=== PATIENT | female | born 1955 | race Caucasian/White ===

== ENCOUNTER 2019-12-19 14:51 | Outpatient (CLI) | payer BC, SELFPAY ==
--- NOTE | 2019-12-19 14:59 | MM_ITS ---
WS: [id number] BILATERAL DIGITAL SCREENING MAMMOGRAPHY WITH CAD CLINICAL INFORMATION: SCREENING HISTORY: Screening mammogram. No current complaints. COMPARISON: TECHNIQUE: Bilateral CC and MLO views. FINDINGS: Scattered fibroglandular densities bilaterally. Stable 5 mm asymmetric density upper outer right [address]. This is stable since 2014. No suspicious focal mass, asymmetry, calcifications, or architectural distortion. No evidence of malignancy. MM/[place] [id number] IMPRESSION: BI-RADS: 2-Benign FOLLOW UP: 1 Year Follow-up Recommend return to annual screening mammography.
== END 2019-12-19 14:52 | disposition home or self-care (01) ==
LOC: RADSHAW 14:55
PROVIDERS: Family Provider Internal Medicine; PCP Internal Medicine; Visit Provider Internal Medicine
DX: Z12.31 Encounter for screening mammogram for malignant neoplasm of breast (principal)
CPT/HCPCS: 77067

== ENCOUNTER 2019-12-19 15:31 | Outpatient (CLI) | payer BC, SELFPAY ==
--- NOTE | 2019-12-19 15:39 | XR_ITS ---
WS: [id number] DEXA (DUAL ENERGY X-RAY ABSORPTIOMETRY) Bone mineral density was performed using a [employer] machine. HISTORY: ASYMPTOMATIC POSTMENOPAUSAL STATUS COMPARISON: None available. Lumbar spine BMD (L1-L4): 1.120 g/cm2 T score: -0.5 Z score: 1.1 Total hip BMD: Left: 0.823 g/cm2. T score: -1.5 Z score: -0.2 Right: 0.789 g/cm2. T score: -1.7 Z score: -0.5 10 year probability of a major osteoporotic fracture is 20%. XR/XR DEXA axial skeleton* [id number] IMPRESSION: OSTEOPENIA based upon the WHO classification for females.
== END 2019-12-19 15:32 | disposition home or self-care (01) ==
LOC: RADWPI 15:35
PROVIDERS: Family Provider Internal Medicine; PCP Internal Medicine; Visit Provider Internal Medicine
DX: Z78.0 Asymptomatic menopausal state (principal); M85.80 Other specified disorders of bone density and structure, unspecified site
CPT/HCPCS: 77080

== ENCOUNTER → 2020-04-11 12:01 | Outpatient (BNVA) | payer BC, SELFPAY | PROVIDERS: Family Provider Internal Medicine; PCP Internal Medicine; Visit Provider Internal Medicine Rheumatology | DX: L93.0 Discoid lupus erythematosus (principal); L93.2 Other local lupus erythematosus; R76.8 Other specified abnormal immunological findings in serum; Z79.899 Other long term (current) drug therapy; S05.92XD Unspecified injury of left eye and orbit, subsequent encounter; M19.91 Primary osteoarthritis, unspecified site; X58.XXXD Exposure to other specified factors, subsequent encounter | CPT/HCPCS: 99214 ==

== ENCOUNTER → 2020-10-14 11:00 | Outpatient (BNVA) | payer BC, MEDICARE, SELFPAY | PROVIDERS: Family Provider Internal Medicine; PCP Internal Medicine; Visit Provider Internal Medicine Rheumatology | DX: L93.2 Other local lupus erythematosus (principal); R76.8 Other specified abnormal immunological findings in serum; M19.91 Primary osteoarthritis, unspecified site; S05.92XS Unspecified injury of left eye and orbit, sequela; L93.0 Discoid lupus erythematosus | CPT/HCPCS: 99213 ==

== ENCOUNTER 2020-12-25 08:44 | Outpatient (CLI) | payer BC, SELFPAY ==
--- NOTE | 2020-12-25 08:49 | MM_ITS ---
WS: [id number] BILATERAL SCREENING DIGITAL MAMMOGRAM WITH CAD HISTORY: SCREENING COMPARISON: 12/19/2019 and 11/23/2018 Bilateral CC and MLO views submitted. Computer aided detection analyzed. Breast composition: There are scattered areas of fibroglandular density. No suspicious masses, microc alcifications or architectural distortion. No suspicious masses or calcifications. Asymmetry in the R IGHT breast seen on the prior mammogram of 12/19/2019 has nearly completely resolved. MM/[place] [id number] IMPRESSION: BI-RADS: 2-Benign FOLLOW UP: 1 Year Follow-up
== END 2020-12-25 08:45 | disposition home or self-care (01) ==
LOC: RADSHAW 08:46
PROVIDERS: PCP Internal Medicine; Visit Provider Internal Medicine
DX: Z12.31 Encounter for screening mammogram for malignant neoplasm of breast (principal)
CPT/HCPCS: 77067

== ENCOUNTER 2021-01-13 08:30 | Outpatient (CLI) | payer BC, SELFPAY ==
--- NOTE | 2021-01-13 08:33 | US_ITS ---
WS: [id number] ULTRASOUND THYROID TECHNIQUE: Ultrasound of the thyroid. CLINICAL INFORMATION: HYPOTHYROIDISM COMPARISON: None. FINDINGS: Thyroid: Right and left thyroid lobes are normal in size with heterogeneous echotexture Multiple solid right thyroid nodules the largest measuring 9.6 x 9.5 x 7.5 mm is well circumscribed w ith hypoechoic halo. Additional ovoid solid nodule measuring 13 x 5 x 10 mm. Subcentimeter calcified nodule. No dominant left thyroid nodules. Right thyroid lobe: 4.2 cm x 1.5 cm x 1.9 cm Left thyroid lobe: 4.0 cm x 1.3 cm x 1.5 cm. Isthmus: 0.3 mm. Cervical lymphadenopathy: None. US/US thyroid [id number] IMPRESSION: 1. Heterogeneous thyroid echotexture bilaterally. 2. Several right-sided nodules the 2 largest described above. 3. 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 Recommend further evaluation with FNA. 4. No notable left thyroid nodules.
== END 2021-01-13 08:31 | disposition home or self-care (01) ==
LOC: US 08:30
PROVIDERS: PCP Internal Medicine; Visit Provider Internal Medicine
DX: E03.9 Hypothyroidism, unspecified (principal); E04.2 Nontoxic multinodular goiter
CPT/HCPCS: 76536

== ENCOUNTER → 2021-04-29 15:31 | Outpatient (BNVA) | payer MEDICARE, SELFPAY | PROVIDERS: PCP Internal Medicine; Visit Provider Internal Medicine Rheumatology | DX: L93.2 Other local lupus erythematosus (principal); L93.0 Discoid lupus erythematosus; M19.91 Primary osteoarthritis, unspecified site; S05.92XD Unspecified injury of left eye and orbit, subsequent encounter; Y93.9 Activity, unspecified | CPT/HCPCS: 99214 ==

== ENCOUNTER 2021-10-15 11:06 | Emergency (ER) | payer MEDICARE, SELFPAY ==
[2021-10-15 11:18] VITALS: BP 197/95; PULSE 77; RESP 16; TEMP 36.9; O2SAT 98
--- NOTE | 2021-10-15 11:25 | W.ED.GENADLT ---
HPI - General Adult General: Chief complaint: General Medical Stated complaint: HTN: SENT BY DR GARCIA Time Seen by Provider: 10/15/21 11:23 History of Present Illness: HPI narrative: CC: Elevated BP HPI: [66]yo patient w/ x SLE well controlled presenting to the ED with complaints that his BP is not well controlled. Patient had a blood pressure reading of 205/104 and was told to go the ER. However, the patient noticed today BP is uncontrolled. Denies chest pain, SOB, palpitation, N/V/D, pain radiating to the shoulder, headache, vision changes, LOC, or focal neurological deficits. Patient also denies light-headedness, syncope, vertigo abdominal pain, back pain. Tolerating PO meds without issues. Of note patient reported intermittent palpitations over the last 3 weeks. Currently no complaints of palpitations. Onset: 3 day Duration: ongoing Location: home Severity: mild Review of Systems Narrative: Constitutional: No fever, no chills. HEENT: No vision changes CV: No chest pain, +occcasional palpitations last 3 weeks PULM: No cough, no dyspnea. GI: No abdominal pain, no N/V/D. : No dysuria MSKEL: No edema SKIN: No new rashes, no lesions. NEURO: No headache, no focal weakness. 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 Surgical History H/O dilation and curettage H/O eye surgery 1955 H/O lumpectomy benign H/O: hysterectomy Family History Mother Hyperlipidemia Hypertension Sister Breast cancer late 30's Father Lung cancer Denies family history of Colon cancer Ovarian cancer Diabetes CAD (coronary artery disease) Clotting disorder Heart disease Anesthesia complication Bleeding disorder Uterine cancer Thyroid condition Stroke Social History Smoking and tobacco status: never smoked Alcohol intake: never Lives independently: No Marital status: Number of children: 2 Physical Exam Narrative: EXAM NARRATIVE: Head: Atraumatic Eyes: PERRL, conjunctiva without injection, ENT: Dry membrane moist NECK: Supple without lymphadenopathy LUNGS: LCTAB CV: RRR ABDOMEN: Soft, nontender EXTREMITY: Normal ROM, No track craven, moderate tremulous movements in the UE SKIN: No rash or erythema, no visible patches, no noticeable cellulitis NEURO: Mental status? Awake, alert, and oriented to self, year, month, location, and situation.? Following simple axial and appendicular commands.? Has appropriate fund of knowledge, comprehension, and insight.? Able to recall and understands pertinent aspects of medical history and current treatment status.? ? Language? Speech is fluent without word-finding difficulties.? Intact naming, expression, medical records receptionist, and repetition.? ? Cranial nerves? 2,3,4,6: PERRL, EOMI with no nystagmus. 5: Intact sensation to light touch, symmetric? 7: Smile symmetrical, no facial droop.? 8: Hearing grossly intact.? 9,10: Normal palate movement.? 11: Normal strength in trapezius bilaterally 12: Tongue protrudes midline.? ? Motor examination? Normal bulk & tone. Strength as follows (R/L): Delts (5/5), Biceps (5/5), Triceps (5/5), Wrist ext (5/5), hip flexors (5/5), plantarflexors (5/5), dorsiflexors (5/5). ? Sensation? Light Touch: Grossly intact and equal in upper and lower extremities bilaterally? Romberg: Negative.? Distal joint position sense intact ? Coordination? Oymgdp-kt-pgxd-finger movements intact without dysmetria or past-pointing.? Rapid fingertaps: preserved amplitude without decriment.? No tremor, myoclonus or truncal ataxia.? ? Gait/stance? Steady, normal narrow base gait with appropriate arm swing and turning.? Tandem gait without hesitation or loss of balance. PSYCH: Cooperative with exam Course Vital Signs: Vital signs: Vital Signs Temperature 98.5 F 10/15/21 11:18 Pulse Rate 79 10/15/21 14:15 Respiratory Rate 17 10/15/21 14:15 Blood Pressure 156/68 10/15/21 14:15 Pulse Oximetry 99 10/15/21 14:15 MDM - General Adult MDM Narrative: Medical decision making narrative: [66]yo patient w/ hx of SLE presenting to the ED with high BP readings x 1 day without other medical complaints. BP in the ED of 197/105. Rest of exam including full neuro exam intact. Given presentation, history and exam, I do not suspect aortic dissection, hypertensive encephalopathy, intracranial hemorrhage, ACS, TIA/CVA, flash pulmonary edema. Intervention: Amlodipine 5mg [1:15pm] On reassessment, BP improved. Patient continues to be symptom-free at this time. Do not suspect an emergent cause. Discussed with the patient the importance of logging BPs and following up with his PCP for adjustment of BP if BP continues to be persistently high. Given return instructions. Given palpitations, EKG was performed which showed no signs of afib. Rx: Amlodipine 5mg QDaily x 7 days Based on history, exam, vital signs, and work up (as indicated) I do not suspect an ongoing emergent medical condition, and I believe the patient is safe for discharge and outpatient follow-up. The plan of care was discussed with the patient and all questions were answered. The patient agrees with the plan of care and is discharged in stable condition with verbal and written instructions, and verbalized understanding and ability to comply. I discussed the diagnosis and treatment plan at length with the patient. The patient understands signs and symptoms (including those which are new or worsening) which should prompt return to the ED. The patient is to seek prompt outpatient follow-up as noted verbally and/or in the discharge instructions. At the time of discharge the patient is well-appearing, well-hydrated, non-toxic, and assures appropriate follow-up as an outpatient. Lab Data: Labs: Lab Results 10/15/21 10/15/21 12:03 12:03 WBC 4.5 10^3/uL 10^3/ uL (4.0-10.0) RBC 4.14 10^6/uL 10^6 /uL (4.1-5.3) Hgb 12.7 g/dL g/dL (11.5-15.3) Hct 38.8 % % (37.0-47.0) MCV 93.7 fl fl (81-99) MCH 30.7 pg pg (28.0-34.0) MCHC 32.7 g/dL g/dL (30.0-36.0) RDW 13.6 % % (12.1-15.1) Plt Count 259 10^3/cmm 10^3 /cmm (130-400) MPV 9.0 fL fL (7.4-10.4) Neut % (Auto) 69.3 % % Lymph % (Auto) 17.7 % % [place]ides % (Auto) 10.6 % % Eos % (Auto) 1.8 % % Baso % (Auto) 0.2 % % Neut # (Auto) 3.12 10^3/uL 10^3 /uL (1.8-7.7) Lymph # (Auto) 0.8 10^3/uL 10^3/ uL (0.8-4.8) [place] # (Auto) 0.5 10^3/uL 10^3/ uL (0.2-0.9) Eos # (Auto) 0.1 10^3/uL 10^3/ uL (0.0-0.8) Baso # (Auto) 0.0 10^3/uL 10^3/ uL (0.0-0.1) Nucleated RBC % (a uto) 0 % % Nucleated RBCs # 0.0 /100WBC /100W BC Sodium 139 mmol/L mmol/L (136-145) Potassium 3.8 mmol/L mmol/L (3.5-5.1) Chloride 104 mmol/L mmol/L (98-107) Carbon Dioxide 20 mmol/L L mmol/ L (22-29) Anion Gap 18.8 (5-19) BUN 10 mg/dL mg/dL (8-23) Creatinine 0.7 mg/dL mg/dL (0.5-0.9) GFR Calculation 83.2 mL/min L mL/ min (90-130) Glucose 95 mg/dL mg/dL (65-115) Calculated Osmolal ity 287 mOsm/kg mOsm/ kg (285-295) Calcium 8.7 mg/dL mg/dL (8.5-10.5) Discharge Plan Discharge Patient Disposition: Home Clinical Impression: Hypertension Condition: Stable Prescriptions: New amlodipine 5 mg tablet 5 mg PO DAILY Qty: 10 RF: 0 No Action pantoprazole 40 mg tablet,delayed release (DR/EC) 40 mg PO DAILY RF: 0 timolol maleate 0.25 % drops 1 drop ophthalmic (eye) DAILY RF: 0 cholecalciferol (vitamin D3) 25 mcg (1,000 unit) capsule 25 mcg PO DAILY RF: 0 clobetasol 0.025 % cream 1 applic TOPICAL BID PRN (Reason: joint pain) Qty: 60 RF: 0 prednisone 10 mg tablet See Rx Instructions PO .COMPLEX PRN (Reason: joint pain) Qty: 30 RF: 1 Discharge Orders: Discharge ED (Routine); Ordered 10/15/21 Ordered By: Niurka Acuña Referrals: Ora Garcia MD [Primary Care Provider] - Discharge Diet: Advance as tolerated Discharge Activity: Resume usual activity Patient Instructions: Hypertension (ED) Activity Restrictions/Additional Instructions: You need to follow-up with your primary care provider for further adjustment of your blood pressure. Your blood pressure puts you at risk for developing strokes and heart attack. Therefore it is very important for you to follow-up with this number to see if the numbers improve gradually. Because blood pressure adjustment is a gradual process, it swill change it in 1 visit. Therefore please log your blood pressure and follow-up with your primary care provider in the next 72 hours for further adjustment of your blood pressures. Take your medicine as instructed. Coding Level of Care Code ED Plastic Fabricator for Lisa Peace
[2021-10-15] MEDS: amlodipine 5 mg Tablet PO (12:10)
[2021-10-15 12:11] VITALS: BP 190/90; PULSE 81; RESP 17; O2SAT 94
[2021-10-15 12:23] LABS: Basophils % 0.2 %; Eosinophils # 0.1 10^3/uL (0.0-0.8); Eosinophils % 1.8 %; Hematocrit 38.8 % (37.0-47.0); Hemoglobin 12.7 g/dL (11.5-15.3); Lymphocytes # 0.8 10^3/uL (0.8-4.8); Lymphocytes % 17.7 %; Mean Corpuscular HGB Conc 32.7 g/dL (30.0-36.0); Mean Corpuscular Hemoglobin 30.7 pg (28.0-34.0); Mean Corpuscular Volume 93.7 fl (81-99); Monocytes # 0.5 10^3/uL (0.2-0.9); Monocytes % 10.6 %; Neutrophils # 3.12 10^3/uL (1.8-7.7); Neutrophils % 69.3 %; Nucleated Red Blood Cells % 0 %; Platelet Count 259 10^3/cmm (130-400); Red Blood Count 4.14 10^6/uL (4.1-5.3); Red Cell Distribution Width 13.6 % (12.1-15.1); White Blood Count 4.5 10^3/uL (4.0-10.0)
--- NOTE | 2021-10-15 12:36 | ECG_ITS ---
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
[2021-10-15 12:44] LABS: Anion Gap 18.8 (5-19); Blood Urea Nitrogen 10 mg/dL (8-23); Calcium 8.7 mg/dL (8.5-10.5); Carbon Dioxide 20 mmol/L (22-29); Chloride 104 mmol/L (98-107); Glomerular Filtration Rate 83.2 mL/min (90-130); Glucose 95 mg/dL (65-115); Osmolality Calculated 287 mOsm/kg (285-295); Potassium 3.8 mmol/L (3.5-5.1); Sodium 139 mmol/L (136-145)
[2021-10-15 12:54] VITALS: BP 169/71
[2021-10-15 14:15] VITALS: BP 156/68; PULSE 79; RESP 17; O2SAT 99
== END 2021-10-15 14:17 | disposition home or self-care (01) ==
PROVIDERS: Emergency Provider Emergency Medicine; PCP Internal Medicine
DX: I10 Essential (primary) hypertension (principal); M32.9 Systemic lupus erythematosus, unspecified
CPT/HCPCS: 80048; 85025; 93005; 99283

== ENCOUNTER 2021-10-16 22:04 | Emergency (ER) | payer MEDICARE, SELFPAY ==
[2021-10-16 22:15] VITALS: BP 188/100; PULSE 83; RESP 16; TEMP 36.2; O2SAT 99
--- NOTE | 2021-10-16 22:59 | ECG_ITS ---
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1955 Requested By: Thuan Singh Order Number: [id number] Reading MD: ANASTASIA PALACIOS Measurements Intervals [place] Rate: 114 P: [place]: QRS: 75 QRSD: 88 T: 48 QT: 327 QTc: 452 Interpretive Statements ATRIAL FIBRILLATION WITH RAPID VENTRICULAR RESPONSE NONSPECIFIC ST & T-WAVE ABNORMALITY ABNORMAL RHYTHM ECG Compared to ECG 10/15/2021 13:23:32 T-wave abnormality now present Sinus rhythm no longer present Ventricular premature complex(es) no longer present Electronically Signed On 10-18-2021 19:59:14 SIMULATION DEVELOPER by ANASTASIA PALACIOS [id number]
--- NOTE | 2021-10-16 22:59 | XRR_ITS ---
PROCEDURE INFORMATION: Exam: XR Chest Exam date and time: 10/16/2021 10:59 PM Age: 66 years old Clinical indication: Chest wall pain; Additional info: Cp TECHNIQUE: Imaging protocol: XR of the chest. Views: 1 view. COMPARISON: CR Chest 1 [place] [id number] 07/23/2015 11:05 AM FINDINGS: Lungs: Moderate severity emphysema. No focal airspace consolidation. Mild hyperinflation pattern. Pleural spaces: Unremarkable. No pleural effusion. No pneumothorax. Heart/Mediastinum: Unremarkable. No cardiomegaly. Bones/joints: Unremarkable. XR/XR chest 1V portable [id number] IMPRESSION: No acute chest abnormality identified.
--- NOTE | 2021-10-16 23:09 | ED_ITS ---
Documented by User: APPLE Gonzalez 10/17/21 01:38 HPI - Chest Pain General: Chief Complaint: Chest Pain Stated Complaint: Heart Palpatations\Blood Pressure Time Seen by Provider: 10/16/21 22:57 History of Present Illness: HPI narrative: Patient relates that her blood pressure is doing well throughout the day and then should her heart start racing and she checked her heart be got up to 140 beats a minute she checked it 3-4 ti mes and it was between 120-140. Doing much better now. Blood pressure readings were good. Patient says she is going to a lot of stress and anxiety also in her life right now. Denies any recent health problems. Says she does feel short of breath sometimes was happen once but she denies any chest pain chest heaviness. No history of hypertension prior to last night. Onset (ago): hour(s) Timing of current episode: episodic Prior episodes: No Onset: during rest Associated symptoms: Reports no associated symptoms and palpitations; Deny abdominal pain, dyspnea, fever(s), nausea or vomiting Treatment prior to arrival: none Review of Systems Const: Denies: fever(s), chills or body aches Eyes: Denies: change in vision or blurry vision ENMT: Denies: throat pain or nasal congestion Card: Reports: palpitations; Denies: chest pain or dyspnea on exertion Resp: Denies: dyspnea, productive cough or non-productive cough GI: Denies: abdominal pain, nausea or vomiting Musc: Denies: extremity pain Skin/Breast: Denies: rash Neuro: Denies: headache(s) Psych: Denies: anxiety or depression Loki/Lymph: Denies: easy bruising PFSH ED PFSH: Medical History Cutaneous lupus erythematosus Discoid lupus erythematosus Medication monitoring encounter Osteoarthritis Systemic lupus erythematosus, unspecified 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 Surgical History H/O dilation and curettage H/O eye surgery 1955 H/O lumpectomy benign H/O: hysterectomy Family History Mother Hyperlipidemia Hypertension Sister Breast cancer late 30's Father Lung cancer Denies family history of Colon cancer Ovarian cancer Diabetes CAD (coronary artery disease) Clotting disorder Heart disease Anesthesia complication Bleeding disorder Uterine cancer Thyroid condition Stroke Social History Smoking and tobacco status: never smoked Alcohol intake: never Lives independently: No Marital status: Number of children: 2 Physical Exam Const: COMMON NORMALS: no acute distress, average body habitus and patient oriented x3 HENMT: COMMON NORMALS: normocephalic HEAD & SCALP: normal to inspection and normocephalic FACE & SINUS: normal facial exam Eye: COMMON NORMALS: conjunctivae normal GENERAL EYE: appearance normal, both eyes and all related structures CONJUNCTIVA: Yes conjunctivae normal Neck/C-Spine: COMMON NORMALS: no JVD Chest: COMMONS NORMALS: normal inspection of the chest Resp: COMMON NORMALS: normal respiratory effort and clear to auscultation bilaterally AUSCULTATION: clear to auscultation bilaterally Cardio: COMMON NORMALS: no JVD, regular rate and regular rhythm RATE: regular rate RHYTHM: regular rhythm GI: COMMON NORMALS: Normal to inspection, nondistended, normoactive bowel sounds present Extremity: COMMON NORMALS: normal to inspection and full ROM Neuro: COMMON NORMALS: patient oriented x3 Course Vital Signs: Vital signs: Vital Signs Temperature 97.1 F L 10/16/21 22:15 Pulse Rate 88 10/17/21 00:42 Respiratory Rate 18 10/17/21 00:42 Blood Pressure 133/78 10/17/21 00:42 Pulse Oximetry 98 10/17/21 00:42 MDM - Chest Pain MDM Narrative: Medical decision making narrative: Patient presents tonight with palpitations. Heart rate got up to 140 bpm at home and was in in 120s 130s and 110s at times. Blood pressure been doing good throughout the day. Yellow bit higher tonight patient comes in because of palpations. Patient denies chest pressure heaviness. Patient had 3 EKGs done here 1 did show atrial fib. Patient's heart rate did get up to 112 bpm. Labs done tonight compared with last night's show consistency with troponin not been elevated. Patient was placed on metoprolol 50 mg extended release. Patient was also given lisinopril 10 mg here. Patient's amlodipine was stopped. Patient does have appointment scheduled with her PCP on Tuesday. Patient was also given aspirin total continue daily aspirin take medication as directed . case was discussed with Dr. Archuleta, patient diagnosed with new onset A. fib Lab Data: Labs: Lab Results 10/16/21 10/16/21 10/16/21 23:40 23:40 23:40 WBC 6.6 10^3/uL 10^3/ uL (4.0-10.0) RBC 3.97 10^6/uL L 10 ^6/uL (4.1-5.3) Hgb 12.4 g/dL g/dL (11.5-15.3) Hct 37.0 % % (37.0-47.0) MCV 93.2 fl fl (81-99) MCH 31.2 pg pg (28.0-34.0) MCHC 33.5 g/dL g/dL (30.0-36.0) RDW 13.7 % % (12.1-15.1) Plt Count 253 10^3/cmm 10^3 /cmm (130-400) MPV 9.1 fL fL (7.4-10.4) Neut % (Auto) 66.4 % % Lymph % (Auto) 17.6 % % [place] % (Auto) 13.4 % % Eos % (Auto) 2.1 % % Baso % (Auto) 0.2 % % Neut # (Auto) 4.40 10^3/uL 10^3 /uL (1.8-7.7) Lymph # (Auto) 1.2 10^3/uL 10^3/ uL (0.8-4.8) [place] # (Auto) 0.9 10^3/uL 10^3/ uL (0.2-0.9) Eos # (Auto) 0.1 10^3/uL 10^3/ uL (0.0-0.8) Baso # (Auto) 0.0 10^3/uL 10^3/ uL (0.0-0.1) Nucleated RBC % (a uto) 0 % % Nucleated RBCs # 0.0 /100WBC /100W BC PT INR Sodium 140 mmol/L mmol/L (136-145) Potassium 3.7 mmol/L mmol/L (3.5-5.1) Chloride 106 mmol/L mmol/L (98-107) Carbon Dioxide 18 mmol/L L mmol/ L (22-29) Anion Gap 19.7 H (5-19) BUN 11 mg/dL mg/dL (8-23) Creatinine 0.7 mg/dL mg/dL (0.5-0.9) GFR Calculation 83.2 mL/min L mL/ min (90-130) Glucose 113 mg/dL mg/dL (65-115) Calculated Osmolal ity 290 mOsm/kg mOsm/ kg (285-295) Calcium 8.7 mg/dL mg/dL (8.5-10.5) Total Bilirubin 0.2 mg/dL mg/dL (0.15-1.2) AST 18 U/L U/L (0-32) ALT 9 U/L U/L (0-33) Alkaline Phosphata se 87 IU/L IU/L (35-105) Troponin T Baselin e 9 ng/L ng/L (0-10) Total Protein 7.6 g/dL g/dL (6.6-8.7) Albumin 4.2 g/dL g/dL (3.5-5.2) Globulin 3.4 g/dL g/dL (1.3-4.6) 10/17/21 00:05 WBC RBC Hgb Hct MCV MCH MCHC RDW Plt Count MPV Neut % (Auto) Lymph % (Auto) [place] % (Auto) Eos % (Auto) Baso % (Auto) Neut # (Auto) Lymph # (Auto) [place] # (Auto) Eos # (Auto) Baso # (Auto) Nucleated RBC % (a uto) Nucleated RBCs # PT 12.50 SECONDS SEC ONDS (12.1-14.9) INR 0.91 (0.8-1.2) Sodium Potassium Chloride Carbon Dioxide Anion Gap BUN Creatinine GFR Calculation Glucose Calculated Osmolal ity Calcium Total Bilirubin AST ALT Alkaline Phosphata se Troponin T Baselin e Total Protein Albumin Globulin EKG Data^: EKG 2: EKG interpretation date: 10/16/21 EKG interpretation time: 23:30 Computer generated interpretation: A. fib with rapid ventricular response. Ventricular rate 114 bpm no LA interval obviously QRS duration 88 ms QT is 327 ms Discharge Plan Discharge Patient Disposition: Home Clinical Impression: Atrial fibrillation, new onset, Situational anxiety Condition: Stable Prescriptions: New Toprol XL 50 mg tablet extended release 24 hr 50 mg PO DAILY Qty: 20 RF: 0 Xanax 0.25 mg tablet 0.125 mg PO TID PRN (Reason: anxiety) Qty: 20 RF: 0 Discontinued amlodipine 5 mg tablet 5 mg PO DAILY Qty: 10 RF: 0 No Action pantoprazole 40 mg tablet,delayed release (DR/EC) 40 mg PO DAILY RF: 0 timolol maleate 0.25 % drops 1 drop ophthalmic (eye) DAILY RF: 0 cholecalciferol (vitamin D3) 25 mcg (1,000 unit) capsule 25 mcg PO DAILY RF: 0 clobetasol 0.025 % cream 1 applic TOPICAL BID PRN (Reason: joint pain) Qty: 60 RF: 0 prednisone 10 mg tablet See Rx Instructions PO .COMPLEX PRN (Reason: joint pain) Qty: 30 RF: 1 Discharge Orders: Discharge ED (Routine); Ordered 10/17/21 Ordered By: Thuan Singh Referrals: Ora Ricks MD [Primary Care Provider] - Discharge Diet: Usual diet Discharge Activity: Increase activity as tolerated Patient Instructions: A-fib (Atrial Fibrillation) (ED), Anxiety (ED) Activity Restrictions/Additional Instructions: Follow-up with medical provider as directed. Take medications as prescribed. Return to the ER or your medical provider if condition worsens. Please read and understand discharge instructions. If any questions ask please. Keep medical appointment on Tuesday. Check blood pressure twice daily. Return the ER if symptoms worsen. Make sure you take 1 full dose aspirin daily. 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 Surgical History H/O dilation and curettage H/O eye surgery 1955 H/O lumpectomy benign H/O: hysterectomy Family History Mother Hyperlipidemia Hypertension Sister Breast cancer late 30's Father Lung cancer Denies family history of Colon cancer Ovarian cancer Diabetes CAD (coronary artery disease) Clotting disorder Heart disease Anesthesia complication Bleeding disorder Uterine cancer Thyroid condition Stroke Social History Smoking and tobacco status: never smoked Alcohol intake: never Lives independently: No Marital status: Number of children: 2 Course Vital Signs: Vital signs: Vital Signs Temperature 97.1 F L 10/16/21 22:15 Pulse Rate 88 10/17/21 00:42 Respiratory Rate 18 10/17/21 00:42 Blood Pressure 133/78 10/17/21 00:42 Pulse Oximetry 98 10/17/21 00:42 MDM - Chest Pain MDM Narrative: Medical decision making narrative: This patient was originally seen by APPLE Gonzalez. I agree with his history, evaluation, and treatment. Lab Data: Labs: Lab Results 10/16/21 10/16/21 10/16/21 23:40 23:40 23:40 WBC 6.6 10^3/uL 10^3/ uL (4.0-10.0) RBC 3.97 10^6/uL L 10 ^6/uL (4.1-5.3) Hgb 12.4 g/dL g/dL (11.5-15.3) Hct 37.0 % % (37.0-47.0) MCV 93.2 fl fl (81-99) MCH 31.2 pg pg (28.0-34.0) MCHC 33.5 g/dL g/dL (30.0-36.0) RDW 13.7 % % (12.1-15.1) Plt Count 253 10^3/cmm 10^3 /cmm (130-400) MPV 9.1 fL fL (7.4-10.4) Neut % (Auto) 66.4 % % Lymph % (Auto) 17.6 % % [place] % (Auto) 13.4 % % Eos % (Auto) 2.1 % % Baso % (Auto) 0.2 % % Neut # (Auto) 4.40 10^3/uL 10^3 /uL (1.8-7.7) Lymph # (Auto) 1.2 10^3/uL 10^3/ uL (0.8-4.8) [place] # (Auto) 0.9 10^3/uL 10^3/ uL (0.2-0.9) Eos # (Auto) 0.1 10^3/uL 10^3/ uL (0.0-0.8) Baso # (Auto) 0.0 10^3/uL 10^3/ uL (0.0-0.1) Nucleated RBC % (a uto) 0 % % Nucleated RBCs # 0.0 /100WBC /100W BC PT INR Sodium 140 mmol/L mmol/L (136-145) Potassium 3.7 mmol/L mmol/L (3.5-5.1) Chloride 106 mmol/L mmol/L (98-107) Carbon Dioxide 18 mmol/L L mmol/ L (22-29) Anion Gap 19.7 H (5-19) BUN 11 mg/dL mg/dL (8-23) Creatinine 0.7 mg/dL mg/dL (0.5-0.9) GFR Calculation 83.2 mL/min L mL/ min (90-130) Glucose 113 mg/dL mg/dL (65-115) Calculated Osmolal ity 290 mOsm/kg mOsm/ kg (285-295) Calcium 8.7 mg/dL mg/dL (8.5-10.5) Total Bilirubin 0.2 mg/dL mg/dL (0.15-1.2) AST 18 U/L U/L (0-32) ALT 9 U/L U/L (0-33) Alkaline Phosphata se 87 IU/L IU/L (35-105) Troponin T Baselin e 9 ng/L ng/L (0-10) Total Protein 7.6 g/dL g/dL (6.6-8.7) Albumin 4.2 g/dL g/dL (3.5-5.2) Globulin 3.4 g/dL g/dL (1.3-4.6) 10/17/21 00:05 WBC RBC Hgb Hct MCV MCH MCHC RDW Plt Count MPV Neut % (Auto) Lymph % (Auto) [place] % (Auto) Eos % (Auto) Baso % (Auto) Neut # (Auto) Lymph # (Auto) [place] # (Auto) Eos # (Auto) Baso # (Auto) Nucleated RBC % (a uto) Nucleated RBCs # PT 12.50 SECONDS SEC ONDS (12.1-14.9) INR 0.91 (0.8-1.2) Sodium Potassium Chloride Carbon Dioxide Anion Gap BUN Creatinine GFR Calculation Glucose Calculated Osmolal ity Calcium Total Bilirubin AST ALT Alkaline Phosphata se Troponin T Baselin e Total Protein Albumin Globulin Discharge Plan Discharge Patient Disposition: Home Clinical Impression: Atrial fibrillation, new onset, Situational anxiety Condition: Stable Prescriptions: New Toprol XL 50 mg tablet extended release 24 hr 50 mg PO DAILY Qty: 20 RF: 0 Xanax 0.25 mg tablet 0.125 mg PO TID PRN (Reason: anxiety) Qty: 20 RF: 0 Discontinued amlodipine 5 mg tablet 5 mg PO DAILY Qty: 10 RF: 0 No Action pantoprazole 40 mg tablet,delayed release (DR/EC) 40 mg PO DAILY RF: 0 timolol maleate 0.25 % drops 1 drop ophthalmic (eye) DAILY RF: 0 cholecalciferol (vitamin D3) 25 mcg (1,000 unit) capsule 25 mcg PO DAILY RF: 0 clobetasol 0.025 % cream 1 applic TOPICAL BID PRN (Reason: joint pain) Qty: 60 RF: 0 prednisone 10 mg tablet See Rx Instructions PO .COMPLEX PRN (Reason: joint pain) Qty: 30 RF: 1 Discharge Orders: Discharge ED (Routine); Ordered 10/17/21 Ordered By: Thuan Singh Referrals: Ora Ricks MD [Primary Care Provider] - Discharge Diet: Usual diet Discharge Activity: Increase activity as tolerated Patient Instructions: A-fib (Atrial Fibrillation) (ED), Anxiety (ED) Activity Restrictions/Additional Instructions: Follow-up with medical provider as directed. Take medications as prescribed. Return to the ER or your medical provider if condition worsens. Please read and understand discharge instructions. If any questions ask please. Keep medical appointment on Tuesday. Check blood pressure twice daily. Return the ER if symptoms worsen. Make sure you take 1 full dose aspirin daily. Coding Level of Care Code ED Ostomy Rn for Lisa Peace Exam Comprehensive
[2021-10-16] MEDS: lisinopril 10 mg Tablet PO (23:30)
[2021-10-16] MEDS: ALPRAZolam 0.5 mg Tablet PO (23:30)
[2021-10-16 23:48] LABS: Basophils % 0.2 %; Eosinophils # 0.1 10^3/uL (0.0-0.8); Eosinophils % 2.1 %; Hemoglobin 12.4 g/dL (11.5-15.3); Lymphocytes # 1.2 10^3/uL (0.8-4.8); Lymphocytes % 17.6 %; Mean Corpuscular HGB Conc 33.5 g/dL (30.0-36.0); Mean Corpuscular Hemoglobin 31.2 pg (28.0-34.0); Mean Corpuscular Volume 93.2 fl (81-99); Mean Platelet Volume 9.1 fL (7.4-10.4); Monocytes # 0.9 10^3/uL (0.2-0.9); Monocytes % 13.4 %; Neutrophils % 66.4 %; Nucleated Red Blood Cells % 0 %; Platelet Count 253 10^3/cmm (130-400); Red Blood Count 3.97 10^6/uL (4.1-5.3); Red Cell Distribution Width 13.7 % (12.1-15.1); White Blood Count 6.6 10^3/uL (4.0-10.0)
[2021-10-17 00:06] LABS: Troponin(5th) Baseline 9 ng/L (0-10)
[2021-10-17 00:07] LABS: Alanine Aminotransferase 9 U/L (0-33); Albumin Level 4.2 g/dL (3.5-5.2); Alkaline Phosphatase 87 IU/L (35-105); Aspartate Amino Transferase 18 U/L (0-32); Blood Urea Nitrogen 11 mg/dL (8-23); Calcium 8.7 mg/dL (8.5-10.5); Carbon Dioxide 18 mmol/L (22-29); Chloride 106 mmol/L (98-107); Globulin 3.4 g/dL (1.3-4.6); Glomerular Filtration Rate 83.2 mL/min (90-130); Glucose 113 mg/dL (65-115); Osmolality Calculated 290 mOsm/kg (285-295); Sodium 140 mmol/L (136-145); Total Bilirubin 0.2 mg/dL (0.15-1.2); Total Protein 7.6 g/dL (6.6-8.7)
[2021-10-17 00:08] LABS: Anion Gap 19.7 (5-19)
[2021-10-17 00:09] LABS: Potassium 3.7 mmol/L (3.5-5.1)
[2021-10-17 00:21] LABS: INR 0.91 (0.8-1.2)
[2021-10-17] MEDS: metoprolol succinate ER (24 HR) 50 mg Tablet PO (00:32)
[2021-10-17] MEDS: aspirin 325 mg Tablet PO (00:32)
[2021-10-17 00:42] VITALS: BP 133/78; PULSE 88; RESP 18; O2SAT 98
--- NOTE | 2021-10-17 00:59 | ECG_ITS ---
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
== END 2021-10-17 00:45 | disposition home or self-care (01) ==
PROVIDERS: Emergency Provider Nurse Practitioner Family; PCP Internal Medicine
DX: I48.91 Unspecified atrial fibrillation (principal); F43.22 Adjustment disorder with anxiety
CPT/HCPCS: 71045; 80053; 84484; 85025; 85610; 93005; 99283

== ENCOUNTER → 2021-11-25 11:08 | Outpatient (BNVA) | payer MEDICARE, SELFPAY | PROVIDERS: PCP Internal Medicine; Visit Provider Internal Medicine Rheumatology | DX: L93.0 Discoid lupus erythematosus (principal); L93.2 Other local lupus erythematosus; M15.9 Polyosteoarthritis, unspecified; Z79.899 Other long term (current) drug therapy; F51.04 Psychophysiologic insomnia | CPT/HCPCS: 99214 ==

== ENCOUNTER 2022-01-18 09:51 | Outpatient (CLI) | payer MEDICARE, SELFPAY ==
--- NOTE | 2022-01-18 10:03 | MM_ITS ---
WS: [id number] BILATERAL 3D TOMOSYNTHESIS DIGITAL SCREENING MAMMOGRAPHY WITH CAD CLINICAL INFORMATION: SCREENING HISTORY: Screening mammogram. No current complaints. COMPARISON: December 25, 2020 TECHNIQUE: Bilateral CC and MLO views. FINDINGS: Scattered fibroglandular densities bilaterally. Vascular calcification. 5 mm ovoid nodule upper outer RIGHT breast with a few punctate calcifications is stable compared to 2019 and 2014. LEFT breast is unchanged and unremarkable. A few incidental punctate calcifications LEFT breast. No o ther significant findings. MM/[id number] IMPRESSION: BI-RADS: 2-Benign FOLLOW UP: 1 Year Follow-up Recommend return to annual screening mammography.
== END 2022-01-18 09:52 | disposition home or self-care (01) ==
PROVIDERS: PCP Internal Medicine; Visit Provider Internal Medicine
DX: Z12.31 Encounter for screening mammogram for malignant neoplasm of breast (principal)
CPT/HCPCS: 77063; 77067

== ENCOUNTER 2022-01-20 06:09 | Outpatient (CLI) | payer MEDICARE, SELFPAY ==
--- NOTE | 2022-01-20 | USCV_ITS ---
Milvia Coyne Age: 66 Gender: F : 1955 Exam Date: 01/20/2022 06:40 Ordering Phys: Jaspreet Davis MD Technologist: Exam Location: [facility] [place] Indication: sob BP: 124 / 62 HR: Rhythm: Sinus Technical Quality: Adequate MEASUREMENTS (Male / Female) Normal Values 2D ECHO LV Diastolic Diameter PLAX 4.3 cm 4.2 - 5.9 / 3.9 - 5.3 cm LV Systolic Diameter PLAX 2.6 cm IVS Diastolic Thickness 0.9 cm 0.6 - 1.0 / 0.6 - 0.9 cm IVS Systolic Thickness 1.4 cm LVPW Diastolic Thickness 1.1 cm 0.6 - 1.0 / 0.6 - 0.9 cm LVPW Systolic Thickness 1.6 cm LVOT Diameter 2.1 cm LV Ejection Fraction 2D Teich 71.1 % LV Ejection Fraction MOD 2C 72.4 % LV Ejection Fraction 2C AL 76.0 % LA Diameter 3.6 cm LA Width 4.1 cm LA Height 4.8 cm Aorta at Sinotubular Diameter 2.6 cm M-MODE Aortic Annulus Diameter 2.7 cm LA Ao Ratio MM 1.5 MV E Point Septal Separation 0.7 cm DOPPLER AV Peak Velocity 138.0 cm/s LVOT Peak Velocity 93.0 cm/s AV Area Cont Eq vti 2.3 cm squared AV Area Cont Eq pk 2.3 cm squared MV Area PHT 4.8 cm squared Mitral E to A Ratio 1.5 MV E' Velocity 54.5 cm/s Mitral E to MV E' Ratio 7.7 Mitral E to LV E' Lateral Ratio 7.7 Mitral E to LV E' Septal Ratio 7.8 TR Peak Velocity 263.0 cm/s TR Peak Gradient 27.7 mmHg TV Peak E Velocity 105.0 cm/s Right Atrial Pressure 3.0 mmHg Pulmonary Artery Systolic Pressu 30.7 mmHg PV Peak Velocity 93.0 cm/s FINDINGS Left Ventricle Normal left ventricular size. LV systolic function is normal with EF of 55-60%. No regional wall motion abnormalities. Normal diastolic filling pattern. Right Ventricle The right ventricle is normal in size and function. Right Atrium The right atrium is normal in size. Normal RA pressure Left Atrium The left atrium is normal in size. Mitral Valve Structurally normal mitral valve without significant stenosis or prolapse. There is mild mitral regurgitation. Aortic Valve Structurally normal aortic valve without significant sclerosis or stenosis. There is no aortic regurgitation. Tricuspid Valve Structurally normal tricuspid valve without significant stenosis. Mild tricuspid regurgitation. Pulmonary artery systolic pressure is normal. Pulmonic Valve Structurally normal pulmonic valve without significant stenosis. There is no pulmonic regurgitation. Pericardium Normal pericardium without effusion. Aorta Normal ascending aorta dimension. CONCLUSIONS LV systolic function is normal with EF 55 to 60% Normal diastolic function. Mild mitral regurgitation. Mild tricuspid regurgitation. No comparison studies are noted. Akhil Hurt MD (Electronically Signed) Final Date: 21 January 2022 06:45 S
== END 2022-01-20 06:10 | disposition home or self-care (01) ==
LOC: RAD 06:14
PROVIDERS: PCP Internal Medicine; Visit Provider Internal Medicine Cardiovascular Disease
DX: R06.02 Shortness of breath (principal); I08.1 Rheumatic disorders of both mitral and tricuspid valves
CPT/HCPCS: 93306

== ENCOUNTER → 2022-05-25 10:37 | Outpatient (BNVA) | payer MEDICARE, SELFPAY | PROVIDERS: PCP Internal Medicine; Visit Provider Internal Medicine Rheumatology | DX: L93.0 Discoid lupus erythematosus (principal); M15.9 Polyosteoarthritis, unspecified; Z79.899 Other long term (current) drug therapy; F51.04 Psychophysiologic insomnia; H54.50 Low vision, one eye, unspecified eye; S05.92XS Unspecified injury of left eye and orbit, sequela | CPT/HCPCS: 99214 ==

== ENCOUNTER 2022-08-04 12:59 | Outpatient (CLI) | payer MEDICARE, SELFPAY ==
--- NOTE | 2022-08-04 13:14 | XRR_ITS ---
PROCEDURE INFORMATION: Exam: XR Left Knee Exam date and time: 08/04/2022 1:15 PM Age: 67 years old Clinical indication: Pain and injury or trauma; Blunt trauma; Injury date: Month ago; Injury details: Fall on left knee; Patient HX: Pain lt knee (patella); Additional info: L knee pain TECHNIQUE: Imaging protocol: Radiologic exam of the Left knee. Views: 3 views. COMPARISON: CR XR ankle LT min 3V* [id number] 06/11/2019 3:17 PM FINDINGS: Bones/joints: Probable osteopenia. Minimal tibial spine spurring. No acute fracture or subluxation or joint effusion. Well preserved joint spaces on this nonweightbearing exam. Soft tissues: Normal. Other findings: Three views submitted. Arterial calcifications. XR/XR knee LT 3V* [id number] IMPRESSION: No acute findings.
== END 2022-08-04 13:00 | disposition home or self-care (01) ==
PROVIDERS: PCP Internal Medicine; Visit Provider Nurse Practitioner Family
DX: M25.562 Pain in left knee (principal)
CPT/HCPCS: 73562

== ENCOUNTER 2023-01-25 09:05 | Outpatient (CLI) | payer MEDICARE, SELFPAY ==
--- NOTE | 2023-01-25 09:29 | MM_ITS ---
WS: [id number] VIEWS: MLO and CC views both breasts. 3D digital tomosynthesis is also included in this exam. Comparison made with prior exam of 06/17/2016, 11/21/2017, 11/23/2018, 12/19/2019, 12/25/2020.. Findings: There was no sign of mass, architectural distortion or suspicious calcification in either breast. Sc attered fibroglandular densities throughout both breasts. MM/[place] [id number] Impression: BI-RADS: 2-Benign FOLLOW-UP: 1 Year Follow-up This mammogram was also analyzed by the Computer Aided Detection System R2 Imag e Inside Sales Representative.
== END 2023-01-25 09:06 | disposition home or self-care (01) ==
LOC: RAD 09:13
PROVIDERS: PCP Internal Medicine; Visit Provider Internal Medicine
DX: Z12.31 Encounter for screening mammogram for malignant neoplasm of breast (principal)
CPT/HCPCS: 77063; 77067

== ENCOUNTER 2023-04-18 14:54 | Outpatient (CLI) | payer MEDICARE, SELFPAY ==
--- NOTE | 2023-04-18 15:01 | XR_ITS ---
WS: [id number] SCREENING DEXA SCAN [employer] CLINICAL INFORMATION: OSTEOPOROSIS COMPARISON: December 19, 2019 FINDINGS: The L1-L4 bone mineral density measures 1.296 g/cm2. This corresponds to a T score score of 1.0 and Z score of 2.5. Left femoral neck bone mineral density measures 0.871 g/cm2. This corresponds to a T score of -1.1 an d Z score of 0.2. Right femoral neck bone mineral density measures 0.821 g/cm2. This corresponds to a T score -1.5of an d Z score of -0.2. Mean femoral neck bone mineral density measures 0.846 g/cm2. This corresponds to a T score of -1.3 an d Z score of 0.0. XR/XR DEXA axial skeleton* [id number] IMPRESSION: Normal bone mineralization lumbar spine. Osteopenia femoral necks Patient's FRAX calculated 10 year probability for major osteoporotic fracture i s 20.8 % and osteoporotic hip fracture is 4.6%. Bone mineral density lumbar spine increased 15.7% since 2019 Bone mineral density femoral necks increased 5.0% since 2019
== END 2023-04-18 14:55 | disposition home or self-care (01) ==
PROVIDERS: PCP Internal Medicine; Visit Provider Internal Medicine
DX: Z13.820 Encounter for screening for osteoporosis (principal); M81.0 Age-related osteoporosis without current pathological fracture; M85.852 Other specified disorders of bone density and structure, left thigh; M85.851 Other specified disorders of bone density and structure, right thigh
CPT/HCPCS: 77080

== ENCOUNTER → 2023-05-30 10:42 | Outpatient (BNVA) | payer MEDICARE, SELFPAY | PROVIDERS: PCP Internal Medicine; Visit Provider Internal Medicine Rheumatology | DX: L93.0 Discoid lupus erythematosus (principal); L93.2 Other local lupus erythematosus; M19.91 Primary osteoarthritis, unspecified site | CPT/HCPCS: 99214 ==

== ENCOUNTER 2024-01-05 20:52 | Emergency (ER) | payer MEDICARE, SELFPAY ==
[2024-01-05 20:53] VITALS: BP 183/86; PULSE 68; RESP 14; TEMP 36.6; O2SAT 98
--- NOTE | 2024-01-05 21:32 | XRR_ITS ---
PROCEDURE INFORMATION: Exam: XR Chest Exam date and time: 01/05/2024 9:52 PM Age: 68 years old Clinical indication: Prior surgery; Surgery date: 6+ months; Surgery type: Lumpectomy; Patient HX: C/O palpitations with tachycardia TECHNIQUE: Imaging protocol: Radiologic exam of the chest. Views: 1 view. COMPARISON: CR XR chest 1V portable [id number] 10/16/2021 11:13 PM FINDINGS: Lungs: Unremarkable. No consolidation. Pleural spaces: Unremarkable. No pleural effusion. No pneumothorax. Heart/Mediastinum: Unremarkable. No cardiomegaly. Bones/joints: Mild degenerative changes. No fracture. XR/XR chest 1V portable [id number] IMPRESSION: No acute findings.
--- NOTE | 2024-01-05 21:41 | ED_ITS ---
HPI - Arrhythmia/Palpitations 2 General: Chief Complaint: Arrhythmia/Palpitations Stated Complaint: high bp, heart fluttering Time Seen by Provider: 01/05/24 21:32 History of Present Illness: Patient presents to the ER with complaints of high blood pressure and palpitations. Patient states this been going on for over a week. Patient actually saw her PCP today who told her to keep a blood pressure log and was planning on setting up her heart monitor. When patient got home she noticed her blood pressure was higher and she kept going up so then she decided to come in to be checked out sooner than later. Patient does take metoprolol 50 mg daily her blood pressure. Upon arrival patient's blood pressure was 183/86. 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 Systemic lupus erythematosus, unspecified Medication monitoring encounter Osteoarthritis Cutaneous lupus erythematosus in remission Surgical History H/O: hysterectomy H/O dilation and curettage H/O lumpectomy benign H/O eye surgery 1955 Family History Mother Hyperlipidemia Hypertension Sister Breast cancer late 30's Father Lung cancer Denies family history of Colon cancer Ovarian cancer Diabetes CAD (coronary artery disease) Clotting disorder Heart disease Anesthesia complication Bleeding disorder Uterine cancer Thyroid disease Stroke Social History Smoking and tobacco/nicotine status: never used tobacco/nicotine Alcohol intake: never Substance/Drug Use: never Lives independently: No Marital status: Number of children: 2 Physical Exam 2 Const: COMMON NORMALS: no acute distress, average body habitus, patient oriented x3, no limitations, healthy appearing, alert and well nourished HENMT: COMMON NORMALS: normocephalic, atraumatic, hearing grossly normal bilaterally, external ears normal, Normal external nose present, moist oral mucous membranes and oropharynx normal HEAD & SCALP: normocephalic and atraumatic NOSE: Normal external nose present EXTERNAL EAR: Yes external ears normal Neck/C-Spine: COMMON NORMALS: full ROM, no lymphadenopathy, supple, no meningeal signs, no JVD and Thyroid normal THYROID: Thyroid normal Chest: COMMONS NORMALS: normal inspection of the chest and normal palpation of entire chest wall Resp: COMMON NORMALS: normal respiratory effort, No retractions, No use of accessory muscles and clear to auscultation bilaterally AUSCULTATION: clear to auscultation bilaterally Cardio: COMMON NORMALS: no JVD, regular rate, regular rhythm, S1 normal heart sound present, S2 normal heart sound present, No gallops present (Cardio), No clicks present (Cardio), No murmurs present (Cardio) and No rub (Cardio) R ATE: regular rate RHYTHM: regular rhythm HEART SOUNDS: S1 normal heart sound present and S2 normal heart sound present Neuro: COMMON NORMALS: patient oriented x3 SENSORIUM/ORIENTATION: Yes alert MENINGEAL SIGNS: Yes no meningeal signs Course 2 Vital Signs: Vital signs: Vital Signs Temperature 98 F 01/05/24 20:53 Pulse Rate 78 01/06/24 00:46 Respiratory Rate 14 01/05/24 20:53 Blood Pressure 142/77 01/06/24 00:46 Pulse Oximetry 99 01/06/24 00:46 Oxygen Delivery Me thod Room Air 01/06/24 00:18 MDM - Arrhythmia/Palpitations Medical Decision Making Patient was worked up in normal cardiac fashion with serial EKGs, enzymes and chest x-ray. All of which was essentially benign. EKG did show multiple PVCs. These results was discussed with the patient who says her family practice doctors are already trying to get her Holter monitor and set her up with a claim review medical director. Patient be discharged from the ER. Differential Diagnosis Likely palpitations Medical Records I reviewed the patient's medical records. Lab Data I reviewed the patient's lab results. 01/05/24 21:40 01/05/24 21:40 Radiology Impressions Chest X-Ray 01/05/24 21:32 IMPRESSION: No acute findings. Laboratory Results WBC 4.80 10^3/uL (3.29-11.43) 01/05/24 21:40 RBC 3.94 10^6/uL (3.85-5.65) 01/05/24 21:40 Hgb 12.30 g/dL (11.27-16.99) 01/05/24 21:40 Hct 37.4 % (36-47) 01/05/24 21:40 MCV 94.9 fl (85-98) 01/05/24 21:40 MCH 31.2 pg (27-33) 01/05/24 21:40 MCHC 32.9 g/dL (30-55) 01/05/24 21:40 RDW 14.1 % (12.1-15.1) 01/05/24 21:40 Plt Count 237 10^3/cmm (157-399) 01/05/24 21:40 MPV 8.7 fL (7.4-10.4) 01/05/24 21:40 Neut % (Auto) 53.9 % 01/05/24 21:40 Lymph % (Auto) 30.4 % 01/05/24 21:40 Ida % (Auto) 14.0 % 01/05/24 21:40 Eos % (Auto) 1.3 % 01/05/24 21:40 Baso % (Auto) 0.2 % 01/05/24 21:40 Neut # (Auto) 2.59 10^3/uL (1.8-7.7) 01/05/24 21:40 Lymph # (Auto) 1.5 10^3/uL (0.8-4.8) 01/05/24 21:40 Ida # (Auto) 0.7 10^3/uL (0.2-0.9) 01/05/24 21:40 Eos # (Auto) 0.1 10^3/uL (0.0-0.8) 01/05/24 21:40 Baso # (Auto) 0.0 10^3/uL (0.0-0.1) 01/05/24 21:40 Nucleated RBC % (auto) 0 % 01/05/24 21:40 Nucleated RBCs # 0.0 /100WBC 01/05/24 21:40 Sodium 142 mmol/L (136-145) 01/05/24 21:40 Potassium 3.8 mmol/L (3.5-5.1) 01/05/24 21:40 Chloride 107 mmol/L (98-107) 01/05/24 21:40 Carbon Dioxide 22 mmol/L (22-29) 01/05/24 21:40 Anion Gap 16.8 (5-19) 01/05/24 21:40 BUN 10 mg/dL (8-23) 01/05/24 21:40 Creatinine 0.7 mg/dL (0.5-0.9) 01/05/24 21:40 GFR Calculation 82.7 mL/min (90-130) L 01/05/24 21:40 Glucose 93 mg/dL (65-115) 01/05/24 21:40 Calculated Osmolality 293 mOsm/kg (285-295) 01/05/24 21:40 Calcium 9.2 mg/dL (8.5-10.5) 01/05/24 21:40 Magnesium 2.3 mg/dL (1.7-2.3) 01/05/24 21:40 Total Bilirubin 0.4 mg/dL (0.15-1.2) 01/05/24 21:40 AST 19 U/L (0-32) 01/05/24 21:40 ALT 9 U/L (0-33) 01/05/24 21:40 Alkaline Phosphatase 97 U/L (35-105) 01/05/24 21:40 Troponin T Baseline < 6 ng/L (0-10) 01/05/24 21:40 Troponin T 120 Minute 8.28 ng/L (0-10) 01/05/24 23:43 Delta Troponin T 2.46897 ABS# (0-10) 01/05/24 23:43 Total Protein 8.1 g/dL (6.6-8.7) 01/05/24 21:40 Albumin 4.4 g/dL (3.5-5.2) 01/05/24 21:40 Globulin 3.7 g/dL (1.3-4.6) 01/05/24 21:40 TSH 4.96 uIU/mL (0.27-4.20) H 01/05/24 21:40 All radiology interpretation(s) finalized by discharge EKG Data EKG 2: I personally reviewed and interpreted this EKG as follows: EKG interpretation date: 01/05/24 EKG interpretation time: 23:46 Prior EKG tracings: available for review Interpretation: Ventricular rate 62 beats minute, W[place] interval 161, QRS duration 94, QTc of 433, sinus rhythm occasional PVC Other EKG comments: Chest X-Ray 01/05/24 21:32 IMPRESSION: No acute findings. Discharge Plan Discharge Patient Disposition: Home Clinical Impression: Heart palpitations Hypertension Qualifiers: Hypertension type: unspecified Qualified Code(s): I10 - Essential (primary) hypertension Condition: Stable Prescriptions: No Action pantoprazole 40 mg tablet,delayed release (DR/EC) 40 mg PO DAILY timolol maleate 0.25 % drops 1 drop ophthalmic (eye) DAILY cholecalciferol (vitamin D3) 25 mcg (1,000 unit) capsule 25 mcg PO DAILY alendronate [Fosamax] 70 mg tablet 70 mg PO .Q7days levothyroxine 75 mcg capsule 75 mcg PO DAILY clobetasol 0.05 % cream 1 applic topical DAILY PRN Toprol XL 50 mg tablet extended release 24 hr 50 mg PO DAILY Qty: 20 0RF Discharge Orders: Discharge ED (Routine); Ordered 01/06/24 Ordered By: Maurisio Caballero Referrals: Ora Ricks MD [Primary Care Provider] - Patient Instructions: Hypertension, Heart Palpitations (DC) Activity Restrictions/Additional Instructions: Your workup in ER did show your palpitations as PVCs or preventricular contractions usually these are benign in nature. Please continue to follow-up with your PCP and get a Holter monitor and blood pressure log as previously talked about. They may also want to refer you to a claim review medical director for further evaluation testing. Coding Level of Care Code ED Social Media Strategist for Lisa Peace
[2024-01-05 21:45] LABS: Basophils % 0.2 %; Eosinophils # 0.1 10^3/uL (0.0-0.8); Eosinophils % 1.3 %; Hematocrit 37.4 % (36-47); Lymphocytes # 1.5 10^3/uL (0.8-4.8); Lymphocytes % 30.4 %; Mean Corpuscular HGB Conc 32.9 g/dL (30-55); Mean Corpuscular Hemoglobin 31.2 pg (27-33); Mean Corpuscular Volume 94.9 fl (85-98); Mean Platelet Volume 8.7 fL (7.4-10.4); Monocytes # 0.7 10^3/uL (0.2-0.9); Neutrophils # 2.59 10^3/uL (1.8-7.7); Neutrophils % 53.9 %; Nucleated Red Blood Cells % 0 %; Platelet Count 237 10^3/cmm (157-399); Red Blood Count 3.94 10^6/uL (3.85-5.65); Red Cell Distribution Width 14.1 % (12.1-15.1)
[2024-01-05 22:05] LABS: Troponin(5th) Baseline < 6 ng/L (0-10)
[2024-01-05 22:15] LABS: Alanine Aminotransferase 9 U/L (0-33); Albumin Level 4.4 g/dL (3.5-5.2); Alkaline Phosphatase 97 U/L (35-105); Anion Gap 16.8 (5-19); Aspartate Amino Transferase 19 U/L (0-32); Blood Urea Nitrogen 10 mg/dL (8-23); Calcium 9.2 mg/dL (8.5-10.5); Carbon Dioxide 22 mmol/L (22-29); Chloride 107 mmol/L (98-107); Creatinine Clr Calc Pharmacy 63.6286; Globulin 3.7 g/dL (1.3-4.6); Glomerular Filtration Rate 82.7 mL/min (90-130); Glucose 93 mg/dL (65-115); Magnesium 2.3 mg/dL (1.7-2.3); Osmolality Calculated 293 mOsm/kg (285-295); Potassium 3.8 mmol/L (3.5-5.1); Sodium 142 mmol/L (136-145); Thyroid Stimulating Hormone 4.96 uIU/mL (0.27-4.20); Total Protein 8.1 g/dL (6.6-8.7)
[2024-01-05 22:28] VITALS: BP 166/77; PULSE 67; O2SAT 97
[2024-01-05 23:15] VITALS: BP 151/81; PULSE 63; O2SAT 97
[2024-01-05 23:30] VITALS: BP 170/76; PULSE 69; O2SAT 99
[2024-01-05 23:33] LABS: Total Bilirubin 0.4 mg/dL (0.15-1.2)
--- NOTE | 2024-01-06 | ECG_ITS ---
[facility] Test Date: 2024-01-05 Pat Name: Milvia Coyne Department: Room: Gender: Female Net Programmer Analyst: : 1955 Requested By: Maurisio Caballero Order Number: [id number] Aidan MD: Kasia Monroe M.D. Measurements Intervals Elroy Rate: 62 P: 72 MS: 161 QRS: 61 QRSD: 94 T: 37 QT: 427 QTc: 436 Interpretive Statements SINUS RHYTHM WITH FREQUENT VENTRICULAR PREMATURE COMPLEXES ABNORMAL RHYTHM ECG Compared to ECG 10/16/2021 23:29:45 Ventricular premature complex(es) now present Atrial fibrillation no longer present T-wave abnormality no longer present Electronically Signed On 01-06-2024 18:00:36 [employer]UN[employer] SPOTTER by Kasia Monroe M.D. [id number]
[2024-01-06 00:10] LABS: Troponin 5 2HR 8.28 ng/L (0-10); Troponin 5 2HR Delta 2.28001 ABS# (0-10)
[2024-01-06 00:18] VITALS: BP 167/72; PULSE 69; O2SAT 97
[2024-01-06 00:46] VITALS: BP 142/77; PULSE 78; O2SAT 99
== END 2024-01-06 00:49 | disposition home or self-care (01) ==
PROVIDERS: Emergency Provider Emergency Medicine; PCP Internal Medicine
DX: R00.2 Palpitations (principal); I10 Essential (primary) hypertension; L93.0 Discoid lupus erythematosus
CPT/HCPCS: 71045; 80053; 83735; 84443; 84484; 85025; 93005; 99285

== ENCOUNTER → 2024-01-31 12:43 | Outpatient (BNVA) | payer MEDICARE, SELFPAY | PROVIDERS: PCP Internal Medicine; Referring Provider Nurse Practitioner Family; Visit Provider Internal Medicine | DX: I49.1 Atrial premature depolarization (principal); I49.3 Ventricular premature depolarization | CPT/HCPCS: 93242 ==

== ENCOUNTER 2024-03-15 10:49 | Outpatient (CLI) | payer MEDICARE, SELFPAY ==
--- NOTE | 2024-03-15 11:07 | MM_ITS ---
WS: [id number] BILATERAL SCREENING DIGITAL TOMOSYNTHESIS MAMMOGRAM WITH CAD HISTORY: SCREENING COMPARISON: 01/25/2023, 01/18/2022 and 11/23/2018 Bilateral CC and MLO views with tomosynthesis and synthetic mammography submitted. Computer aided det ection analyzed. Breast composition: There are scattered areas of fibroglandular density. No suspicious masses, microc alcifications or architectural distortion. Linear asymmetry in the superior LEFT breast is stable. Be nign calcifications RIGHT breast. MM/[place] [id number] IMPRESSION: BI-RADS: 2-Benign FOLLOW UP: 1 Year Follow-up
== END 2024-03-15 10:50 | disposition home or self-care (01) ==
LOC: RAD 10:49
PROVIDERS: PCP Internal Medicine; Visit Provider Internal Medicine
DX: Z12.31 Encounter for screening mammogram for malignant neoplasm of breast (principal)
CPT/HCPCS: 77063; 77067

== ENCOUNTER → 2024-05-14 10:40 | Outpatient (BNVA) | payer MEDICARE, SELFPAY | PROVIDERS: PCP Internal Medicine; Visit Provider Internal Medicine Rheumatology | DX: L93.2 Other local lupus erythematosus (principal); L93.0 Discoid lupus erythematosus; M19.91 Primary osteoarthritis, unspecified site; Z79.899 Other long term (current) drug therapy; F51.04 Psychophysiologic insomnia | CPT/HCPCS: 99214 ==

== ENCOUNTER → 2024-09-24 09:45 | Outpatient (BNVA) | payer MEDICARE, SELFPAY | PROVIDERS: PCP Internal Medicine; Visit Provider Internal Medicine Rheumatology | DX: L93.2 Other local lupus erythematosus (principal); Z79.899 Other long term (current) drug therapy; L93.0 Discoid lupus erythematosus; M19.91 Primary osteoarthritis, unspecified site; M19.041 Primary osteoarthritis, right hand; M19.042 Primary osteoarthritis, left hand; M17.0 Bilateral primary osteoarthritis of knee; G47.00 Insomnia, unspecified | CPT/HCPCS: 36415; 80076; 82306; 82565; 85025; 85651; 86140; 99214 ==

== ENCOUNTER 2025-03-29 10:51 | Outpatient (CLI) | payer MEDICARE, SELFPAY ==
--- NOTE | 2025-03-29 10:58 | MM_ITS ---
WS: [id number] BILATERAL 3D TOMOSYNTHESIS DIGITAL SCREENING MAMMOGRAPHY WITH CAD CLINICAL INFORMATION: SCREENING HISTORY: Screening mammogram. No current complaints. COMPARISON: 2023 TECHNIQUE: Bilateral CC and MLO views. FINDINGS: Scattered fibroglandular densities bilaterally. No suspicious focal mass, asymmetry, calcifications, or architectural distortion. No evidence of malignancy. Vascular calcifications. Incidental dystrophic calcifications RIGHT breast MM/MM scr BI tomosynthesis [id number] IMPRESSION: DENSITY: There are scattered areas of fibroglandular density. BI-RADS: 2 - Benign. FOLLOW UP: 1 Year Follow-up Recommend return to annual screening mammography.
== END 2025-03-29 10:52 | disposition home or self-care (01) ==
LOC: RAD 10:54
PROVIDERS: PCP Internal Medicine; Visit Provider Internal Medicine
DX: Z12.31 Encounter for screening mammogram for malignant neoplasm of breast (principal); R92.323 Mammographic fibroglandular density, bilateral breasts; R92.1 Mammographic calcification found on diagnostic imaging of breast
CPT/HCPCS: 77063; 77067

== ENCOUNTER → 2025-04-08 10:36 | Outpatient (BNVA) | payer MEDICARE, OTHER, SELFPAY | PROVIDERS: PCP Internal Medicine; Visit Provider Internal Medicine Rheumatology | DX: L93.2 Other local lupus erythematosus (principal); L93.0 Discoid lupus erythematosus; M19.91 Primary osteoarthritis, unspecified site; Z79.899 Other long term (current) drug therapy; M81.0 Age-related osteoporosis without current pathological fracture | CPT/HCPCS: 36415; 80076; 82306; 82565; 85025; 85651; 86140; 99214 ==

== ENCOUNTER 2025-07-17 22:36 | Inpatient (IN) | payer MEDICARE, OTHER, SELFPAY ==
[2025-07-17 22:37] VITALS: BP 197/102; PULSE 74; RESP 16; TEMP 36.9; O2SAT 97
--- OUTSIDE RECORDS SUMMARY | 2025-07-17 22:44 | XMS_ITS | Encounter Summary ---
Author Organization [facility] Address [address] [place] [address] Care Team Providers Care Net Developer Software Engineer C Name Role Phone Ora Ricks MD Primary Care Provider +1- [phone] Encounter Details Date Type Department Care Team (Late st Contact Info) Description 08/23/2003 Outpatient Historical [facility] Medicine [place] [address] 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
--- OUTSIDE RECORDS SUMMARY | 2025-07-17 22:44 | XMS_ITS | Encounter Summary ---
Author Organization [facility] Address [address] [place] [address] Care Team Providers Care Semiconductor Package Symbol Stamper Name Role Phone Ora Ricks MD Primary Care Provider +1- [phone] Encounter Details Date Type Department Care Team (Latest Contact Info) Description 08/23/2003 Outpatient [facility] Medicine [place] 104 [facility] 60 [place] [address] Elio Salas MD [address] [address] HYPERLIPIDEMIA NEC/NOS (Primary Dx); HYPERTENSION NOS Social History Tobacco Use Types Packs/Day Years Used Date Smoking Tobacco: Never Assessed Comments Unknown Sex and Gender Information Value Date Recorded Sex Assigned at Not on file Legal Sex Female 3:07 AM RECEIVABLES SPECIALIST Gender Identity Not on file Sexual Orientation Not on file documented as of this encounter Plan of Treatment Not on file documented as of this encounter Visit Diagnoses Diagnosis Other and unspecified hyperlipidemia- Primary Unspecified essential hypertension documented in this encounter Care Teams Semiconductor Package Symbol Stamper Relationship Specialty Start Date End Date Ora Ricks MD [address] [place] [id number] PCP - General Internal Medicine 02/25/16 documented as of this encounter
--- OUTSIDE RECORDS SUMMARY | 2025-07-17 22:46 | XMS_ITS | Encounter Summary ---
Author Organization [facility] Address [address] [place] [address] Care Team Providers Care Trading Floor Operator Name Role Phone Ora Ricks MD Primary Care Provider +1- [phone] Encounter Details Date Type Department Care Team (Latest Contact Info) Description 03/04/2003 Outpatient [facility] Medicine [place] 104 [facility] 60 [place] [address] Elio Salas MD [address] [address] Gynecologic examination (Primary Dx); Cervicitis; Local superficial swellng Social History Tobacco Use Types Packs/Day Years Used Date Smoking Tobacco: Never Assessed Comments Unknown Sex and Gender Information Value Date Recorded Sex Assigned at Not on file Legal Sex Female 3:07 AM BATTERY TESTER Gender Identity Not on file Sexual Orientation Not on file documented as of this encounter Plan of Treatment Not on file documented as of this encounter Visit Diagnoses Diagnosis Gynecologic examination- Primary Gynecological examination Cervicitis Cervicitis and endocervicitis Local superficial swellng Localized superficial swelling, mass, or lump documented in this encounter Care Teams Trading Floor Operator Relationship Specialty Start Date End Date Ora Ricks MD [address] [place] [address] PCP - General Internal Medicine 02/25/16 documented as of this encounter
--- OUTSIDE RECORDS SUMMARY | 2025-07-17 22:47 | XMS_ITS | Encounter Summary ---
Author Organization [facility] Address [address] [place] [address] Care Team Providers Care White Washer Name Role Phone Ora Ricks MD Primary Care Provider +1- [phone] Encounter Details Date Type Department Care Team (Latest Contact Info) Description 12/04/2004 Outpatient [facility] Medicine [place] [address] [facility] [address] [place] [address] Elio Salas MD [address] [address] ACUTE URI NOS (Primary Dx) Social History Tobacco Use Types Packs/Day Years Used Date Smoking Tobacco: Never Assessed Comments Unknown Sex and Gender Information Value Date Recorded Sex Assigned at Not on file Legal Sex Female 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
--- OUTSIDE RECORDS SUMMARY | 2025-07-17 22:47 | XMS_ITS | Encounter Summary ---
Author Organization [facility] Address [address] [place] [address] Care Team Providers Care Director Mba Name Role Phone Ora Ricks MD Primary Care Provider +1- [phone] Encounter Details Date Type Department Care Team (Late st Contact Info) Description 03/04/2003 Outpatient Historical [facility] Medicine [address] [address] Rad Carrillo NP NO ADDRESS ON FILE Social History Tobacco Use Types Packs/Day Years Used Date Smoking Tobacco: Never Assessed Comments Unknown Sex and Gender Information Value Date Recorded Sex Assigned at Not on file Legal Sex Female 3:07 AM PUPPET MAKER Gender Identity Not on file Sexual Orientation Not on file documented as of this encounter Plan of Treatment Not on file documented as of this encounter Visit Diagnoses Not on filedocumented in this encounter Care Teams Director Mba Relationship Specialty Start Date End Date Ora Ricks MD [address] [place], [place] [address] PCP - General Internal Medicine 02/25/16 documented as of this encounter
--- NOTE | 2025-07-17 22:50 | ECG_ITS ---
[facility]: 2025-[facility]17 Pat Name: Milvia Coyne Department: Room: Gender: Female Mental Health Program Specialist: : 1955 Requested By: Jose Alejandro Gonzalez Order Number: [id number] Bermudez MD: Akhil Hurt M.D. Measurements Intervals Gable Rate: 65 P: 82 SD: 156 QRS: 82 QRSD: 90 T: 69 QT: 391 QTc: 408 Interpretive Statements SINUS RHYTHM Compared to ECG 01/05/2024 23:46:27 Ventricular premature complex(es) no longer present Electronically Signed On 07-20-2025 13:14:56 CDT by Akhil Hurt M.D. [id number] [id number]
--- OUTSIDE RECORDS SUMMARY | 2025-07-17 22:50 | XMS_ITS | Encounter Summary ---
Author Organization [facility] Address [address] [place] [address] Care Team Providers Care Industrial Health And Safety Professor Name Role Phone Ora Ricks MD Primary Care Provider +1- [phone] Encounter Details Date Type Department Care Team (Latest Contact Info) Description 04/10/2004 Outpatient [facility] Medicine [place] 104 [facility] 60 [place] [address] Elio Salas MD [address] [address] Gynecologic examination (Primary Dx); SCREENING MAL NEOP-BREAST,UNSPEC; LUMB/LUMBOSAC DISC DEGEN Social History Tobacco Use Types Packs/Day Years Used Date Smoking Tobacco: Never Assessed Comments Unknown Sex and Gender Information Value Date Recorded Sex Assigned at Not on file Legal Sex Female 3:07 AM MERCHANT SEAMAN Gender Identity Not on file Sexual Orientation Not on file documented as of this encounter Plan of Treatment Not on file documented as of this encounter Visit Diagnoses Diagnosis Gynecologic examination- Primary Gynecological examination Breast screening, unspecified Degeneration of lumbar or lumbosacral intervertebral disc documented in this encounter Care Teams Industrial Health And Safety Professor Relationship Specialty Start Date End Date Ora Ricks MD [address] [place] [address] PCP - General Internal Medicine 02/25/16 documented as of this encounter
--- OUTSIDE RECORDS SUMMARY | 2025-07-17 22:50 | XMS_ITS | Encounter Summary ---
Author Organization [facility] Address [address] [place] [address] Care Team Providers Care Community Center Worker Name Role Phone Ora Ricks MD Primary Care Provider +1- [phone] Encounter Details Date Type Department Care Team (Late st Contact Info) Description 04/10/2004 Outpatient [facility] Medicine [place] 104 [facility] [address] [place] [address] Elio Salas MD [address] [address] Social History Tobacco Use Types Packs/Day Years Used Date Smoking Tobacco: Never Assessed Comments Unknown Sex and Gender Information Value Date Recorded Sex Assigned at Not on file Legal Sex Female 3:07 AM REPLENISHMENT SPECIALIST Gender Identity Not on file Sexual Orientation Not on file documented as of this encounter Plan of Treatment Not on file documented as of this encounter Visit Diagnoses Not on filedocumented in this encounter Care Teams Community Center Worker Relationship Specialty Start Date End Date Ora Ricks MD [address] [place], [place] [address] PCP - General Internal Medicine 02/25/16 documented as of this encounter
--- OUTSIDE RECORDS SUMMARY | 2025-07-17 22:51 | XMS_ITS | Clinical Summary ---
Author Organization [facility] Address [address] Panchal: [place] [address] Care Team Providers Care Hydraulic Dredge Operator Name Role Phone Ora Ricks MD Primary Care Provider +1- [phone] Allergies No known active allergies Medications levothyroxine 75 mcg tablet Take 75 mcg by mouth daily in the morning. Active alendronate (FOSAMAX) 70 mg tablet Take 70 mg by mouth every 7 days. empty stomach before other meds,with 8oz of water, stay upright 30 min Active traZODone (DESYREL) 50 mg tablet Take 50 mg by mouth 1 time daily as needed for Insomnia. Active pantoprazole (PROTONIX) 40 mg Tablet, Delayed Release (E.C.) Take 40 mg by mouth daily. Active MULTIVITAMIN ORAL Take by mouth. Active CALCIUM-MAGNESI UM-ZINC ORAL Take by mouth. Active cholecalciferol , vitamin D3, (VITAMIN D3 ORAL) Take by mouth. Active [id number] LPV-XCLZ-VIBAOT ORAL Take by mouth. Active timoloL maleate (TIMOPTIC) 0.25% solution INSTILL 1 DROP INTO EACH EYE AT BEDTIME 07/15/2022 Active metoprolol succinate (TOPROL XL) 100 mg Extended Release 24 hour tabletIndicatio ns:Palpitations Take 1 tablet by mouth once daily 90 Tablet 3 03/20/2025 Active folic acid (FOLVITE) 1 mg tablet Take 1 Tablet by mouth daily. 03/31/2025 Active Active Problems No known active problems Encounters Date Type Department Care Team Description 07/02/2025 External Device Data STL ABSTRACTION Provider, Abstract 06/19/2025 External Device Data STL ABSTRACTION Provider, Abstract 06/05/2025 External Device Data STL ABSTRACTION Provider, Abstract 05/21/2025 3:15 PM CDT Office Visit [facility] [address] [place] [phone] Jaspreet Davis MD Palpitations (Primary Dx); PAF (paroxysmal atrial fibrillation) (CMS/HCC); Essential hypertension; Hypothyroidism, unspecified type; Discoid lupus from Last 3 Months Immunizations Immunization Administration Dates Next Due (PFIZER)(12 YR UP) COVID-19 VACCINE - EMERGENCY USE AUTHORIZATION, MRNA, [id number]) 30 MCG/0.3 ML IM SUSP 08/04/2021,12/02/2020,11/11/2020 Hepatitis B Vaccine 01/09/1998,09/09/1997,1996 INFLUENZA VACCINE INACTIVATE D ADJUV, (65 YR UP), 0.5ML (PF), IM 07/25/2024 Family History Medical History Relation Name Comments Heart Disease Neg Hx Social History Tobacco Use Types Packs/Day Years Used Date Smoking Tobacco: Never Smokeless Tobacco: Never Tobacco Cessation:Counseling Given: Not Answered Alcohol Use Standard Drinks/Week Comments No 0 (1 standard drink = 0.6 oz pur e alcohol) Feeling Safe Answer Date Recorded Are you in a relationship wi th someone who hurts you emotionally and/or physically? No 01/16/2024 Comments No Sex and Gender Information Value Date Recorded Sex Assigned at Not on file Legal Sex Female 5:27 AM TOY DESIGNER Gender Identity Not on file Sexual Orientation Not on file Last Filed Vital Signs Vital Sign Reading Time Taken Comments Blood Pressure 126/80 05/21/2025 3:00 PM CDT Pulse 77 05/21/2025 3:00 PM CDT Temperature 36.5 C (97.7 F) 01/16/2024 10:50 AM CDT Respiratory Rate 12 01/16/2024 1:00 PM CDT Oxygen Saturation 96% 05/21/2025 3:00 PM CDT Inhaled Oxygen Concentration - - Weight 70.1 kg (154 lb 9.6 oz) 05/21/2025 3:00 P M CDT Height 165.1 cm (5' 5 ) 05/21/2025 3:00 PM CDT Body Mass Index 25.73 05/21/2025 3:00 PM CDT Plan of Treatment Upcoming Encounters Date Type Department Care Team (Late st Contact Info) Description 11/21/2025 3:00 PM TOY DESIGNER Office Visit [facility] [address] [place] [address] Jaspreet Davis MD [address] [place] [address] Alberta Warren, WHEAT COMBINE DRIVER [address] [place] [phone] Health Maintenance Due Date Last Done Comments DTAP/TDAP/TD VACCINES (1 - Tdap) 1972 COLORECTAL SCREENING 1998 FIT/FOBT Q 1 year 1998 Flex Sig/CT Colonography Q 5 years 1998 PNEUMOCOCCAL VACCINE 50+ YEA RS (1 of 1 - PCV) 2003 ZOSTER VACCINE (1 of 2) 2003 BREAST CANCER SCREENING 03/15/2025 03/15/20, 01/25/2023, 01/25/2023, Additional history exists INFLUENZA VACCINE (#1) 2025 07/25/2024 COVID-19 Vaccine (4 - 2024-2 6 season) 2025 08/04/2021, 12/02/2020, 11/11/2020 Colorectal Cancer Screening 11/23/2026 FIT-DNA Q 3 years 11/23/2026 11/23/2023 OSTEOPOROSIS SCREENING 04/18/2028 04/18/2023 RSV VACCINE (60+ or ) (1 - 1-dose 75+ series) 2028 Procedures Procedure Name Priority Date/Time Associated Diagnosis Comments NC ECG ROUTINE ECG W/LEAST 12 LDS W/I&R Routine 05/21/2025 3:18 PM CDT Palpitations PAF (paroxysmal atrial fibrillation) (CMS/HCC) MAMMO 3D HARJINDER SCREEN BILAT W OR WO CAD Routine 03/15/2024 Screening mammogram for breast cancer COLON CANCER SCREEN, STOOL DNA Routine 11/23/2023 9:45 PM TOY DESIGNER Screening for colon cancer from Last 3 Months or Most Recently Relevant to Health Maintenance Results * NC ECG ROUTINE ECG W/LEAST 12 LDS W/I&R (05/21/2025 3:18 PM CDT) Narrative [facility] - 05/21/2025 3:18 PM CDT Jaspreet Davis MD 05/21/2025 3:35 PM EKG: normal sinus rhythm, frequent PVC's noted. Procedure Note Jaspreet Davis MD - 05/21/2025 3:18 PM CDT EKG: normal sinus rhythm, frequent PVC's noted. us Jaspreet Davis MD ECG ORDERABLES Final Result [facility] [id number] [address] [place] [id number], [place] [phone] * MAMMO 3D HARJINDER SCREEN BILAT W OR WO CAD (03/15/2024) Anatomical Region Laterality Modality Breast Bilateral Mammography us Jacklyn Niño MARINE TOWER OPERATOR MAMMO ORDERABLES Final Resu lt * COLON CANCER SCREEN, STOOL DNA (11/23/2023 9:45 PM TOY DESIGNER) COLOGUARD RESULT Negative Negative [employer] Comment: NEGATIVE TEST RESULT. A negative Cologuard result indicates a low likelihood that a colorectal cancer (CRC) or advanced adenoma (adenomatous polyps with more advanced pre-malignant features) is present. The chance that a person with a negative Cologuard test has a colorectal cancer is less than 1 in 1500 (negative predictive value >99.9%) or has an advanced adenoma is less than 5.3% (negative predictive value 94.7%). These data are based on a prospective cross-sectional study of 10,000 individuals at average risk for colorectal cancer who were screened with both Cologuard and colonoscopy. (Robert Chandra al, N Engl J Med 2014;370(14):7868-6920) The normal value (reference range) for this assay is negative. COLOGUARD RE-SCREENING RECOMMENDATION: Periodic colorectal cancer screening is an important part of preventive healthcare for asymptomatic individuals at average risk for colorectal cancer. Following a negative Cologuard result, the Stateless Cancer Society and U.S. Multi-Society Task Force screening guidelines recommend a Cologuard re-screening interval of 3 years. References: Stateless Cancer Society Guideline for Colorectal Cancer Screening: https://www.cancer.org/cancer/aynuh-ftkbjj-wppgyo/kpwhxvzzt-lpbdowzme-pzuijkj/ac s-rec ommendations.html.; Kamran DK, Kristina CONTRERAS, Rik LawrenceK, Colorectal Cancer Screening: Recommendations for Physicians and Patients from the U.S. Multi-Society Task Force on Colorectal Cancer Screening , Am J Gastroenterology 2017; 112:0364-4296. TEST DESCRIPTION: Composite algorithmic analysis of stool DNA-biomarkers with hemoglobin immunoassay. Quantitative values of individual biomarkers are not reportable and are not associated with individual biomarker result reference ranges. Cologuard is intended for colorectal cancer screening of adults of either sex, 45 years or older, who are at average-risk for colorectal cancer (CRC). Cologuard has been approved for use by the U.S. FDA. The performance of Cologuard was established in a cross sectional study of average-risk adults aged 50-84. Cologuard performance in patients ages 45 to 49 years was estimated by sub-group analysis of near-age groups. Colonoscopies performed for a positive result may find as the most clinically significant lesion: colorectal cancer [4.0%], advanced adenoma (including sessile serrated polyps greater than or equal to 1cm diameter) [20%] or non- advanced adenoma [31%]; or no colorectal neoplasia [45%]. These estimates are derived from a prospective cross-sectional screening study of 10,000 individuals at average risk for colorectal cancer who were screened with both Cologuard and colonoscopy. (Robert Pedraza, N Engl J Med 2014;370(14):4626-1662.) Cologuard may produce a false negative or false positive result (no colorectal cancer or precancerous polyp present at colonoscopy follow up). A negative Cologuard test result does not guarantee the absence of CRC or advanced adenoma (pre-cancer). The current Cologuard screening interval is every 3 years. (Stateless Cancer Society and U.S. Multi-Society Task Force). Cologuard performance data in a 10,000 patient pivotal study using colonoscopy as the reference method can be accessed at the following location: www.[employer]/results. Additional description of the Cologuard test process, warnings and precautions can be found at www.cologuard.com. Stool STOOL SPECIMEN / Unknown 11/23/2023 9:45 PM TOY DESIGNER 11/25/2023 2:40 PM TOY DESIGNER Jacklyn Niño MARINE TOWER OPERATOR BODY FLUIDS AND STOOLS Philly sepulveda Result [employer] CLIA # [id number] [address] [place] [address] from Last 3 Months or Most Recently Relevant to Health Maintenance Insurance MEDICARE PART A AND B [facility] [place] [id number] Care Teams Hydraulic Dredge Operator Relationship Specialty Start Date End Date Ora Ricks MD [address] [place] [address] PCP - General Internal Medicine 02/25/16
--- OUTSIDE RECORDS SUMMARY | 2025-07-17 22:51 | XMS_ITS | Encounter Summary ---
Author Organization [facility] Address [address] [place] [address] Care Team Providers Care Customer Field Representative Name Role Phone Ora Ricks MD Primary Care Provider +1- [phone] Encounter Details Date Type Department Care Team (Latest Contact Info) Description 11/25/2003 Outpatient [facility] Medicine [place] [address] [facility] [address] [place] [address] Elio Salas MD [address] [address] ACUTE BRONCHITIS (Primary Dx) Social History Tobacco Use Types Packs/Day Years Used Date Smoking Tobacco: Never Assessed Comments Unknown Sex and Gender Information Value Date Recorded Sex Assigned at Not on file Legal Sex Female 3:07 AM FUNERAL ARRANGEMENT DIRECTOR Gender Identity Not on file Sexual Orientation Not on file documented as of this encounter Plan of Treatment Not on file documented as of this encounter Visit Diagnoses Diagnosis Acute bronchitis- Primary documented in this encounter Care Teams Customer Field Representative Relationship Specialty Start Date End Date Ora Ricks MD [address] [place] [address] PCP - General Internal Medicine 02/25/16 documented as of this encounter
--- OUTSIDE RECORDS SUMMARY | 2025-07-17 22:52 | XMS_ITS | Encounter Summary ---
Author Organization [facility] Address [address] [place] [address] Care Team Providers Care Yardage Control Operator Forming Name Role Phone Ora Ricks MD Primary Care Provider +1- [phone] Reason for Visit * Reason Onset Date Comments Question 02/15/2024 Encounter Details Date Type Department Care Team (Late st Contact Info) Description 02/15/2024 Telephone [facility] [address] [place] [address] Mickey Burks MD [address] [place] [address] Question Social History Tobacco Use Types Packs/Day Years Used Date Smoking Tobacco: Never Smokeless Tobacco: Never Alcohol Use Standard Drinks/Week Comments No 0 (1 standard drink = 0.6 oz pur e alcohol) Feeling Safe Answer Date Recorded Are you in a relationship wi th someone who hurts you emotionally and/or physically? No 01/16/2024 Comments No Sex and Gender Information Value Date Recorded Sex Assigned at Not on file Legal Sex Female 5:27 AM COLD STRIP ROLLER Gender Identity Not on file Sexual Orientation Not on file documented as of this encounter Miscellaneous Notes * Telephone Encounter - Rosibel Toscano S - 02/15/2024 11:15 AM CDT Sandy (Provider) MESSAGE Pt would like to know if appt on 03/13 can be a phone visit as she is three hours away. Please adv. [facility] Case Assembler: Rosibel Toscano documented in this encounter Plan of Treatment Upcoming Encounters Date Type Department Care Team (Late st Contact Info) Description 11/21/2025 3:00 PM COLD STRIP ROLLER Office Visit [facility] [address] [place] [address] Jaspreet Davis MD [address] [place] [address] Alberta Warren, AUREA [address] [place] [address] documented as of this encounter Visit Diagnoses Not on filedocumented in this encounter Care Teams Yardage Control Operator Forming Relationship Specialty Start Date End Date Ora Ricks MD [address] [place] [address] PCP - General Internal Medicine 02/25/16 documented as of this encounter
--- OUTSIDE RECORDS SUMMARY | 2025-07-17 22:54 | XMS_ITS | Encounter Summary ---
Author Organization [facility] Address [address] [place] [address] Care Team Providers Care Staffing Director Name Role Phone Ora Ricks MD Primary Care Provider +1- [phone] Encounter Details Date Type Department Care Team (Late st Contact Info) Description 03/04/2003 Outpatient Historical [facility] Medicine [address] [phone] Rad Carrillo NP NO ADDRESS ON FILE Social History Tobacco Use Types Packs/Day Years Used Date Smoking Tobacco: Never Assessed Comments Unknown Sex and Gender Information Value Date Recorded Sex Assigned at Not on file Legal Sex Female 3:07 AM GROUP PROGRAM MANAGER Gender Identity Not on file Sexual Orientation Not on file documented as of this encounter Plan of Treatment Not on file documented as of this encounter Visit Diagnoses Not on filedocumented in this encounter Care Teams Staffing Director Relationship Specialty Start Date End Date Ora Ricks MD [address] [place], [place] [address] PCP - General Internal Medicine 02/25/16 documented as of this encounter
[2025-07-17 22:55] VITALS: BP 160/82; PULSE 70; RESP 16; O2SAT 99
--- OUTSIDE RECORDS SUMMARY | 2025-07-17 22:55 | XMS_ITS | Encounter Summary ---
Author Organization [facility] Address [address] [place] [address] Care Team Providers Care Child Welfare Assistant Name Role Phone Ora Ricks MD Primary Care Provider +1- [phone] Encounter Details Date Type Department Care Team (Latest Contact Info) Description 01/21/2003 Outpatient [facility] [address] [place] [phone] Elio Salas MD [address] [address] ACUTE BRONCHITIS (Primary Dx) Social History Tobacco Use Types Packs/Day Years Used Date Smoking Tobacco: Never Assessed Comments Unknown Sex and Gender Information Value Date Recorded Sex Assigned at Not on file Legal Sex Female 3:07 AM CLOTH WASHER OPERATOR Gender Identity Not on file Sexual Orientation Not on file documented as of this encounter Plan of Treatment Not on file documented as of this encounter Visit Diagnoses Diagnosis Acute bronchitis- Primary documented in this encounter Care Teams Child Welfare Assistant Relationship Specialty Start Date End Date Ora Ricks MD [address] [place] [address] PCP - General Internal Medicine 02/25/16 documented as of this encounter
--- OUTSIDE RECORDS SUMMARY | 2025-07-17 22:55 | XMS_ITS | Encounter Summary ---
Author Organization [facility] Address [address] [place] [address] Care Team Providers Care Daytime Caregiver Name Role Phone Ora Ricks MD Primary Care Provider +1- [phone] Encounter Details Date Type Department Care Team (Latest Contact Info) Description 08/27/2002 Outpatient [facility] Medicine [place] [address] [facility] [address] [place] [address] Elio Salas MD [address] [address] Sprain lumbar region (Primary Dx) Social History Tobacco Use Types Packs/Day Years Used Date Smoking Tobacco: Never Assessed Comments Unknown Sex and Gender Information Value Date Recorded Sex Assigned at Not on file Legal Sex Female 3:07 AM CYBER DEFENSE ANALYST Gender Identity Not on file Sexual Orientation Not on file documented as of this encounter Plan of Treatment Not on file documented as of this encounter Visit Diagnoses Diagnosis Sprain lumbar region- Primary Sprain of lumbar region documented in this encounter Care Teams Daytime Caregiver Relationship Specialty Start Date End Date Ora Ricks MD [address] [place] [address] PCP - General Internal Medicine 02/25/16 documented as of this encounter
--- OUTSIDE RECORDS SUMMARY | 2025-07-17 22:56 | XMS_ITS | Encounter Summary ---
Author Organization [facility] Address [address] [place] [address] Care Team Providers Care Digital Advisor Name Role Phone Ora Ricks MD Primary Care Provider +1- [phone] Encounter Details Date Type Department Care Team (Latest Contact Info) Description 03/06/2001 Outpatient [facility] Medicine [place] [address] [facility] [address] [place] [address] Elio Salas MD [address] [address] Gynecologic examination (Primary Dx) Social History Tobacco Use Types Packs/Day Years Used Date Smoking Tobacco: Never Assessed Comments Unknown Sex and Gender Information Value Date Recorded Sex Assigned at Not on file Legal Sex Female 3:07 AM INSIDE SALES LEAD Gender Identity Not on file Sexual Orientation Not on file documented as of this encounter Plan of Treatment Not on file documented as of this encounter Visit Diagnoses Diagnosis Gynecologic examination- Primary Gynecological examination documented in this encounter Care Teams Digital Advisor Relationship Specialty Start Date End Date Ora Ricks MD [address] [place] [address] PCP - General Internal Medicine 02/25/16 documented as of this encounter
--- OUTSIDE RECORDS SUMMARY | 2025-07-17 22:56 | XMS_ITS | Encounter Summary ---
Author Organization [facility] Address [address] [place] [address] Care Team Providers Care Mill Operator Head Name Role Phone Ora Ricks MD Primary Care Provider +1- [phone] Encounter Details Date Type Department Care Team (Latest Contact Info) Description 08/09/2000 [facility] [address] [address] Tacos Sanchez DO NO ADDRESS ON FILE Vaginitis and vulvovaginitis, unspecified (Primary Dx) Social History Tobacco Use Types Packs/Day Years Used Date Smoking Tobacco: Never Assessed Comments Unknown Sex and Gender Information Value Date Recorded Sex Assigned at Not on file Legal Sex Female 3:07 AM TELERADIOLOGIST Gender Identity Not on file Sexual Orientation Not on file documented as of this encounter Plan of Treatment Not on file documented as of this encounter Visit Diagnoses Diagnosis Vaginitis and vulvovaginitis, unspecified- Primary documented in this encounter Care Teams Mill Operator Head Relationship Specialty Start Date End Date Ora Ricks MD [address] [place] [address] PCP - General Internal Medicine 02/25/16 documented as of this encounter
--- OUTSIDE RECORDS SUMMARY | 2025-07-17 22:56 | XMS_ITS | Encounter Summary ---
Author Organization [facility] Address [address] [place] [address] Care Team Providers Care Process Stripper Name Role Phone Ora Ricks MD Primary Care Provider +1- [phone] Encounter Details Date Type Department Care Team (Latest Contact Info) Description 04/22/2000 Outpatient Historical [facility] Medicine [address] [address] Farida Mccurdy NO ADDRESS ON FILE Gynecologic examination (Primary Dx); Vaginitis and vulvovaginitis, unspecified Social History Tobacco Use Types Packs/Day Years Used Date Smoking Tobacco: Never Assessed Comments Unknown Sex and Gender Information Value Date Recorded Sex Assigned at Not on file Legal Sex Female 3:07 AM STEAMER TENDER Gender Identity Not on file Sexual Orientation Not on file documented as of this encounter Plan of Treatment Not on file documented as of this encounter Visit Diagnoses Diagnosis Gynecologic examination- Primary Gynecological examination Vaginitis and vulvovaginitis, unspecified documented in this encounter Care Teams Process Stripper Relationship Specialty Start Date End Date Ora Ricks MD [address] [place] [address] PCP - General Internal Medicine 02/25/16 documented as of this encounter
--- OUTSIDE RECORDS SUMMARY | 2025-07-17 22:57 | XMS_ITS | Encounter Summary ---
Author Organization [facility] Address [address] [place] [address] Care Team Providers Care Shank Skinner Name Role Phone Ora Ricks MD Primary Care Provider +1- [phone] Encounter Details Date Type Department Care Team (Latest Contact Info) Description 03/17/1999 Outpatient Historical [facility] Medicine [address] [address] Tacos Sanchez DO NO ADDRESS ON FILE Allergic rhinitis, cause unspecified (Primary Dx); Conjunctivitis unspecified Social History Tobacco Use Types Packs/Day Years Used Date Smoking Tobacco: Never Assessed Comments Unknown Sex and Gender Information Value Date Recorded Sex Assigned at Not on file Legal Sex Female 3:07 AM GREASE MAKER HEAD Gender Identity Not on file Sexual Orientation Not on file documented as of this encounter Plan of Treatment Not on file documented as of this encounter Visit Diagnoses Diagnosis Allergic rhinitis, cause unspecified- Primary Conjunctivitis unspecified Conjunctivitis, unspecified documented in this encounter Care Teams Shank Skinner Relationship Specialty Start Date End Date Ora Ricks MD [address] [place] [address] PCP - General Internal Medicine 02/25/16 documented as of this encounter
--- OUTSIDE RECORDS SUMMARY | 2025-07-17 22:57 | XMS_ITS | Encounter Summary ---
Author Organization [facility] Address [address] [place] [address] Care Team Providers Care Boat Repairer Name Role Phone Ora Ricks MD Primary Care Provider +1- [phone] Encounter Details Date Type Department Care Team (Latest Contact Info) Description 04/02/2002 Outpatient [facility] Medicine [place] [address] [facility] [address] [place] [address] Elio Salas MD [address] [address] URTICARIA NOS (Primary Dx) Social History Tobacco Use Types Packs/Day Years Used Date Smoking Tobacco: Never Assessed Comments Unknown Sex and Gender Information Value Date Recorded Sex Assigned at Not on file Legal Sex Female 3:07 AM SENIOR EXECUTIVE ASSISTANT Gender Identity Not on file Sexual Orientation Not on file documented as of this encounter Plan of Treatment Not on file documented as of this encounter Visit Diagnoses Diagnosis Urticaria, unspecified- Primary documented in this encounter Care Teams Boat Repairer Relationship Specialty Start Date End Date Ora Ricks MD [address] [place] [address] PCP - General Internal Medicine 02/25/16 documented as of this encounter
--- OUTSIDE RECORDS SUMMARY | 2025-07-17 22:58 | XMS_ITS | Encounter Summary ---
Author Organization [facility] Address [address] [place] [address] Care Team Providers Care Pulp Mill Team Leader Name Role Phone Ora Ricks MD Primary Care Provider +1- [phone] Encounter Details Date Type Department Care Team (Latest Contact Info) Description 03/06/[address] [phone] Elio Salas MD [address] [phone] DERMATITIS NOS (Primary Dx) Social History Tobacco Use Types Packs/Day Years Used Date Smoking Tobacco: Never Assessed Comments Unknown Sex and Gender Information Value Date Recorded Sex Assigned at Not on file Legal Sex Female 3:07 AM OCCUPATIONAL THERAPIST Gender Identity Not on file Sexual Orientation Not on file documented as of this encounter Plan of Treatment Not on file documented as of this encounter Visit Diagnoses Diagnosis Contact dermatitis and other eczema, due to unspecified cause- Primary documented in this encounter Care Teams Pulp Mill Team Leader Relationship Specialty Start Date End Date Ora Ricks MD [address] [place], [place] [address] PCP - General Internal Medicine 02/25/16 documented as of this encounter
--- OUTSIDE RECORDS SUMMARY | 2025-07-17 22:58 | XMS_ITS | Encounter Summary ---
Author Organization [facility] Address [address] [place] [address] Care Team Providers Care System Technologist Name Role Phone Ora Ricks MD Primary Care Provider +1- [phone] Encounter Details Date Type Department Care Team (Latest Contact Info) Description 03/01/2002 Outpatient [facility] Medicine [address] [phone] Emy Colindres MD NO ADDRESS ON FILE Cervicitis (Primary Dx); Gynecologic examination Social History Tobacco Use Types Packs/Day Years Used Date Smoking Tobacco: Never Assessed Comments Unknown Sex and Gender Information Value Date Recorded Sex Assigned at Not on file 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
--- OUTSIDE RECORDS SUMMARY | 2025-07-17 22:58 | XMS_ITS | Encounter Summary ---
Author Organization [facility] Address [address] [place] [address] Care Team Providers Care Child'S Nurse Name Role Phone Ora Ricks MD Primary Care Provider +1- [phone] Encounter Details Date Type Department Care Team (Latest Contact Info) Description 02/13/2002 Outpatient [facility] Medicine [address] [address] Tacos Sanchez DO NO ADDRESS ON FILE Gynecologic examination (Primary Dx); VAGINITIS NOS; Cervicitis Social History Tobacco Use Types Packs/Day Years Used Date Smoking Tobacco: Never Assessed Comments Unknown Sex and Gender Information Value Date Recorded Sex Assigned at Not on file 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
[2025-07-17 22:59] LABS: Hematocrit 34.8 % (36-47); Hemoglobin 11.50 g/dL (11.27-16.99); Mean Corpuscular HGB Conc 33.0 g/dL (30-55); Mean Corpuscular Hemoglobin 31.1 pg (27-33); Mean Corpuscular Volume 94.1 fl (85-98); Nucleated Red Blood Cells % 0 %; Platelet Count 203 10^3/cmm (157-399); Red Blood Count 3.70 10^6/uL (3.85-5.65); White Blood Count 7.12 10^3/uL (3.29-11.43)
--- OUTSIDE RECORDS SUMMARY | 2025-07-17 22:59 | XMS_ITS | Encounter Summary ---
Author Organization [facility] Address [address] [place] [address] Care Team Providers Care Family Consultant Name Role Phone Ora Ricks MD Primary Care Provider +1- [phone] Encounter Details Date Type Department Care Team (Latest Contact Info) Description 09/10/2005 Outpatient Historical [employer] [address] [place] [address] [place] [phone] Alexis Crawford MD NO ADDRESS ON FILE LUPUS ERYTHEMATOSUS (Primary Dx) Social History Tobacco Use Types Packs/Day Years Used Date Smoking Tobacco: Never Assessed Comments Unknown Sex and Gender Information Value Date Recorded Sex Assigned at Not on file 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
--- OUTSIDE RECORDS SUMMARY | 2025-07-17 22:59 | XMS_ITS | Encounter Summary ---
Author Organization [facility] Address [address] [place] [address] Care Team Providers Care International Relations Professor Name Role Phone Ora Ricks MD Primary Care Provider +1- [phone] Encounter Details Date Type Department Care Team (Latest Contact Info) Description 03/30/2005 Outpatient [facility]- [address] [phone] Elio Salas MD [address] [phone] ROUTINE DIRECTOR BIOMEDICAL ENGINEERING EXAMINATION (Primary Dx); SCREENING MAL NEOP-BREAST,UNSPEC; SYMPTOMATIC FEMALE CLIMACTERIC STATE; SCREENING MAL NEOP-RECTUM Social History Tobacco Use Types Packs/Day Years Used Date Smoking Tobacco: Never Assessed Comments Unknown Sex and Gender Information Value Date Recorded Sex Assigned at Not on file 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 Gender Identity Not on file Sexual Orientation Not on file documented as of this encounter Plan of Treatment Not on file documented as of this encounter Visit Diagnoses Diagnosis Routine gynecological examination- Primary Breast screening, unspecified Symptomatic menopausal or female climacteric states Screening for malignant neoplasm of the rectum documented in this encounter Care Teams International Relations Professor Relationship Specialty Start Date End Date Ora Ricks MD [address] [place] [address] PCP - General Internal Medicine 02/25/16 documented as of this encounter
--- OUTSIDE RECORDS SUMMARY | 2025-07-17 22:59 | XMS_ITS | Encounter Summary ---
Author Organization [facility] Address [address] [place] [address] Care Team Providers Care Boat Captain Name Role Phone Ora Ricks MD Primary Care Provider +1- [phone] Reason for Visit * Reason Onset Date Comments Needs Appointment 01/16/2024 Encounter Details Date Type Department Care Team (Late st Contact Info) Description 01/16/2024 Telephone [facility] [address] [place] [phone] Alberta Warren, LOG DECK TENDER [address] [place] [phone] Needs Appointment Social History Tobacco Use Types Packs/Day Years [...] on file Legal Sex Female 5:27 AM LENS MOUNTER Gender Identity Not on file Sexual Orientation Not on file documented as of this encounter Miscellaneous Notes * Telephone Encounter - Geovanny Almaguer - 01/16/2024 2:19 PM CDT [facility] Call Center [employer] Alberta Warren (Provider) MESSAGE Needing to schedule appointment [facility] Line Driver: TRINH Brady documented in this encounter Plan of Treatment Upcoming Encounters Date Type Department Care Team (Late st Contact Info) Description 11/21/2025 3:00 PM LENS MOUNTER Office Visit [facility] [address] [place] [phone] Jaspreet Davis MD [address] [place] [phone] Alberta Warren, AUREA [address] [place] [phone] documented as of this encounter Visit Diagnoses Not on filedocumented in this encounter Care Teams Boat Captain Relationship Specialty Start Date End Date Ora Ricks MD [address] [place] [address] PCP - General Internal Medicine 02/25/16 documented as of this encounter
--- OUTSIDE RECORDS SUMMARY | 2025-07-17 22:59 | XMS_ITS | Encounter Summary ---
Author Organization [facility] Address 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 [facility] Administrator: Bettie Rebolledo documented in this encounter Plan of Treatment Upcoming Encounters Date Type Department Care Team (Late st Contact Info) Description 11/21/2025 3:00 PM SENIOR PRODUCT ANALYST Office Visit [facility] [address] [place] [phone] Jaspreet Davis MD [address] [place] [phone] Alberta Warren, AUREA [address] [place] [address] documented as of this encounter Visit Diagnoses Not on filedocumented in this encounter Care Teams Soil Science Technical Officer Relationship Specialty Start Date End Date Ora Ricks MD [address] [place] [address] PCP - General Internal Medicine 02/25/16 documented as of this encounter
--- OUTSIDE RECORDS SUMMARY | 2025-07-17 22:59 | XMS_ITS | Encounter Summary ---
Author Organization [facility] Address [address] [place] [address] Care Team Providers Care Sustainable Design Coordinator Name Role Phone Ora Ricks MD Primary Care Provider +1- [phone] Encounter Details Date Type Department Care Team (Latest Contact Info) Description 07/22/1998 Outpatient [facility] [place] [address] [facility] [address] [place] [address] Elio Salas MD [address] [phone] Gynecologic examination (Primary Dx) Social History Tobacco Use Types Packs/Day Years Used Date Smoking Tobacco: Never Assessed Comments Unknown Sex and Gender Information Value Date Recorded Sex Assigned at Not on file 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
--- OUTSIDE RECORDS SUMMARY | 2025-07-17 22:59 | XMS_ITS | Clinical Summary ---
Author Organization [facility] Address [address] [facility] [address] [place] [address] Phone Care Team Providers Care Reporter Anchor Name Role Phone Ora Ricks MD Primary Care Provider +1- [phone] Allergies No known active allergies Medications No known medications Immunizations Immunization Administration Dates Next Due (PFIZER)(12 YR UP) COVID-19 VACCINE - EMERGENCY USE AUTHORIZATION, MRNA, [id number](PF) 30 MCG/0.3 ML IM SUSP 12/02/2020,11/11/2020 Hepatitis B Vaccine 01/09/1998,09/09/1997,1996 Social History Tobacco Use Types Packs/Day Years Used Date Smoking Tobacco: Never Alcohol Use Standard Drinks/Week Comments No 0 (1 standard drink = 0.6 oz pur e alcohol) Comments No Sex and Gender Information Value Date Recorded Sex Assigned at Not on file 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 Gender Identity Not on file Sexual Orientation Not on file Last Filed Vital Signs Vital Sign Reading Time Taken Comments Blood Pressure 152/78 02/25/2016 8:00 AM CDT Pulse - - Temperature 36.5 C (97.7 F) 02/25/2016 7:50 AM CDT Respiratory Rate 16 02/25/2016 7:50 AM CDT Oxygen Saturation 98% 02/25/2016 8:00 AM CDT Inhaled Oxygen Concentration - - Weight 69.4 kg (153 lb) 02/25/2016 7:50 AM CDT Height 165.1 cm (5' 5 ) 02/25/2016 7:50 AM CDT Body Mass Index 25.46 02/25/2016 7:50 AM CDT Plan of Treatment Health Maintenance Due Date Last Done Comments DTAP/TDAP/TD VACCINES (1 - Tdap) 1972 BREAST CANCER SCREENING 1993 COLORECTAL SCREENING 1998 FIT-DNA Q 3 years 1998 Flex Sig/CT Colonography Q 5 years 1998 Colorectal Cancer Screening 04/22/2001 FIT/FOBT Q 1 year 04/22/2001 04/22/2000 PNEUMOCOCCAL VACCINE 50+ YEA RS (1 of 1 - PCV) 2003 ZOSTER VACCINE (1 of 2) 2003 OSTEOPOROSIS SCREENING 2018 INFLUENZA VACCINE (#1) 2025 COVID-19 Vaccine (3 - 2024- season) 07/01/202512/2020, 11/11/2020 RSV VACCINE (60+ or ) (1 - 1-dose 75+ series) 2028 Insurance MEDICARE PART A HOSPITAL ONLY [employer] [facility] Care Teams Reporter Anchor Relationship Specialty Start Date End Date Ora Ricks MD [address] [place] [address] PCP - General Internal Medicine 02/25/16
--- OUTSIDE RECORDS SUMMARY | 2025-07-17 22:59 | XMS_ITS | Encounter Summary ---
Author Organization 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
--- OUTSIDE RECORDS SUMMARY | 2025-07-17 22:59 | XMS_ITS | Encounter Summary ---
Author Organization [facility] Address [address] [place] [address] Care Team Providers Care Resident Care Supervisor Name Role Phone Ora Ricks MD Primary Care Provider +1- [phone] Encounter Details Date Type Department Care Team (Late st Contact Info) Description 03/31/2005 Outpatient [facility]- [address] [phone] Elio Salas MD [address] [phone] Social History Tobacco Use Types Packs/Day Years Used Date Smoking Tobacco: Never Assessed Comments Unknown Sex and Gender Information Value Date Recorded Sex Assigned at Not on file Legal Sex Female 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 TIN ROLLER [employer] Gender Identity Not on file Sexual Orientation Not on file documented as of this encounter Plan of Treatment Not on file documented as of this encounter Procedures Procedure Name Priority Date/Time Associated Diagnosis Comments FSH Routine 03/31/2005 7:24 PM CDT documented in this encounter Results * FSH (03/31/2005 7:24 PM CDT) FSH 1.9 mlU/ML INTERFACE SYSTEM Comment: FSH Expected Ranges: Normally Menstruating Females Follicular Phase 4-13 mIU/ml Mid-Cycle 5-22 mIU/ml Luteal Phase 2-13 mIU/ml Postmenopausal females 20-138 mIU/ml Males 1-8 mIU/ml 03/31/2005 7:24 PM CDT us Elio Salas MD CHEMISTRY ORDERABLES Final Result INTERFACE SYSTEM Refer to clinic/hospital department documented in this encounter Visit Diagnoses Not on filedocumented in this encounter Care Teams Resident Care Supervisor Relationship Specialty Start Date End Date Ora Ricks MD [address] [place] [address] PCP - General Internal Medicine 02/25/16 documented as of this encounter
[2025-07-17 23:00] VITALS: BP 169/98; PULSE 65; RESP 16; O2SAT 100
[2025-07-17 23:06] LABS: INR 0.88 (0.8-1.2); Prothrombin Time 12.60 SECONDS (12.1-14.9)
[2025-07-17 23:07] LABS: Partial Thromboplastin Time 22.7 SECONDS (23.9-36.7)
[2025-07-17 23:14] LABS: Troponin(5th) Baseline 475 ng/L (0-10)
[2025-07-17 23:15] LABS: Alanine Aminotransferase 12 U/L (0-33); Albumin Level 4.2 g/dL (3.5-5.2); Alkaline Phosphatase 105 U/L (35-105); Anion Gap 18.4 (5-19); Aspartate Amino Transferase 26 U/L (0-32); Blood Urea Nitrogen 20 mg/dL (8-23); Calcium 9.4 mg/dL (8.5-10.5); Carbon Dioxide 21 mmol/L (22-29); Chloride 106 mmol/L (98-107); Creatinine Clr Calc Pharmacy 51.9496; Globulin 3.5 g/dL (1.3-4.6); Glucose 138 mg/dL (65-115); Osmolality Calculated 297 mOsm/kg (285-295); Potassium 4.4 mmol/L (3.5-5.1); Sodium 141 mmol/L (136-145); Total Protein 7.7 g/dL (6.6-8.7)
[2025-07-17] MEDS: ondansetron 2 mg/ML SDV 2 mL 4 MG IVP (23:33)
[2025-07-17] MEDS: nitroglycerin 1 gm/inch oint Pkt 1 INCH TOPICAL (23:34)
[2025-07-17] MEDS: morphine 4 mg/mL SDV 1 mL IVP (23:34)
[2025-07-17] MEDS: heparin 5,000 unit/mL INJ 1 mL 4000 UNIT IVP (23:42)
[2025-07-17] MEDS: heparin drip 25,000 UNIT/500 ML PREMIX 21 UNIT IV (23:48)
--- NOTE | 2025-07-17 23:50 | ED_ITS ---
HPI - Chest Pain 2 General: Chief Complaint: Chest Pain Stated Complaint: cp Time Seen by Provider: 07/17/25 22:46 History of Present Illness: 69-year-old female with history of lupus and unclear hypertension/tachycardia episodes presents via EMS for acute chest pressure. Patient reports sudden onset while reaching for a blanket, occurring several hours prior to arrival ( around five to nine ). Describes ongoing chest pressure and difficulty getting a deep breath; not worse with deep inspiration. Associated diaphoresis and brief diarrhea. Denies prior myocardial infarction and denies atrial fibrillation. . EMS reports pain improved prior to arrival, but pt is differentiating pain from pressure and states she still has pressure which has been unrelenting and currently rates it at 8/10. Initial ED EKG reportedly unchanged from prior and without obvious acute myocardial infarction. Provider notes current troponin 475 (prior troponins <6). Related Data Home Medications ?Medication ?Instructions ?Recorded ?Confirmed cholecalciferol (vitamin D3) 25 25 mcg PO DAILY 04/08/25 mcg (1,000 unit) capsule pantoprazole 40 mg tablet,delayed 40 mg PO DAILY 04/1104/08/25 release timolol maleate 0.25 % eye drops 1 drop ophthalmic (ey e) DAILY 04/11/20 04/08/25 alendronate 70 mg tablet (Fosamax) 70 mg PO .Q7days 04/08/25 levothyroxine 75 mcg capsule 75 mcg PO DAILY 11/25/21 04/08/25 metoprolol succinate 50 mg 100 mg PO DAILY 05/14/24 tablet,extended release 24 hr (Toprol XL) Previous Rx's ?Medication ?Instructions ?Recorded clobetasol 0.05 % topical cream 1 applic topical BID a pply to rash 05/25/24 BID for two weeks then prn #60 grams folic acid 1 mg tablet 1 mg PO DAILY #90 tabs 04/08 Allergies Allergy/AdvReac Type Severity Reaction Status Date / Time No Known Allergies Allergy Verified 04/08/25 11:06 [facility] ED 2 PFSH: Medical History 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 Systemic lupus erythematosus, unspecified Medication monitoring encounter Osteoarthritis Cutaneous lupus erythematosus in remission Surgical History H/O: hysterectomy H/O dilation and curettage H/O lumpectomy benign H/O eye surgery 1955 Family History Mother Hyperlipidemia Hypertension Sister Breast cancer late 30's Father Lung cancer Denies family history of Colon cancer Ovarian cancer Diabetes CAD (coronary artery disease) Clotting disorder Heart disease Anesthesia complication Bleeding disorder Uterine cancer Thyroid disease Stroke Social History Smoking and tobacco/nicotine status: never used tobacco/nicotine Alcohol intake: never Substance/Drug Use: never Lives independently: No Marital status: Number of children: 2 Physical Exam 2 Narrative: EXAM NARRATIVE: Mild distress Const: COMMON NORMALS: patient oriented x3 and alert HENMT: COMMON NORMALS: normocephalic and atraumatic HEAD & SCALP: n ormocephalic and atraumatic Eye: COMMON NORMALS: Equal, round and reactive pupils present, EOMs intact bilaterally and no scleral icterus PUPIL: Yes Equal, round and reactive pupils present Chest: OTHER: Chest pain not reproducible with palpation or deep inspiration Resp: COMMON NORMALS: normal respiratory effort and No retractions Cardio: COMMON NORMALS: regular rate, regular rhythm and No murmurs present (Cardio) RATE: regular rate RHYTHM: regular rhythm GI: COMMON NORMALS: Normal to inspection, nondistended, normoactive bowel sounds present, Soft to palpation and non-tender PALPATION: Yes Soft to palpation Neuro: COMMON NORMALS: patient oriented x3 SENSORIUM/ORIENTATION: Yes alert Skin: COMMON NORMALS: no rashes or lesions noted GENERAL SKIN EXAM: no rashes or lesions noted Course 2 Vital Signs: Vital signs: Vital Signs Temperature 98.5 F 07/17/25 22:37 Pulse Rate 68 07/18/25 00:02 Respiratory Rate 16 07/18/25 00:02 Blood Pressure 149/96 07/18/25 00:02 Pulse Oximetry 95 07/18/25 00:02 Oxygen Delivery Me thod Room Air 07/18/25 00:02 MDM - Chest Pain Medical Decision Making 69-year-old female with lupus and unclear hypertension presents with acute chest pressure, diaphoresis, and transient diarrhea. Pain initially improved prehospital but persistent pressure in ED. Denies prior myocardial infarction/atrial fibrillation. Took baby aspirin at home. Vital signs reportedly stable with blood pressure and heart rate okay. Pertinent physical examination findings not available. Labs: troponin 475 today; prior troponins <6. EKG in ED shows subtle ST segment changes in inferior leads but not in obvious ST segment elevation. Acute coronary syndrome, likely non?ST-elevation myocardial infarction (NSTEMI), is favored given ongoing chest pressure and markedly elevated troponin with non- diagnostic EKG. EKG not showing STEMI does not exclude myocardial infarction. No alternative diagnosis discussed. Planned: start heparin, nitroglycerin paste, morphine, and antiemetic; cardiology consult called with possible catheterization depending on recommendations. Continued monitoring. Spoke with on-call lead generation specialist who recommends taking her to Line Maintenance Supervisor immediately. Patient is agreeable to plan. Vital signs remained stable throughout ED course and she will be taken to the catheterization lab in guarded but stable condition Lab Data 07/17/25 22:51 07/17/25 22:51 Laboratory Results WBC 7.12 10^3/uL (3.29-11.43) 07/17/25 22:51 RBC 3.70 10^6/uL (3.85-5.65) L 07/17/25 22:51 Hgb 11.50 g/dL (11.27-16.99) 07/17/25 22:51 Hct 34.8 % (36-47) L 07/17/25 22:51 MCV 94.1 fl (85-98) 07/17/25 22:51 MCH 31.1 pg (27-33) 07/17/25 22:51 MCHC 33.0 g/dL (30-55) 07/17/25 22:51 RDW 14.5 % (12.1-15.1) 07/17/25 22:51 Plt Count 203 10^3/cmm (157-399) 07/17/25 22:51 MPV 8.8 fL (7.4-10.4) 07/17/25 22:51 Neut % (Auto) 73.9 % 07/17/25 22:51 Lymph % (Auto) 13.8 % 07/17/25 22:51 [place] % (Auto) 10.7 % 07/17/25 22:51 Eos % (Auto) 1.1 % 07/17/25 22:51 Baso % (Auto) 0.1 % 07/17/25 22:51 Neut # (Auto) 5.26 10^3/uL (1.8-7.7) 07/17/25 22:51 Lymph # (Auto) 1.0 10^3/uL (0.8-4.8) 07/17/25 22:51 [place] # (Auto) 0.8 10^3/uL (0.2-0.9) 07/17/25 22:51 Eos # (Auto) 0.1 10^3/uL (0.0-0.8) 07/17/25 22:51 Baso # (Auto) 0.0 10^3/uL (0.0-0.1) 07/17/25 22:51 Nucleated RBC % (auto) 0 % 07/17/25 22: Nucleated RBCs # 0.0 /100WBC 07/17/25 22:51 PT 12.60 SECONDS (12.1-14.9) 07/17/25 22:51 INR 0.88 (0.8-1.2) 07/17/25 22:51 APTT 22.7 SECONDS (23.9-36.7) L 07/17/25 22:51 Sodium 141 mmol/L (136-145) 07/17/25 22:51 Potassium 4.4 mmol/L (3.5-5.1) 07/17/25 22:51 Chloride 106 mmol/L (98-107) 07/17/25 22:51 Carbon Dioxide 21 mmol/L (22-29) L 07/17/25 22:51 Anion Gap 18.4 (5-19) 07/17/25 22:51 BUN 20 mg/dL (8-23) 07/17/25 22:51 Creatinine 1.0 mg/dL (0.5-0.9) H 07/17/25 22:51 GFR Calculation Not Reportable 07/17/25 22:51 Glucose 138 mg/dL (65-115) H 07/17/25 22:51 Calculated Osmolality 297 mOsm/kg (285-295) H 07/17/25 22:51 Calcium 9.4 mg/dL (8.5-10.5) 09/17/25 22:51 Total Bilirubin 0.2 mg/dL (0.15-1.2) 07/17/25 22:51 AST 26 U/L (0-32) 07/17/25 22:51 ALT 12 U/L (0-33) 07/17/25 22:51 Alkaline Phosphatase 105 U/L (35-105) 07/17/25 22:51 Troponin T Baseline 475 ng/L (0-10) H* 07/17/25 22:51 Total Protein 7.7 g/dL (6.6-8.7) 07/17/25 22:51 Albumin 4.2 g/dL (3.5-5.2) 07/17/25 22:51 Globulin 3.5 g/dL (1.3-4.6) 07/17/25 22:51 All radiology interpretation(s) finalized by discharge EKG Data EKG 1: Interpretation: Time?2240?sinus rhythm, rate of 65, no obvious ST segment elevation or depression however ST segments do appear pronounced in leads II, 3, aVF concerning for evolving inferior changes. QTc = 403. Discharge Plan Discharge Patient Disposition: Admitted As Inpatient Clinical Impression: Acute non-ST elevation myocardial infarction (NSTEMI) Condition: Fair Coding Level of Care Code ED [facility] [employer] for Lisa Peace
--- NOTE | 2025-07-17 23:51 | PC.NURSE ---
pmo consultant verbalized to stop heparin drip. this was done as reflected in MAR.
[2025-07-17 23:52] VITALS: BP 181/106; PULSE 71; RESP 16; O2SAT 97
--- NOTE | 2025-07-17 23:57 | PM.HP ---
Providers/Chief Complaint Admitting Physician: Akhil Hurt MD / Interventional cardiology Primary Care Provider: Ora Ricks MD Chief Complaint: cp History of Present Illness Milvia Coyne is a 69 year old female with past medical history of hypertension, hypothyroidism, cutaneous lupus who started noticing chest pain at 9 PM about 2 to 3 hours ago. Severe substernal. Blood pressure is elevated. Pain did not subside with Nitropaste and morphine. EKG is showing dynamic changes with borderline ST elevations in inferior leads with reciprocal changes in lateral leads. Although does not meet STEMI criteria at this time however given ongoing chest pain, veterinary laboratory diagnostician activated. Initial troponin is 475. Review of Systems Card: Reports: chest pain Medications/Allergies Home Medications ?Medication ?Instructions ?Recorded ?Confirmed ?Last Taken ?Type cholecalciferol (vitamin D3) 25 25 mcg PO DAILY 04/11/20 04/08/25 Unknown History mcg (1,000 unit) capsule pantoprazole 40 mg tablet,delayed 40 mg PO DAILY 04/11/20 04/08/25 Unknown History release timolol maleate 0.25 % eye drops 1 drop ophthalmic (eye) DAILY 04/11/20 04/08/25 Unknown History alendronate 70 mg tablet (Fosamax) 70 mg PO .Q7days 11/25/21 04/08/25 Unknown History levothyroxine 75 mcg capsule 75 mcg PO DAILY 11/25/21 04/08/25 Unknown History metoprolol succinate 50 mg 100 mg PO DAILY 05/14/24 04/08/25 Unknown History tablet,extended release 24 hr (Toprol XL) clobetasol 0.05 % topical cream 1 applic topical BID apply to rash 05/25/24 04/08/25 Unknown Rx BID for two weeks then prn #60 grams folic acid 1 mg tablet 1 mg PO DAILY #90 tabs 04/08/25 04/08/25 Unknown Rx Allergies Allergy/AdvReac Type Severity Reaction Status Date / Time No Known Allergies Allergy Verified 04/08/25 11:06 PFSH Acute PFSH: Medical History 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 Systemic lupus erythematosus, unspecified Medication monitoring encounter Osteoarthritis Cutaneous lupus erythematosus in remission Surgical History H/O: hysterectomy H/O dilation and curettage H/O lumpectomy benign H/O eye surgery 1955 Family History Mother Hyperlipidemia Hypertension Sister Breast cancer late 30's Father Lung cancer Denies family history of Colon cancer Ovarian cancer Diabetes CAD (coronary artery disease) Clotting disorder Heart disease Anesthesia complication Bleeding disorder Uterine cancer Thyroid disease Stroke Social History Smoking and tobacco/nicotine status: never used tobacco/nicotine Alcohol intake: never Substance/Drug Use: never Lives independently: No Marital status: Number of children: 2 Vitals/I&O/Wt Last Vital Signs Temp 98.5 F 07/17/25 22:37 Pulse 71 07/17/25 23:52 Resp 16 07/17/25 23:52 BP 181/106 07/17/25 23:52 Pulse Ox 97 07/17/25 23:52 O2 Del Method Room Air 07/17/25 23:52 07/17/25 07/17/25 07/18/25 14:59 22:59 06:59 Intake Total 1.05 / 1.05 Balance 1.05 / 1.05 Weight last 48 hrs Weight 166 lb 4.8 oz Weight 163 lb Physical Exam Narrative: GENERAL: Patient is alert, awake and oriented x3. [] NECK: No jugular vein distension. [] HEENT: No cyanosis. No icterus. No pallor. [] HEART: Regular S1 and S2. No murmur, rub or gallop. [] LUNGS: Clear to auscultate bilaterally. [] CENTRAL NERVOUS SYSTEM: Grossly nonfocal. [] EXTREMITIES: Lower extremities with no edema bilaterally. Data 07/17/25 22:51 07/17/25 22:51 A&P Assessment and plan 1. Acute non-ST elevation myocardial infarction (NSTEMI): 2. Hypertension: Plan: Patient has presented with acute non-ST elevation TN. Ongoing significant chest pain. Initial troponin is 475. Secondary to refractory chest pain and EKG changes that are concerning for borderline ST elevation in inferior leads (not meeting STEMI criteria currently) with reciprocal changes, veterinary laboratory diagnostician activated for emergent cardiac catheterization Patient loaded with aspirin and plavix. Heparin bolus given We will order echocardiogram post procedure We will consult medicine team for management of medical issues PDMP PDMP Reviewed: Not Reviewed Attestations Medical Necessity Statement*: Care expected to cross 2 midnights. Patient has presented with high risk NSTEMI and going for emergent cardiac catheterization with possible PCI Coding Level of Care Code [facility] Diagnoses Acute non-ST elevation myocardial infarction (NSTEMI) I21.4 Hypertension I10
[2025-07-18] VITALS (7 sets, daily range): BP systolic 111–149; BP diastolic 60–96; PULSE 65–83; RESP 12–19; TEMP 36.6–36.8; O2SAT 95–97
--- NOTE | 2025-07-18 00:13 | PC.NURSE ---
pt departed ed to CCL at 0013.
[2025-07-18 00:46] LABS: Troponin 5 2HR 1118 ng/L (0-10); Troponin 5 2HR Delta 643 ABS# (0-10)
--- NOTE | 2025-07-18 00:59 | PM.PROC ---
Procedure Note: Date of procedure: 07/18/25 Pre-procedure diagnosis: NSTEMI Post-procedure diagnosis: other (Critical mid LAD stenosis status post PCI with 1 stent. Severe OM 2 stenosis status post PCI with 1 stent) Procedure: Left dominant system. Left main artery Short. LAD has critical 95 to 99% stenosis in the mid segment. Status post PCI with 1 stent. OM 2 has severe 80 to 90% stenosis status post PCI with 1 stent. RCA is a nondominant vessel Dual antiplatelet therapy with aspirin and Plavix. High intensity statin therapy. Will obtain echocardiogram. Will consult medicine team for management of medical issues Coding Level of Care Code Acute Code for [facility]
--- NOTE | 2025-07-18 02:58 | PC.RESP ---
0050 ekg not performed, patient in CCL
--- NOTE | 2025-07-18 04:50 | ECG_ITS ---
[facility] 2025[facility]18 Pat Name: Milvia Coyne Department: Room: 112 Gender: Female Manager Express: : 1955 Requested By: Jose Alejandro Gonzalez Order Number: [id number] Aidan MD: Kasia Monroe M.D. Measurements Intervals [place] Rate: 64 P: 78 MD: 161 QRS: 69 QRSD: 94 T: 58 QT: 423 QTc: 437 Interpretive Statements SINUS RHYTHM WITH OCCASIONAL VENTRICULAR PREMATURE COMPLEXES LOW QRS VOLTAGE IN PRECORDIAL LEADS [QRS DEFLECTION < 1.0 mV IN CHEST LEADS] NONSPECIFIC ST & T-WAVE ABNORMALITY Compared to ECG 07/17/2025 22:40:11 Ventricular premature complex(es) now present Low QRS voltage now present T-wave abnormality now present Electronically Signed On 07-21-2025 17:52:34 CDT by Kasia Monroe M.D. [email or web address]
--- NOTE | 2025-07-18 05:18 | PC.NURSE ---
TR band removed at 0430, no sign of hematoma, swelling, or pain, and no oozing at site noted, 14mls of air removed. 2x2 gauze and tegaderm applied
--- NOTE | 2025-07-18 08:47 | USCV_ITS ---
Milvia Coyne Age: 69 Gender: F : 1955 Exam Date: 07/18/2025 10:01 Ordering Phys: Karen Harding Technologist: Exam Location: [facility] [place] Indication: cp sob BP: 121 / 66 HR: 65 Rhythm: Sinus Technical Quality: Adequate MEASUREMENTS (Male / Female) Normal Values 2D ECHO LV Diastolic Diameter PLAX 5.2 cm 4.2 - 5.9 / 3.9 - 5.3 cm IVS Diastolic Thickness 0.9 cm 0.6 - 1.0 / 0.6 - 0.9 cm IVS Systolic Thickness 1.0 cm LVPW Diastolic Thickness 1.1 cm 0.6 - 1.0 / 0.6 - 0.9 cm LVPW Systolic Thickness 1.1 cm LV Ejection Fraction 2D Teich 39.4 % LV Ejection Fraction MOD 4C 49.8 % LV Ejection Fraction MOD 2C 38.9 % LV Ejection Fraction 2C AL 40.8 % RA Systolic Volume 4C AL 63.2 ml RA Systolic Volume 4C MOD 63.6 ml IVC Diameter 1.9 cm M-MODE LA Ao Ratio MM 1.0 AV Cusp Separation MM 1.9 cm DOPPLER AV Peak Velocity 119.0 cm/s LVOT Peak Velocity 81.0 cm/s MV Peak Velocity 125.0 cm/s MV Area PHT 4.3 cm squared Mitral E to A Ratio 1.9 TV Peak Velocity 325.0 cm/s TR Peak Velocity 340.0 cm/s TR Peak Gradient 46.2 mmHg TV Peak E Velocity 99.0 cm/s PV Peak Velocity 70.0 cm/s FINDINGS Left Ventricle Moderately increased left ventricular cavity size. Severely decreased left ventricular systolic function. Left ventricular ejection fraction is estimated at 35 %. There appeared to be mid to distal anterior and septal wall akinesis suggestive of ishemic heart disease.Grade III/IV diastolic dysfunction (restrictive filling pattern), severely elevated filling pressures. Right Ventricle The right ventricle is normal in size and function. Right Atrium The right atrium is normal in size. Left Atrium Moderately increased left atrial size. Mitral Valve Mildly thickened mitral valve. No mitral valve stenosis. Moderate mitral valve regurgitation. Aortic Valve Moderate aortic valve calcification. No aortic valve stenosis. Trace aortic valve regurgitation. Tricuspid Valve Trace tricuspid valve regurgitation. Pulmonic Valve Structurally normal pulmonic valve without significant stenosis. There is no pulmonic regurgitation. Pericardium Normal pericardium without effusion. Aorta Normal ascending aorta dimension. IVC The inferior vena cava appears normal. CONCLUSIONS Moderately increased left ventricular cavity size. Severely decreased left ventricular systolic function. Left ventricular ejection fraction is estimated at 35 %. There appeared to be mid to distal anterior and septal wall akinesis suggestive of ishemic heart disease.Grade III/IV diastolic dysfunction (restrictive filling pattern), severely elevated filling pressures. Mildly thickened mitral valve. No mitral valve stenosis. Moderate mitral valve regurgitation. There is no pericardial effusion. Right atrial pressure is around 5 mm of mercury. Franco Zaidi MD (Electronically Signed) Final Date: 18 July 2025 15:59 S
--- NOTE | 2025-07-18 08:48 | P.PN_ITS ---
<Statement entered by Akhil Hurt M.D - 07/20/25 10:44> Patient was cared for in conjunction with an advanced practice practitioner.? I reviewed the chart and all pertinent data including imaging, telemetry, and laboratory results.? I discussed the patient in detail with the advanced practice practitioner.? Please see?their note for progress note, testing results and agreed upon plan of care for the patient. S/p PCI of LAD and OM last night. Echocardiogram pending. She is chest pain free and doing well. Subjective 2 Subjective: S/P DESX1 to LAD, OM2. She has an ache in the chest, substernal that feels like something stuck in her esophagus. No heaviness or tightness. No shortness of breath. Blood pressure controlled. No complications with right radial cath site. Vitals/I&O/Wt Last Vital Signs Temp 98.2 F 07/18/25 07:49 Pulse 68 07/18/25 07:49 Resp 19 H 07/18/25 07:49 BP 121/66 07/18/25 07:49 Pulse Ox 97 07/18/25 07:49 O2 Del Method Room Air 07/18/25 04:00 07/17/25 07/18/25 07/18/25 22:59 06:59 14:59 Intake Total 481.05 / 481.05 Balance 481.05 / 481.05 Weight last 48 hrs Weight 163 lb 6.4 oz Weight 163 lb 3.2 oz Weight 166 lb 4.8 oz Weight 163 lb Physical Exam 2 Const: COMMON NORMALS: no acute distress and patient oriented x3 GENERAL APPEARANCE: cooperative ORIENTATION/CONSCIOUSNESS: Yes awake, Yes oriented to person, Yes oriented to place and Yes oriented to time Chest: COMMONS NORMALS: normal inspection of the chest and normal palpation of entire chest wall CHEST: Yes Symmetrical chest wall rise Resp: COMMON NORMALS: normal respiratory effort, No retractions, No use of accessory muscles and clear to auscultation bilaterally AUSCULTATION: clear to auscultation bilaterally Cardio: COMMON NORMALS: regular rate, regular rhythm, S1 normal heart sound present, S2 normal heart sound present, No gallops present (Cardio), No clicks present (Cardio), No murmurs present (Cardio) and No rub (Cardio) RATE: r egular rate RHYTHM: regular rhythm HEART SOUNDS: S1 normal heart sound present and S2 normal heart sound present PERIPHERAL PULSES: radial pulses present positive right 2+ and femoral pulses present positive right 2+ Neuro: COMMON NORMALS: patient oriented x3 and moves all extremities S ENSORIUM/ORIENTATION: Yes oriented to person, Yes oriented to place and Yes oriented to time Skin: WOUNDS: Yes surgical site (no hematoma palpable) Details: no odor Data 07/17/25 22:51 07/17/25 22:51 A&P Assessment and plan 1. Acute non-ST elevation myocardial infarction (NSTEMI): Will keep her in the hospital today to monitor symptoms, will obtain echocardiogram. Per Dr Hurt,will also consult hospitalist for management of noncardiac issues. Continue aspirin, Plavix, metoprolol, statin. PDMP PDMP Reviewed: Not Reviewed Attestations 2 Medical Necessity Statement*: possible dc tomorrow Coding Level of Care Code Acute Code for [facility] Diagnoses Acute non-ST elevation myocardial infarction (NSTEMI) I21.4
[2025-07-18] MEDS: metoprolol succinate ER (24 HR) 25 mg Tablet 50 MG PO (09:05)
--- NOTE | 2025-07-18 14:32 | PM.CONSULT ---
Providers/Reason For Consult Consulting Physician/Specialty*: Charisse Russo MD/ Hospitalist Reason for Consult*: medical comorbidity management Attending Physician: Akhil Hurt M.D Primary Care Provider: Ora Ricks MD History of Present Illness History of Present Illness Milvia Coyne is a 69 year old female who was admitted to the hospital on July 17, 2025. She has a past medical history of hypertension hypothyroidism, discoid lupus not on any biologicals or specific treatment for the same who presented to the hospital with chest pain and was found to have an NSTEMI. LAD has critical 95 to 99% stenosis in the mid segment. Status post PCI with 1 stent. OM 2 has severe 80 to 90% stenosis status post PCI with 1 stent. She reports that chest pain is much improved post procedure. She is currently on dual antiplatelet therapy with aspirin and Plavix and high intensity statin. Medicine service consulted for management of medical comorbidities. She has not recently been on any steroids. Denies any cough dyspnea chest pain or palpitations at this present time. Echocardiogram is currently pending at the time of this assessment. Review of Systems General: Reports: 10 or more systems reviewed and unremarkable except in HPI and below Const: Denies: fever(s), chills or body aches Eyes: Denies: change in vision, blurry vision or photophobia ENMT: Reports: hoarseness; Denies: throat pain, enlarged tonsils, odynophagia or nasal congestion Card: Denies: chest pain, palpitations, irregular heart rhythm, edema, swelling of feet/ankles, lightheadedness, pre-syncope, dyspnea on exertion or orthopnea Resp: Denies: dyspnea, productive cough, non-productive cough, wheezing, stridor, pain on inspiration, change in phlegm color, hemoptysis or chest congestion GI: Denies: abdominal pain, nausea, vomiting, hematemesis, coffee ground emesis, dysphagia, heartburn, diarrhea, constipation, GI cramping, change in stool character, hematochezia or melena : Denies: flank pain, difficulty voiding, dysuria, urinary frequency, urinary urgency, urinary hesitancy or hematuria Musc: Denies: neck pain, back pain, extremity pain, joint swelling, joint warmth or deformity Neuro: Denies: headache(s), numbness in extremities, weakness in extremities, sensory changes, difficulty walking, frequent falls, dizziness, vertigo, behavioral changes, Slurred speech present or seizure-like activity Psych: Denies: anxiety, depression, suicidal ideation or homicidal ideation Endo: Denies: polyuria, polydipsia, tired all the time, cold intolerance or hot flashes Loki/Lymph: Denies: easy bruising or easy bleeding Medications/Allergies Home Medications ?Medication ?Instructions ?Recorded ?Confirmed ?Last Taken ?Type cholecalciferol (vitamin D3) 25 25 mcg PO DAILY 04/11/20 07/20/25 07/20/25 History mcg (1,000 unit) capsule pantoprazole 40 mg tablet,delayed 40 mg PO DAILY 04/11/20 07/20/25 07/20/25 History release timolol maleate 0.25 % eye drops 1 drop ophthalmic (eye) DAILY 04/11/20 07/20/25 07/20/25 History alendronate 70 mg tablet (Fosamax) 70 mg PO .Q7days 11/25/21 07/20/25 07/13/25 History levothyroxine 75 mcg capsule 75 mcg PO DAILY 11/25/21 07/20/25 07/20/25 History apixaban 5 mg tablet (Eliquis) 5 mg PO BID #180 tabs 07/19/25 07/20/25 07/20/25 Rx atorvastatin 40 mg tablet 80 mg (2 x 40 mg) PO BEDTIME #180 07/19/25 07/20/25 Unknown Rx tabs clopidogrel 75 mg tablet 75 mg PO DAILY #90 tabs 07/19/25 07/20/25 07/20/25 Rx metoprolol tartrate 50 mg tablet 50 mg PO BID@0900,2100 #180 tabs 07/19/25 07/20/25 07/20/25 Rx sacubitril 24 mg-valsartan 26 mg 1 tab PO BID #60 tabs 07/19/25 07/20/25 07/20/25 Rx tablet (Entresto) diltiazem HCl 120 mg 120 mg PO DAILY 07/20/25 07/20/25 07/20/25 History tablet,extended release 24 hr folic acid 1 mg tablet 1 mg PO DAILY 07/20/25 07/20/25 07/20/25 History Allergies Allergy/AdvReac Type Severity Reaction Status Date / Time No Known Allergies Allergy Verified 04/08/25 11:06 Current Medications Generic Name Dose Route Start Last Admin Trade Name Rockq PRN Reason Stop Dose Admin Acetaminophen 650 mg 07/18/25 01:03 07/18/25 09:04 Acetaminophen 325 Mg Tablet PO 650 mg Q6H PRN Administration MILD PAIN Aspirin 81 mg 07/18/25 09:00 07/18/25 09:05 Aspirin 81 Mg Ec Tablet PO 81 mg DAILY LUIS Administration Clopidogrel Bisulfate 75 mg 07/18/25 09:00 07/18/25 09:05 Clopidogrel 75 Mg Tablet PO 75 mg DAILY LUIS Administration Metoprolol Succinate 50 mg 07/18/25 09:00 07/18/25 09:05 Metoprolol Succinate Er (24 Hr) 25 Mg Tablet PO 50 mg DAILY LUIS Administration PFSH Acute PFSH: Medical History (Updated 07/20/25 @ 17:57 by Charisse Russo MD) 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 Systemic lupus erythematosus, unspecified Medication monitoring encounter Osteoarthritis Cutaneous lupus erythematosus in remission Surgical History H/O: hysterectomy H/O dilation and curettage H/O lumpectomy benign H/O eye surgery 1955 Family History Mother Hyperlipidemia Hypertension Sister Breast cancer late 30's Father Lung cancer Denies family history of Colon cancer Ovarian cancer Diabetes CAD (coronary artery disease) Clotting disorder Heart disease Anesthesia complication Bleeding disorder Uterine cancer Thyroid disease Stroke Social History Smoking and tobacco/nicotine status: never used tobacco/nicotine Alcohol intake: never Substance/Drug Use: never Lives independently: No Marital status: Number of children: 2 Vitals/I&O/Wt Last Vital Signs Temp 98.2 F 07/18/25 07:49 Pulse 68 07/18/25 07:49 Resp 19 H 07/18/25 07:49 BP 121/66 07/18/25 07:49 Pulse Ox 97 07/18/25 07:49 O2 Del Method Room Air 07/18/25 04:00 07/17/25 07/18/25 07/18/25 22:59 06:59 14:59 Intake Total 481.05 / 481.05 1695 / 1695 Balance 481.05 / 481.05 1695 / 1695 Weight last 48 hrs Weight 74.117 kg Weight 74.026 kg Weight 75.432 kg Weight 73.936 kg Physical Exam Narrative: General: No acute distress, AO x3 HEENT: PERRLA, pupils bilaterally equal and reactive, pallors not present Chest: Normal vesicular breath sounds, no added sounds, equal good air entry bilaterally CVS: S1-S2 regular, no murmurs, no tachycardia, no gallops, no rubs Abdomen: Soft, nontender, no organomegaly, bowel sounds present Neuro: No focal deficits, no facial deformity, AO x3, power 5/5 in all limbs Extremities:no edema clubbing or cyanosis Data 07/19/25 03:48 07/19/25 03:48 A&P Assessment and plan 1. Acute non-ST elevation myocardial infarction (NSTEMI): Patient admitted to the hospital with NSTEMI. Managed by cardiology as above. Chest pain is currently improving. 2. Coronary artery disease: Currently on dual antiplatelet therapy with aspirin Plavix and high intensity statin which we will continue. 3. Discoid lupus erythematosus: She is not currently on any biological steroids or other immunomodulating agents. Uses as needed topical steroids. Currently no exacerbation. 4. Hypothyroid: Hypothyroidism. TSH last checked as reflected in our computer on January 05, 2024 at 4.96. Recheck TSH and if abnormal reflex to T3-T4. Continue levothyroxine at home dosing of 75 mcg p.o. daily. PDMP PDMP Reviewed: Not Reviewed Consult Attestations Medical Necessity Statement: Per admitting Coding Level of Care Code Acute Code for [facility] Fwd Diagnoses Acute non-ST elevation myocardial infarction (NSTEMI) I21.4 Coronary artery disease I25.10 Discoid lupus erythematosus L93.0 Hypothyroid E03.9
[2025-07-19] VITALS: BP 114/70; PULSE 94; RESP 14; O2SAT 97
--- NOTE | 2025-07-19 02:33 | ECG_ITS ---
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 Measurements Intervals [place] Rate: 138 P: 0 ID: 0 QRS: 58 QRSD: 90 T: 217 QT: 333 QTc: 505 Interpretive Statements ATRIAL FIBRILLATION WITH RAPID VENTRICULAR RESPONSE ANTERIOR MYOCARDIAL INFARCTION , PROBABLY RECENT [40+ ms Q WAVE AND/OR ST/T ABNORMALITY IN V3/V4] Compared to ECG 07/18/2025 05:40:44 Myocardial infarct finding now present Sinus rhythm no longer present Ventricular premature complex(es) no longer present T-wave abnormality no longer present Electronically Signed On 07-20-2025 13:08:46 CDT by Akhil Hurt M.D. [email or web address]
--- NOTE | 2025-07-19 02:44 | PC.NURSE ---
contacted MD about HR increasing to 140s, an EKG taken, confirms afib, MD order to start Cardizem gtt at 10mg an hour and give a metoprolol IVP of 5mg, and to add mag level to AM labs orders entered
[2025-07-19] MEDS: metoprolol tartrate 1 mg/1 mL SDV 5 mL 5 MG IVP (02:55)
[2025-07-19] MEDS: dilTIAZem 100 MG in sodium chloride 0.9% (add-van) 100 ML 10 MG IV (03:02)
[2025-07-19 04:04] LABS: Hematocrit 37.3 % (36-47); Hemoglobin 12.10 g/dL (11.27-16.99); Mean Corpuscular HGB Conc 32.4 g/dL (30-55); Mean Corpuscular Hemoglobin 30.9 pg (27-33); Mean Corpuscular Volume 95.4 fl (85-98); Nucleated Red Blood Cells % 0 %; Platelet Count 183 10^3/cmm (157-399); Red Blood Count 3.91 10^6/uL (3.85-5.65); White Blood Count 6.09 10^3/uL (3.29-11.43)
[2025-07-19 04:16] VITALS: BP 121/67; PULSE 75; RESP 18; TEMP 36.7; O2SAT 94
[2025-07-19 04:30] LABS: Anion Gap 14.8 (5-19); Blood Urea Nitrogen 10 mg/dL (8-23); Calcium 8.8 mg/dL (8.5-10.5); Carbon Dioxide 23 mmol/L (22-29); Chloride 107 mmol/L (98-107); Creatinine Clr Calc Pharmacy 57.7873; Glucose 124 mg/dL (65-115); Osmolality Calculated 292 mOsm/kg (285-295); Potassium 3.8 mmol/L (3.5-5.1); Sodium 141 mmol/L (136-145)
[2025-07-19 04:32] LABS: Magnesium 2.0 mg/dL (1.7-2.3)
[2025-07-19 04:40] LABS: Thyroid Stimulating Hormone 5.99 uIU/mL (0.27-4.20)
[2025-07-19 07:59] VITALS: BP 101/81; PULSE 74; RESP 20; TEMP 36.7
--- NOTE | 2025-07-19 08:30 | PC.NURSE ---
Karen Harding NP on the floor. Discussed patient going into afib overnight and placed on cardizem gtt. Received orders to stop metoprolol succinate and start metoprolol tartrate 50mg PO BID.
[2025-07-19] MEDS: alum-mag-hydroxide-sime 30 mL UDC PO (08:59)
--- NOTE | 2025-07-19 10:41 | P.PN_ITS ---
Subjective 2 Subjective: She had an episode of atrial fibrillation with RVR overnight, required diltiazem infusion, which converted rhythm back to sinus. She is feeling well this morning. No chest pain or pressure. Vitals/I&O/Wt Last Vital Signs Temp 98.0 F 07/19/25 07:59 Pulse 74 07/19/25 07:59 Resp 20 H 07/19/25 07:59 BP 101/81 07/19/25 07:59 Pulse Ox 94 07/19/25 04:16 O2 Del Method Room Air 07/19/25 04:16 07/18/25 07/19/25 07/19/25 22:59 06:59 14:59 Intake Total 840 / 2563.667 28.667 / 2563.667 6.75 / 6.75 Balance 840 / 2563.667 28.667 / 2563.667 6.75 / 6.75 Weight last 48 hrs Weight 163 lb 9.6 oz Weight 163 lb 6.4 oz Weight 163 lb 3.2 oz Weight 166 lb 4.8 oz Weight 163 lb Physical Exam 2 Const: COMMON NORMALS: no acute distress and patient oriented x3 GENERAL APPEARANCE: cooperative ORIENTATION/CONSCIOUSNESS: Yes awake, Yes oriented to person, Yes oriented to place and Yes oriented to time Chest: COMMONS NORMALS: normal inspection of the chest and normal palpation of entire chest wall CHEST: Yes Symmetrical chest wall rise Resp: COMMON NORMALS: normal respiratory effort, No retractions, No use of accessory muscles and clear to auscultation bilaterally AUSCULTATION: clear to auscultation bilaterally Cardio: COMMON NORMALS: regular rate, regular rhythm, S1 normal heart sound present, S2 normal heart sound present, No gallops present (Cardio), No clicks present (Cardio), No murmurs present (Cardio) and No rub (Cardio) RATE: r egular rate RHYTHM: regular rhythm HEART SOUNDS: S1 normal heart sound present and S2 normal heart sound present PERIPHERAL PULSES: radial pulses present positive right 2+ and femoral pulses present positive right 2+ Neuro: COMMON NORMALS: patient oriented x3 and moves all extremities S ENSORIUM/ORIENTATION: Yes oriented to person, Yes oriented to place and Yes oriented to time Skin: WOUNDS: Yes surgical site (no hematoma palpable) Details: no odor Data 07/19/25 03:48 07/19/25 03:48 A&P Assessment and plan 1. Atrial fibrillation, new onset: 2. Acute non-ST elevation myocardial infarction (NSTEMI): 3. Coronary artery disease: 4. Systolic CHF, acute: Plan: She is s/p DANIELLA to LAD and OM2. No recurrence of chest pain. She had an episode of atrial fibrillation in 2020, has been in sinus rhythm since then. Noted TSH 5.99, also echocardiogram with LVEF 35% and moderate mitral regurgitation. Started on Entresto last night, tolerating well so far. She can discharge home today with event monitor, start Eliquis 5mg BID tomorrow morning, with Plavix. Stopping aspirin after today. Continue metoprolol tartrate 50mg BID for rate control. She appears euvolemic, not requiring Lasix at this time. If she begins to retain fluid as an outpatient can order PRN Lasix. Follow up in cardiology clinic in 2 weeks. PDMP PDMP Reviewed: Not Reviewed Attestations 2 Medical Necessity Statement*: dc home Coding Level of Care Code Acute Code for [facility] Diagnoses Atrial fibrillation, new onset I48.91 Acute non-ST elevation myocardial infarction (NSTEMI) I21.4 Coronary artery disease I25.10 Systolic CHF, acute I50.21
[2025-07-19 11:31] VITALS: BP 113/63; PULSE 71; RESP 21; TEMP 36.5; O2SAT 97
--- NOTE | 2025-07-19 12:09 | PC.SOCIAL ---
IMM Updated Updated pt on IMM. No questions voiced. Provided pt a copy. Initialed, dated, & timed a copy & placed in chart.
--- NOTE | 2025-07-19 14:00 | PM.MISC ---
Miscellaneous Note Purpose of Documentation: Patient was found to have A-fib with RVR overnight. Manage per cardiology team. Diltiazem and Eliquis has been added to her home regimen. TSH noted to be at 5.99. Free T3 and T4 are currently pending. Patient can discharge with these pending labs . Mildly elevated TSH may reflect hypothyroidism, unlikely to be the cause of A-fib. We will follow-up on the T3-T4 after discharge and call patient to make any necessary adjustments to levothyroxine.
--- NOTE | 2025-07-19 14:28 | P.DS_ITS ---
<Statement entered by Akhil Hurt M.D - 07/20/25 12:10> Patient was cared for in conjunction with an advanced practice practitioner.? I reviewed the chart and all pertinent data including imaging, telemetry, and laboratory results.? I discussed the patient in detail with the advanced practice practitioner.? Please see?their note for discharge summary, testing results and agreed upon plan of care for the patient. Discharge Providers Date of Admission: 07/18/25 00:14 Date of Discharge: July 19, 2025 Attending Provider at Admission: Akhil Hurt M.D Attending Provider at Discharge: Akhil Hurt M.D Primary Care Provider: Ora Ricks MD Diagnoses at Discharge Discharge Diagnosis 1. Atrial fibrillation, new onset: 2. Acute non-ST elevation myocardial infarction (NSTEMI): 3. Coronary artery disease: 4. Systolic CHF, acute: Reason for Visit Reason for Visit: Chest pain Hospital Course Hospital Course She is s/p DANIELLA to LAD and OM2. No recurrence of chest pain. She went into atrial fibrillation with RVR last night, requiring diltiazem infusion. She converted to sinus rhythm shortly thereafter. She had an episode of atrial fibrillation in 2020, has been in sinus rhythm since then. Noted TSH 5.99, also echocardiogram with LVEF 35% and moderate mitral regurgitation. Started on Entresto last night, tolerating well so far. She can discharge home today with event monitor, start Eliquis 5mg BID tomorrow morning, with Plavix. Stopping aspirin after today. Continue metoprolol tartrate 50mg BID for rate control. She appears euvolemic, not requiring Lasix at this time. If she begins to retain fluid as an outpatient can order PRN Lasix. Follow up in cardiology clinic in 2 weeks. Physical Exam Const: COMMON NORMALS: no acute distress and patient oriented x3 GENERAL APPEARANCE: cooperative ORIENTATION/CONSCIOUSNESS: Yes awake, Yes oriented to person, Yes oriented to place and Yes oriented to time Chest: COMMONS NORMALS: normal inspection of the chest and normal palpation of entire chest wall CHEST: Yes Symmetrical chest wall rise Resp: COMMON NORMALS: normal respiratory effort, No retractions, No use of accessory muscles and clear to auscultation bilaterally AUSCULTATION: clear to auscultation bilaterally Cardio: COMMON NORMALS: regular rate, regular rhythm, S1 normal heart sound present, S2 normal heart sound present, No gallops present (Cardio), No clicks present (Cardio), No murmurs present (Cardio) and No rub (Cardio) RATE: regular rate RHYTHM: regular rhythm HEART SOUNDS: S1 normal heart sound present and S2 normal heart sound present PERIPHERAL PULSES: radial pulses present positive right 2+ and femoral pulses present positive right 2+ Neuro: COMMON NORMALS: patient oriented x3 and moves all extremities SENSORIUM/ORIENTATION: Yes oriented to person, Yes oriented to place and Yes oriented to time Skin: WOUNDS: Yes surgical site (no hematoma palpable) Details: no odor Discharge Data Studies Completed and Pending Completed Studies During Hospitalization Category Date Time Status CV. echo complete* [id number] Routine Ultrasound 07/18/25 08:47 Completed Pending at discharge Category Date Time Status LAP POLISHER request for service Stat Exams 07/18/25 00:02 Taken Basic Metabolic Panel AM LABS Lab 07/20/25 04:00 Ordered Basic Metabolic Panel AM LABS Lab 07/21/25 04:00 Ordered Complete Blood Count w/Auto AM LABS Lab 07/20/25 04:00 Ordered Complete Blood Count w/Auto AM LABS Lab 07/21/25 04:00 Ordered Platelet Count Q2D Lab 07/21/25 04:00 Ordered Laboratory Results WBC 6.09 10^3/uL (3.29-11.43) 07/19/25 03:48 RBC 3.91 10^6/uL (3.85-5.65) 07/19/25 03:48 Hgb 12.10 g/dL (11.27-16.99) 07/19/25 03:48 Hct 37.3 % (36-47) 07/19/25 03:48 MCV 95.4 fl (85-98) 07/19/25 03:48 MCH 30.9 pg (27-33) 07/19/25 03:48 MCHC 32.4 g/dL (30-55) 07/19/25 03:48 RDW 14.8 % (12.1-15.1) 07/19/25 03:48 Plt Count 183 10^3/cmm (157-399) 07/19/25 03:48 MPV 9.0 fL (7.4-10.4) 07/19/25 03:48 Neut % (Auto) 67.6 % 07/19/25 03:48 Lymph % (Auto) 17.2 % 07/19/25 03:48 [place] % (Auto) 13.8 % 07/19/25 03:48 Eos % (Auto) 0.8 % 07/19/25 03:48 Baso % (Auto) 0.3 % 07/19/25 03:48 Neut # (Auto) 4.11 10^3/uL (1.8-7.7) 07/19/25 03:48 Lymph # (Auto) 1.1 10^3/uL (0.8-4.8) 07/19/25 03:48 [place] # (Auto) 0.8 10^3/uL (0.2-0.9) 07/19/25 03:48 Eos # (Auto) 0.1 10^3/uL (0.0-0.8) 07/19/25 03:48 Baso # (Auto) 0.0 10^3/uL (0.0-0.1) 07/19/25 03:48 Nucleated RBC % (auto) 0 % 07/19/25 03:48 Nucleated RBCs # 0.0 /100WBC 07/19/25 03:48 PT 12.60 SECONDS (12.1-14.9) 07/17/25 22:51 INR 0.88 (0.8-1.2) 07/17/25 22:51 APTT 22.7 SECONDS (23.9-36.7) L 07/17/25 22:51 Sodium 141 mmol/L (136-145) 07/19/25 03:48 Potassium 3.8 mmol/L (3.5-5.1) 07/19/25 03:48 Chloride 107 mmol/L (98-107) 07/19/25 03:48 Carbon Dioxide 23 mmol/L (22-29) 07/19/25 03:48 Anion Gap 14.8 (5-19) 07/19/25 03:48 BUN 10 mg/dL (8-23) 07/19/25 03:48 Creatinine 0.9 mg/dL (0.5-0.9) 07/19/25 03:48 GFR Calculation Not Reportable 07/19/25 03:48 Glucose 124 mg/dL (65-115) H 07/19/25 03:48 Calculated Osmolality 292 mOsm/kg (285-295) 07/19/25 03:48 Calcium 8.8 mg/dL (8.5-10.5) 07/19/25 03:48 Magnesium 2.0 mg/dL (1.7-2.3) 07/19/25 03:48 Total Bilirubin 0.2 mg/dL (0.15-1.2) 07/17/25 22:51 AST 26 U/L (0-32) 07/17/25 22:51 ALT 12 U/L (0-33) 07/17/25 22:51 Alkaline Phosphatase 105 U/L (35-105) 07/17/25 22:51 Troponin T Baseline 475 ng/L (0-10) H* 07/17/25 22:51 Troponin T 120 Minute 1118 ng/L (0-10) H 07/18/25 00:13 Delta Troponin T 643 ABS# (0-10) H* 07/18/25 00:13 Total Protein 7.7 g/dL (6.6-8.7) 07/17/25 22:51 Albumin 4.2 g/dL (3.5-5.2) 07/17/25 22:51 Globulin 3.5 g/dL (1.3-4.6) 07/17/25 22:51 TSH 5.99 uIU/mL (0.27-4.20) H 07/19/25 03:48 Vitals Last Vital Signs Temp 97.7 F 07/19/25 11:31 Pulse 71 07/19/25 11:31 Resp 21 H 07/19/25 11:31 BP 113/63 07/19/25 11:31 Pulse Ox 97 07/19/25 11:31 O2 Del Method Room Air 07/19/25 11:31 Discharge Plan Discharge Patient Disposition: Home Condition: Fair Prescriptions: New atorvastatin 40 mg Tablet 80 mg PO BEDTIME Qty: 180 3RF sacubitril-valsartan [Entresto] 24-26 mg Tablet 1 tab PO BID Qty: 60 1RF metoprolol tartrate 50 mg Tablet 50 mg PO BID@0900,2100 Qty: 180 0RF Eliquis 5 mg tablet 5 mg PO BID Qty: 180 3RF clopidogrel 75 mg Tablet 75 mg PO DAILY Qty: 90 3RF Continued pantoprazole 40 mg tablet,delayed release (DR/EC) 40 mg PO DAILY timolol maleate 0.25 % drops 1 drop ophthalmic (eye) DAILY cholecalciferol (vitamin D3) 25 mcg (1,000 unit) capsule 25 mcg PO DAILY alendronate [Fosamax] 70 mg tablet 70 mg PO .Q7days levothyroxine 75 mcg capsule 75 mcg PO DAILY Discontinued Toprol XL 50 mg tablet extended release 24 hr 100 mg PO DAILY Nursing Education Specialist OK for DC: Cardiology Discharge Order = DC NOW: Discharge Order (Routine); Ordered 07/19/25 Ordered By: Karen Harding Referrals: Ora Ricks MD [Primary Care Provider, Internal Medicine] - 07/30/25 11:15 am Karen Harding FNP [Nurse Practitioner, Cardiology] - 07/31/25 2:00 pm Discharge Diet: Cardiac Discharge Activity: Resume usual activity Patient Instructions: Metoprolol (By mouth), Atorvastatin (By mouth), Clopidogrel (By mouth), Apixaban (By mouth), Sacubitril/Valsartan (By mouth), Heart Attack (DC), Coronary Angioplasty (DC), Opioid Safety, Post Angiogram Home Care Instructions, Patient Portal & Anila Instructions Activity Restrictions/Additional Instructions: start Eliquis tomorrow morning. Stop aspirin after today. continue Plavix to keep stent open, it is very important to not miss any doses.? Discharge Attestations Time Spent in Discharge Care*: less than 30 min Quality Metrics Clinical Quality Measures [ No reported AMI, CVA or VTE this stay] Coding Level of Care Code Acute Code for [facility] F[facility] Diagnoses Atrial fibrillation, new onset I48.91 Acute non-ST elevation myocardial infarction (NSTEMI) I21.4 Coronary artery disease I25.10 Systolic CHF, acute I50.21
[2025-07-19 15:29] VITALS: BP 113/63; PULSE 75; RESP 20; O2SAT 97
--- NOTE | 2025-07-19 15:35 | PC.NURSE ---
Patient discharged to home. Instruction provided regarding follow up needs, new medications with changes and site care with instruction. Patient verbalized complete understanding. Right wrist c,d,i without s/s of bleeding or hematoma formation observed. New Rx transmitted to [facility] per patient's request. Patient left ambultory to private vehicle with family at side. No distress observed.
[2025-07-19 15:50] LABS: Free T4 Free Thyroxine 0.93 ng/dL (0.82-1.77)
== END 2025-07-19 15:00 | disposition home or self-care (01) | DRG 321 ==
LOC: ER 23:52 → OPS 07-18 00:10 → CSU 07-18 01:21
PROVIDERS: Internal Medicine; Student in an Organized Health Care Education/Training Program; Admitting Provider Internal Medicine; Emergency Provider Student in an Organized Health Care Education/Training Program; PCP Internal Medicine; Visit Provider Internal Medicine
PROC: 027135Z Dilation of Coronary Artery, Two Arteries with Two Drug-eluting Intraluminal Devices, Percutaneous Approach (ICD-10-PCS; principal; 2025-07-18)
PROC: 027135Z Dilation of Coronary Artery, Two Arteries with Two Drug-eluting Intraluminal Devices, Percutaneous Approach (ICD-10-PCS; 2025-07-18)
DX: I21.4 Non-ST elevation (NSTEMI) myocardial infarction (principal); I50.21 Acute systolic (congestive) heart failure; I48.91 Unspecified atrial fibrillation; I25.10 Atherosclerotic heart disease of native coronary artery without angina pectoris; I11.0 Hypertensive heart disease with heart failure; I34.0 Nonrheumatic mitral (valve) insufficiency; L93.0 Discoid lupus erythematosus; M19.90 Unspecified osteoarthritis, unspecified site; E03.9 Hypothyroidism, unspecified; Z79.01 Long term (current) use of anticoagulants; Z79.02 Long term (current) use of antithrombotics/antiplatelets
CPT/HCPCS: 36415; 80048; 80053; 83735; 84439; 84443; 84481; 84484; 85025; 85347; 85610; 85730; 92978; 93005; 93306; 93454; 96365; 96375; 99152; 99153; 99285; C1725; C1753; C1769; C1874; C1887; C1894; C9606; J1644; J2250; J2270; J2405; J3010; J3490; J7030; J9999; Q9967

== ENCOUNTER 2025-07-20 14:35 | Inpatient (IN) | payer MEDICARE, OTHER, SELFPAY ==
[2025-07-20] VITALS (31 sets, daily range): BP systolic 87–163; BP diastolic 49–100; PULSE 68–137; RESP 11–27; TEMP 36.6–37.7; O2SAT 94–99; BMI 25.0
--- OUTSIDE RECORDS SUMMARY | 2025-07-20 14:44 | XMS_ITS | Encounter Summary ---
Author Organization [facility] Address [address] [place] [address] Care Team Providers Care Engraver Rubber Name Role Phone Ora Ricks MD Primary Care Provider [phone]- [phone] Encounter Details Date Type Department Care Team (Latest Contact Info) Description 03/04/2003 Outpatient [facility] Medicine [place] [address] [facility] [address] [place] [address] Elio Salas MD [address] [address] Gynecologic examination (Primary Dx); Cervicitis; Local superficial swellng Social History Tobacco Use Types Packs/Day Years Used Date Smoking Tobacco: Never Assessed Comments Unknown Sex and Gender Information Value Date Recorded Sex Assigned at Not on file Legal Sex Female 3:07 AM CURAM DEVELOPER Gender Identity Not on file Sexual Orientation Not on file documented as of this encounter Plan of Treatment Not on file documented as of this encounter Visit Diagnoses Diagnosis Gynecologic examination- Primary Gynecological examination Cervicitis Cervicitis and endocervicitis Local superficial swellng Localized superficial swelling, mass, or lump documented in this encounter Care Teams Engraver Rubber Relationship Specialty Start Date End Date Ora iRcks MD [address] [place] [address] PCP - General Internal Medicine 02/25/16 documented as of this encounter
--- OUTSIDE RECORDS SUMMARY | 2025-07-20 14:44 | XMS_ITS | Encounter Summary ---
Author Organization [facility] Address [address] [place] [address] Care Team Providers Care Ornamental Rail Installer Name Role Phone Ora Ricks MD Primary Care Provider [phone]- [phone] Encounter Details Date Type Department Care Team (Late st Contact Info) Description 03/04/2003 Outpatient Historical [facility] Medicine [address] [id number] Rad Carrillo NP NO ADDRESS ON FILE Social History Tobacco Use Types Packs/Day Years Used Date Smoking Tobacco: Never Assessed Comments Unknown Sex and Gender Information Value Date Recorded Sex Assigned at Not on file Legal Sex Female 3:07 AM 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
--- OUTSIDE RECORDS SUMMARY | 2025-07-20 14:44 | XMS_ITS | Encounter Summary ---
Author Organization [facility] Address [address] [place] [address] Care Team Providers Care Golf Ball Cover Treater Name Role Phone Ora Ricks MD Primary Care Provider +1- [phone] Encounter Details Date Type Department Care Team (Latest Contact Info) Description 08/23/2003 Outpatient [facility] Medicine [place] [facility] [place] [address] Elio Salas MD [address] [address] HYPERLIPIDEMIA NEC/NOS (Primary Dx); HYPERTENSION NOS Social History Tobacco Use Types Packs/Day Years Used Date Smoking Tobacco: Never Assessed Comments Unknown Sex and Gender Information Value Date Recorded Sex Assigned at Not on file Legal Sex Female 3:07 AM TRACK SWEEPER Gender Identity Not on file Sexual Orientation Not on file documented as of this encounter Plan of Treatment Not on file documented as of this encounter Visit Diagnoses Diagnosis Other and unspecified hyperlipidemia- Primary Unspecified essential hypertension documented in this encounter Care Teams Golf Ball Cover Treater Relationship Specialty Start Date End Date Ora Ricks MD [address] [place] [address] PCP - General Internal Medicine 02/25/16 documented as of this encounter
--- OUTSIDE RECORDS SUMMARY | 2025-07-20 14:44 | XMS_ITS | Encounter Summary ---
Author Organization [facility] Address [address] [place] [address] Care Team Providers Care Fowl Blood Tester Name Role Phone Ora Ricks MD Primary Care Provider +1- [phone] Encounter Details Date Type Department Care Team (Late st Contact Info) Description 08/23/2003 Outpatient Historical [facility] Medicine [place] 104 [facility] 60 [place] [address] Elio Salas MD [address] [address] Social History Tobacco Use Types Packs/Day Years Used Date Smoking Tobacco: Never Assessed Comments Unknown Sex and Gender Information Value Date Recorded Sex Assigned at Not on file Legal Sex Female 3: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
--- OUTSIDE RECORDS SUMMARY | 2025-07-20 14:45 | XMS_ITS | Encounter Summary ---
Author Organization [facility] Address [address] [place] [address] Care Team Providers Care Vice President Risk Management Name Role Phone Ora Ricks MD Primary Care Provider +1- [phone] Reason for Visit * Reason Onset Date Comments Needs Appointment 01/16/2024 Encounter Details Date Type Department Care Team (Late st Contact Info) Description 01/16/2024 Telephone [facility] [address] [facility] [address] [place] [address] Alberta Warren, EDUCATIONAL GUIDANCE COUNSELOR [address] [facility] [address] [place] [address] Needs Appointment Social History Tobacco Use [...] on file Legal Sex Female 5:27 AM ELECTRIC ORGAN ASSEMBLER Gender Identity Not on file Sexual Orientation Not on file documented as of this encounter Miscellaneous Notes * Telephone Encounter - Geovanny Almaguer - 01/16/2024 2:19 PM CDT [facility] Call Center Communications Alberta Warren (Provider) MESSAGE Needing to schedule appointment [facility] Nursing Support Worker: TRINH Brady documented in this encounter Plan of Treatment Upcoming Encounters Date Type Department Care Team (Late st Contact Info) Description 11/21/2025 3:00 PM ELECTRIC ORGAN ASSEMBLER Office Visit [facility] [address] [place] [address] Jaspreet Davis MD [address] [place] [address] Alberta Warren, AUREA [address] [place] [address] documented as of this encounter Visit Diagnoses Not on filedocumented in this encounter Care Teams Vice President Risk Management Relationship Specialty Start Date End Date Ora Ricks MD [address] [place] [address] PCP - General Internal Medicine 02/25/16 documented as of this encounter
--- OUTSIDE RECORDS SUMMARY | 2025-07-20 14:45 | XMS_ITS | Encounter Summary ---
Author Organization [facility] Address [address] [place] [address] Care Team Providers Care Distribution Sales Manager Name Role Phone Ora Ricks MD Primary Care Provider +1- [phone] Encounter Details Date Type Department Care Team (Latest Contact Info) Description 09/10/2005 Outpatient Historical [facility] [address] [place] [address] [place] [phone] Alexis Crawford MD NO ADDRESS ON FILE LUPUS ERYTHEMATOSUS (Primary Dx) Social History Tobacco Use Types Packs/Day Years Used Date Smoking Tobacco: Never Assessed Comments Unknown Sex and Gender Information Value Date Recorded Sex Assigned at Not on file Legal Sex Female 3:07 AM TECHNICAL DELIVERY MANAGER Gender Identity Not on file Sexual Orientation Not on file documented as of this encounter Plan of Treatment Not on file documented as of this encounter Visit Diagnoses Diagnosis Lupus erythematosus- Primary documented in this encounter Care Teams Distribution Sales Manager Relationship Specialty Start Date End Date Ora Ricks MD [address] [place] [address] PCP - General Internal Medicine 02/25/16 documented as of this encounter
--- OUTSIDE RECORDS SUMMARY | 2025-07-20 14:45 | XMS_ITS | Encounter Summary ---
Author Organization [facility] Address [address] [place] [address] Care Team Providers Care Slip Cover Sewer Name Role Phone Ora Ricks MD Primary Care Provider +1- [phone] Encounter Details Date Type Department Care Team (Latest Contact Info) Description 07/22/1998 Outpatient [facility] Medicine [place] 104 [facility] 60 [place] [address] Elio Salas MD [address] [address] Gynecologic examination (Primary Dx) Social History Tobacco Use Types Packs/Day Years Used Date Smoking Tobacco: Never Assessed Comments Unknown Sex and Gender Information Value Date Recorded Sex Assigned at Not on file Legal Sex Female 3:07 AM PROGRAM SUPPORT CLERK Gender Identity Not on file Sexual Orientation Not on file documented as of this encounter Plan of Treatment Not on file documented as of this encounter Visit Diagnoses Diagnosis Gynecologic examination- Primary Gynecological examination documented in this encounter Care Teams Slip Cover Sewer Relationship Specialty Start Date End Date Ora Ricks MD [address] [place] [address] PCP - General Internal Medicine 02/25/16 documented as of this encounter
--- OUTSIDE RECORDS SUMMARY | 2025-07-20 14:45 | XMS_ITS | Encounter Summary ---
Author Organization [facility] Address [address] [place] [address] Care Team Providers Care Transplant Nurse Name Role Phone Ora Ricks MD Primary Care Provider +1- [phone] Encounter Details Date Type Department Care Team (Late st Contact Info) Description 03/04/2003 Outpatient Historical [facility] Medicine [address] [phone] Rad Carrillo NP NO ADDRESS ON FILE Social History Tobacco Use Types Packs/Day Years Used Date Smoking Tobacco: Never Assessed Comments Unknown Sex and Gender Information Value Date Recorded Sex Assigned at Not on file Legal Sex Female 3:07 AM FAMILY MEDIATOR Gender Identity Not on file Sexual Orientation Not on file documented as of this encounter Plan of Treatment Not on file documented as of this encounter Visit Diagnoses Not on filedocumented in this encounter Care Teams Transplant Nurse Relationship Specialty Start Date End Date Ora Ricks MD [address] [place], [place] [address] PCP - General Internal Medicine 02/25/16 documented as of this encounter
--- OUTSIDE RECORDS SUMMARY | 2025-07-20 14:45 | XMS_ITS | Encounter Summary ---
Author Organization [facility] Address [address] [place] [address] Care Team Providers Care Bite Block Maker Name Role Phone Ora Ricks MD Primary Care Provider +1- [phone] Encounter Details Date Type Department Care Team (Latest Contact Info) Description 03/01/2002 Outpatient [facility] Medicine [address] [address] Emy Colindres MD NO ADDRESS ON FILE Cervicitis (Primary Dx); Gynecologic examination Social History Tobacco Use Types Packs/Day Years Used Date Smoking Tobacco: Never Assessed Comments Unknown Sex and Gender Information Value Date Recorded Sex Assigned at Not on file Legal Sex Female 3:07 AM TRAVEL FREIGHT AND 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
--- OUTSIDE RECORDS SUMMARY | 2025-07-20 14:45 | XMS_ITS | Encounter Summary ---
Author Organization [facility] Address [address] [place] [address] Care Team Providers Care Straight Edger Name Role Phone Ora Ricks MD Primary Care Provider +1- [phone] Encounter Details Date Type Department Care Team (Latest Contact Info) Description 04/10/2004 Outpatient [facility] Medicine [place] 104 [facility] 60 [place] [address] Elio Salas MD [address] [address] Gynecologic examination (Primary Dx); SCREENING MAL NEOP-BREAST,UNSPEC; LUMB/LUMBOSAC DISC DEGEN Social History Tobacco Use Types Packs/Day Years Used Date Smoking Tobacco: Never Assessed Comments Unknown Sex and Gender Information Value Date Recorded Sex Assigned at Not on file Legal Sex Female 3:07 AM TRAVEL JOURNALIST Gender Identity Not on file Sexual Orientation Not on file documented as of this encounter Plan of Treatment Not on file documented as of this encounter Visit Diagnoses Diagnosis Gynecologic examination- Primary Gynecological examination Breast screening, unspecified Degeneration of lumbar or lumbosacral intervertebral disc documented in this encounter Care Teams Straight Edger Relationship Specialty Start Date End Date Ora Ricks MD [address] [place] [address] PCP - General Internal Medicine 02/25/16 documented as of this encounter
--- OUTSIDE RECORDS SUMMARY | 2025-07-20 14:45 | XMS_ITS | Encounter Summary ---
Author Organization [facility] Address [address] [place] [address] Care Team Providers Care Electrical Appliance Servicer Name Role Phone Ora Ricks MD Primary Care Provider +1- [phone] Encounter Details Date Type Department Care Team (Latest Contact Info) Description 04/22/2000 Outpatient Historical [facility] Medicine [address] [address] Farida Mccurdy NO ADDRESS ON FILE Gynecologic examination (Primary Dx); Vaginitis and vulvovaginitis, unspecified Social History Tobacco Use Types Packs/Day Years Used Date Smoking Tobacco: Never Assessed Comments Unknown Sex and Gender Information Value Date Recorded Sex Assigned at Not on file Legal Sex Female 3:07 AM MARITIME ENGINEER Gender Identity Not on file Sexual Orientation Not on file documented as of this encounter Plan of Treatment Not on file documented as of this encounter Visit Diagnoses Diagnosis Gynecologic examination- Primary Gynecological examination Vaginitis and vulvovaginitis, unspecified documented in this encounter Care Teams Electrical Appliance Servicer Relationship Specialty Start Date End Date Ora Ricks MD [address] [place] [address] PCP - General Internal Medicine 02/25/16 documented as of this encounter
--- OUTSIDE RECORDS SUMMARY | 2025-07-20 14:45 | XMS_ITS | Encounter Summary ---
Author Organization [facility] Address [address] [place] [address] Care Team Providers Care Train Announcer Name Role Phone Ora Ricks MD Primary Care Provider +1- [phone] Encounter Details Date Type Department Care Team (Latest Contact Info) Description 03/17/[address] [facility] Medicine [address] [address] Tacos Sanchez DO NO ADDRESS ON FILE Allergic rhinitis, cause unspecified (Primary Dx); Conjunctivitis unspecified Social History Tobacco Use Types Packs/Day Years Used Date Smoking Tobacco: Never Assessed Comments Unknown Sex and Gender Information Value Date Recorded Sex Assigned at Not on file Legal Sex Female 3:07 AM PRINCIPAL TECHNICAL SPECIALIST Gender Identity Not on file Sexual Orientation Not on file documented as of this encounter Plan of Treatment Not on file documented as of this encounter Visit Diagnoses Diagnosis Allergic rhinitis, cause unspecified- Primary Conjunctivitis unspecified Conjunctivitis, unspecified documented in this encounter Care Teams Train Announcer Relationship Specialty Start Date End Date Ora Ricks MD [address] [place] [address] PCP - General Internal Medicine 02/25/16 documented as of this encounter
--- OUTSIDE RECORDS SUMMARY | 2025-07-20 14:45 | XMS_ITS | Encounter Summary ---
Author Organization [facility] Address [address] [place] [address] Care Team Providers Care Utility Manager Name Role Phone Ora Ricks MD Primary Care Provider +1- [phone] Reason for Visit * Reason Onset Date Comments Question 02/15/2024 Encounter Details Date Type Department Care Team (Late st Contact Info) Description 02/15/2024 Telephone [facility] [address] [facility] [address] [place] [address] Mickey Burks MD [address] [facility] [address] [place] [address] Question Social History Tobacco Use Types [...] on file Legal 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 Please adv. [facility] Worker: Rosibel Toscano documented in this encounter Plan of Treatment Upcoming Encounters Date Type Department Care Team (Late st Contact Info) Description 11/21/2025 3:00 PM HIGH SCHOOL HOME ECONOMICS TEACHER Office Visit [facility] [address] [place] [address] Jaspreet Davis MD [address] [place] [address] Alberta Warren, AUREA [address] [facility] [address] [place] [address] documented as of this encounter Visit Diagnoses Not on filedocumented in this encounter Care Teams Utility Manager Relationship Specialty Start Date End Date Ora Ricks MD [address] [place] [address] PCP - General Internal Medicine 02/25/16 documented as of this encounter
--- OUTSIDE RECORDS SUMMARY | 2025-07-20 14:45 | XMS_ITS | Encounter Summary ---
Author Organization [facility] Address [address] [place] [address] Care Team Providers Care Second Cook And Baker Name Role Phone Ora Ricks MD Primary Care Provider +1- [phone] Encounter Details Date Type Department Care Team (Latest Contact Info) Description 04/02/2002 Outpatient [facility] Medicine [place] 104 [facility] 60 [place] [address] Elio Salas MD [address] [address] URTICARIA NOS (Primary Dx) Social History Tobacco Use Types Packs/Day Years Used Date Smoking Tobacco: Never Assessed Comments Unknown Sex and Gender Information Value Date Recorded Sex Assigned at Not on file Legal Sex Female 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
--- OUTSIDE RECORDS SUMMARY | 2025-07-20 14:45 | XMS_ITS ---
Author Organization Unknown Results OrderDate OrderTestName ResultName ResultDate Value Units Range AbnormalFlag ResultStatus ObservationNotes TestCode ResultCode DateRecorded AccessionNumber DiagnosticSectionCode DiagnosticSectionName Sequence Interpretation Cust om 08/09/2024 04:56:00 Lipid Panel w/ Chol/HDL Ratio cholesterol/HDL ratio, serum 5851-21-98Y31:56:00 4.4 ratio 0.0-4.4 F Lipid Panel w/ Chol/HDL Rati o Coding cholesterol/HDL ratio, serum 08/09/2024 04:56:00
--- OUTSIDE RECORDS SUMMARY | 2025-07-20 14:45 | XMS_ITS | Clinical Summary ---
Author Organization [facility] Address [address] [facility] [address] [place] [address] Phone Care Team Providers Care Bit Welder Name Role Phone Ora Ricks MD Primary Care Provider +1- [phone] Allergies No known active allergies Medications No known medications Immunizations Immunization Administration Dates Next Due (PFIZER)(12 YR UP) COVID-19 VACCINE - EMERGENCY USE AUTHORIZATION, MRNA, [id number](PF) 30 MCG/0.3 ML IM SUSP 12/02/2020,11/11/2020 Hepatitis B Vaccine 01/09/1998,09/09/1997,1996 Social History Tobacco Use Types Packs/Day Years Used Date Smoking Tobacco: Never Alcohol Use Standard Drinks/Week Comments No 0 (1 standard drink = 0.6 oz pur e alcohol) Comments No Sex and Gender Information Value Date Recorded Sex Assigned at Not on file Legal Sex Female 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
--- OUTSIDE RECORDS SUMMARY | 2025-07-20 14:45 | XMS_ITS | Encounter Summary ---
Author Organization [facility] Address [address] [place] [address] Care Team Providers Care Clinical Trials Manager Name Role Phone Ora Ricks MD Primary Care Provider +1- [phone] Encounter Details Date Type Department Care Team (Late st Contact Info) Description 04/10/2004 Outpatient [facility] Medicine [place] 104 [facility] 60 [place] [address] Elio Salas MD [address] [address] Social History Tobacco Use Types Packs/Day Years Used Date Smoking Tobacco: Never Assessed Comments Unknown Sex and Gender Information Value Date Recorded Sex Assigned at Not on file Legal 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
--- OUTSIDE RECORDS SUMMARY | 2025-07-20 14:45 | XMS_ITS | Encounter Summary ---
Author Organization [facility] Address [address] [place] [address] Care Team Providers Care Rope Maker Name Role Phone Ora Ricks MD Primary Care Provider +1- [phone] Encounter Details Date Type Department Care Team (Latest Contact Info) Description 03/30/2005 Outpatient [facility]- [address] [phone] Elio Salas MD [address] [phone] ROUTINE HOUSEFELLOW EXAMINATION (Primary Dx); SCREENING MAL NEOP-BREAST,UNSPEC; SYMPTOMATIC FEMALE CLIMACTERIC STATE; SCREENING MAL NEOP-RECTUM Social History Tobacco Use Types Packs/Day Years Used Date Smoking Tobacco: Never Assessed Comments Unknown Sex and Gender Information Value Date Recorded Sex Assigned at Not on file Legal Sex 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
--- OUTSIDE RECORDS SUMMARY | 2025-07-20 14:45 | XMS_ITS | Encounter Summary ---
Author Organization [facility] Address [address] [place] [address] Care Team Providers Care Global Compensation Director Name Role Phone Ora Ricks MD Primary Care Provider +1- [phone] Encounter Details Date Type Department Care Team (Latest Contact Info) Description 02/13/2002 Outpatient [facility] Medicine [address] [address] Tacos Sanchez DO NO ADDRESS ON FILE Gynecologic examination (Primary Dx); VAGINITIS NOS; Cervicitis Social History Tobacco Use Types Packs/Day Years Used Date Smoking Tobacco: Never Assessed Comments Unknown Sex and Gender Information Value Date Recorded Sex Assigned at Not on file Legal Sex Female 3:07 AM OBSTETRICS GYNECOLOGY MD Gender Identity Not on file Sexual Orientation Not on file documented as of this encounter Plan of Treatment Not on file documented as of this encounter Visit Diagnoses Diagnosis Gynecologic examination- Primary Gynecological examination Vaginitis and vulvovaginitis, unspecified Cervicitis Cervicitis and endocervicitis documented in this encounter Care Teams Global Compensation Director Relationship Specialty Start Date End Date Ora Ricks MD [address] [place], [place] [address] PCP - General Internal Medicine 02/25/16 documented as of this encounter
--- OUTSIDE RECORDS SUMMARY | 2025-07-20 14:45 | XMS_ITS | Encounter Summary ---
Author Organization [facility] Address [address] [place] [address] Care Team Providers Care Biochemical Engineer Name Role Phone Ora Ricks MD Primary Care Provider +1- [phone] Encounter Details Date Type Department Care Team (Late st Contact Info) Description 03/31/2005 Outpatient [facility]- [address] [phone] Elio Salas MD [address] [phone] Social History Tobacco Use Types Packs/Day Years Used Date Smoking Tobacco: Never Assessed Comments Unknown Sex and Gender Information Value Date Recorded Sex Assigned at Not on file Legal Sex Female 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
--- OUTSIDE RECORDS SUMMARY | 2025-07-20 14:45 | XMS_ITS | Clinical Summary ---
Author Organization [facility] Address [address] Panchal: [place] [address] Care Team Providers Care Outside Sales Representative Name Role Phone Ora Ricks MD Primary Care Provider +1- [phone] Allergies No known active allergies Medications levothyroxine [...] (VITAMIN D3 ORAL) Take by mouth. Active SCKORPM-DHQV-HN LNP-ANIZ-VZSLOS ORAL Take by mouth. Active timoloL maleate [...] Abstract 05/21/2025 3:15 PM CDT Office Visit [facility] [address] [facility] [place] [phone] Jaspreet Davis MD Palpitations (Primary Dx); PAF (paroxysmal atrial fibrillation) (CMS/HCC); Essential hypertension; Hypothyroidism, unspecified type; Discoid lupus from Last 3 Months Immunizations Immunization Administration Dates Next Due (PFIZER)(12 YR UP) COVID-19 VACCINE - EMERGENCY USE AUTHORIZATION, MRNA, [id number](PF) 30 MCG/0.3 ML IM SUSP 08/04/2021,12/02/2020,11/11/2020 Hepatitis [...] on file Legal Sex Female 5:27 AM GENERAL STUDIES PROGRAM 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..] Procedure Name Priority Date/Time Associated Diagnosis Comments AR ECG ROUTINE ECG W/LEAST 12 LDS W/I&R Routine 05/21/2025 3:18 PM CDT Palpitations PAF (paroxysmal atrial fibrillation) (CMS/HCC) MAMMO 3D HARJINDER SCREEN BILAT W OR WO CAD Routine 03/15/2024 Screening mammogram for breast cancer COLON CANCER SCREEN, STOOL DNA Routine 11/23/2023 9:45 PM GENERAL STUDIES PROGRAM CHAIR Screening for colon cancer from Last 3 Months or Most Recently Relevant to Health Maintenance Results * AR ECG ROUTINE ECG W/LEAST 12 LDS W/I&R (05/21/2025 3:18 PM CDT) Narrative [facility] - 05/21/2025 3:18 PM CDT Jaspreet Davis MD 05/21/2025 3:35 PM EKG: normal sinus rhythm, frequent PVC's noted. Procedure Note Jaspreet Davis MD - 05/21/2025 3:18 PM CDT EKG: normal sinus rhythm, frequent PVC's noted. us Jaspreet Davis MD ECG ORDERABLES Final Result [facility] [id number] [address] [facility] [facility] [address] [place] [address], [place] [phone] * MAMMO 3D HARJINDER SCREEN BILAT W OR WO CAD (03/15/2024) Anatomical Region Laterality Modality Breast Bilateral Mammography us Jacklyn Niño OVEN BAKER MAMMO ORDERABLES Final Resu lt * COLON CANCER SCREEN, STOOL DNA (11/23/2023 9:45 PM GENERAL STUDIES PROGRAM CHAIR) COLOGUARD RESULT Negative Negative [place] Comment: NEGATIVE TEST RESULT. A negative Cologuard [...] (Robert Chandra al, N Engl J Med 2014;370(14):7783-4836) The normal value (reference range) for this assay is negative. COLOGUARD RE-SCREENING RECOMMENDATION: Periodic colorectal cancer screening is an important part of preventive healthcare for asymptomatic individuals at average risk for colorectal cancer. Following a negative Cologuard result, the [place] [employer] and U.S. Multi-Society Task Force screening guidelines recommend a Cologuard re-screening interval of 3 years. References: [place] [employer] Guideline for Colorectal Cancer Screening: https://www.cancer.org/cancer/tokqr-lprrdd-kgkrti/hnngkxezi-ezqeivvkq-ryvdmux/ac s-rec ommendations.html.; Kamran DK, Kristina CONTRERAS, Rik LawrenceK, Colorectal Cancer Screening: Recommendations for Physicians and Patients from the U.S. Multi-Society Task Force on Colorectal Cancer Screening , Am J Gastroenterology 2017; 112:7053-6441. TEST DESCRIPTION: Composite algorithmic analysis of stool [...] colonoscopy. (Robert Pedraza, N Engl J Med 2014;370(14):8747-5485.) Cologuard may produce a false negative or false positive result (no colorectal cancer or precancerous polyp present at colonoscopy follow up). A negative Cologuard test result does not guarantee the absence of CRC or advanced adenoma (pre-cancer). The current Cologuard screening interval is every 3 years. ([place] [employer] and U.S. Multi-Society Task Force). Cologuard performance data in a 10,000 patient pivotal study using colonoscopy as the reference method can be accessed at the following location: www.Conjecta/results. Additional description of the Cologuard test process, warnings and precautions can be found at www.cologuard.com. Stool STOOL SPECIMEN / Unknown 11/23/2023 9:45 PM GENERAL STUDIES PROGRAM CHAIR 11/25/2023 2:40 PM GENERAL STUDIES PROGRAM CHAIR Jacklyn Niño OVEN BAKER BODY FLUIDS AND STOOLS Philly sepulveda Result [employer] CLIA # [id number] [address] [place] [address] from Last 3 Months or Most Recently Relevant to Health Maintenance Insurance MEDICARE PART A AND B [facility] [place] [id number] Care Teams Outside Sales Representative Relationship Specialty Start Date End Date Ora Ricks MD [address] [place] [address] PCP - General Internal Medicine 02/25/16
--- OUTSIDE RECORDS SUMMARY | 2025-07-20 14:45 | XMS_ITS | Encounter Summary ---
Author Organization [facility] Address [address] [place] [address] Care Team Providers Care Pairing Machine Operator Name Role Phone Ora Ricks MD Primary Care Provider +1- [phone] Encounter Details Date Type Department Care Team (Latest Contact Info) Description 01/21/2003 Outpatient [facility] [address] [place] [phone] Elio Salas MD [address] [address] ACUTE BRONCHITIS (Primary Dx) Social History Tobacco Use Types Packs/Day Years Used Date Smoking Tobacco: Never Assessed Comments Unknown Sex and Gender Information Value Date Recorded Sex Assigned at Not on file Legal Sex Female 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
--- OUTSIDE RECORDS SUMMARY | 2025-07-20 14:45 | XMS_ITS | Encounter Summary ---
Author Organization [facility] Address [address] [place] [address] Care Team Providers Care Sales Demonstrator Name Role Phone Ora Ricks MD Primary Care Provider +1- [phone] Encounter Details Date Type Department Care Team (Latest Contact Info) Description 03/06/2001 Outpatient [facility] Medicine [place] [address] [facility] [address] [place] [address] Elio Salas MD [address] [address] Gynecologic examination (Primary Dx) Social History Tobacco Use Types Packs/Day Years Used Date Smoking Tobacco: Never Assessed Comments Unknown Sex and Gender Information Value Date Recorded Sex Assigned at Not on file Legal Sex Female 3: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
--- OUTSIDE RECORDS SUMMARY | 2025-07-20 14:45 | XMS_ITS | Encounter Summary ---
Author Organization 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
--- OUTSIDE RECORDS SUMMARY | 2025-07-20 14:45 | XMS_ITS | Encounter Summary ---
Author Organization [facility] Address [address] [place] [address] Care Team Providers Care Water Pollution Control Technician Name Role Phone Ora Ricks MD Primary Care Provider +1- [phone] Encounter Details Date Type Department Care Team (Latest Contact Info) Description 12/04/2004 Outpatient [facility] Medicine [place] [address] [facility] [address] [place] [address] Elio Salas MD [address] [address] ACUTE URI NOS (Primary Dx) Social History Tobacco Use Types Packs/Day Years Used Date Smoking Tobacco: Never Assessed Comments Unknown Sex and Gender Information Value Date Recorded Sex Assigned at Not on file Legal Sex Female 3:07 AM WATER POLLUTION CONTROL TECHNICIAN Gender Identity Not on file Sexual Orientation Not on file documented as of this encounter Plan of Treatment Not on file documented as of this encounter Visit Diagnoses Diagnosis Acute upper respiratory infections of unspecified site- Primary documented in this encounter Care Teams Water Pollution Control Technician Relationship Specialty Start Date End Date Ora Ricks MD [address] [place] [address] PCP - General Internal Medicine 02/25/16 documented as of this encounter
--- OUTSIDE RECORDS SUMMARY | 2025-07-20 14:45 | XMS_ITS | Encounter Summary ---
Author Organization [facility] Address [address] [place] [address] Care Team Providers Care Airport Operations Specialist Name Role Phone Ora Ricks MD Primary Care Provider +1- [phone] Encounter Details Date Type Department Care Team (Latest Contact Info) Description 08/09/2000 Outpatient [facility] Medicine [address] [address] Tacos Sanchez DO NO ADDRESS ON FILE Vaginitis and vulvovaginitis, unspecified (Primary Dx) Social History Tobacco Use Types Packs/Day Years Used Date Smoking Tobacco: Never Assessed Comments Unknown Sex and Gender Information Value Date Recorded Sex Assigned at Not on file Legal Sex Female 3:07 AM ANIME DESIGNER Gender Identity Not on file Sexual Orientation Not on file documented as of this encounter Plan of Treatment Not on file documented as of this encounter Visit Diagnoses Diagnosis Vaginitis and vulvovaginitis, unspecified- Primary documented in this encounter Care Teams Airport Operations Specialist Relationship Specialty Start Date End Date Ora Ricks MD [address] [place] [address] PCP - General Internal Medicine 02/25/16 documented as of this encounter
--- OUTSIDE RECORDS SUMMARY | 2025-07-20 14:45 | XMS_ITS | Encounter Summary ---
Author Organization [facility] Address [address] [place] [address] Care Team Providers Care Technical Solutions Engineer Name Role Phone Ora Ricks MD Primary Care Provider +1- [phone] Reason for Visit * Reason Onset Date Comments 2 Wk F/U 02/08/2024 Encounter Details Date Type Department Care Team (Late st Contact Info) Description 02/08/2024 Telephone [facility] [address] [place] [address] Vee Sam, APPLE [address] [place] [address] 2 Wk F/U Social History [...] on file Legal Sex Female 5:27 AM HOT SAW HELPER Gender Identity Not on file Sexual Orientation Not on file documented as of this encounter Miscellaneous Notes * Telephone Encounter - Bettie Rebolledo - 02/08/2024 9:03 AM CDT Flaco (Provider) MESSAGE Pt states she was to set up a 2 wk F/U appt following her appt today 02/07 with Flaco. HLV Chip Mixer: Bettie Rebolledo documented in this encounter Plan of Treatment Upcoming Encounters Date Type Department Care Team (Late st Contact Info) Description 11/21/2025 3:00 PM HOT SAW HELPER Office Visit [facility] [address] [place] [address] Jaspreet Davis MD [address] [place] [address] Alberta Warren, AUREA [address] [place] [address] documented as of this encounter Visit Diagnoses Not on filedocumented in this encounter Care Teams Technical Solutions Engineer Relationship Specialty Start Date End Date Ora Ricks MD [address] [place] [address] PCP - General Internal Medicine 02/25/16 documented as of this encounter
--- OUTSIDE RECORDS SUMMARY | 2025-07-20 14:45 | XMS_ITS | Encounter Summary ---
Author Organization [facility] Address [address] [place] [address] Care Team Providers Care General Office Clerk Name Role Phone Ora Ricks MD Primary Care Provider +1- [phone] Encounter Details Date Type Department Care Team (Latest Contact Info) Description 08/27/2002 Outpatient [facility] Medicine [place] [address] [facility] [address] [place] [address] Elio Salas MD [address] [address] Sprain lumbar region (Primary Dx) Social History Tobacco Use Types Packs/Day Years Used Date Smoking Tobacco: Never Assessed Comments Unknown Sex and Gender Information Value Date Recorded Sex Assigned at Not on file Legal Sex Female 3:07 AM TRAINING ASSISTANT Gender Identity Not on file Sexual Orientation Not on file documented as of this encounter Plan of Treatment Not on file documented as of this encounter Visit Diagnoses Diagnosis Sprain lumbar region- Primary Sprain of lumbar region documented in this encounter Care Teams General Office Clerk Relationship Specialty Start Date End Date Ora Ricks MD [address] [place] [address] PCP - General Internal Medicine 02/25/16 documented as of this encounter
--- OUTSIDE RECORDS SUMMARY | 2025-07-20 14:45 | XMS_ITS | Encounter Summary ---
Author Organization [facility] Address [address] [place] [address] Care Team Providers Care Manufacturing Teacher Name Role Phone Ora Ricks MD Primary Care Provider +1- [phone] Encounter Details Date Type Department Care Team (Latest Contact Info) Description 11/25/2003 Outpatient [facility] Medicine [place] [address] [facility] [address] [place] [address] Elio Salas MD [address] [address] ACUTE BRONCHITIS (Primary Dx) Social History Tobacco Use Types Packs/Day Years Used Date Smoking Tobacco: Never Assessed Comments Unknown Sex and Gender Information Value Date Recorded Sex Assigned at Not on file Legal Sex Female 3:07 AM GREASER OPERATOR Gender Identity Not on file Sexual Orientation Not on file documented as of this encounter Plan of Treatment Not on file documented as of this encounter Visit Diagnoses Diagnosis Acute bronchitis- Primary documented in this encounter Care Teams Manufacturing Teacher Relationship Specialty Start Date End Date Ora Ricks MD [address] [facility] [place] [address] PCP - General Internal Medicine 02/25/16 documented as of this encounter
--- OUTSIDE RECORDS SUMMARY | 2025-07-20 14:45 | XMS_ITS | Encounter Summary ---
Author Organization [facility] Address [address] [place] [address] Care Team Providers Care Molder Punch Name Role Phone Ora Ricks MD Primary Care Provider +1- [phone] Encounter Details Date Type Department Care Team (Latest Contact Info) Description 03/06/[address] [phone] Elio Salas MD [address] [address] DERMATITIS NOS (Primary Dx) Social History Tobacco Use Types Packs/Day Years Used Date Smoking Tobacco: Never Assessed Comments Unknown Sex and Gender Information Value Date Recorded Sex Assigned at Not on file 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
--- NOTE | 2025-07-20 15:08 | ECG_ITS ---
[facility] [employer] Test Date: 2025-07-20 Pat Name: Milvia Coyne Department: Room: Gender: Female [employer] Developer: : 1955 Requested By: Lotus Peres Order Number: [id number] Aidan MD: Kasia Monroe M.D. Measurements Intervals Emily Rate: 148 P: 0 VT: 0 QRS: 61 QRSD: 78 T: 225 QT: 312 QTc: 490 Interpretive Statements ATRIAL FIBRILLATION WITH RAPID VENTRICULAR RESPONSE MODERATE T-WAVE ABNORMALITY, CONSIDER ANTEROLATERAL ISCHEMIA [-0.1+ mV T-WAVE IN V3-V6] Compared to ECG 07/19/2025 02:36:49 T-wave abnormality now present Possible ischemia now present Myocardial infarct finding no longer present Electronically Signed On 07-20-2025 20:07:23 CDT by Kasia Monroe M.D. [email or web address]
--- NOTE | 2025-07-20 15:08 | XRR_ITS ---
PROCEDURE INFORMATION: Exam: XR Chest Exam date and time: 07/20/2025 3:12 PM Age: 69 years old Clinical indication: Pain; Chest pressure; Prior surgery; Surgery date: 3-7 days post-operative; Surgery type: Cardiac cath/stent x 2; Additional info: Chest discomfort; Epigastric pressure; Tachycardia; Hypotension; Post cardiac cath/stent(2) x 3 days ago TECHNIQUE: Imaging protocol: Radiologic exam of the chest. Views: 1 view. COMPARISON: CR XR chest 1V portable [id number] 01/05/2024 9:52 PM FINDINGS: Tubes, catheters and devices: Battery pack is present over the midline of the upper thoracic spine. Lungs: Lungs are clear. Pleural spaces: Unremarkable. No pleural effusion. No pneumothorax. Heart/Mediastinum: Heart size is normal. There is atherosclerosis of the aorta. Cardiac stent is present over the left heart border. Bones/joints: Unremarkable. XR/XR chest 1V portable [id number] IMPRESSION: No acute abnormality identified.
--- NOTE | 2025-07-20 15:10 | W.ED.GENADLT ---
Documented by User: ZAIRA Hayden 07/20/25 18:28 HPI - General Adult General: Chief complaint: General Medical Stated complaint: Pulse is high Pressure in upper ABD Time Seen by Provider: 07/20/25 14:53 History of Present Illness: Patient is 69-year-old female with history of CAD, status post DANIELLA to LAD OM 2 3 days ago associated with NSTEMI, new onset atrial fibrillation, on Eliquis, metoprolol succinate, clopidogrel, Entresto, HFrEF 35% with grade 3/4 diastolic dysfunction, presents to the emergency room with synthetic anxiety, palpitations, and hypotension. Patient stated her blood pressure systolic was 90 multiple times. At triage, she is 140s/90s, and on reevaluation 110/82. She did take all of these medications listed above this morning prior to arrival. She then felt the chest pressure and palpitations in her upper chest as well as synthetic anxiety. She called ICU where she was recently discharged yesterday that asked patient to come to the emergency room. Associated symptoms: Reports chest pain, dyspnea and palpitations; Deny headache(s), malaise, nausea, rash or vomiting Related Data Home Medications ?Medication ?Instructions ?Recorded ?Confirmed cholecalciferol (vitamin D3) 25 25 mcg PO DAILY 04/11/20 07/20/25 mcg (1,000 unit) capsule pantoprazole 40 mg tablet,delayed 40 mg PO DAILY 04/11/20 07/20/25 release timolol maleate 0.25 % eye drops 1 drop ophthalmic (eye) DAILY 04/11/20 07/20/25 alendronate 70 mg tablet (Fosamax) 70 mg PO .Q7days 11/25/21 07/20/25 levothyroxine 75 mcg capsule 75 mcg PO DAILY 11/25/21 07/20/25 diltiazem HCl 120 mg 120 mg PO DAILY 07/20/25 07/20/25 tablet,extended release 24 hr folic acid 1 mg tablet 1 mg PO DAILY 07/20/25 07/20/25 Previous Rx's ?Medication ?Instructions ?Recorded apixaban 5 mg tablet (Eliquis) 5 mg PO BID #180 tabs 07/19/25 atorvastatin 40 mg tablet 80 mg (2 x 40 mg) PO BEDTIME #180 07/19/25 tabs clopidogrel 75 mg tablet 75 mg PO DAILY #90 tabs 07/19/25 metoprolol tartrate 50 mg tablet 50 mg PO BID@0900,2100 #180 tabs 07/19/25 sacubitril 24 mg-valsartan 26 mg 1 tab PO BID #60 tabs 07/19/25 tablet (Entresto) Allergies Allergy/AdvReac Type Severity Reaction Status Date / Time No Known Allergies Allergy Verified 04/08/25 11:06 Review of Systems General: Reports: 10 or more systems reviewed and unremarkable except in HPI and below Const: Denies: fever(s), chills, body aches or malaise Eyes: Denies: change in vision or blurry vision Card: Reports: chest pain, palpitations and irregular heart rhythm Resp: Reports: dyspnea GI: Denies: abdominal pain, nausea or vomiting : Denies: flank pain Musc: Denies: neck pain or back pain Skin/Breast: Denies: rash or pruritus Neuro: Denies: headache(s) or numbness in extremities Psych: Denies: anxiety or depression Loki/Lymph: Denies: easy bruising or easy bleeding PFSH ED PFSH: Medical History (Updated 07/20/25 @ 20:00 by Kasia Monroe MD) 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 Systemic lupus erythematosus, unspecified Medication monitoring encounter Osteoarthritis Cutaneous lupus erythematosus in remission Surgical History H/O: hysterectomy H/O dilation and curettage H/O lumpectomy benign H/O eye surgery 1955 Family History Mother Hyperlipidemia Hypertension Sister Breast cancer late 30's Father Lung cancer Denies family history of Colon cancer Ovarian cancer Diabetes CAD (coronary artery disease) Clotting disorder Heart disease Anesthesia complication Bleeding disorder Uterine cancer Thyroid disease Stroke Social History Smoking and tobacco/nicotine status: never used tobacco/nicotine Alcohol intake: never Substance/Drug Use: never Lives independently: No Marital status: Number of children: 2 Physical Exam Const: COMMON NORMALS: no acute distress, average body habitus and patient oriented x3 GENERAL APPEARANCE: cooperative and anxious HENMT: COMMON NORMALS: normocephalic and atraumatic HEAD & SCALP: normocephalic and atraumatic Neck/C-Spine: COMMON NORMALS: full ROM and no lymphadenopathy Lymph: LYMPHATIC: no lymphadenopathy noted Chest: COMMONS NORMALS: normal inspection of the chest Resp: COMMON NORMALS: normal respiratory effort, No retractions and clear to auscultation bilaterally AUSCULTATION: clear to auscultation bilaterally Cardio: RATE: tachycardic RHYTHM: abnormal rhythm regularly irregular GI: COMMON NORMALS: Normal to inspection, nondistended, normoactive bowel sounds present, Soft to palpation, non-tender and No hepatosplenomegaly present PALPATION: Yes Soft to palpation and Yes No hepatosplenomegaly present : COMMON NORMALS: Yes no CVA tenderness BLADDER/KIDNEY EXAM: Yes no CVA tenderness Back/Pelvis: COMMON NORMALS: no CVA tenderness Extremity: COMMON NORMALS: normal to inspection, full ROM and capillary refill normal Neuro: COMMON NORMALS: patient oriented x3 Psych: COMMON NORMALS: mental status grossly normal and Normal thought process present THOUGHT PROCESS: Normal thought process present Course Consultations: Consultation #1: Discussed with Dr. Monroe, excepted consultation, will further discuss with colleague, Dr. Quevedo hand Consultation #2: Discussed with Dr. Russo. She has accepted hospitalist admission Vital Signs: Vital signs: Vital Signs Temperature 98.4 F 07/21/25 04:00 Pulse Rate 62 07/21/25 05:58 Respiratory Rate 19 H 07/21/25 03:45 Blood Pressure 92/35 07/21/25 03:45 Pulse Oximetry 94 07/21/25 03:45 Oxygen Delivery Me thod Room Air 07/20/25 18:00 MDM - General Adult Medical Decision Making Patient is a pleasant 69-year-old female that was just discharged here yesterday after NSTEMI, DANIELLA to LAD OM 2 on Plavix, HFrEF 35% on Entresto, new onset atrial fibrillation on metoprolol, Eliquis, consumed all of her medications this morning, started having a feeling of anxiety, palpitations, and chest pressure in the upper sternal portion. She is in A-fib RVR. Patient be placed on amiodarone load and amiodarone drip. Cardiology and hospital will be consulted after initial workup. Lab Data 07/21/25 03:17 07/21/25 03:17 Radiology Impressions Chest X-Ray 07/20/25 15:08 IMPRESSION: No acute abnormality identified. Laboratory Results WBC 8.53 10^3/uL (3.29-11.43) 07/20/25 15:10 RBC 3.89 10^6/uL (3.85-5.65) 07/20/25 15:10 Hgb 12.10 g/dL (11.27-16.99) 07/20/25 15:10 Hct 37.0 % (36-47) 07/20/25 15:10 MCV 95.1 fl (85-98) 07/20/25 15:10 MCH 31.1 pg (27-33) 07/20/25 15:10 MCHC 32.7 g/dL (30-55) 07/20/25 15:10 RDW 14.8 % (12.1-15.1) 07/20/25 15:10 Plt Count 201 10^3/cmm (157-399) 07/20/25 15:10 MPV 9.3 fL (7.4-10.4) 07/20/25 15:10 Neut % (Auto) 74.7 % 07/20/25 15:10 Lymph % (Auto) 9.5 % 07/20/25 15:10 Harmon % (Auto) 14.8 % 07/20/25 15:10 Eos % (Auto) 0.5 % 07/20/25 15:10 Baso % (Auto) 0.1 % 07/20/25 15:10 Neut # (Auto) 6.38 10^3/uL (1.8-7.7) 07/20/25 15:10 Lymph # (Auto) 0.8 10^3/uL (0.8-4.8) 07/20/25 15:10 Harmon # (Auto) 1.3 10^3/uL (0.2-0.9) H 07/20/25 15:10 Eos # (Auto) 0.0 10^3/uL (0.0-0.8) 07/20/25 15:10 Baso # (Auto) 0.0 10^3/uL (0.0-0.1) 07/20/25 15:10 Nucleated RBC % (auto) 0 % 07/20/25 15:10 Nucleated RBCs # 0.0 /100WBC 07/20/25 15:10 Sodium 139 mmol/L (136-145) 07/20/25 15:10 Potassium 4.6 mmol/L (3.5-5.1) 07/20/25 15:10 Chloride 104 mmol/L (98-107) 07/20/25 15:10 Carbon Dioxide 20 mmol/L (22-29) L 07/20/25 15:10 Anion Gap 19.6 (5-19) H 07/20/25 15:10 BUN 13 mg/dL (8-23) 07/20/25 15:10 Creatinine 1.0 mg/dL (0.5-0.9) H 07/20/25 15:10 GFR Calculation Not Reportable 07/20/25 15:10 Glucose 120 mg/dL (65-115) H 07/20/25 15:10 Calculated Osmolality 289 mOsm/kg (285-295) 07/20/25 15:10 Calcium 8.7 mg/dL (8.5-10.5) 07/20/25 15:10 Total Bilirubin 0.6 mg/dL (0.15-1.2) 07/20/25 15:10 AST 91 U/L (0-32) H 07/20/25 15:10 ALT 21 U/L (0-33) 07/20/25 15:10 Alkaline Phosphatase 96 U/L (35-105) 07/20/25 15:10 Troponin T Baseline 1772 ng/L (0-10) H* 07/20/25 15:10 NT-Pro-B Natriuret Pep 4974 pg/mL (0-125) H 07/20/25 15:10 Total Protein 7.5 g/dL (6.6-8.7) 07/20/25 15:10 Albumin 4.0 g/dL (3.5-5.2) 07/20/25 15:10 Globulin 3.5 g/dL (1.3-4.6) 07/20/25 15:10 Urine Color Yellow (Yellow) 07/20/25 15:41 Urine Appearance Clear (CLEAR) 07/20/25 15:41 Urine pH 6.0 (5-7) 07/20/25 15:41 Ur Specific [place] 1.024 (1.005-1.030) 07/20/25 15:41 Urine Protein 2+ (Negative) A 07/20/25 15:41 Urine Glucose (UA) Negative (Normal) 07/20/25 15:41 Urine Ketones 1+ (Negative) H 07/20/25 15:41 Urine Blood 1+ (Negative) A 07/20/25 15:41 Urine Nitrate Negative (Negative) 07/20/25 15:41 Urine Bilirubin Negative (Negative) 07/20/25 15:41 Urine Urobilinogen 1.0 mg/dL (Negative) 07/20/25 15:41 Ur Leukocyte Esterase 1+ (Negative) A 07/20/25 15:41 Urine RBC 11-20 /hpf (0-2) H 07/20/25 15:41 Urine WBC 11-20 /hpf (0-5) H 07/20/25 15:41 Ur Squamous Epith Cells 0-5 /hpf (0-5) 07/20/25 15:41 Amorphous Sediment Not Reportable 07/20/25 15:41 Urine Bacteria None seen /hpf (NONE) 07/20/25 15:41 Hyaline Casts 2.46 /lpf 07/20/25 15:41 All radiology interpretation(s) finalized by discharge Discharge Plan Discharge Patient Disposition: Admitted As Inpatient Admit Provider: Charisse Russo Clinical Impression: Atrial fibrillation with rapid ventricular response, Elevated troponin Condition: Stable Discharge Diet: Low Salt Discharge Activity: Resume usual activity Coding Level of Care Code ED Brass Sorter for Chg Fwd Documented by User: Rebel Jenkins MD 07/21/25 06:17 HPI - General Adult General: Chief complaint: General Medical Stated complaint: Pulse is high Pressure in upper ABD Time Seen by Provider: 07/20/25 14:53 Related Data Home Medications ?Medication ?Instructions ?Recorded ?Confirmed cholecalciferol (vitamin D3) 25 25 mcg PO DAILY 04/11/20 07/20/25 mcg (1,000 unit) capsule pantoprazole 40 mg tablet,delayed 40 mg PO DAILY 04/11/20 07/20/25 release timolol maleate 0.25 % eye drops 1 drop ophthalmic (eye) DAILY 04/11/20 07/20/25 alendronate 70 mg tablet (Fosamax) 70 mg PO .Q7days 11/25/21 07/20/25 levothyroxine 75 mcg capsule 75 mcg PO DAILY 11/25/21 07/20/25 diltiazem HCl 120 mg 120 mg PO DAILY 07/20/25 07/20/25 tablet,extended release 24 hr folic acid 1 mg tablet 1 mg PO DAILY 07/20/25 07/20/25 Previous Rx's ?Medication ?Instructions ?Recorded apixaban 5 mg tablet (Eliquis) 5 mg PO BID #180 tabs 07/19/25 atorvastatin 40 mg tablet 80 mg (2 x 40 mg) PO BEDTIME #180 07/19/25 tabs clopidogrel 75 mg tablet 75 mg PO DAILY #90 tabs 07/19/25 metoprolol tartrate 50 mg tablet 50 mg PO BID@0900,2100 #180 tabs 07/19/25 sacubitril 24 mg-valsartan 26 mg 1 tab PO BID #60 tabs 07/19/25 tablet (Entresto) Allergies Allergy/AdvReac Type Severity Reaction Status Date / Time No Known Allergies Allergy Verified 04/08/25 11:06 [facility] [place] ED PFS: Medical History (Updated 07/20/25 @ 20:00 by Kasia Monroe MD) 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 Systemic lupus erythematosus, unspecified Medication monitoring encounter Osteoarthritis Cutaneous lupus erythematosus in remission Surgical History H/O: hysterectomy H/O dilation and curettage H/O lumpectomy benign H/O eye surgery 1955 Family History Mother Hyperlipidemia Hypertension Sister Breast cancer late 30's Father Lung cancer Denies family history of Colon cancer Ovarian cancer Diabetes CAD (coronary artery disease) Clotting disorder Heart disease Anesthesia complication Bleeding disorder Uterine cancer Thyroid disease Stroke Social History Smoking and tobacco/nicotine status: never used tobacco/nicotine Alcohol intake: never Substance/Drug Use: never Lives independently: No Marital status: Number of children: 2 Course Vital Signs: Vital signs: Vital Signs Temperature 98.4 F 07/21/25 04:00 Pulse Rate 62 07/21/25 05:58 Respiratory Rate 19 H 07/21/25 03:45 Blood Pressure 92/35 07/21/25 03:45 Pulse Oximetry 94 07/21/25 03:45 Oxygen Delivery Me thod Room Air 07/20/25 18:00 MDM - General Adult Medical Decision Making Patient is a pleasant 69-year-old female that was just discharged here yesterday after NSTEMI, DANIELLA to LAD OM 2 on Plavix, HFrEF 35% on Entresto, new onset atrial fibrillation on metoprolol, Eliquis, consumed all of her medications this morning, started having a feeling of anxiety, palpitations, and chest pressure in the upper sternal portion. She is in A-fib RVR. Patient be placed on amiodarone load and amiodarone drip. Cardiology and hospital will be consulted after initial workup. I saw patient and discussed patient with above midlevel agree with her history and physical. Patient was in A-fib with RVR did review her laboratory and went over with her no pertinent positives patient was started on amiodarone drip heart rate has improved with patient being mated to stepdown to the hospitalist cardiology was consulted as well. Lab Data 07/21/25 03:17 07/21/25 03:17 Radiology Impressions Chest X-Ray 07/20/25 15:08 IMPRESSION: No acute abnormality identified. Laboratory Results WBC 8.53 10^3/uL (3.29-11.43) 07/20/25 15:10 RBC 3.89 10^6/uL (3.85-5.65) 07/20/25 15:10 Hgb 12.10 g/dL (11.27-16.99) 07/20/25 15:10 Hct 37.0 % (36-47) 07/20/25 15:10 MCV 95.1 fl (85-98) 07/20/25 15:10 MCH 31.1 pg (27-33) 07/20/25 15:10 MCHC 32.7 g/dL (30-55) 07/20/25 15:10 RDW 14.8 % (12.1-15.1) 07/20/25 15:10 Plt Count 201 10^3/cmm (157-399) 07/20/25 15:10 MPV 9.3 fL (7.4-10.4) 07/20/25 15:10 Neut % (Auto) 74.7 % 07/20/25 15:10 Lymph % (Auto) 9.5 % 07/20/25 15:10 Harmon % (Auto) 14.8 % 07/20/25 15:10 Eos % (Auto) 0.5 % 07/20/25 15:10 Baso % (Auto) 0.1 % 07/20/25 15:10 Neut # (Auto) 6.38 10^3/uL (1.8-7.7) 07/20/25 15:10 Lymph # (Auto) 0.8 10^3/uL (0.8-4.8) 07/20/25 15:10 Harmon # (Auto) 1.3 10^3/uL (0.2-0.9) H 07/20/25 15:10 Eos # (Auto) 0.0 10^3/uL (0.0-0.8) 07/20/25 15:10 Baso # (Auto) 0.0 10^3/uL (0.0-0.1) 07/20/25 15:10 Nucleated RBC % (auto) 0 % 07/20/25 15:10 Nucleated RBCs # 0.0 /100WBC 07/20/25 15:10 Sodium 139 mmol/L (136-145) 07/20/25 15:10 Potassium 4.6 mmol/L (3.5-5.1) 07/20/25 15:10 Chloride 104 mmol/L (98-107) 07/20/25 15:10 Carbon Dioxide 20 mmol/L (22-29) L 07/20/25 15:10 Anion Gap 19.6 (5-19) H 07/20/25 15:10 BUN 13 mg/dL (8-23) 07/20/25 15:10 Creatinine 1.0 mg/dL (0.5-0.9) H 07/20/25 15:10 GFR Calculation Not Reportable 07/20/25 15:10 Glucose 120 mg/dL (65-115) H 07/20/25 15:10 Calculated Osmolality 289 mOsm/kg (285-295) 07/20/25 15:10 Calcium 8.7 mg/dL (8.5-10.5) 07/20/25 15:10 Total Bilirubin 0.6 mg/dL (0.15-1.2) 07/20/25 15:10 AST 91 U/L (0-32) H 07/20/25 15:10 ALT 21 U/L (0-33) 07/20/25 15:10 Alkaline Phosphatase 96 U/L (35-105) 07/20/25 15:10 Troponin T Baseline 1772 ng/L (0-10) H* 07/20/25 15:10 NT-Pro-B Natriuret Pep 4974 pg/mL (0-125) H 07/20/25 15:10 Total Protein 7.5 g/dL (6.6-8.7) 07/20/25 15:10 Albumin 4.0 g/dL (3.5-5.2) 07/20/25 15:10 Globulin 3.5 g/dL (1.3-4.6) 07/20/25 15:10 Urine Color Yellow (Yellow) 07/20/25 15:41 Urine Appearance Clear (CLEAR) 07/20/25 15:41 Urine pH 6.0 (5-7) 07/20/25 15:41 Ur Specific [place] 1.024 (1.005-1.030) 07/20/25 15:41 Urine Protein 2+ (Negative) A 07/20/25 15:41 Urine Glucose (UA) Negative (Normal) 07/20/25 15:41 Urine Ketones 1+ (Negative) H 07/20/25 15:41 Urine Blood 1+ (Negative) A 07/20/25 15:41 Urine Nitrate Negative (Negative) 07/20/25 15:41 Urine Bilirubin Negative (Negative) 07/20/25 15:41 Urine Urobilinogen 1.0 mg/dL (Negative) 07/20/25 15:41 Ur Leukocyte Esterase 1+ (Negative) A 07/20/25 15:41 Urine RBC 11-20 /hpf (0-2) H 07/20/25 15:41 Urine WBC 11-20 /hpf (0-5) H 07/20/25 15:41 Ur Squamous Epith Cells 0-5 /hpf (0-5) 07/20/25 15:41 Amorphous Sediment Not Reportable 07/20/25 15:41 Urine Bacteria None seen /hpf (NONE) 07/20/25 15:41 Hyaline Casts 2.46 /lpf 07/20/25 15:41 Discharge Plan Discharge Patient Disposition: Admitted As Inpatient Admit Provider: Charisse Russo Clinical Impression: Atrial fibrillation with rapid ventricular response, Elevated troponin Condition: Stable Discharge Diet: Low Salt Discharge Activity: Resume usual activity Coding Level of Care Code ED Brass Sorter for Lisa Peace
[2025-07-20 15:19] LABS: Hematocrit 37.0 % (36-47); Hemoglobin 12.10 g/dL (11.27-16.99); Mean Corpuscular HGB Conc 32.7 g/dL (30-55); Mean Corpuscular Hemoglobin 31.1 pg (27-33); Mean Corpuscular Volume 95.1 fl (85-98); Nucleated Red Blood Cells % 0 %; Platelet Count 201 10^3/cmm (157-399); Red Blood Count 3.89 10^6/uL (3.85-5.65); White Blood Count 8.53 10^3/uL (3.29-11.43)
[2025-07-20] MEDS: amiodarone 150 MG/100 ML PREMIX 400 MG IV (15:24)
[2025-07-20] MEDS: AMIODARONE HCL/D5W 900 MG/500 ML BAG 33.33 MG IV (15:41)
[2025-07-20 15:42] LABS: Troponin(5th) Baseline 1772 ng/L (0-10)
[2025-07-20 15:46] LABS: Alanine Aminotransferase 21 U/L (0-33); Albumin Level 4.0 g/dL (3.5-5.2); Alkaline Phosphatase 96 U/L (35-105); Anion Gap 19.6 (5-19); Aspartate Amino Transferase 91 U/L (0-32); Blood Urea Nitrogen 13 mg/dL (8-23); Calcium 8.7 mg/dL (8.5-10.5); Carbon Dioxide 20 mmol/L (22-29); Chloride 104 mmol/L (98-107); Creatinine Clr Calc Pharmacy 50.0281; Globulin 3.5 g/dL (1.3-4.6); Glucose 120 mg/dL (65-115); NT Pro B Type Natriuretic Pept 4974 pg/mL (0-125); Osmolality Calculated 289 mOsm/kg (285-295); Potassium 4.6 mmol/L (3.5-5.1); Sodium 139 mmol/L (136-145); Total Protein 7.5 g/dL (6.6-8.7)
[2025-07-20 16:01] LABS: Glucose Urine UA Negative (Normal); Nitrate Urine Negative (Negative); Specific Gravity, Urine 1.024 (1.005-1.030)
[2025-07-20 16:03] LABS: Add Urine Microscopic? YES
--- NOTE | 2025-07-20 16:40 | PM.HP ---
Providers/Chief Complaint Admitting Physician: Charisse Russo MD Primary Care Provider: Ora Ricks MD Chief Complaint: Pulse is high Pressure in upper ABD History of Present Illness Milvia Coyne is a 69 year old female who was just discharged from the hospital after management for NSTEMI and new onset A-fib. Patient returned to the hospital today complaining of chest discomfort, palpitations and anxiety. Per ER report her blood pressure was 110/82 mmHg and heart rate was in the 130s. She discharged yesterday with a Holter monitor which shows A-fib with RVR at 130 bpm along with 4 beats of V. tach at 8 AM, 12 beats of V. tach at 7:29 AM, 6 beats of V tach at 7:18Am, and few VPCs priro. Echocardiogram from yesterday showed an ejection fraction of 35% with grade 3 diastolic dysfunction. Her baseline troponin today is noted to be in 1700. To compare in the previous admission last charted troponin is at 1100, uncertain at this time if this is pre or post angiogram. Patient has been started on an amiodarone infusion in the emergency room after receiving a 150 mg bolus over 10 minutes. Plan to continue this infusion at this time. Review of Systems General: Reports: 10 or more systems reviewed and unremarkable except in HPI and below Const: Denies: fever(s), chills or body aches Eyes: Denies: change in vision, blurry vision or photophobia ENMT: Reports: hoarseness; Denies: throat pain, enlarged tonsils, odynophagia or nasal congestion Card: Denies: chest pain, palpitations, irregular heart rhythm, edema, swelling of feet/ankles, lightheadedness, pre-syncope, dyspnea on exertion or orthopnea Resp: Denies: dyspnea, productive cough, non-productive cough, wheezing, stridor, pain on inspiration, change in phlegm color, hemoptysis or chest congestion GI: Denies: abdominal pain, nausea, vomiting, hematemesis, coffee ground emesis, dysphagia, heartburn, diarrhea, constipation, GI cramping, change in stool character, hematochezia or melena : Denies: flank pain, difficulty voiding, dysuria, urinary frequency, urinary urgency, urinary hesitancy or hematuria Musc: Denies: neck pain, back pain, extremity pain, joint swelling, joint warmth or deformity Neuro: Denies: headache(s), numbness in extremities, weakness in extremities, sensory changes, difficulty walking, frequent falls, dizziness, vertigo, behavioral changes, Slurred speech present or seizure-like activity Psych: Denies: anxiety, depression, suicidal ideation or homicidal ideation Endo: Denies: polyuria, polydipsia, tired all the time, cold intolerance or hot flashes Loki/Lymph: Denies: easy bruising or easy bleeding Medications/Allergies Home Medications ?Medication ?Instructions ?Recorded ?Confirmed ?Last Taken ?Type cholecalciferol (vitamin D3) 25 25 mcg PO DAILY 04/11/20 07/20/25 07/20/25 History mcg (1,000 unit) capsule pantoprazole 40 mg tablet,delayed 40 mg PO DAILY 04/11/20 07/20/25 07/20/25 History release timolol maleate 0.25 % eye drops 1 drop ophthalmic (eye) DAILY 04/11/20 07/20/25 07/20/25 History alendronate 70 mg tablet (Fosamax) 70 mg PO .Q7days 11/25/21 07/20/25 07/13/25 History levothyroxine 75 mcg capsule 75 mcg PO DAILY 11/25/21 07/20/25 07/20/25 History apixaban 5 mg tablet (Eliquis) 5 mg PO BID #180 tabs 07/19/25 07/20/25 07/20/25 Rx atorvastatin 40 mg tablet 80 mg (2 x 40 mg) PO BEDTIME #180 07/19/25 07/20/25 Unknown Rx tabs clopidogrel 75 mg tablet 75 mg PO DAILY #90 tabs 07/19/25 07/20/25 07/20/25 Rx metoprolol tartrate 50 mg tablet 50 mg PO BID@0900,2100 #180 tabs 07/19/25 07/20/25 07/20/25 Rx sacubitril 24 mg-valsartan 26 mg 1 tab PO BID #60 tabs 07/19/25 07/20/25 07/20/25 Rx tablet (Entresto) diltiazem HCl 120 mg 120 mg PO DAILY 07/20/25 07/20/25 07/20/25 History tablet,extended release 24 hr folic acid 1 mg tablet 1 mg PO DAILY 07/20/25 07/20/25 07/20/25 History Allergies Allergy/AdvReac Type Severity Reaction Status Date / Time No Known Allergies Allergy Verified 04/08/25 11:06 PFSH Acute PFSH: Medical History 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 Systemic lupus erythematosus, unspecified Medication monitoring encounter Osteoarthritis Cutaneous lupus erythematosus in remission Surgical History H/O: hysterectomy H/O dilation and curettage H/O lumpectomy benign H/O eye surgery 1955 Family History Mother Hyperlipidemia Hypertension Sister Breast cancer late 30's Father Lung cancer Denies family history of Colon cancer Ovarian cancer Diabetes CAD (coronary artery disease) Clotting disorder Heart disease Anesthesia complication Bleeding disorder Uterine cancer Thyroid disease Stroke Social History Smoking and tobacco/nicotine status: never used tobacco/nicotine Alcohol intake: never Substance/Drug Use: never Lives independently: No Marital status: Number of children: 2 Vitals/I&O/Wt Last Vital Signs Temp 97.8 F 07/20/25 15:05 Pulse 137 H 07/20/25 15:05 Resp 22 H 07/20/25 15:05 BP 110/82 07/20/25 15:05 Pulse Ox 97 07/20/25 15:05 07/20/25 07/20/25 07/20/25 06:59 14:59 22:59 Intake Total 100 / 100 Balance 100 / 100 Weight last 48 hrs Weight 68.039 kg Physical Exam Narrative: General: No acute distress, AO x3 HEENT: PERRLA, pupils bilaterally equal and reactive, pallors not present Chest: Normal vesicular breath sounds, no added sounds, equal good air entry bilaterally CVS: S1-S2 regular, no murmurs, no tachycardia, no gallops, no rubs Abdomen: Soft, nontender, no organomegaly, bowel sounds present Neuro: No focal deficits, no facial deformity, AO x3, power 5/5 in all limbs Data 07/20/25 15:10 07/20/25 15:10 A&P Assessment and plan 1. Atrial fibrillation with RVR: 2. Elevated troponin: 3. Cutaneous lupus erythematosus: 4. Hypothyroid: Plan: 69-year-old lady with recent NSTEMI and new onset A-fib, discharged just yesterday after having undergone PCI. Currently on Eliquis Plavix at the time of discharge along with high intensity statin. Presenting to the emergency room today with complaints of palpitations. Currently noted to be in A-fib with RVR with heart rate in the 130s. Review of her event monitor shows that patient has had a couple of episodes of V. tach additionally earlier this morning. Currently started on an amiodarone infusion in the emergency room after receiving a 150 mg bolus. We will continue amiodarone drip at this time at 1 mg/min per protocol. Continue home dose of metoprolol 50 mg p.o. twice daily once blood pressure improves. Hold Cardizem at this time. Continue Plavix and atorvastatin. She has received a dose of aspirin 324 mg in the emergency room. Noted to have an elevated troponin of 1700, 2 compared on the previous admission troponin was 1100. Suspect that elevated troponin today is related to recent angiogram and intervention however will trend 2 and 6-hour trend to assess serial delta. Holding Eliquis for now. Will instead switch to heparin drip while awaiting troponin trend and cardiology assessment. Cardiology consult ordered from the emergency room. Echocardiogram from last admission with an ejection fraction of 35%, grade 3 diastolic dysfunction. Hold Entresto while pending blood pressure trend. Hypothyroidism with noted TSH 5.9 on previous admission, mildly low T3 at 1.4, will likely adjust levothyroxine to 88 mcg at the time of discharge. DVT prophylaxis: Heparin drip to suffice Full code PDMP PDMP Reviewed: Not Reviewed Attestations Medical Necessity Statement*: Greater than 2 midnight stay is anticipated Coding Level of Care Code Acute Code for Chg Fwd High MDM includes number and complexity of problems actively addressed during encounter, amount and/or complexity of data reviewed/ordered and described risk of complication, morbidity or mortality of management as documented Diagnoses Atrial fibrillation with RVR I48.91 Elevated troponin R79.89 Cutaneous lupus erythematosus L93.2 Hypothyroid E03.9
[2025-07-20] MEDS: pantoprazole 40 mg SDV IVP (16:48)
--- NOTE | 2025-07-20 17:08 | ECG_ITS ---
[employer] Test Date: 2025-07-20 Pat Name: Milvia Coyne Department: Room: [facility] Gender: Female Communication Clerk: : 1955 Requested By: Lotus Peres Order Number: [id number] Aidan MD: Kasia Monroe M.D. Measurements Intervals [place] Rate: 88 P: 71 NC: 151 QRS: 63 QRSD: 84 T: 135 QT: 358 QTc: 435 Interpretive Statements SINUS RHYTHM ANTERIOR MYOCARDIAL INFARCTION , PROBABLY RECENT [40+ ms Q WAVE AND/OR ST/T ABNORMALITY IN V3/V4] ACUTE NC Compared to ECG 07/20/2025 15:13:01 Atrial fibrillation no longer present Possible ischemia no longer present Electronically Signed On 07-20-2025 20:10:17 CDT by Kasia Monroe M.D. [email or web address] [id number]
[2025-07-20 17:19] LABS: Troponin 5 2HR 1564 ng/L (0-10); Troponin 5 2HR Delta -208 ABS# (0-10)
[2025-07-20] MEDS: heparin 5,000 unit/mL INJ 1 mL IVP (17:48)
[2025-07-20] MEDS: heparin drip 25,000 UNIT/500 ML PREMIX 19 UNIT IV (17:49)
--- NOTE | 2025-07-20 18:19 | PC.NURSE ---
EKG done, not ST changes to leads v3 and v4. Dr. Russo reviewed EKG and notified Dr. Monroe.
--- NOTE | 2025-07-20 18:23 | PM.CONSULT ---
Providers/Reason For Consult Consulting Physician/Specialty*: KIA Monroe MD/cardiology Reason for Consult*: Patient with recent NC/atrial fibrillation with rapid ventricular rate Requesting Physician: Dr Felicia Russo Attending Physician: Charisse Russo MD Primary Care Provider: Ora Ricks MD History of Present Illness History of Present Illness Milvia Coyne is a 69 year old female, is admitted to the hospital through the emergency room, where she presented with complaints of shortness of breath and palpitations. She was found to be in atrial fibrillation with rapid ventricular rate. She was started on IV amiodarone. She is admitted to hospital for further evaluation and management. This patient was admitted to this hospital on the -2 days ago with features of a non-ST elevation myocardial infarction. She subsequently underwent a cardiac catheterization followed by PCI of the LAD and the obtuse marginal artery. During the hospital admission, she apparently developed atrial fibrillation with a rapid ventricular rate. She converted spontaneously to sinus rhythm. She was started on Eliquis. She was discharged home on Eliquis and Plavix along with the beta-duc. This morning, she was taking a walk and as she got back into the house, started having some shortness of breath and heart fluttering. Her blood pressure was low and the heart rate was in the 140s. Apparently she took all her medications, supposed to be taken this morning. Following this, her blood pressure dropped into the 80s. At that point, she decided to come to the hospital emergency room. She had some feeling of heaviness/tightness in the epigastric region. No nausea. No back pain. According to the patient, she had epigastric pain/discomfort/tightness at the time of her admission 2 days ago. Currently she has no pain Apparently she has not had a bowel movement since last Tuesday. She is able to pass gas. Denies any fever, chills or cough. No history for any aortic aneurysm. The pain is mostly in the left upper quadrant which is radiating to the epigastric area. She has a history of hypertension, hypothyroidism and cutaneous lupus. Denies any smoking abuse, alcohol abuse or any substance abuse. Review of Systems Narrative: CONSTITUTIONAL: No fever or chills. EYES: No blurring of vision or other visual disturbances lately. ENT: No hoarseness of voice, auditory disturbances or sore throat. CARDIOVASCULAR: As mentioned above. RESPIRATORY: No significant cough. GASTROINTESTINAL: As mentioned above GENITOURINARY: No dysuria or hematuria. INTEGUMENTARY: No skin rashes or history of skin cancer. NEURO: No transient ischemic attacks or amaurosis. PSYCHIATRIC: No history of psychosis or major depression. HEMATOLOGIC: No bleeding disorders or significant anemia. ENDOCRINE: No history of polyuria or polydipsia. MUSCULOSKELETAL: No recent joint pain or swelling. ALLERGY/IMMUNOLOGY: As mentioned above. Medications/Allergies Home Medications ?Medication ?Instructions ?Recorded ?Confirmed ?Last Taken ?Type cholecalciferol (vitamin D3) 25 25 mcg PO DAILY 04/11/20 07/20/25 07/20/25 History mcg (1,000 unit) capsule pantoprazole 40 mg tablet,delayed 40 mg PO DAILY 04/11/20 07/20/25 07/20/25 History release timolol maleate 0.25 % eye drops 1 drop ophthalmic (eye) DAILY 04/11/20 07/20/25 07/20/25 History alendronate 70 mg tablet (Fosamax) 70 mg PO .Q7days 11/25/21 07/20/25 07/13/25 History levothyroxine 75 mcg capsule 75 mcg PO DAILY 11/25/21 07/20/25 07/20/25 History apixaban 5 mg tablet (Eliquis) 5 mg PO BID #180 tabs 07/19/25 07/20/25 07/20/25 Rx atorvastatin 40 mg tablet 80 mg (2 x 40 mg) PO BEDTIME #180 07/19/25 07/20/25 Unknown Rx tabs clopidogrel 75 mg tablet 75 mg PO DAILY #90 tabs 07/19/25 07/20/25 07/20/25 Rx metoprolol tartrate 50 mg tablet 50 mg PO BID@0900,2100 #180 tabs 07/19/25 07/20/25 07/20/25 Rx sacubitril 24 mg-valsartan 26 mg 1 tab PO BID #60 tabs 07/19/25 07/20/25 07/20/25 Rx tablet (Entresto) diltiazem HCl 120 mg 120 mg PO DAILY 07/20/25 07/20/25 07/20/25 History tablet,extended release 24 hr folic acid 1 mg tablet 1 mg PO DAILY 0907/20/25 07/20/25 History Allergies Allergy/AdvReac Type Severity Reaction Status Date / Time No Known Allergies Allergy Verified 04/08/25 11:06 Current Medications Generic Name Dose Route Start Last Admin Trade Name [place] PRN Reason Stop Dose Admin AMIODARONE HCL/D5W 900 mg in 500 mls @ 0 mls/hr 07/20/25 15:09 07/20/25 15:41 Amiodarone 900 Mg/500 Ml-D5w IV 1 mg/min .Q0M LUIS 33.33 mls/hr Protocol Administration Per Protocol Heparin Sodium/Sodium Chloride 25,000 unit in 500 mls @ 0 mls/hr 07/20/25 17:03 07/20/25 17:49 Heparin Drip IV 13.96 unit/kg/hr CONT LUIS 19 mls/hr Protocol Administration Per Protocol PFSH Acute PFSH: Medical History 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 Systemic lupus erythematosus, unspecified Medication monitoring encounter Osteoarthritis Cutaneous lupus erythematosus in remission Surgical History H/O: hysterectomy H/O dilation and curettage H/O lumpectomy benign H/O eye surgery 1955 Family History Mother Hyperlipidemia Hypertension Sister Breast cancer late 30's Father Lung cancer Denies family history of Colon cancer Ovarian cancer Diabetes CAD (coronary artery disease) Clotting disorder Heart disease Anesthesia complication Bleeding disorder Uterine cancer Thyroid disease Stroke Social History Smoking and tobacco/nicotine status: never used tobacco/nicotine Alcohol intake: never Substance/Drug Use: never Lives independently: No Marital status: Number of children: 2 Vitals/I&O/Wt Last Vital Signs Temp 97.8 F 07/20/25 15:05 Pulse 89 07/20/25 16:52 Resp 22 H 07/20/25 15:05 BP 131/81 07/20/25 16:52 Pulse Ox 97 07/20/25 15:05 07/20/25 07/20/25 07/20/25 06:59 14:59 22:59 Intake Total 100 / 100 Balance 100 / 100 Weight last 48 hrs Weight 157 lb 10.088 oz Weight 150 lb Physical Exam Narrative: GENERAL: The patient is alert and oriented times three. Not in any acute distress. HEENT: No significant pallor, icterus or lymphadenopathy.Oral cavity: There are no mucous membrane lesions. NECK: Trachea appears to be central. No masses noted. No JVD or thyromegaly appreciated. RESPIRATORY: Chest is symmetrical. No intercostals muscle retraction or any accessory muscle activation. There is no chest wall tenderness. Breath sounds are heard bilaterally. No rales or rhonchi heard. No evidence of any consolidation. BREASTS: Deferred. HEART: The heart sounds are normal. No S3 or S4. No significant murmurs. No pericardial rub ABDOMEN: She has some vague discomfort in the left upper quadrant area. It is reproducible. Bowel sounds are normally heard. : Deferred. RECTAL: Deferred. LYMPHATIC: No lymphadenopathy noted in the neck. EXTREMITIES: No edema or cyanosis. No clubbing. MUSCULOSKELETAL: No acute joint deformities or swelling SKIN: There are no significant rashes or ecchymosis NEUROPSYCHIATRIC: The patient is alert and oriented x3. Appears to be in a good mood. No tremors or rigidity noted. Data 07/20/25 15:10 07/20/25 15:10 Other Labs: Laboratory Last Values WBC 8.53 10^3/uL (3.29-11.43) 07/20/25 15:10 RBC 3.89 10^6/uL (3.85-5.65) 07/20/25 15:10 Hgb 12.10 g/dL (11.27-16.99) 07/20/25 15:10 Hct 37.0 % (36-47) 07/20/25 15:10 MCV 95.1 fl (85-98) 07/20/25 15:10 MCH 31.1 pg (27-33) 07/20/25 15:10 MCHC 32.7 g/dL (30-55) 07/20/25 15:10 RDW 14.8 % (12.1-15.1) 07/20/25 15:10 Plt Count 201 10^3/cmm (157-399) 07/20/25 15:10 MPV 9.3 fL (7.4-10.4) 07/20/25 15:10 Neut % (Auto) 74.7 % 07/20/25 15:10 Lymph % (Auto) 9.5 % 07/20/25 15:10 [place] % (Auto) 14.8 % 07/20/25 15:10 Eos % (Auto) 0.5 % 07/20/25 15:10 Baso % (Auto) 0.1 % 07/20/25 15:10 Neut # (Auto) 6.38 10^3/uL (1.8-7.7) 07/20/25 15:10 Lymph # (Auto) 0.8 10^3/uL (0.8-4.8) 07/20/25 15:10 [place] # (Auto) 1.3 10^3/uL (0.2-0.9) H 07/20/25 15:10 Eos # (Auto) 0.0 10^3/uL (0.0-0.8) 07/20/25 15:10 Baso # (Auto) 0.0 10^3/uL (0.0-0.1) 07/20/25 15:10 Nucleated RBC % (auto) 0 % 07/20/25 15:10 Nucleated RBCs # 0.0 /100WBC 07/20/25 15:10 Sodium 139 mmol/L (136-145) 07/20/25 15:10 Potassium 4.6 mmol/L (3.5-5.1) 07/20/25 15:10 Chloride 104 mmol/L (98-107) 07/20/25 15:10 Carbon Dioxide 20 mmol/L (22-29) L 07/20/25 15:10 Anion Gap 19.6 (5-19) H 07/20/25 15:10 BUN 13 mg/dL (8-23) 07/20/25 15:10 Creatinine 1.0 mg/dL (0.5-0.9) H 07/20/25 15:10 GFR Calculation Not Reportable 07/20/25 15:10 Glucose 120 mg/dL (65-115) H 07/20/25 15:10 Calculated Osmolality 289 mOsm/kg (285-295) 07/20/25 15:10 Calcium 8.7 mg/dL (8.5-10.5) 07/20/25 15:10 Total Bilirubin 0.6 mg/dL (0.15-1.2) 07/20/25 15:10 AST 91 U/L (0-32) H 07/20/25 15:10 ALT 21 U/L (0-33) 07/20/25 15:10 Alkaline Phosphatase 96 U/L (35-105) 07/20/25 15:10 Troponin T Baseline 1772 ng/L (0-10) H* 07/20/25 15:10 Troponin T 120 Minute 1564 ng/L (0-10) H 07/20/25 16:40 Delta Troponin T -208 ABS# (0-10) L 07/20/25 16:40 NT-Pro-B Natriuret Pep 4974 pg/mL (0-125) H 07/20/25 15:10 Total Protein 7.5 g/dL (6.6-8.7) 07/20/25 15:10 Albumin 4.0 g/dL (3.5-5.2) 07/20/25 15:10 Globulin 3.5 g/dL (1.3-4.6) 07/20/25 15:10 Urine Color Yellow (Yellow) 07/20/25 15:41 Urine Appearance Clear (CLEAR) 07/20/25 15:41 Urine pH 6.0 (5-7) 07/20/25 15:41 Ur Specific [place] 1.024 (1.005-1.030) 07/20/25 15:41 Urine Protein 2+ (Negative) A 07/20/25 15:41 Urine Glucose (UA) Negative (Normal) 07/20/25 15:41 Urine Ketones 1+ (Negative) H 07/20/25 15:41 Urine Blood 1+ (Negative) A 07/20/25 15:41 Urine Nitrate Negative (Negative) 07/20/25 15:41 Urine Bilirubin Negative (Negative) 07/20/25 15:41 Urine Urobilinogen 1.0 mg/dL (Negative) 07/20/25 15:41 Ur Leukocyte Esterase 1+ (Negative) A 07/20/25 15:41 Urine RBC 11-20 /hpf (0-2) H 07/20/25 15:41 Urine WBC 11-20 /hpf (0-5) H 07/20/25 15:41 Ur Squamous Epith Cells 0-5 /hpf (0-5) 07/20/25 15:41 Amorphous Sediment Not Reportable 07/20/25 15:41 Urine Bacteria None seen /hpf (NONE) 07/20/25 15:41 Hyaline Casts 2.46 /lpf 07/20/25 15:41 A&P Assessment and plan 1. Atrial fibrillation with rapid ventricular response: Patient was started on IV amiodarone. Currently she is converted to sinus rhythm. The heart rate is in the 80s. EKG showed features of a recent anterolateral wall NC. EKGs are more or less similar to previous EKG from yesterday. She was started on IV heparin. Eliquis is on hold at this point. 2. Elevated troponin: Her troponin T was in the 1100 range on the . Today it was around 1700 at the time of ER visit. Now it is coming down into the 1500. Patient had a PCI on the . Most likely this is from the recent NC 3. Recent non-ST elevation myocardial infarction: The EKG is a history of anterolateral wall NC. Her LV ejection fraction was around 35%. We may do a limited 2D echocardiogram to follow-up on this. 4. Hypothyroidism, unspecified type: May continue on the current medications. 5. Benign hypertension: She had some hypotensive episode with the fibrillation. Currently she is normotensive. 6. Cutaneous lupus erythematosus: Continue on the current measures. 7. Ischemic cardiomyopathy: Hemodynamically she is stable. She has some class II heart failure symptoms I may start the patient on Lasix 20 mg p.o. daily with the spironolactone 25 mg p.o. daily Plan: Limited to the echocardiogram. Closely monitor on telemetry. Laxatives for the constipation Protonix 40 mg p.o. daily for possible GERD Continue on the current measures. Based on the clinical progress, further recommendations will be made Thank you for the opportunity to evaluate this patient and make these recommendations PDMP PDMP Reviewed: Not Reviewed Coding Level of Care Code 80945 Diagnoses Atrial fibrillation with rapid ventricular response I48.91 Elevated troponin R79.89 Recent non-ST elevation myocardial infarction Hypothyroidism, unspecified type E03.9 Hypothyroidism type: unspecified Benign hypertension I10 Cutaneous lupus erythematosus L93.2 Ischemic cardiomyopathy I25.5
[2025-07-20] MEDS: lactulose oral liq 20 gm/30 mL UDC 10 GM PO (18:58)
[2025-07-20] MEDS: lidocaine 2% viscous 15 ML, aluminum-mag hydrox-simethicon 30 ML, sucralfate oral liq 1 GM PO (18:59)
[2025-07-20] MEDS: morphine 4 mg/mL SDV 1 mL 2 MG IVP ×2 (19:55→23:40)
--- NOTE | 2025-07-20 21:08 | ECG_ITS ---
[email or web address] Test Date: 2025-07-20 Pat Name: Milvia Coyne Department: Room: [facility] Gender: Female Ramp Service Man: : 1955 Requested By: Lotus Peres Order Number: [id number] Aidan MD: Kasia Monroe M.D. Measurements Intervals [place] Rate: 82 P: 78 AL: 143 QRS: 72 QRSD: 96 T: 84 QT: 385 QTc: 452 Interpretive Statements SINUS RHYTHM ANTERIOR MYOCARDIAL INFARCTION , PROBABLY RECENT [40+ ms Q WAVE AND/OR ST/T ABNORMALITY IN V3/V4] ACUTE MS Compared to ECG 07/20/2025 17:59:38 No significant changes Electronically Signed On 07-20-2025 20:23:00 CDT by Kasia Monroe M.D. [email or web address] [id number]
[2025-07-20 21:50] LABS: Troponin 5 6HR 1537 ng/L (0-10); Troponin 5 6HR Delta -235 ng/L (0-12)
[2025-07-21] VITALS (34 sets, daily range): BP systolic 86–148; BP diastolic 35–77; PULSE 62–139; RESP 12–25; TEMP 36.7–37.1; O2SAT 93–99
[2025-07-21 00:14] LABS: Partial Thromboplastin Time 215.7 SECONDS (23.9-36.7)
[2025-07-21 04:15] LABS: Alanine Aminotransferase 19 U/L (0-33); Albumin Level 3.4 g/dL (3.5-5.2); Alkaline Phosphatase 86 U/L (35-105); Anion Gap 19.1 (5-19); Aspartate Amino Transferase 69 U/L (0-32); Blood Urea Nitrogen 11 mg/dL (8-23); Calcium 8.1 mg/dL (8.5-10.5); Carbon Dioxide 17 mmol/L (22-29); Chloride 103 mmol/L (98-107); Creatinine Clr Calc Pharmacy 56.8398; Globulin 3.8 g/dL (1.3-4.6); Glucose 144 mg/dL (65-115); Magnesium 2.0 mg/dL (1.7-2.3); Osmolality Calculated 282 mOsm/kg (285-295); Potassium 4.1 mmol/L (3.5-5.1); Sodium 135 mmol/L (136-145); Total Protein 7.2 g/dL (6.6-8.7)
[2025-07-21 04:16] LABS: Hematocrit 32.4 % (36-47); Hemoglobin 10.50 g/dL (11.27-16.99); Mean Corpuscular HGB Conc 32.4 g/dL (30-55); Mean Corpuscular Hemoglobin 30.7 pg (27-33); Mean Corpuscular Volume 94.7 fl (85-98); Nucleated Red Blood Cells % 0 %; Platelet Count 190 10^3/cmm (157-399); Red Blood Count 3.42 10^6/uL (3.85-5.65); White Blood Count 9.93 10^3/uL (3.29-11.43)
[2025-07-21] MEDS: AMIODARONE HCL/D5W 900 MG/500 ML BAG 16.67 MG IV (07:00)
[2025-07-21 07:12] LABS: Partial Thromboplastin Time 48.9 SECONDS (23.9-36.7)
[2025-07-21] MEDS: heparin 5,000 unit/mL INJ 1 mL IVP ×3 (07:28→20:56)
[2025-07-21] MEDS: lactulose oral liq 20 gm/30 mL UDC 10 GM PO ×2 (07:48→13:25)
--- NOTE | 2025-07-21 09:24 | PM.PN ---
Subjective Subjective: The patient is feeling better. She continues to be in the sinus rhythm. She finished the 1 g of IV amiodarone. Her epigastric/left upper quadrant pain is much better. No fever or chills. No cough. Vital signs are stable. Heart rate is in the 70s at this time. Medications: Medication Review Details: Current Medications Acetaminophen (Acetaminophen 325 Mg Tablet) 650 mg PO Q6H PRN PRN Reason: Mild/Mod Pain Or Temp >/= 101 Atorvastatin Calcium (Atorvastatin 40 Mg Tablet) 80 mg PO BEDTIME LUIS Last Admin: 07/20/25 20:27 Dose: 80 mg Clopidogrel Bisulfate (Clopidogrel 75 Mg Tablet) 75 mg PO DAILY LUIS Last Admin: 07/21/25 07:47 Dose: 75 mg Diphenhydramine HCl (Diphenhydramine 50 Mg Capsule) 50 mg PO BEDTIME PRN PRN Reason: INSOMNIA Furosemide (Furosemide 20 Mg Tablet) 20 mg PO DAILY@0800 LUIS Last Admin: 07/21/25 07:47 Dose: 20 mg Heparin Sodium (Porcine) (Heparin 5,000 Unit/Ml Inj 1 Ml) 0 unit IVP PRN PRN; Protocol PRN Reason: Heparin Weight Based Protocol -Subsequent Bolus Last Admin: 07/21/25 07:28 Dose: 1,400 unit AMIODARONE HCL/D5W (Amiodarone 900 Mg/500 Ml-D5w) 900 mg in 500 mls @ 0 mls/hr IV .Q0M LUIS; Protocol Last Admin: 07/21/25 07:00 Dose: 0.5 mg/min, 16.67 mls/hr Heparin Sodium/Sodium Chloride (Heparin Drip) 25,000 unit in 500 mls @ 0 mls/hr IV CONT LUIS; Protocol Last Titration: 07/21/25 07:27 Dose: 8.82 unit/kg/hr, 12 mls/hr Lactulose (Lactulose Oral Liq 20 Gm/30 Ml Udc) 10 gm PO DAILY LUIS Last Admin: 07/21/25 07:48 Dose: 10 gm Metoprolol Tartrate (Metoprolol Tartrate 50 Mg Tablet) 50 mg PO BID@0900,2100 LUIS Last Admin: 07/21/25 07:47 Dose: 50 mg Morphine Sulfate (Morphine 4 Mg/Ml Sdv 1 Ml) 2 mg IVP Q4H PRN PRN Reason: SEVERE PAIN Last Admin: 07/20/25 23:40 Dose: 2 mg Naloxone HCl (Naloxone 0.4 Mg/Ml Sdv) 0.1 mg IVP Q2M PRN PRN Reason: OPIATERV Ondansetron HCl (Ondansetron 2 Mg/Ml Sdv 2 Ml) 4 mg IVP Q8H PRN PRN Reason: vomiting, or N/V if npo Pantoprazole Sodium (Pantoprazole Dr 40 Mg Tablet) 40 mg PO DAILY [facility] Last Admin: 07/21/25 07:47 Dose: 40 mg Spironolactone (Spironolactone 25 Mg Tablet) 25 mg PO DAILY [facility] Last Admin: 07/21/25 07:47 Dose: 25 mg Vitals/I&O/Wt Last Vital Signs Temp 98.1 F 07/21/25 08:00 Pulse 74 07/21/25 08:00 Resp 15 07/21/25 08:00 BP 108/63 07/21/25 08:00 Pulse Ox 98 07/21/25 08:00 O2 Del Method Room Air 07/21/25 08:00 07/20/25 07/21/25 07/21/25 22:59 06:59 14:59 Intake Total 100 / 100 621.917 / 721.917 255.917 / 255.917 Output Total 250 / 250 Balance 100 / 100 621.917 / 721.917 5.917 / 5.917 Weight last 48 hrs Weight 154 lb Weight 157 lb 10.088 oz Weight 150 lb Physical Exam Narrative: GENERAL: The patient is alert and oriented times three. Not in any acute distress. HEENT: No significant pallor, icterus or lymphadenopathy.Oral cavity: There are no mucous membrane lesions. NECK: Trachea appears to be central. No masses noted. No JVD or thyromegaly appreciated. RESPIRATORY: Chest is symmetrical. No intercostals muscle retraction or any accessory muscle activation. There is no chest wall tenderness. Breath sounds are heard bilaterally. No rales or rhonchi heard. No evidence of any consolidation. BREASTS: Deferred. HEART: The heart sounds are normal. No S3 or S4. No significant murmurs. No pericardial rub ABDOMEN: She has some vague discomfort in the left upper quadrant area. It is reproducible. Bowel sounds are normally heard. : Deferred. RECTAL: Deferred. LYMPHATIC: No lymphadenopathy noted in the neck. EXTREMITIES: No edema or cyanosis. No clubbing. MUSCULOSKELETAL: No acute joint deformities or swelling SKIN: There are no significant rashes or ecchymosis NEUROPSYCHIATRIC: The patient is alert and oriented x3. Appears to be in a good mood. No tremors or rigidity noted. Data 07/21/25 03:17 07/21/25 03:17 Other Labs: Laboratory Last Values WBC 9.93 10^3/uL (3.29-11.43) 07/21/25 03:17 RBC 3.42 10^6/uL (3.85-5.65) L 07/21/25 03:17 Hgb 10.50 g/dL (11.27-16.99) L 07/21/25 03:17 Hct 32.4 % (36-47) L 07/21/25 03:17 MCV 94.7 fl (85-98) 07/21/25 03:17 MCH 30.7 pg (27-33) 07/21/25 03:17 MCHC 32.4 g/dL (30-55) 07/21/25 03:17 RDW 14.8 % (12.1-15.1) 07/21/25 03:17 Plt Count 190 10^3/cmm (157-399) 07/21/25 03:17 MPV 10.2 fL (7.4-10.4) 07/21/25 03:17 Neut % (Auto) 73.3 % 07/21/25 03:17 Lymph % (Auto) 10.9 % 07/21/25 03:17 [place] % (Auto) 15.4 % 07/21/25 03:17 Eos % (Auto) 0.0 % 07/21/25 03:17 Baso % (Auto) 0.1 % 07/21/25 03:17 Neut # (Auto) 7.28 10^3/uL (1.8-7.7) 07/21/25 03:17 Lymph # (Auto) 1.1 10^3/uL (0.8-4.8) 07/21/25 03:17 [place] # (Auto) 1.5 10^3/uL (0.2-0.9) H 07/21/25 03:17 Eos # (Auto) 0.0 10^3/uL (0.0-0.8) 07/21/25 03:17 Baso # (Auto) 0.0 10^3/uL (0.0-0.1) 07/21/25 03:17 Nucleated RBC % (auto) 0 % 07/21/25 03:17 Nucleated RBCs # 0.0 /100WBC 07/21/25 03:17 APTT 48.9 SECONDS (23.9-36.7) H D 07/21/25 06:16 Sodium 135 mmol/L (136-145) L 07/21/25 03:17 Potassium 4.1 mmol/L (3.5-5.1) 07/21/25 03:17 Chloride 103 mmol/L (98-107) 07/21/25 03:17 Carbon Dioxide 17 mmol/L (22-29) L 07/21/25 03:17 Anion Gap 19.1 (5-19) H 07/21/25 03:17 BUN 11 mg/dL (8-23) 07/21/25 03:17 Creatinine 0.9 mg/dL (0.5-0.9) 07/21/25 03:17 GFR Calculation Not Reportable 07/21/25 03:17 Glucose 144 mg/dL (65-115) H 07/21/25 03:17 Calculated Osmolality 282 mOsm/kg (285-295) L 07/21/25 03:17 Calcium 8.1 mg/dL (8.5-10.5) L 07/21/25 03:17 Magnesium 2.0 mg/dL (1.7-2.3) 07/21/25 03:17 Total Bilirubin 0.7 mg/dL (0.15-1.2) 07/21/25 03:17 AST 69 U/L (0-32) H 07/21/25 03:17 ALT 19 U/L (0-33) 07/21/25 03:17 Alkaline Phosphatase 86 U/L (35-105) 07/21/25 03:17 Troponin T Baseline 1772 ng/L (0-10) H* 07/20/25 15:10 Troponin T 120 Minute 1564 ng/L (0-10) H 07/20/25 16:40 Delta Troponin T -208 ABS# (0-10) L 07/20/25 16:40 Troponin T Hi Sens 6Hr 1537 ng/L (0-10) H 07/20/25 21:08 Troponin T Hi Sens 6Hr Delta -235 ng/L (0-12) L 07/20/25 21:08 NT-Pro-B Natriuret Pep 4974 pg/mL (0-125) H 07/20/25 15:10 Total Protein 7.2 g/dL (6.6-8.7) 07/21/25 03:17 Albumin 3.4 g/dL (3.5-5.2) L 07/21/25 03:17 Globulin 3.8 g/dL (1.3-4.6) 07/21/25 03:17 Urine Color Yellow (Yellow) 07/20/25 15:41 Urine Appearance Clear (CLEAR) 07/20/25 15:41 Urine pH 6.0 (5-7) 07/20/25 15:41 Ur Specific [place] 1.024 (1.005-1.030) 07/20/25 15:41 Urine Protein 2+ (Negative) A 07/20/25 15:41 Urine Glucose (UA) Negative (Normal) 07/20/25 15:41 Urine Ketones 1+ (Negative) H 07/20/25 15:41 Urine Blood 1+ (Negative) A 07/20/25 15:41 Urine Nitrate Negative (Negative) 07/20/25 15:41 Urine Bilirubin Negative (Negative) 07/20/25 15:41 Urine Urobilinogen 1.0 mg/dL (Negative) 07/20/25 15:41 Ur Leukocyte Esterase 1+ (Negative) A 07/20/25 15:41 Urine RBC 11-20 /hpf (0-2) H 07/20/25 15:41 Urine WBC 11-20 /hpf (0-5) H 07/20/25 15:41 Ur Squamous Epith Cells 0-5 /hpf (0-5) 07/20/25 15:41 Amorphous Sediment Not Reportable 07/20/25 15:41 Urine Bacteria None seen /hpf (NONE) 07/20/25 15:41 Hyaline Casts 2.46 /lpf 07/20/25 15:41 A&P Assessment and plan 1. Atrial fibrillation with rapid ventricular response: The patient may be started on amiodarone 4 mg p.o. twice daily. She is on the heparin for the time being. If she continues to remain in the sinus rhythm, may be switched back to Eliquis by this evening. Her hemoglobin slightly dropped-possibly dilutional. No evidence of any bleeding. 2. Elevated troponin: Her troponin T was in the 1100 range on the . Today it was around 1700 at the time of ER visit. Now it is coming down into the 1500. Patient had a PCI on the . Most likely this is from the recent [place] [facility] repeat EKG this morning. 3. Recent non-ST elevation myocardial infarction: The EKG is a history of anterolateral wall [place]. Her LV ejection fraction was around 35%. We may do a limited 2D echocardiogram to follow-up on this. The repeat echocardiogram revealed ejection fraction of 34%. Essentially unchanged from the previous 2D echo findings. 4. Hypothyroidism, unspecified type: Clinically euthyroid. May continue on the current medications. 5. Benign hypertension: Currently normotensive. May continue on the current medications. 6. Cutaneous lupus erythematosus: Continue on the current measures. 7. Ischemic cardiomyopathy: Hemodynamically she is stable. She has some class II heart failure symptoms I may start the patient on Lasix 20 mg p.o. daily with the spironolactone 25 mg p.o. daily Patient seems to be tolerating medication so far well. Will be continued on the current medications. Plan: Continue the telemetry Continue the p.o. amiodarone as mentioned above. Patient will clinically progress, further management decisions will be made PDMP PDMP Reviewed: Not Reviewed Attestations Medical Necessity Statement*: Patient requires continued hospital stay for close monitoring and further management Coding Level of Care Code 14657 Diagnoses Atrial fibrillation with rapid ventricular response I48.91 Elevated troponin R79.89 Recent non-ST elevation myocardial infarction Hypothyroidism, unspecified type E03.9 Hypothyroidism type: unspecified Benign hypertension I10 Cutaneous lupus erythematosus L93.2 Ischemic cardiomyopathy I25.5
--- NOTE | 2025-07-21 09:25 | ECG_ITS ---
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 Measurements Intervals [place] Rate: 69 P: 74 AL: 155 QRS: 73 QRSD: 98 T: 89 QT: 447 QTc: 480 Interpretive Statements SINUS RHYTHM MODERATE T-WAVE ABNORMALITY, CONSIDER ANTEROLATERAL ISCHEMIA [-0.1+ mV T-WAVE IN V3-V6] ST-T changes in the anterolateral leads suggestive of recent anterolateral wall MA ST changes in the inferior leads, cannot rule out pericarditis Compared to ECG 07/20/2025 20:14:20 T-wave abnormality now present Possible ischemia now present Electronically Signed On 07-21-2025 17:51:10 CDT by Kasia Monroe M.D. [email or web address] [id number]
[2025-07-21] MEDS: nitroglycerin 1 gm/inch oint Pkt 0.5 INCH TOPICAL (11:34)
--- NOTE | 2025-07-21 12:35 | PC.NURSE ---
Blood pressure 78/45, nitro paste removed from left chest wall. Notified Dr. Russo.
--- NOTE | 2025-07-21 12:43 | PM.PN ---
Subjective Subjective: Continues to complain of chest discomfort, states this is worse with laying down, somewhat improved with sitting up. Pain is intermittent, not significantly improved with trial of nitro patch. Medications: Reviewed: Yes Medication Review Details: Current Medications Acetaminophen (Acetaminophen 325 Mg Tablet) 650 mg PO Q6H PRN PRN Reason: Mild/Mod Pain Or Temp >/= 101 Atorvastatin Calcium (Atorvastatin 40 Mg Tablet) 80 mg PO BEDTIME [facility]IS Last Admin: 07/20/25 20:27 Dose: 80 mg Clopidogrel Bisulfate (Clopidogrel 75 Mg Tablet) 75 mg PO DAILY [facility] Last Admin: 07/21/25 07:47 Dose: 75 mg Diphenhydramine HCl (Diphenhydramine 50 Mg Capsule) 50 mg PO BEDTIME PRN PRN Reason: INSOMNIA Furosemide (Furosemide 20 Mg Tablet) 20 mg PO DAILY@0800 [facility] Last Admin: 07/21/25 07:47 Dose: 20 mg Heparin Sodium (Porcine) (Heparin 5,000 Unit/Ml Inj 1 Ml) 0 unit IVP PRN PRN; Protocol PRN Reason: Heparin Weight Based Protocol -Subsequent Bolus Last Admin: 07/21/25 07:28 Dose: 1,400 unit AMIODARONE HCL/D5W (Amiodarone 900 Mg/500 Ml-D5w) 900 mg in 500 mls @ 0 mls/hr IV .Q0M [facility]IS; Protocol Last Admin: 07/21/25 07:00 Dose: 0.5 mg/min, 16.67 mls/hr Heparin Sodium/Sodium Chloride (Heparin Drip) 25,000 unit in 500 mls @ 0 mls/hr IV CONT [facility]; Protocol Last Titration: 07/21/25 07:27 Dose: 8.82 unit/kg/hr, 12 mls/hr Lactulose (Lactulose Oral Liq 20 Gm/30 Ml Udc) 10 gm PO DAILY [facility] Last Admin: 07/21/25 07:48 Dose: 10 gm Metoprolol Tartrate (Metoprolol Tartrate 50 Mg Tablet) 50 mg PO BID@0900,2100 [facility] Last Admin: 07/21/25 07:47 Dose: 50 mg Morphine Sulfate (Morphine 4 Mg/Ml Sdv 1 Ml) 2 mg IVP Q4H PRN PRN Reason: SEVERE PAIN Last Admin: 07/20/25 23:40 Dose: 2 mg Naloxone HCl (Naloxone 0.4 Mg/Ml Sdv) 0.1 mg IVP Q2M PRN PRN Reason: OPIATERV Ondansetron HCl (Ondansetron 2 Mg/Ml Sdv 2 Ml) 4 mg IVP Q8H PRN PRN Reason: vomiting, or N/V if npo Pantoprazole Sodium (Pantoprazole Dr 40 Mg Tablet) 40 mg PO DAILY [facility] Last Admin: 07/21/25 07:47 Dose: 40 mg Spironolactone (Spironolactone 25 Mg Tablet) 25 mg PO DAILY [facility] Last Admin: 07/21/25 07:47 Dose: 25 mg Vitals/I&O/Wt Last Vital Signs Temp 98.4 F 07/21/25 12:00 Pulse 66 07/21/25 12:00 Resp 16 07/21/25 12:00 BP 98/57 07/21/25 12:00 Pulse Ox 98 07/21/25 12:00 O2 Del Method Room Air 07/21/25 12:00 07/20/25 07/21/25 07/21/25 22:59 06:59 14:59 Intake Total 100 / 100 621.917 / 721.917 455.917 / 455.917 Output Total 450 / 450 Balance 100 / 100 621.917 / 721.917 5.917 / 5.917 Weight last 48 hrs Weight 69.853 kg Weight 71.5 kg Weight 68.039 kg Physical Exam Narrative: General: No acute distress, AO x3 HEENT: PERRLA, pupils bilaterally equal and reactive, pallors not present Chest: Normal vesicular breath sounds, no added sounds, equal good air entry bilaterally CVS: S1-S2 regular, no murmurs, no tachycardia, no gallops, no rubs Abdomen: Soft, nontender, no organomegaly, bowel sounds present Neuro: No focal deficits, no facial deformity, AO x3, power 5/5 in all limbs Data 07/21/25 03:17 07/21/25 03:17 Micro: Microbiology 07/20/25 15:41 Urine Culture - Preliminary Urine,Clean Catch A&P Assessment and plan 1. Atrial fibrillation with RVR: 2. Elevated troponin: 3. Cutaneous lupus erythematosus: 4. Hypothyroidism, unspecified type: Plan: 69-year-old lady with recent NSTEMI and new onset A-fib, discharged just yesterday after having undergone PCI. Currently on Eliquis Plavix at the time of discharge along with high intensity statin. Presenting to the emergency room today with complaints of palpitations. Currently noted to be in A-fib with RVR with heart rate in the 130s. Review of her event monitor shows that patient has had a couple of episodes of V. tach additionally earlier this morning. Currently started on an amiodarone infusion in the emergency room after receiving a 150 mg bolus. We will continue amiodarone drip at this time at 1 mg/min per protocol. Continue home dose of metoprolol 50 mg p.o. twice daily once blood pressure improves. Hold Cardizem at this time. Continue Plavix and atorvastatin. She has received a dose of aspirin 324 mg in the emergency room. Noted to have an elevated troponin of 1700, 2 compared on the previous admission troponin was 1100. Suspect that elevated troponin today is related to recent angiogram and intervention however will trend 2 and 6-hour trend to assess serial delta. Holding Eliquis for now. Will instead switch to heparin drip while awaiting troponin trend and cardiology assessment. Cardiology consult ordered from the emergency room. Echocardiogram from last admission with an ejection fraction of 35%, grade 3 diastolic dysfunction. Hold Entresto while pending blood pressure trend. Hypothyroidism with noted TSH 5.9 on previous admission, mildly low T3 at 1.4, will likely adjust levothyroxine to 88 mcg at the time of discharge. DVT prophylaxis: Heparin drip to suffice Full code July 21, 2025 Patient continues to complain of discomfort in the lower middle chest. Nonradiating. States that the pain is worse when she attempts to lay down and gets better with sitting up and bending forward. She feels like she has some nasal congestion today. Tmax noted of 99 Fahrenheit. Will obtain respiratory viral panel. Cause of chest pain is not entirely clear. Trialed nitro patch this morning, however did not have any significant improvement. Placement of the Nitropatch resulted in drop in blood pressure to 78 systolic therefore this was discontinued. She had additionally reported discomfort in the epigastric area. Hemoglobin today is noted to be down to 10.5. She has not had a bowel movement to assess for melena yet. States that she has not had a bowel movement in about a week. Increase lactulose to twice daily today. Will order for occult blood test to ensure there is no GI bleed to correlate with the drop in hemoglobin. Increase Protonix to 40 mg twice daily in the interim. Continue heparin drip for now until occult blood testing is obtained. Obtain gallbladder ultrasound to assess for any cholelithiasis which may be contributing to pain. Alternate possibility is that of pericarditis however echocardiogram today is overall unchanged compared to previous admission. Patient remains in sinus rhythm. Rate controlled. IV amiodarone has been discontinued and transitioned to oral amiodarone at this time. Continue metoprolol 50 mg twice daily. If blood pressure tolerates we will attempt to add back Entresto. PDMP PDMP Reviewed: Not Reviewed Attestations Medical Necessity Statement*: Continue heparin drip. Chest pain evaluation ongoing. Hemoglobin dropped to 10.5 which needs to be correlated with possibility of GI bleed. Coding Level of Care Code Acute Code for Chg Fwd High MDM includes number and complexity of problems actively addressed during encounter, amount and/or complexity of data reviewed/ordered and described risk of complication, morbidity or mortality of management as documented Diagnoses Atrial fibrillation with RVR I48.91 Elevated troponin R79.89 Cutaneous lupus erythematosus L93.2 Hypothyroidism, unspecified type E03.9 Hypothyroidism type: unspecified
--- NOTE | 2025-07-21 13:06 | USR_ITS ---
PROCEDURE INFORMATION: Exam: US Abdomen, Limited; Right Upper Quadrant Exam date and time: 07/21/2025 7:12 PM Age: 69 years old Clinical indication: Screening exam; Other: Assess for cholecytsitis TECHNIQUE: Imaging protocol: Real time ultrasound of the abdomen with image documentation. Limited exam focused on the right upper quadrant. COMPARISON: No relevant prior studies available. FINDINGS: Liver: Liver is enlarged measuring 18.4 cm. In the right hepatic lobe there is a thick walled cystic appearing lesion measuring perhaps 1.8 cm. No internal vascularity is detected but the finding is indeterminate by ultrasound. Gallbladder: Shadowing gallstone in the gallbladder fundus. No gallbladder wall thickening or pericholecystic fluid. Biliary ducts: Common bile duct is normal caliber measuring 4-6 mm. Pancreas: Visualized pancreas is unremarkable. Right kidney: Imaged right kidney 9.3 cm in length with no hydronephrosis. US/US gall bladder [id number] IMPRESSION: 1. Cholelithiasis with no secondary signs of cholecystitis. 2. Indeterminate thick-walled 1.8 cm right hepatic lobe lesion that is indeterminate by ultrasound. This could be better evaluated with nonemergent liver mass protocol MRI.
[2025-07-21 13:31] LABS: Partial Thromboplastin Time 49.5 SECONDS (23.9-36.7)
[2025-07-21 13:33] LABS: Coronavirus 229E,HKU1,NL63,OC4 Not Detected (NOT DETECT); Parainfluenza Virus Type 1 Not Detected (NOT DETECT); Parainfluenza Virus Type 2 Not Detected (NOT DETECT); Parainfluenza Virus Type 3 Not Detected (NOT DETECT); Parainfluenza Virus Type 4 Not Detected (NOT DETECT); SARS-COV-2 Not Detected (NOT DETECT)
--- NOTE | 2025-07-21 20:03 | USCV_ITS ---
Milvia Coyne Age: 69 Gender: F : 1955 Exam Date: 07/21/2025 06:48 Ordering Phys: Kasia Monroe MD ([email or web address]) Technologist: Raza Sanchez [place] [facility] [place]: chf BP: 97 / 50 HR: Rhythm: Sinus Technical Quality: Adequate MEASUREMENTS (Male / Female) Normal Values 2D ECHO LV Diastolic Diameter PLAX 4.8 cm 4.2 - 5.9 / 3.9 - 5.3 cm IVS Diastolic Thickness 0.9 cm 0.6 - 1.0 / 0.6 - 0.9 cm IVS Systolic Thickness 0.9 cm LVPW Diastolic Thickness 1.1 cm 0.6 - 1.0 / 0.6 - 0.9 cm LVPW Systolic Thickness 1.5 cm LVOT Diameter 2.0 cm LV Ejection Fraction 2D Teich 37.8 % LV Ejection Fraction MOD 4C 36.4 % LV Ejection Fraction MOD 2C 33.9 % LV Ejection Fraction 2C AL 34.2 % LA Diameter 3.1 cm RA Systolic Volume 4C AL 63.9 ml RA Systolic Volume 4C MOD 61.5 ml LA Sys Volume AL 83.7 cm cubed LA Sys Volume Index AL 46.4 cm cubed/m squared Aorta at Sinotubular Diameter 1.8 cm IVC Diameter 1.8 cm M-MODE LA Ao Ratio MM 1.6 AV Cusp Separation MM 1.7 cm FINDINGS Left Ventricle Severe diffuse hypokinesia of the septum, anteroseptum and the LV apex. Severe hypokinesis of the mid and apical inferior wall segments. LV ejection fraction of 34% Right Ventricle Possibly normal RV size and ejection fraction Right Atrium Moderately increased right atrial size. Left Atrium Moderately increased left atrial volume 46 ml/m squared. Mitral Valve Thickened mitral valve. Aortic Valve Thickened aortic valve. Tricuspid Valve No gross abnormalities noted Pulmonic Valve Pulmonic valve not well visualized. Pericardium No pericardial effusion. Aorta Normal aortic annulus size. IVC Normal inferior vena cava. CONCLUSIONS Multiple wall motion abnormalities with reduced left ventricular ejection fraction of 34% Moderate biatrial enlargement Minimally thickened aortic and mitral valves There is no pericardial effusion. There are no intracardiac masses. Compared to the previous study from 07/18/2025, there may not be a significant change in the 2D finding Dr Kasia Monroe MD FACC (Electronically Signed) Final Date: 21 July 2025 09:12 S
[2025-07-21 20:21] LABS: Partial Thromboplastin Time 51.9 SECONDS (23.9-36.7)
[2025-07-22] VITALS (21 sets, daily range): BP systolic 101–128; BP diastolic 53–86; PULSE 62–119; RESP 19–33; TEMP 36.5–37.1; O2SAT 78–99
[2025-07-22] MEDS: lactulose oral liq 20 gm/30 mL UDC 10 GM PO (01:58)
[2025-07-22 03:30] LABS: Partial Thromboplastin Time 50.8 SECONDS (23.9-36.7)
[2025-07-22 03:33] LABS: Hematocrit 31.0 % (36-47); Hemoglobin 10.30 g/dL (11.27-16.99); Mean Corpuscular HGB Conc 33.2 g/dL (30-55); Mean Corpuscular Hemoglobin 32.0 pg (27-33); Mean Corpuscular Volume 96.3 fl (85-98); Nucleated Red Blood Cells % 0 %; Platelet Count 168 10^3/cmm (157-399); Red Blood Count 3.22 10^6/uL (3.85-5.65); White Blood Count 9.42 10^3/uL (3.29-11.43)
[2025-07-22] MEDS: heparin 5,000 unit/mL INJ 1 mL IVP (03:44)
[2025-07-22 05:14] LABS: Alanine Aminotransferase 17 U/L (0-33); Albumin Level 3.3 g/dL (3.5-5.2); Alkaline Phosphatase 108 U/L (35-105); Anion Gap 18.1 (5-19); Aspartate Amino Transferase 44 U/L (0-32); Blood Urea Nitrogen 13 mg/dL (8-23); Calcium 8.4 mg/dL (8.5-10.5); Carbon Dioxide 18 mmol/L (22-29); Chloride 104 mmol/L (98-107); Creatinine Clr Calc Pharmacy 63.2740; Globulin 3.8 g/dL (1.3-4.6); Glucose 111 mg/dL (65-115); Magnesium 2.3 mg/dL (1.7-2.3); Osmolality Calculated 283 mOsm/kg (285-295); Potassium 4.1 mmol/L (3.5-5.1); Sodium 136 mmol/L (136-145); Total Protein 7.1 g/dL (6.6-8.7)
[2025-07-22] MEDS: heparin drip 25,000 UNIT/500 ML PREMIX 15 UNIT IV (05:54)
--- NOTE | 2025-07-22 09:04 | P.PN_ITS ---
Subjective 2 Subjective: She is in atrial fibrillation with RVR this morning, running 110-120 bpm. No chest pain, blood pressure is soft. Vitals/I&O/Wt Last Vital Signs Temp 97.7 F 07/22/25 07:06 Pulse 72 07/22/25 07:06 Resp 25 H 07/22/25 07:06 BP 106/67 07/22/25 07:06 Pulse Ox 97 07/22/25 07:06 O2 Del Method Room Air 07/22/25 03:45 07/21/25 07/22/25 07/22/25 22:59 06:59 14:59 Intake Total 572.083 / 1232.617 128.617 / 1232.617 Output Total 125 / 575 Balance 447.083 / 657.617 128.617 / 657.617 Weight last 48 hrs Weight 161 lb 6.4 oz Weight 154 lb Weight 157 lb 10.088 oz Weight 150 lb Physical Exam 2 Const: COMMON NORMALS: no acute distress and patient oriented x3 Chest: COMMONS NORMALS: normal inspection of the chest and normal palpation of entire chest wall CHEST: Yes Symmetrical chest wall rise Resp: COMMON NORMALS: normal respiratory effort, No retractions, No use of accessory muscles and clear to auscultation bilaterally EFFORT & INSPECTION: Yes symmetric chest movement AUSCULTATION: clear to auscultation bilaterally Cardio: COMMON NORMALS: S1 normal heart sound present, S2 normal heart sound present, No gallops present (Cardio), No clicks present (Cardio), No murmurs present (Cardio) and No rub (Cardio) RHYTHM: abnormal rhythm irregularly irregular HEART SOUNDS: S1 normal heart sound present and S2 normal heart sound present PERIPHERAL PULSES: radial pulses present, posterior tibial pulses present and dorsalis pedis present Neuro: COMMON NORMALS: patient oriented x3 and moves all extremities Psych: COMMON NORMALS: mental status grossly normal and cooperative Data 07/22/25 03:00 07/22/25 04:32 Micro: Microbiology 07/20/25 15:41 Urine Culture - Preliminary Urine,Clean Catch A&P Assessment and plan 1. Systolic CHF, acute: 2. Atrial fibrillation with RVR: 3. Elevated troponin: 4. Ischemic cardiomyopathy: 5. Coronary artery disease: 6. Hypothyroidism, unspecified type: Plan: Will start digoxin load, cannot uptitrate metoprolol due to soft blood pressure. Continue amiodarone 400mg BID and metoprolol. Wil[place]stkristian is remaining on hold. If she does not convert to sinus rhythm with that, may cardiovert tomorrow. She will be on aspirin 325 mg 3 times a day for the next 2 weeks for pericarditis, to reduce risk of bleeding when Eliquis is resumed will reduce dose to 2.5 mg twice daily and continue Plavix. For now continue heparin infusion. PDMP PDMP Reviewed: Not Reviewed Attestations 2 Medical Necessity Statement*: Atrial fibrillation with RVR Coding Level of Care Code Acute Code for [facility] Fwd Diagnoses Systolic CHF, acute I50.21 Atrial fibrillation with RVR I48.91 Elevated troponin R79.89 Ischemic cardiomyopathy I25.5 Coronary artery disease I25.10 Hypothyroidism, unspecified type E03.9 Hypothyroidism type: unspecified
[2025-07-22] MEDS: digoxin 250 mcg/ml INJ 2 mL 500 MCG IVP (10:01)
--- NOTE | 2025-07-22 10:28 | PC.SOCIAL ---
IMM Updated Updated pt on IMM. No questions voiced. Provided pt a copy. Initialed, dated, & timed a copy & placed in chart.
[2025-07-22 10:29] LABS: Partial Thromboplastin Time 66.6 SECONDS (23.9-36.7)
[2025-07-22] MEDS: digoxin 250 mcg/ml INJ 2 mL IVP ×2 (15:52→20:37)
[2025-07-22 16:14] LABS: Partial Thromboplastin Time 54.9 SECONDS (23.9-36.7)
--- NOTE | 2025-07-22 16:20 | P.PN_ITS ---
Subjective 2 Subjective: No longer having chest pain. Vitals/I&O/Wt Last Vital Signs Temp 98.0 F 07/22/25 16:00 Pulse 113 H 07/22/25 16:00 Resp 24 H 07/22/25 16:00 BP 128/86 07/22/25 16:00 Pulse Ox 96 07/22/25 16:00 O2 Del Method Room Air 07/22/25 03:45 07/22/25 07/22/25 07/22/25 06:59 14:59 22:59 Intake Total 128.617 / 1232.617 671.5 / 671.5 Balance 128.617 / 657.617 671.5 / 671.5 Weight last 48 hrs Weight 73.21 kg Weight 69.853 kg Weight 71.5 kg Physical Exam 2 Const: COMMON NORMALS: no acute distress, average body habitus and patient oriented x3 HENMT: COMMON NORMALS: normocephalic and atraumatic HEAD & SCALP: n ormocephalic and atraumatic Eye: COMMON NORMALS: Equal, round and reactive pupils present and EOMs intact bilaterally PUPIL: Yes Equal, round and reactive pupils present Neck/C-Spine: COMMON NORMALS: full ROM, no lymphadenopathy and no JVD Lymph: LYMPHATIC: no lymphadenopathy noted and no lymphedema noted Resp: COMMON NORMALS: normal respiratory effort, No retractions and clear to auscultation bilaterally AUSCULTATION: clear to auscultation bilaterally Cardio: COMMON NORMALS: no JVD, regular rate, regular rhythm, S1 normal heart sound present and S2 normal heart sound present RATE: regular rate RHYTHM: regular rhythm HEART SOUNDS: S1 normal heart sound present and S2 normal heart sound present GI: COMMON NORMALS: Normal to inspection, nondistended, normoactive bowel sounds present, Soft to palpation and non-tender PALPATION: Yes Soft to palpation Extremity: COMMON NORMALS: normal to inspection, full ROM, capillary refill normal and no joint enlargement Neuro: COMMON NORMALS: patient oriented x3 Psych: COMMON NORMALS: mental status grossly normal, Normal thought process present, cooperative, normal affect and speech normal SPEECH: Yes normal speech THOUGHT PROCESS: Normal thought process present Data 07/22/25 03:00 07/22/25 04:32 Micro: Microbiology 07/22/25 14:30 Occult Blood (FIT) - Final Stool Routine Collection 07/20/25 15:41 Urine Culture - Final Urine,Clean Catch A&P Assessment and plan 1. Atrial fibrillation with rapid ventricular response: 2. Recent non-ST elevation myocardial infarction: Plan: 69-year-old lady with recent NSTEMI and new onset A-fib, discharged 07/19 after having undergone PCI. Currently on Eliquis Plavix at the time of discharge along with high intensity statin. Presenting to the emergency room today with complaints of palpitations. Recent NSTEMI Palpations - continue Plavix and atorvastatin. - She has received a dose of aspirin 324 mg in the emergency room. - Noted to have an elevated troponin of 1700, 2 compared on the previous admission troponin was 1100. Suspect that elevated troponin today is related to recent angiogram and intervention - Cardiology consult ordered from the emergency room. Currently noted to be in A-fib with RVR - heart rate in the 130s on admisison - has event monitor shows that patient has had a couple of episodes of V. tach - started on an amiodarone infusion, now on oral amio 400 mg BID - Continue home dose of metoprolol 50 mg p.o. twice daily - Cardizem held - Echocardiogram from last admission with an ejection fraction of 35%, grade 3 diastolic dysfunction. - Hold Entresto while pending blood pressure trend. - added digoxin per cardiology - possible cardiversion in AM if still not NSR. - Holding Eliquis for now, on heparin drip Pericarditis - cont. ASA 325 TID for 2 weeks - when eliquis is restarted reduce to 2.5 mg BID and cont. plavix Hypothyroidism with noted TSH 5.9 on previous admission - mildly low T3 at 1.4 - slight increase in TSH can be normal for age - recheck in 4-6 weeks. Constipation - bowel regimen - had BM GERD - Increase Protonix to 40 mg twice daily Cholelithiasis - US shows cholelithiasis without chloecystitis - watchful waiting DVT prophylaxis: Heparin drip Full code Disposition - await NSR, possible cardioversion in AM PDMP PDMP Reviewed: Not Reviewed Attestations 2 Medical Necessity Statement*: inpatient for pericarditis, Afib with RVR Coding Level of Care Code Acute Code for Chg Fwd Diagnoses Atrial fibrillation with rapid ventricular response I48.91 Recent non-ST elevation myocardial infarction
[2025-07-23] VITALS (14 sets, daily range): BP systolic 117–140; BP diastolic 58–86; PULSE 64–72; RESP 16–18; TEMP 36.6–36.7; O2SAT 95–97
[2025-07-23 00:14] LABS: Partial Thromboplastin Time 56.2 SECONDS (23.9-36.7)
[2025-07-23 06:25] LABS: Partial Thromboplastin Time 66.8 SECONDS (23.9-36.7)
--- NOTE | 2025-07-23 09:14 | P.PN_ITS ---
Subjective 2 Subjective: She converted to sinus rhythm at 10PM yesterday. Transitioned to oral digoxin today. No chest pain or shortness of breath. Vitals/I&O/Wt Last Vital Signs Temp 97.9 F 07/23/25 04:00 Pulse 65 07/23/25 04:00 Resp 17 07/23/25 04:00 BP 140/58 07/23/25 04:00 Pulse Ox 95 07/23/25 04:00 O2 Del Method Room Air 07/23/25 04:00 07/22/25 07/23/25 07/23/25 22:59 06:59 14:59 Intake Total 690 / 1609.233 247.733 / 1609.233 Balance 690 / 1609.233 247.733 / 1609.233 Weight last 48 hrs Weight 159 lb 11.2 oz Weight 161 lb 6.4 oz Physical Exam 2 Const: COMMON NORMALS: no acute distress and patient oriented x3 GENERAL APPEARANCE: cooperative and comfortable ORIENTATION/CONSCIOUSNESS: Yes awake, Yes oriented to person, Yes oriented to place and Yes oriented to time Chest: COMMONS NORMALS: normal inspection of the chest and normal palpation of entire chest wall CHEST: Yes Symmetrical chest wall rise Resp: COMMON NORMALS: normal respiratory effort, No retractions, No use of accessory muscles and clear to auscultation bilaterally EFFORT & INSPECTION: Yes symmetric chest movement AUSCULTATION: clear to auscultation bilaterally Cardio: COMMON NORMALS: regular rate, regular rhythm, S1 normal heart sound present, S2 normal heart sound present, No gallops present (Cardio), No clicks present (Cardio), No murmurs present (Cardio) and No rub (Cardio) RATE: r egular rate RHYTHM: regular rhythm HEART SOUNDS: S1 normal heart sound present and S2 normal heart sound present PERIPHERAL PULSES: radial pulses present Extremity: COMMON NORMALS: no pedal edema Neuro: COMMON NORMALS: patient oriented x3 and moves all extremities S ENSORIUM/ORIENTATION: Yes oriented to person, Yes oriented to place and Yes oriented to time Data 07/22/25 03:00 07/22/25 04:32 Micro: Microbiology 07/22/25 14:30 Occult Blood (FIT) - Final Stool Routine Collection 07/20/25 15:41 Urine Culture - Final Urine,Clean Catch A&P Assessment and plan 1. Atrial fibrillation with RVR: 2. Systolic CHF, acute: 3. Coronary artery disease: Plan: She can discharge home today on event monitor, continuing digoxin 125mcg daily, amiodarone 400 mg BID and metoprolol. Follow-up with cardiology clinic in 1 week. Check digoxin level at follow up appointment. PDMP PDMP Reviewed: Not Reviewed Attestations 2 Medical Necessity Statement*: [place] home Coding Level of Care Code Acute Code for [facility] Fw Diagnoses Atrial fibrillation with RVR I48.91 Systolic CHF, acute I50.21 Coronary artery disease I25.10
--- NOTE | 2025-07-23 10:54 | PC.CHAP ---
Pastoral Care Encounter/Spiritual Assessment Type of Contact [] Declined bobbin presser visit [] Patient/Family/Request visit [] Outpatient visit [] Follow-up visit [] Physician referral [] Code/Alert [x] Routine visit [] Staff referral [] Actively dying [] Patient sleeping [] Family support [] [] Out of room [] Palliative care [] [] Receiving care in room [] Pre-surgical visit [] Trauma [] Long length of stay [] ICU visit [] Other: Relational/Emotional Strength [x] Patient feels connected with others/family/visitors/staff [] Distress [] Loneliness/isolation [] Abandonment Spirituality of Patient [x] Person of [place] [] Attends Episcopal of their [place] [x] Believes in Prayer [] Reads Bible or Oriental Orthodox materials [] There are Spiritual issues to be addressed Typing Checker Interventions [x] Prayer [x] Active listening [x] Non-anxious presence [x] Spiritual/emotional support [] Crisis/trauma care [] Spiritual counseling [] Bereavement support [] Provided bereavement packet [] Provided Bible/devotional materials [] Provided toy/stuffed animal, coloring book to patient or family member [] Provided Communion [] Anointing/[place] [] Salvation [x] Completed spiritual assessment [] Other: Impact on Illness or Injury [] Angry [] Fearful [] Anxious [] Often cries [] Exhaustion [] Unable to work [] Unable to attend taoism [] Unable to walk/stand [] Unable to read [] Unable to drive [] Unable to eat/drink [] Unable to sleep [] Unable to be with family [] Patient intubated [] Other: Summary Time spent with patient 5 min
--- NOTE | 2025-07-23 11:15 | P.DS_ITS ---
Discharge Providers Date of Admission: 07/20/25 16:37 Date of Discharge: July 23, 2025 Attending Provider at Admission: Charisse Russo MD Attending Provider at Discharge: Amandeep Jason MD Primary Care Provider: Ora Ricks MD Diagnoses at Discharge Discharge Diagnosis 1. Atrial fibrillation with RVR: 2. Systolic CHF, acute: 3. Coronary artery disease: Reason for Visit Reason for Visit: Pulse is high Pressure in [facility] Hospital Course Hospital Course 69-year-old lady with recent NSTEMI and new onset A-fib, discharged 07/19 after having undergone PCI. Currently on Eliquis Plavix at the time of discharge along with high intensity statin. Presenting to the emergency room today with complaints of palpitations. Recent NSTEMI Palpations - continue Plavix and atorvastatin. - She has received a dose of aspirin 324 mg in the emergency room. - Noted to have an elevated troponin of 1700, 2 compared on the previous admission troponin was 1100. Suspect that elevated troponin today is related to recent angiogram and intervention - Cardiology following A-fib with RVR - heart rate in the 130s on admisison - has event monitor shows that patient has had a couple of episodes of V. tach - started on an amiodarone infusion, now on oral amio 400 mg BID, taper to standard dose after discharge. - Continue home dose of metoprolol 50 mg p.o. twice daily - Cardizem held - Echocardiogram from last admission with an ejection fraction of 35%, grade 3 diastolic dysfunction. - Hold Entresto while pending blood pressure trend. - added digoxin per cardiology, now in NSR - Holding Eliquis for now, on heparin drip - when eliquis is restarted reduce to 2.5 mg BID and cont. plavix - event monitor on D/C Pericarditis - cont. ASA 325 TID for 2 weeks Hypothyroidism with noted TSH 5.9 on previous admission - mildly low T3 at 1.4 - slight increase in TSH can be normal for age - recheck in 4-6 weeks. Constipation - bowel regimen - had BM GERD - Increase Protonix to 40 mg twice daily Cholelithiasis - US shows cholelithiasis without chloecystitis - watchful waiting DVT prophylaxis: Heparin drip Full code Disposition - NSR. Discharge planning for today. Follow up with cardiology in 1 week for ongoing medication optimization. - event monitor on D/C Physical Exam Narrative: Physical Exam Const: no acute distress, average body habi tus and patient or iented x3 HENMT: normocephalic and atraumatic Eye: Equal, round and r eactive pupils pre sent and EOMs inta ct bilaterally Neck/C-Spine: full ROM, no lymph adenopathy and no JVD Lymph: no lymphadenopathy noted and no lymp hedema noted Resp: normal respiratory effort, No retrac tions and clear to auscultation bila terally Cardio: no JVD, regular ra te, regular rhythm , S1 normal heart sound present and S2 normal heart so und present GI: Normal to inspecti on, nondistended, Soft to palpation and non-tender Extremity: normal to inspecti on, full ROM, capi llary refill bisi l and no joint enl argement Neuro: patient oriented x 3 Psych: mental status manish sly normal, Normal thought process p resent, cooperativ e, normal affect a nd speech normal SPEECH: Yes normal speech THOUGHT P ROCESS: Normal tho ught process prese nt Discharge Data Studies Completed and Pending Completed Studies During Hospitalization Category Date Time Status XR chest 1V portable [id number] Stat Exams 07/20/25 15:08 Completed CV. echo limited [id number] Routine Ultrasound 07/21/25 20:03 Completed US gall bladder [id number] Routine Ultrasound 07/21/25 13:06 Completed Pending at discharge Category Date Time Status PTT [Partial Thromboplastin Time] Timed Lab 07/23/25 12:00 Ordered Platelet Count Q2D Lab 07/24/25 04:00 Ordered Radiology Impressions Chest X-Ray 07/20/25 15:08 IMPRESSION: No acute abnormality identified. Gallbladder Ultrasound 07/21/25 13:06 IMPRESSION: 1. Cholelithiasis with no secondary signs of cholecystitis. 2. Indeterminate thick-walled 1.8 cm right hepatic lobe lesion that is indeterminate by ultrasound. This could be better evaluated with nonemergent liver mass protocol MRI. Laboratory Results WBC 9.42 10^3/uL (3.29-11.43) 07/22/25 03:00 RBC 3.22 10^6/uL (3.85-5.65) L 07/22/25 03:00 Hgb 10.30 g/dL (11.27-16.99) L 07/22/25 03:00 Hct 31.0 % (36-47) L 07/22/25 03:00 MCV 96.3 fl (85-98) 07/22/25 03:00 MCH 32.0 pg (27-33) 07/22/25 03:00 MCHC 33.2 g/dL (30-55) 07/22/25 03:00 RDW 14.9 % (12.1-15.1) 07/22/25 03:00 Plt Count 168 10^3/cmm (157-399) 07/22/25 03:00 MPV 11.1 fL (7.4-10.4) H 07/22/25 03:00 Neut % (Auto) 74.8 % 07/22/25 03:00 Lymph % (Auto) 11.5 % 07/22/25 03:00 [place] % (Auto) 13.2 % 07/22/25 03:00 Eos % (Auto) 0.1 % 07/22/25 03:00 Baso % (Auto) 0.0 % 07/22/25 03:00 Neut # (Auto) 7.05 10^3/uL (1.8-7.7) 07/22/25 03:00 Lymph # (Auto) 1.1 10^3/uL (0.8-4.8) 07/22/25 03:00 [place] # (Auto) 1.2 10^3/uL (0.2-0.9) H 07/22/25 03:00 Eos # (Auto) 0.0 10^3/uL (0.0-0.8) 07/22/25 03:00 Baso # (Auto) 0.0 10^3/uL (0.0-0.1) 07/22/25 03:00 Nucleated RBC % (auto) 0 % 07/22/25 03:00 Nucleated RBCs # 0.0 /100WBC 07/22/25 03:00 APTT 66.8 SECONDS (23.9-36.7) H 07/23/25 06:00 Sodium 136 mmol/L (136-145) 07/22/25 04:32 Potassium 4.1 mmol/L (3.5-5.1) 07/22/25 04:32 Chloride 104 mmol/L (98-107) 07/22/25 04:32 Carbon Dioxide 18 mmol/L (22-29) L 07/22/25 04:32 Anion Gap 18.1 (5-19) 07/22/25 04:32 BUN 13 mg/dL (8-23) 07/22/25 04:32 Creatinine 0.8 mg/dL (0.5-0.9) 07/22/25 04:32 GFR Calculation Not Reportable 07/22/25 04:32 Glucose 111 mg/dL (65-115) 07/22/25 04:32 Calculated Osmolality 283 mOsm/kg (285-295) L 07/22/25 04:32 Calcium 8.4 mg/dL (8.5-10.5) L 07/22/25 04:32 Magnesium 2.3 mg/dL (1.7-2.3) 07/22/25 04:32 Total Bilirubin 0.6 mg/dL (0.15-1.2) 07/22/25 04:32 AST 44 U/L (0-32) H 07/22/25 04:32 ALT 17 U/L (0-33) 07/22/25 04:32 Alkaline Phosphatase 108 U/L (35-105) H 07/22/25 04:32 Troponin T Baseline 1772 ng/L (0-10) H* 07/20/25 15:10 Troponin T 120 Minute 1564 ng/L (0-10) H 07/20/25 16:40 Delta Troponin T -208 ABS# (0-10) L 07/20/25 16:40 Troponin T Hi Sens 6Hr 1537 ng/L (0-10) H 07/20/25 21:08 Troponin T Hi Sens 6Hr Delta -235 ng/L (0-12) L 07/20/25 21:08 NT-Pro-B Natriuret Pep 4974 pg/mL (0-125) H 07/20/25 15:10 Total Protein 7.1 g/dL (6.6-8.7) 07/22/25 04:32 Albumin 3.3 g/dL (3.5-5.2) L 07/22/25 04:32 Globulin 3.8 g/dL (1.3-4.6) 07/22/25 04:32 Urine Color Yellow (Yellow) 07/20/25 15:41 Urine Appearance Clear (CLEAR) 07/20/25 15:41 Urine pH 6.0 (5-7) 07/20/25 15:41 Ur Specific [place] 1.024 (1.005-1.030) 07/20/25 15:41 Urine Protein 2+ (Negative) A 07/20/25 15:41 Urine Glucose (UA) Negative (Normal) 07/20/25 15:41 Urine Ketones 1+ (Negative) H 07/20/25 15:41 Urine Blood 1+ (Negative) A 07/20/25 15:41 Urine Nitrate Negative (Negative) 07/20/25 15:41 Urine Bilirubin Negative (Negative) 07/20/25 15:41 Urine Urobilinogen 1.0 mg/dL (Negative) 07/20/25 15:41 Ur Leukocyte Esterase 1+ (Negative) A 07/20/25 15:41 Urine RBC 11-20 /hpf (0-2) H 07/20/25 15:41 Urine WBC 11-20 /hpf (0-5) H 07/20/25 15:41 Ur Squamous Epith Cells 0-5 /hpf (0-5) 07/20/25 15:41 Amorphous Sediment Not Reportable 07/20/25 15:41 Urine Bacteria None seen /hpf (NONE) 07/20/25 15:41 Hyaline Casts 2.46 /lpf 07/20/25 15:41 Adenovirus (PCR) Not detected (NOT DETECT) 07/21/25 11:31 C. pneumoniae DNA (PCR) Not detected (NOT DETECT) 07/21/25 11:31 Coronavirus 229E (PCR) Not detected (NOT DETECT) 07/21/25 11:31 Human Metapneumovir PCR Not detected (NOT DETECT) 07/21/25 11:31 Influenza A (H1) PCR Not detected (NOT DETECT) 07/21/25 11:31 Influ A (H1/09) PCR Not detected (NOT DETECT) 07/21/25 11:31 Influenza A (H3) PCR Not detected (NOT DETECT) 07/21/25 11:31 Influenza Type A (PCR) Not detected (NOT DETECT) 07/21/25 11:31 Influenza Type B (PCR) Not detected (NOT DETECT) 07/21/25 11:31 M. pneumoniae (PCR) Not detected (NOT DETECT) 07/21/25 11:31 Parainfluenza 1 (PCR) Not detected (NOT DETECT) 07/21/25 11:31 Parainfluenza 2 (PCR) Not detected (NOT DETECT) 07/21/25 11:31 Parainfluenza 3 (PCR) Not detected (NOT DETECT) 07/21/25 11:31 Parainfluenza 4 (PCR) Not detected (NOT DETECT) 07/21/25 11:31 RSV Type A (PCR) Not detected (NOT DETECT) 07/21/25 11:31 RSV Type B (PCR) Not detected (NOT DETECT) 07/21/25 11:31 Entero/Rhino (PCR) Not detected (NOT DETECT) 07/21/25 11:31 SARS-CoV-2 (PCR) Not detected (NOT DETECT) 07/21/25 11:31 Vitals Last Vital Signs Temp 97.9 F 07/23/25 04:00 Pulse 72 07/23/25 09:44 Resp 17 07/23/25 04:00 BP 140/58 07/23/25 04:00 Pulse Ox 95 07/23/25 04:00 O2 Del Method Room Air 07/23/25 04:00 Discharge Plan Discharge Patient Disposition: Home Condition: Stable Prescriptions: New amiodarone [Pacerone] 200 mg Tablet 400 mg PO BID Qty: 14 1RF Eliquis 2.5 mg tablet 2.5 mg PO BID Qty: 28 0RF aspirin 325 mg Tablet 325 mg PO Q8H Qty: 42 0RF digoxin 125 mcg (0.125 mg) Tablet 125 mcg PO DAILY Qty: 30 2RF Continued pantoprazole 40 mg tablet,delayed release (DR/EC) 40 mg PO DAILY timolol maleate 0.25 % drops 1 drop ophthalmic (eye) DAILY cholecalciferol (vitamin D3) 25 mcg (1,000 unit) capsule 25 mcg PO DAILY alendronate [Fosamax] 70 mg tablet 70 mg PO .Q7days levothyroxine 75 mcg capsule 75 mcg PO DAILY atorvastatin [Lipitor] 80 mg tablet 80 mg PO DAILY Qty: 90 3RF clopidogrel 75 mg Tablet 75 mg PO DAILY Qty: 90 3RF metoprolol tartrate 50 mg Tablet 50 mg PO BID@0900,2100 Qty: 180 0RF folic acid 1 mg tablet 1 mg PO DAILY diltiazem HCl 120 mg tablet extended release 24 hr 120 mg PO DAILY Held sacubitril-valsartan [Entresto] 24-26 mg Tablet 1 tab PO BID Qty: 60 1RF Hold Instructions: Resume on 07/30/25. Follow up with cardiology for medication rec ommendations. Discontinued Eliquis 5 mg tablet 5 mg PO BID Qty: 180 3RF Discharge Order = DC NOW: Discharge Order (Routine); Ordered 07/23/25 Ordered By: Amandeep Jason Other Ambulatory Orders: Digoxin (Routine) Timeframe: 1 Week Facility: [facility] - Location: Lab - Main Lab Ordered By: Amandeep Jason Referrals: Ora Ricks MD [Primary Care Provider, Internal Medicine] - 07/24/25 12:45 pm Karen Harding FNP [Nurse Practitioner, Cardiology] - 07/31/25 2:00 pm Discharge Diet: Low Salt Discharge Activity: Resume usual activity Patient Instructions: Opioid Safety, Patient Portal & Anila Instructions Discharge Attestations Time Spent in Discharge Care*: greater than 30 min Specific Discharge Activities: educating patient, educating and/or supporting family/caregiver, discussing with pcp/other providers, discussing with trimming caser/social workers/dc planners, documenting/other paperwork and evaluating patient/reviewing data Quality Metrics Clinical Quality Measures [ No reported AMI, CVA or VTE this stay] Coding Level of Care Code Acute Code for Chg Fwd Diagnoses Atrial fibrillation with RVR I48.91 Systolic CHF, acute I50.21 Coronary artery disease I25.10
[2025-07-23 13:20] LABS: Partial Thromboplastin Time 55.9 SECONDS (23.9-36.7)
--- NOTE | 2025-07-23 14:06 | PC.NURSE ---
discharge instructions given and explained.pt verb understanding of instructions.discharged via w/c to exit at this time.sister to drive pt home
== END 2025-07-23 14:07 | disposition home or self-care (01) | DRG 280 ==
LOC: ER 15:11 → ICU 16:43 → CSU 07-22 02:06
PROVIDERS: Internal Medicine; Internal Medicine Cardiovascular Disease; Admitting Provider Student in an Organized Health Care Education/Training Program; Emergency Provider Physician Assistant; PCP Internal Medicine; Visit Provider Internal Medicine
DX: I48.91 Unspecified atrial fibrillation (principal); I50.21 Acute systolic (congestive) heart failure; I21.4 Non-ST elevation (NSTEMI) myocardial infarction; I31.9 Disease of pericardium, unspecified; I11.0 Hypertensive heart disease with heart failure; I25.10 Atherosclerotic heart disease of native coronary artery without angina pectoris; E03.9 Hypothyroidism, unspecified; K59.00 Constipation, unspecified; K21.9 Gastro-esophageal reflux disease without esophagitis; K80.20 Calculus of gallbladder without cholecystitis without obstruction; L93.2 Other local lupus erythematosus; I25.5 Ischemic cardiomyopathy; Z95.5 Presence of coronary angioplasty implant and graft; Z79.02 Long term (current) use of antithrombotics/antiplatelets; Z79.01 Long term (current) use of anticoagulants
CPT/HCPCS: 36415; 71045; 76705; 80053; 81001; 82274; 83735; 83880; 84484; 85025; 85730; 87086; 87486; 87581; 87633; 93005; 93246; 93308; 96365; 96366; 96375; 99285; J0282; J0283; J1160; J1644; J2270; J2470; J9999; Q0163

== ENCOUNTER 2025-07-23 21:51 | Emergency (ER) | payer MEDICARE, OTHER, SELFPAY ==
--- OUTSIDE RECORDS SUMMARY | 2025-07-23 22:00 | XMS_ITS | Encounter Summary ---
Author Organization [facility] Address [address] [place] [address] Care Team Providers Care Towboat Operator Name Role Phone Ora Ricks MD Primary Care Provider +1- [phone] Encounter Details Date Type Department Care Team (Latest Contact Info) Description 09/10/2005 Outpatient Historical [facility] [place] [address] [place] [phone] Alexis Crawford MD NO ADDRESS ON FILE LUPUS ERYTHEMATOSUS (Primary Dx) Social History Tobacco Use Types Packs/Day Years Used Date Smoking Tobacco: Never Assessed Comments Unknown Sex and Gender Information Value Date Recorded Sex Assigned at Not on file 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
--- OUTSIDE RECORDS SUMMARY | 2025-07-23 22:00 | XMS_ITS | Encounter Summary ---
Author Organization 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
--- OUTSIDE RECORDS SUMMARY | 2025-07-23 22:00 | XMS_ITS | Encounter Summary ---
Author Organization [facility] Address [address] [place] [address] Care Team Providers Care Charter Boat Captain Name Role Phone Ora Ricks MD Primary Care Provider +1- [phone] Encounter Details Date Type Department Care Team (Latest Contact Info) Description 11/25/2003 Outpatient [facility] Medicine [place] [address] [facility] [address] [place] [address] Elio Salas MD [address] [address] ACUTE BRONCHITIS (Primary Dx) Social History Tobacco Use Types Packs/Day Years Used Date Smoking Tobacco: Never Assessed Comments Unknown Sex and Gender Information Value Date Recorded Sex Assigned at Not on file 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
--- OUTSIDE RECORDS SUMMARY | 2025-07-23 22:00 | XMS_ITS | Encounter Summary ---
Author Organization [facility] Address [address] [place] [address] Care Team Providers Care Pack Master Name Role Phone Ora Ricks MD Primary Care Provider +1- [phone] Encounter Details Date Type Department Care Team (Latest Contact Info) Description 03/01/2002 Outpatient [facility] Medicine [address] [address] Emy Colindres MD NO ADDRESS ON FILE Cervicitis (Primary Dx); Gynecologic examination Social History Tobacco Use Types Packs/Day Years Used Date Smoking Tobacco: Never Assessed Comments Unknown Sex and Gender Information Value Date Recorded Sex Assigned at Not on file 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
--- OUTSIDE RECORDS SUMMARY | 2025-07-23 22:00 | XMS_ITS | Encounter Summary ---
Author Organization [facility] Address [address] [place] [address] Care Team Providers Care Cuff Setter Name Role Phone Ora Ricks MD Primary Care Provider +1- [phone] Encounter Details Date Type Department Care Team (Latest Contact Info) Description 08/27/2002 Outpatient [facility] Medicine [place] 104 [facility] [address] [place] [address] Elio Salas MD [address] [address] Sprain lumbar region (Primary Dx) Social History Tobacco Use Types Packs/Day Years Used Date Smoking Tobacco: Never Assessed Comments Unknown Sex and Gender Information Value Date Recorded Sex Assigned at Not on file Legal 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
--- OUTSIDE RECORDS SUMMARY | 2025-07-23 22:00 | XMS_ITS | Encounter Summary ---
Author Organization [facility] Address [address] [place] [address] Care Team Providers Care Finance Business Partner Name Role Phone Ora Ricks MD Primary Care Provider +1- [phone] Encounter Details Date Type Department Care Team (Latest Contact Info) Description 07/22/[address] [facility] Medicine [place] 104 [facility] 60 [place] [address] Elio Salas MD [address] [address] Gynecologic examination (Primary Dx) Social History Tobacco Use Types Packs/Day Years Used Date Smoking Tobacco: Never Assessed Comments Unknown Sex and Gender Information Value Date Recorded Sex Assigned at Not on file Legal Sex Female 3:07 AM ENVIRONMENTAL SERVICES DIRECTOR Gender Identity Not on file Sexual Orientation Not on file documented as of this encounter Plan of Treatment Not on file documented as of this encounter Visit Diagnoses Diagnosis Gynecologic examination- Primary Gynecological examination documented in this encounter Care Teams Finance Business Partner Relationship Specialty Start Date End Date Ora Ricks MD [address] [place] [address] PCP - General Internal Medicine 02/25/16 documented as of this encounter
--- OUTSIDE RECORDS SUMMARY | 2025-07-23 22:00 | XMS_ITS | Encounter Summary ---
Author Organization [facility] Address [address] [place] [address] Care Team Providers Care Box Storage Worker Name Role Phone Ora Ricks MD Primary Care Provider +1- [phone] Encounter Details Date Type Department Care Team (Late st Contact Info) Description 03/04/2003 Outpatient Historical [facility] Medicine [address] [phone] Rad Carrillo NP NO ADDRESS ON FILE Social History Tobacco Use Types Packs/Day Years Used Date Smoking Tobacco: Never Assessed Comments Unknown Sex and Gender Information Value Date Recorded Sex Assigned at Not on file Legal Sex Female 3:07 AM SUPERVISOR GROWER Gender Identity Not on file Sexual Orientation Not on file documented as of this encounter Plan of Treatment Not on file documented as of this encounter Visit Diagnoses Not on filedocumented in this encounter Care Teams Box Storage Worker Relationship Specialty Start Date End Date Ora Ricks MD [address] [place], [place] [address] PCP - General Internal Medicine 02/25/16 documented as of this encounter
--- OUTSIDE RECORDS SUMMARY | 2025-07-23 22:00 | XMS_ITS | Encounter Summary ---
Author Organization [facility] Address [address] [place] [address] Care Team Providers Care Income Tax Analyst Name Role Phone Ora Ricks MD Primary Care Provider +1- [phone] Encounter Details Date Type Department Care Team (Latest Contact Info) Description 04/10/2004 Outpatient [facility] Medicine [place] 104 [facility] 60 [place] [address] Elio Salas MD [address] [address] Gynecologic examination (Primary Dx); SCREENING MAL NEOP-BREAST,UNSPEC; LUMB/LUMBOSAC DISC DEGEN Social History Tobacco Use Types Packs/Day Years Used Date Smoking Tobacco: Never Assessed Comments Unknown Sex and Gender Information Value Date Recorded Sex Assigned at Not on file Legal Sex Female 3:07 AM LEI SELLER Gender Identity Not on file Sexual Orientation Not on file documented as of this encounter Plan of Treatment Not on file documented as of this encounter Visit Diagnoses Diagnosis Gynecologic examination- Primary Gynecological examination Breast screening, unspecified Degeneration of lumbar or lumbosacral intervertebral disc documented in this encounter Care Teams Income Tax Analyst Relationship Specialty Start Date End Date Ora Ricks MD [address] [place] [address] PCP - General Internal Medicine 02/25/16 documented as of this encounter
--- OUTSIDE RECORDS SUMMARY | 2025-07-23 22:00 | XMS_ITS | Encounter Summary ---
Author Organization [facility] Address [address] [place] [address] Care Team Providers Care Guardian Ad Litem Name Role Phone Ora Ricks MD Primary Care Provider +1- [phone] Encounter Details Date Type Department Care Team (Late st Contact Info) Description 08/23/2003 Outpatient Historical [facility] Medicine [place] 104 [facility] [address] [place] [address] Elio Salas MD [address] [address] Social History Tobacco Use Types Packs/Day Years Used Date Smoking Tobacco: Never Assessed Comments Unknown Sex and Gender Information Value Date Recorded Sex Assigned at Not on file Legal Sex Female 3:07 AM BEHAVIORAL HEALTH AIDE Gender Identity Not on file Sexual Orientation Not on file documented as of this encounter Plan of Treatment Not on file documented as of this encounter Visit Diagnoses Not on filedocumented in this encounter Care Teams Guardian Ad Litem Relationship Specialty Start Date End Date Ora Ricks MD [address] [place], [place] [address] PCP - General Internal Medicine 02/25/16 documented as of this encounter
--- OUTSIDE RECORDS SUMMARY | 2025-07-23 22:00 | XMS_ITS | Encounter Summary ---
Author Organization [facility] Address [address] [place] [address] Care Team Providers Care Aircraft Manager Name Role Phone Ora Ricks MD Primary Care Provider +1- [phone] Reason for Visit * Reason Onset Date Comments Question 02/15/2024 Encounter Details Date Type Department Care Team (Late st Contact Info) Description 02/15/2024 Telephone [facility] [address] [facility] [address] [place] [phone] Mickey Burks MD [address] [facility] [address] [place] [phone] Question Social History Tobacco Use Types [...] on file Legal Sex Female 5:27 AM FIBER TECHNOLOGIST Gender Identity Not on file Sexual Orientation Not on file documented as of this encounter Miscellaneous Notes * Telephone Encounter - Rosibel Toscano S - 02/15/2024 11:15 AM CDT Sandy (Provider) MESSAGE Pt would like to know if appt on 03/13 can be a phone visit as she is three hours away. Please adv. [facility] Ancillary Services Manager: Rosibel Toscano documented in this encounter Plan of Treatment Upcoming Encounters Date Type Department Care Team (Late st Contact Info) Description 11/21/2025 3:00 PM FIBER TECHNOLOGIST Office Visit [facility] [address] [place] [phone] Jaspreet Davis MD [address] [place] [phone] Alberta Warren, AUREA [address] [facility] [address] [place] [phone] documented as of this encounter Visit Diagnoses Not on filedocumented in this encounter Care Teams Aircraft Manager Relationship Specialty Start Date End Date Ora Ricks MD [address] [place] [address] PCP - General Internal Medicine 02/25/16 documented as of this encounter
--- OUTSIDE RECORDS SUMMARY | 2025-07-23 22:00 | XMS_ITS | Encounter Summary ---
Author Organization [facility] Address [address] [place] [address] Care Team Providers Care Gas Meter Reader Name Role Phone Ora Ricks MD Primary Care Provider +1- [phone] Encounter Details Date Type Department Care Team (Latest Contact Info) Description 08/09/2000 Outpatient Historical [facility] Medicine [address] [address] Tacos Sanchez DO NO ADDRESS ON FILE Vaginitis and vulvovaginitis, unspecified (Primary Dx) Social History Tobacco Use Types Packs/Day Years Used Date Smoking Tobacco: Never Assessed Comments Unknown Sex and Gender Information Value Date Recorded Sex Assigned at Not on file Legal Sex Female 3:07 AM CALL CENTER RN Gender Identity Not on file Sexual Orientation Not on file documented as of this encounter Plan of Treatment Not on file documented as of this encounter Visit Diagnoses Diagnosis Vaginitis and vulvovaginitis, unspecified- Primary documented in this encounter Care Teams Gas Meter Reader Relationship Specialty Start Date End Date Ora Ricks MD [address] [place] [address] PCP - General Internal Medicine 02/25/16 documented as of this encounter
--- OUTSIDE RECORDS SUMMARY | 2025-07-23 22:00 | XMS_ITS | Encounter Summary ---
Author Organization [facility] Address [address] [place] [address] Care Team Providers Care Pl Sql Programmer Name Role Phone Ora Ricks MD Primary Care Provider +1- [phone] Encounter Details Date Type Department Care Team (Latest Contact Info) Description 03/17/1999 Outpatient Historical [facility] Medicine [address] [address] Tacos Sanchez DO NO ADDRESS ON FILE Allergic rhinitis, cause unspecified (Primary Dx); Conjunctivitis unspecified Social History Tobacco Use Types Packs/Day Years Used Date Smoking Tobacco: Never Assessed Comments Unknown Sex and Gender Information Value Date Recorded Sex Assigned at Not on file Legal Sex Female 3:07 AM BAND BOOKER Gender Identity Not on file Sexual Orientation Not on file documented as of this encounter Plan of Treatment Not on file documented as of this encounter Visit Diagnoses Diagnosis Allergic rhinitis, cause unspecified- Primary Conjunctivitis unspecified Conjunctivitis, unspecified documented in this encounter Care Teams Pl Sql Programmer Relationship Specialty Start Date End Date Ora Ricks MD [address] [place] [address] PCP - General Internal Medicine 02/25/16 documented as of this encounter
--- OUTSIDE RECORDS SUMMARY | 2025-07-23 22:00 | XMS_ITS | Encounter Summary ---
Author Organization [facility] Address [address] [place] [address] Care Team Providers Care Interlocking Tower Operator Name Role Phone Ora Ricks MD Primary Care Provider +1- [phone] Encounter Details Date Type Department Care Team (Late st Contact Info) Description 03/30/[address] [phone] Elio Salas MD [address] [phone] Social History Tobacco Use Types Packs/Day Years Used Date Smoking Tobacco: Never Assessed Comments Unknown Sex and Gender Information Value Date Recorded Sex Assigned at Not on file Legal Sex Female 3:07 AM TRANSITIONS MANAGER Gender Identity Not on file Sexual Orientation Not on file documented as of this encounter Plan of Treatment Not on file documented as of this encounter Visit Diagnoses Not on filedocumented in this encounter Care Teams Interlocking Tower Operator Relationship Specialty Start Date End Date Ora Ricks MD [address] [place] [id number] PCP - General Internal Medicine 02/25/16 documented as of this encounter
--- OUTSIDE RECORDS SUMMARY | 2025-07-23 22:00 | XMS_ITS | Encounter Summary ---
Author Organization [facility] Address [address] [place] [address] Care Team Providers Care Drapery Maker Name Role Phone Ora Ricks MD Primary Care Provider +1- [phone] Reason for Visit * Reason Onset Date Comments 2 Wk F/U 02/08/2024 Encounter Details Date Type Department Care Team (Late st Contact Info) Description 02/08/[address] [facility] [address] [place] [address] Vee Sam FNP [address] [place] [address] 2 Wk F/U Social History [...] on file Legal Sex Female 5:27 AM AUXILIARY EQUIPMENT TENDER Gender Identity Not on file Sexual Orientation Not on file documented as of this encounter Miscellaneous Notes * Telephone Encounter - Bettie Rebolledo - 02/08/2024 9:03 AM CDT Flaco (Provider) MESSAGE Pt states she was to set up a 2 wk F/U appt following her appt today 02/07 with Flaco. [facility] Program Services Assistant: Bettie Rebolledo documented in this encounter Plan of Treatment Upcoming Encounters Date Type Department Care Team (Late st Contact Info) Description 11/21/2025 3:00 PM AUXILIARY EQUIPMENT TENDER Office Visit [facility] [address] [place] [address] Jaspreet Davis MD [address] [place] [address] Alberta Warren, AUREA [address] [place] [address] documented as of this encounter Visit Diagnoses Not on filedocumented in this encounter Care Teams Drapery Maker Relationship Specialty Start Date End Date Ora Ricks MD [address] [place] [address] PCP - General Internal Medicine 02/25/16 documented as of this encounter
--- OUTSIDE RECORDS SUMMARY | 2025-07-23 22:00 | XMS_ITS | Encounter Summary ---
Author Organization [facility] Address [address] [place] [address] Care Team Providers Care Senior Service Aide Name Role Phone Ora Ricks MD Primary Care Provider +1- [phone] Encounter Details Date Type Department Care Team (Latest Contact Info) Description 03/06/2001 Outpatient [facility] Medicine [place] 104 [facility] 60 [place] [address] Elio Salas MD [address] [address] Gynecologic examination (Primary Dx) Social History Tobacco Use Types Packs/Day Years Used Date Smoking Tobacco: Never Assessed Comments Unknown Sex and Gender Information Value Date Recorded Sex Assigned at Not on file Legal Sex Female 3:07 AM SIGNAL MECHANIC Gender Identity Not on file Sexual Orientation Not on file documented as of this encounter Plan of Treatment Not on file documented as of this encounter Visit Diagnoses Diagnosis Gynecologic examination- Primary Gynecological examination documented in this encounter Care Teams Senior Service Aide Relationship Specialty Start Date End Date Ora Ricks MD [address] [place] [address] PCP - General Internal Medicine 02/25/16 documented as of this encounter
--- OUTSIDE RECORDS SUMMARY | 2025-07-23 22:00 | XMS_ITS | Encounter Summary ---
Author Organization [facility] Address [address] [place] [address] Care Team Providers Care Home Health Administrator Name Role Phone Ora Ricks MD Primary Care Provider +1- [phone] Encounter Details Date Type Department Care Team (Latest Contact Info) Description 01/21/2003 Outpatient [facility] [address] [place] [phone] Elio Salas MD [address] [address] ACUTE BRONCHITIS (Primary Dx) Social History Tobacco Use Types Packs/Day Years Used Date Smoking Tobacco: Never Assessed Comments Unknown Sex and Gender Information Value Date Recorded Sex Assigned at Not on file Legal Sex Female 3:07 AM TRADE RECRUITER Gender Identity Not on file Sexual Orientation Not on file documented as of this encounter Plan of Treatment Not on file documented as of this encounter Visit Diagnoses Diagnosis Acute bronchitis- Primary documented in this encounter Care Teams Home Health Administrator Relationship Specialty Start Date End Date Ora Ricks MD [address] [place] [address] PCP - General Internal Medicine 02/25/16 documented as of this encounter
--- OUTSIDE RECORDS SUMMARY | 2025-07-23 22:00 | XMS_ITS | Encounter Summary ---
Author Organization [facility] Address [address] [place] [address] Care Team Providers Care Drill Sergeant Name Role Phone Ora Ricks MD Primary Care Provider +1- [phone] Encounter Details Date Type Department Care Team (Latest Contact Info) Description 03/04/[address] [facility] Medicine [place] 104 [facility] 60 [place] [address] Elio Salas MD [address] [address] Gynecologic examination (Primary Dx); Cervicitis; Local superficial swellng Social History Tobacco Use Types Packs/Day Years Used Date Smoking Tobacco: Never Assessed Comments Unknown Sex and Gender Information Value Date Recorded Sex Assigned at Not on file Legal Sex Female 3:07 AM RECEIVING ASSOCIATE Gender Identity Not on file Sexual Orientation Not on file documented as of this encounter Plan of Treatment Not on file documented as of this encounter Visit Diagnoses Diagnosis Gynecologic examination- Primary Gynecological examination Cervicitis Cervicitis and endocervicitis Local superficial swellng Localized superficial swelling, mass, or lump documented in this encounter Care Teams Drill Sergeant Relationship Specialty Start Date End Date Ora Ricks MD [address] [place] [address] PCP - General Internal Medicine 02/25/16 documented as of this encounter
--- OUTSIDE RECORDS SUMMARY | 2025-07-23 22:00 | XMS_ITS | Encounter Summary ---
Author Organization [facility] Address [address] [place] [address] Care Team Providers Care Collections Manager Name Role Phone Ora Ricks MD Primary Care Provider +1- [phone] Encounter Details Date Type Department Care Team (Latest Contact Info) Description 08/23/2003 Outpatient [facility] Medicine [place] 104 [facility] 60 [place] [address] Elio Salas MD [address] [address] HYPERLIPIDEMIA NEC/NOS (Primary Dx); HYPERTENSION NOS Social History Tobacco Use Types Packs/Day Years Used Date Smoking Tobacco: Never Assessed Comments Unknown Sex and Gender Information Value Date Recorded Sex Assigned at Not on file Legal Sex Female 3:07 AM OSTOMY NURSE Gender Identity Not on file Sexual Orientation Not on file documented as of this encounter Plan of Treatment Not on file documented as of this encounter Visit Diagnoses Diagnosis Other and unspecified hyperlipidemia- Primary Unspecified essential hypertension documented in this encounter Care Teams Collections Manager Relationship Specialty Start Date End Date Ora Ricks MD [address] [place] [id number] PCP - General Internal Medicine 02/25/16 documented as of this encounter
--- OUTSIDE RECORDS SUMMARY | 2025-07-23 22:00 | XMS_ITS | Encounter Summary ---
Author Organization [facility] Address [address] [place] [address] Care Team Providers Care Supervisor Grips Name Role Phone Ora Ricks MD Primary Care Provider +1- [phone] Encounter Details Date Type Department Care Team (Latest Contact Info) Description 03/30/2005 Outpatient [facility] [address] [phone] Elio Salas MD [address] [phone] ROUTINE ADJUNCT PROFESSOR EXAMINATION (Primary Dx); SCREENING MAL NEOP-BREAST,UNSPEC; SYMPTOMATIC FEMALE CLIMACTERIC STATE; SCREENING MAL NEOP-RECTUM Social History Tobacco Use Types Packs/Day Years Used Date Smoking Tobacco: Never Assessed Comments Unknown Sex and Gender Information Value Date Recorded Sex Assigned at Not on file Legal Sex Female 3:07 AM ESTHETICIAN/SKIN THERAPIST Gender Identity Not on file Sexual Orientation Not on file documented as of this encounter Plan of Treatment Not on file documented as of this encounter Visit Diagnoses Diagnosis Routine gynecological examination- Primary Breast screening, unspecified Symptomatic menopausal or female climacteric states Screening for malignant neoplasm of the rectum documented in this encounter Care Teams Supervisor Grips Relationship Specialty Start Date End Date Ora Ricks MD [address] [place] [address] PCP - General Internal Medicine 02/25/16 documented as of this encounter
--- OUTSIDE RECORDS SUMMARY | 2025-07-23 22:00 | XMS_ITS | Encounter Summary ---
Author Organization [facility] Address [address] [place] [address] Care Team Providers Care Signal Circuit Designer Name Role Phone Ora Ricks MD Primary Care Provider +1- [phone] Encounter Details Date Type Department Care Team (Latest Contact Info) Description 12/04/2004 Outpatient [facility] Medicine [place] 104 [facility] 60 [place] [address] Elio Salas MD [address] [address] ACUTE URI NOS (Primary Dx) Social History Tobacco Use Types Packs/Day Years Used Date Smoking Tobacco: Never Assessed Comments Unknown Sex and Gender Information Value Date Recorded Sex Assigned at Not on file Legal Sex Female 3:07 AM RN FIRST ASSISTANT Gender Identity Not on file Sexual Orientation Not on file documented as of this encounter Plan of Treatment Not on file documented as of this encounter Visit Diagnoses Diagnosis Acute upper respiratory infections of unspecified site- Primary documented in this encounter Care Teams Signal Circuit Designer Relationship Specialty Start Date End Date Ora Ricks MD [address] [place] [address] PCP - General Internal Medicine 02/25/16 documented as of this encounter
--- OUTSIDE RECORDS SUMMARY | 2025-07-23 22:00 | XMS_ITS | Encounter Summary ---
Author Organization [facility] Address [address] [place] [address] Care Team Providers Care District Recruiter Name Role Phone Ora Ricks MD Primary Care Provider +1- [phone] Encounter Details Date Type Department Care Team (Latest Contact Info) Description 02/13/2002 Outpatient [facility] Medicine [address] [address] Tacos Sanchez DO NO ADDRESS ON FILE Gynecologic examination (Primary Dx); VAGINITIS NOS; Cervicitis Social History Tobacco Use Types Packs/Day Years Used Date Smoking Tobacco: Never Assessed Comments Unknown Sex and Gender Information Value Date Recorded Sex Assigned at Not on file Legal Sex Female 3:07 AM ASSISTANT MANAGER QUALITY MANAGEMENT Gender Identity Not on file Sexual Orientation Not on file documented as of this encounter Plan of Treatment Not on file documented as of this encounter Visit Diagnoses Diagnosis Gynecologic examination- Primary Gynecological examination Vaginitis and vulvovaginitis, unspecified Cervicitis Cervicitis and endocervicitis documented in this encounter Care Teams District Recruiter Relationship Specialty Start Date End Date Ora Ricks MD [address] [place] [place], [place] [address] PCP - General Internal Medicine 02/25/16 documented as of this encounter
--- OUTSIDE RECORDS SUMMARY | 2025-07-23 22:00 | XMS_ITS | Encounter Summary ---
Author Organization [facility] Address [address] [place] [address] Care Team Providers Care Mold Construction Supervisor Name Role Phone Ora Ricks MD Primary Care Provider +1- [phone] Encounter Details Date Type Department Care Team (Late st Contact Info) Description 04/10/2004 Outpatient [facility] Medicine [place] [facility] 60 [place] [address] Elio Salas MD [address] [address] Social History Tobacco Use Types Packs/Day Years Used Date Smoking Tobacco: Never Assessed Comments Unknown Sex and Gender Information Value Date Recorded Sex Assigned at Not on file Legal Sex Female 3:07 AM RN BIRTHING Gender Identity Not on file Sexual Orientation Not on file documented as of this encounter Plan of Treatment Not on file documented as of this encounter Visit Diagnoses Not on filedocumented in this encounter Care Teams Mold Construction Supervisor Relationship Specialty Start Date End Date Ora Ricks MD [address] [place], [place] [address] PCP - General Internal Medicine 02/25/16 documented as of this encounter
--- OUTSIDE RECORDS SUMMARY | 2025-07-23 22:00 | XMS_ITS | Encounter Summary ---
Author Organization [facility] Address [address] [place] [address] Care Team Providers Care Financial Foundations Representative Name Role Phone Ora Ricks MD Primary Care Provider +1- [phone] Encounter Details Date Type Department Care Team (Latest Contact Info) Description 04/22/2000 Outpatient Historical [facility] Medicine [address] [address] Farida Mccurdy NO ADDRESS ON FILE Gynecologic examination (Primary Dx); Vaginitis and vulvovaginitis, unspecified Social History Tobacco Use Types Packs/Day Years Used Date Smoking Tobacco: Never Assessed Comments Unknown Sex and Gender Information Value Date Recorded Sex Assigned at Not on file Legal Sex Female 3:07 AM PRODUCT TRAINER Gender Identity Not on file Sexual Orientation Not on file documented as of this encounter Plan of Treatment Not on file documented as of this encounter Visit Diagnoses Diagnosis Gynecologic examination- Primary Gynecological examination Vaginitis and vulvovaginitis, unspecified documented in this encounter Care Teams Financial Foundations Representative Relationship Specialty Start Date End Date Ora Ricks MD [address] [place] [address] PCP - General Internal Medicine 02/25/16 documented as of this encounter
--- OUTSIDE RECORDS SUMMARY | 2025-07-23 22:00 | XMS_ITS | Clinical Summary ---
Author Organization [facility] Address [address] Panchal: [place] [address] Care Team Providers Care Armor Reconnaissance Vehicle Crewman Name Role Phone Ora Ricks MD Primary Care Provider +1- [phone] Allergies No known active allergies Medications levothyroxine [...] (VITAMIN D3 ORAL) Take by mouth. Active [id number] ORAL Take by mouth. Active timoloL maleate [...] Abstract 05/21/2025 3:15 PM CDT Office Visit [facility] [address] [facility] [address] [place] [address] Jaspreet Davis MD Palpitations (Primary Dx); PAF (paroxysmal atrial fibrillation) (CMS/HCC); Essential hypertension; Hypothyroidism, unspecified type; Discoid lupus from Last 3 Months Immunizations Immunization Administration Dates Next Due (PFIZER)(12 YR UP) COVID-19 VACCINE - EMERGENCY USE AUTHORIZATION, MRNA, [id number](PF) 30 MCG/0.3 ML IM SUSP 08/04/2021,12/02/2020,11/11/2020 Hepatitis [...] on file Legal Sex Female 5:27 AM BOTTOM LIQUOR ATTENDANT Gender Identity Not on file Sexual Orientation [...] st Contact Info) Description 11/21/2025 3:00 PM BOTTOM LIQUOR ATTENDANT Office Visit [facility] [address] [facility] [address] [place] [address] Jaspreet Davis MD [address] [facility] [address] [place] [address] Alberta Warren, METER READERS SUPERVISOR [address] [facility] [address] [place] [address] Health Maintenance Due Date Last Done [...] Procedure Name Priority Date/Time Associated Diagnosis Comments MI ECG ROUTINE ECG W/LEAST 12 LDS W/I&R Routine 05/21/2025 3:18 PM CDT Palpitations PAF (paroxysmal atrial fibrillation) (CMS/HCC) MAMMO 3D HARJINDER SCREEN BILAT W OR WO CAD Routine 03/15/2024 Screening mammogram for breast cancer COLON CANCER SCREEN, STOOL DNA Routine 11/23/2023 9:45 PM BOTTOM LIQUOR ATTENDANT Screening for colon cancer from Last 3 Months or Most Recently Relevant to Health Maintenance Results * MI ECG ROUTINE ECG W/LEAST 12 LDS W/I&R (05/21/2025 3:18 PM CDT) Narrative [facility] - 05/21/2025 3:18 PM CDT Jaspreet Davis MD 05/21/2025 3:35 PM EKG: normal sinus rhythm, frequent PVC's noted. Procedure Note Jaspreet Davis MD - 05/21/2025 3:18 PM CDT EKG: normal sinus rhythm, frequent PVC's noted. us Jaspreet Davis MD ECG ORDERABLES Final Result [facility] [id number] [address] [facility] [address] [place] [address], [place] [phone] * MAMMO 3D HARJINDER SCREEN BILAT W OR WO CAD (03/15/2024) Anatomical Region Laterality Modality Breast Bilateral Mammography us Jacklyn Niño PIE BAKER MAMMO ORDERABLES Final Resu lt * COLON CANCER SCREEN, STOOL DNA (11/23/2023 9:45 PM BOTTOM LIQUOR ATTENDANT) COLOGUARD RESULT Negative Negative [employer] Comment: NEGATIVE TEST RESULT. A negative Cologuard [...] (Robert Chandra al, N Engl J Med 2014;370(14):0087-1886) The normal value (reference range) for this assay is negative. COLOGUARD RE-SCREENING RECOMMENDATION: Periodic colorectal cancer screening is an important part of preventive healthcare for asymptomatic individuals at average risk for colorectal cancer. Following a negative Cologuard result, the [place] Cancer Society and U.S. Multi-Society Task Force screening guidelines recommend a Cologuard re-screening interval of 3 years. References: [place] Cancer Society Guideline for Colorectal Cancer Screening: https://www.cancer.org/cancer/msizn-uiqsyn-znolhy/yxwuvjccp-pupqpland-dweypsp/ac s-rec ommendations.html.; Kamran DK, Kristina CONTRERAS, Rik LawrenceK, Colorectal Cancer Screening: Recommendations for Physicians and Patients from the U.S. Multi-Society Task Force on Colorectal Cancer Screening , Am J Gastroenterology 2017; 112:5938-2117. TEST DESCRIPTION: Composite algorithmic analysis of stool [...] colonoscopy. (Robert Pedraza, N Engl J Med 2014;370(14):1349-6339.) Cologuard may produce a false negative or false positive result (no colorectal cancer or precancerous polyp present at colonoscopy follow up). A negative Cologuard test result does not guarantee the absence of CRC or advanced adenoma (pre-cancer). The current Cologuard screening interval is every 3 years. ([place] Cancer Society and U.S. Multi-Society Task Force). Cologuard performance data in a 10,000 patient pivotal study using colonoscopy as the reference method can be accessed at the following location: www.[employer]/results. Additional description of the Cologuard test process, warnings and precautions can be found at www.cologuard.com. Stool STOOL SPECIMEN / Unknown 11/23/2023 9:45 PM BOTTOM LIQUOR ATTENDANT 11/25/2023 2:40 PM BOTTOM LIQUOR ATTENDANT Jacklyn Niño PIE BAKER BODY FLUIDS AND STOOLS Philly sepulveda Result Contactually CLIA # [id number] [address] [facility] [facility] [address] [place] [address] from Last 3 Months or Most Recently Relevant to Health Maintenance Insurance MEDICARE PART A AND B [facility] [place] [id number] Care Teams Armor Reconnaissance Vehicle Crewman Relationship Specialty Start Date End Date Ora Ricks MD [address] [place] [address] PCP - General Internal Medicine 02/25/16
--- OUTSIDE RECORDS SUMMARY | 2025-07-23 22:00 | XMS_ITS | Encounter Summary ---
Author Organization [facility] Address [address] [place] [address] Care Team Providers Care Manager Architectural Name Role Phone Ora Ricks MD Primary Care Provider +1- [phone] Encounter Details Date Type Department Care Team (Latest Contact Info) Description 04/02/2002 Outpatient [facility] Medicine [place] 104 [facility] 60 [place] [address] Elio Salas MD [address] [address] URTICARIA NOS (Primary Dx) Social History Tobacco Use Types Packs/Day Years Used Date Smoking Tobacco: Never Assessed Comments Unknown Sex and Gender Information Value Date Recorded Sex Assigned at Not on file Legal Sex Female 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
--- OUTSIDE RECORDS SUMMARY | 2025-07-23 22:00 | XMS_ITS | Clinical Summary ---
Author Organization [facility] Address [address] [facility] [address] [place] [address] Phone Care Team Providers Care Client Analyst Name Role Phone Ora Ricks MD Primary Care Provider +1- [phone] Allergies No known active allergies Medications No known medications Immunizations Immunization Administration Dates Next Due (PFIZER)(12 YR UP) COVID-19 VACCINE - EMERGENCY USE AUTHORIZATION, MRNA, [id number](PF) 30 MCG/0.3 ML IM SUSP 12/02/2020,11/11/2020 Hepatitis B Vaccine 01/09/1998,09/09/1997,1996 Social History Tobacco Use Types Packs/Day Years Used Date Smoking Tobacco: Never Alcohol Use Standard Drinks/Week Comments No 0 (1 standard drink = 0.6 oz pur e alcohol) Comments No Sex and Gender Information Value Date Recorded Sex Assigned at Not on file 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
--- OUTSIDE RECORDS SUMMARY | 2025-07-23 22:00 | XMS_ITS | Encounter Summary ---
Author Organization [facility] Address [address] [place] [address] Care Team Providers Care Diesel Engine Engineer Name Role Phone Ora Ricks MD Primary Care Provider +1- [phone] Encounter Details Date Type Department Care Team (Late st Contact Info) Description 03/04/2003 Outpatient Historical [facility] [address] [phone] Rad Carrillo NP NO ADDRESS ON FILE Social History Tobacco Use Types Packs/Day Years Used Date Smoking Tobacco: Never Assessed Comments Unknown Sex and Gender Information Value Date Recorded Sex Assigned at Not on file Legal Sex Female 3:07 AM RAG BOILER Gender Identity Not on file Sexual Orientation Not on file documented as of this encounter Plan of Treatment Not on file documented as of this encounter Visit Diagnoses Not on filedocumented in this encounter Care Teams Diesel Engine Engineer Relationship Specialty Start Date End Date Ora Ricks MD [address] [place], [place] [address] PCP - General Internal Medicine 02/25/16 documented as of this encounter
--- OUTSIDE RECORDS SUMMARY | 2025-07-23 22:00 | XMS_ITS | Encounter Summary ---
Author Organization [facility] Address [address] [place] [address] Care Team Providers Care Master Pilot Name Role Phone Ora Ricks MD Primary Care Provider +1- [phone] Reason for Visit * Reason Onset Date Comments Needs Appointment 01/16/2024 Encounter Details Date Type Department Care Team (Late st Contact Info) Description 01/16/2024 Telephone [facility] [address] [facility] [address] [place] [phone] Alberta Warren, PIE TOPPER [address] [facility] [address] [place] [phone] Needs Appointment Social History Tobacco Use [...] on file Legal Sex Female 5:27 AM FLOOR SCRAPER Gender Identity Not on file Sexual Orientation Not on file documented as of this encounter Miscellaneous Notes * Telephone Encounter - Geovanny Almaguer - 01/16/2024 2:19 PM CDT [facility] Call Center Communications Alberta Warren (Provider) MESSAGE Needing to schedule appointment [facility] Credit Intern: TRINH Brayd documented in this encounter Plan of Treatment Upcoming Encounters Date Type Department Care Team (Late st Contact Info) Description 11/21/2025 3:00 PM FLOOR SCRAPER Office Visit [facility] [address] [place] [phone] Jaspreet Davis MD [address] [place] [phone] Alberta Warren, AUREA [address] [place] [phone] documented as of this encounter Visit Diagnoses Not on filedocumented in this encounter Care Teams Master Pilot Relationship Specialty Start Date End Date Ora Ricks MD [address] [place] [address] PCP - General Internal Medicine 02/25/16 documented as of this encounter
--- OUTSIDE RECORDS SUMMARY | 2025-07-23 22:00 | XMS_ITS | Encounter Summary ---
Author Organization [facility] Address [address] [place] [address] Care Team Providers Care Sign Poster Name Role Phone Ora Ricks MD Primary Care Provider +1- [phone] Encounter Details Date Type Department Care Team (Latest Contact Info) Description 03/06/[address] [phone] Elio Salas MD [address] [phone] DERMATITIS NOS (Primary Dx) Social History Tobacco Use Types Packs/Day Years Used Date Smoking Tobacco: Never Assessed Comments Unknown Sex and Gender Information Value Date Recorded Sex Assigned at Not on file Legal Sex Female 3:07 AM CONTROL PANEL BUILDER Gender Identity Not on file Sexual Orientation Not on file documented as of this encounter Plan of Treatment Not on file documented as of this encounter Visit Diagnoses Diagnosis Contact dermatitis and other eczema, due to unspecified cause- Primary documented in this encounter Care Teams Sign Poster Relationship Specialty Start Date End Date Ora Ricks MD [address] [place], [place] [address] PCP - General Internal Medicine 02/25/16 documented as of this encounter
[2025-07-23 22:03] VITALS: BP 143/87; PULSE 111; RESP 16; TEMP 36.7; O2SAT 99
--- NOTE | 2025-07-23 22:06 | ECG_ITS ---
[facility] Test Date: 2025-07-23 Pat Name: Milvia Coyne Department: Room: Gender: Female Dba Manager: : 1955 Requested By: Rebel Jenkins Order Number: [id number] Aidan MD: Danilo Deluca M.D. Measurements Intervals [place] Rate: 106 P: 0 VT: 0 QRS: 91 QRSD: 101 T: 263 QT: 339 QTc: 451 Interpretive Statements ATRIAL FIBRILLATION WITH RAPID VENTRICULAR RESPONSE BORDERLINE RIGHT AXIS DEVIATION [QRS AXIS > 90] ANTERIOR MYOCARDIAL INFARCTION , AGE INDETERMINATE T WAVE INVERSIONS, POSSIBLE ISCHEMIA Compared to ECG 07/21/2025 09:49:39 ATRIAL FIBRILLATION HAS REPLACED SINUS RHYTHM Electronically Signed On 07-24-2025 21:21:40 CDT by Danilo Deluca M.D. [email or web address] [id number]
--- NOTE | 2025-07-23 23:26 | W.ED.ARRPALP ---
HPI - Arrhythmia/Palpitations General: Chief Complaint: Arrhythmia/Palpitations Stated Complaint: Hearet Monitor went off Time Seen by Provider: 07/23/25 22:45 Source: patient Mode of arrival: ambulatory Limitations: no limitations History of Present Illness: 69-year-old female was recently diagnosed with A-fib last week. Patient was readmitted and discharged today. She states her heart monitor she wearing when off and said her heart rate was 110 and it concerned her. She states that otherwise she has been feeling normal she denies any chest pain denies any shortness of breath states she feels at her normal self. Currently is on amiodarone and digoxin and Eliquis Associated symptoms: Deny nausea Related Data Home Medications ?Medication ?Instructions ?Recorded ?Confirmed cholecalciferol (vitamin D3) 25 25 mcg PO DAILY 04/11/20 07/20/25 mcg (1,000 unit) capsule pantoprazole 40 mg tablet,delayed 40 mg PO DAILY 04/11/20 07/20/25 release timolol maleate 0.25 % eye drops 1 drop ophthalmic (eye) DAILY 04/11/20 07/20/25 alendronate 70 mg tablet (Fosamax) 70 mg PO .Q7days 11/25/21 07/20/25 levothyroxine 75 mcg capsule 75 mcg PO DAILY 11/25/21 07/20/25 diltiazem HCl 120 mg 120 mg PO DAILY 07/20/25 07/20/25 tablet,extended release 24 hr folic acid 1 mg tablet 1 mg PO DAILY 07/20/25 07/20/25 Previous Rx's ?Medication ?Instructions ?Recorded clopidogrel 75 mg tablet 75 mg PO DAILY #90 tabs 07/19/25 metoprolol tartrate 50 mg tablet 50 mg PO BID@0900,2100 #180 tabs 07/19/25 sacubitril 24 mg-valsartan 26 mg 1 tab PO BID #60 tabs 07/19/25 tablet (Entresto) Held on 07/23/25. Instructions: Resume on 07/30/25. Follow up with cardiology for medication recommendations. 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 Systemic lupus erythematosus, unspecified Medication monitoring encounter Osteoarthritis Cutaneous lupus erythematosus in remission Surgical History H/O: hysterectomy H/O dilation and curettage H/O lumpectomy benign H/O eye surgery 1955 Family History Mother Hyperlipidemia Hypertension Sister Breast cancer late 30's Father Lung cancer Denies family history of Colon cancer Ovarian cancer Diabetes CAD (coronary artery disease) Clotting disorder Heart disease Anesthesia complication Bleeding disorder Uterine cancer Thyroid disease Stroke Social History Smoking and tobacco/nicotine status: never used tobacco/nicotine Alcohol intake: never Substance/Drug Use: never Lives independently: No Marital status: Number of children: 2 Physical Exam Const: COMMON NORMALS: no acute distress, patient oriented x3 and healthy appearing HENMT: COMMON NORMALS: normocephalic and atraumatic HEAD & SCALP: normocephalic and atraumatic Eye: COMMON NORMALS: conjunctivae normal CONJUNCTIVA: Yes conjunctivae normal Neck/C-Spine: COMMON NORMALS: full ROM and supple Chest: COMMONS NORMALS: normal inspection of the chest Resp: COMMON NORMALS: normal respiratory effort, No retractions, No use of accessory muscles and clear to auscultation bilaterally AUSCULTATION: clear to auscultation bilaterally Cardio: COMMON NORMALS: No murmurs present (Cardio) RATE: tachycardic RHYTHM: abnormal rhythm irregularly irregular Extremity: COMMON NORMALS: normal to inspection and full ROM Neuro: COMMON NORMALS: patient oriented x3, moves all extremities and no focal motor deficits Psych: COMMON NORMALS: mental status grossly normal, Normal thought process present and cooperative THOUGHT PROCESS: Normal thought process present Skin: COMMON NORMALS: no rashes or lesions noted and no wounds GENERAL SKIN EXAM: no rashes or lesions noted Course Vital Signs: Vital signs: Vital Signs Temperature 98.0 F 07/23/25 22:03 Pulse Rate 92 07/24/25 00:44 Respiratory Rate 19 H 07/24/25 00:44 Blood Pressure 169/98 07/24/25 00:44 Pulse Oximetry 96 07/24/25 00:44 Oxygen Delivery Me thod Room Air 07/24/25 00:44 MDM - Arrhythmia/Palpitations Medical Decision Making Patient presents with A-fib with RVR she has been well-appearing here heart rate here is improved she has had no chest pain no shortness of breath she is stable for discharge did go over her labs with her and return precaution she is to follow-up with her dispatcher bus and trolley and return if worsening. Medical Records I reviewed the patient's medical records. Lab Data I reviewed the patient's lab results. 07/23/25 23:30 07/24/25 00:00 Laboratory Results WBC 5.83 10^3/uL (3.29-11.43) 07/23/25 23:30 RBC 3.59 10^6/uL (3.85-5.65) L 07/23/25 23:30 Hgb 11.20 g/dL (11.27-16.99) L 07/23/25 23:30 Hct 35.8 % (36-47) L 07/23/25 23:30 MCV 99.7 fl (85-98) H 07/23/25 23:30 MCH 31.2 pg (27-33) 07/23/25 23:30 MCHC 31.3 g/dL (30-55) 07/23/25 23:30 RDW 14.5 % (12.1-15.1) 07/23/25 23:30 Plt Count 247 10^3/cmm (157-399) 07/23/25 23:30 MPV 10.0 fL (7.4-10.4) 07/23/25 23:30 Neut % (Auto) 76.2 % 07/23/25 23:30 Lymph % (Auto) 10.3 % 07/23/25 23:30 [place] % (Auto) 11.8 % 07/23/25 23:30 Eos % (Auto) 1.0 % 07/23/25 23:30 Baso % (Auto) 0.2 % 07/23/25 23:30 Neut # (Auto) 4.44 10^3/uL (1.8-7.7) 07/23/25 23:30 Lymph # (Auto) 0.6 10^3/uL (0.8-4.8) L 07/23/25 23:30 [place] # (Auto) 0.7 10^3/uL (0.2-0.9) 07/23/25 23: Eos # (Auto) 0.1 10^3/uL (0.0-0.8) 07/23/25 23:30 Baso # (Auto) 0.0 10^3/uL (0.0-0.1) 07/23/25: Nucleated RBC % (auto) 0 % 07/23/25: Nucleated RBCs # 0.0 /100WBC 07/23/25 23:30 Sodium 138 mmol/L (136-145) 07/24/25 00:00 Potassium 3.9 mmol/L (3.5-5.1) 07/24/25 00:00 Chloride 104 mmol/L (98-107) 07/24/25 00:00 Carbon Dioxide 18 mmol/L (22-29) L 07/24/25 00:00 Anion Gap 19.9 (5-19) H 07/24/25 00:00 BUN 13 mg/dL (8-23) 07/24/25 00:00 Creatinine 0.9 mg/dL (0.5-0.9) 07/24/25 00:00 GFR Calculation Not Reportable 07/24/25 00:00 Glucose 119 mg/dL (65-115) H 07/24/25 00:00 Calculated Osmolality 287 mOsm/kg (285-295) 07/24/25 00:00 Calcium 8.5 mg/dL (8.5-10.5) 07/24/25 00:00 Total Bilirubin 0.3 mg/dL (0.15-1.2) 07/24/25 00:00 AST 37 U/L (0-32) H 07/24/25 00:00 ALT 20 U/L (0-33) 07/24/25 00:00 Alkaline Phosphatase 102 U/L (35-105) 07/24/25 00:00 Total Protein 8.1 g/dL (6.6-8.7) 07/24/25 00:00 Albumin 3.6 g/dL (3.5-5.2) 07/24/25 00:00 Globulin 4.5 g/dL (1.3-4.6) 07/24/25 00:00 Digoxin 1.8 ng/mL (0.6-1.2) H 07/24/25 00:00 All radiology interpretation(s) finalized by discharge EKG Data EKG 1: I personally reviewed and interpreted this EKG as follows: EKG interpretation date: 07/23/25 EKG interpretation time: 22:06 Interpretation: aifib with rvr hr [address] elevation qrs 101 qtc 401 Discharge Plan Discharge Patient Disposition: Home Clinical Impression: Atrial fibrillation with RVR Condition: Stable Prescriptions: No Action pantoprazole 40 mg tablet,delayed release (DR/EC) 40 mg PO DAILY timolol maleate 0.25 % drops 1 drop ophthalmic (eye) DAILY cholecalciferol (vitamin D3) 25 mcg (1,000 unit) capsule 25 mcg PO DAILY alendronate [Fosamax] 70 mg tablet 70 mg PO .Q7days levothyroxine 75 mcg capsule 75 mcg PO DAILY atorvastatin [Lipitor] 80 mg tablet 80 mg PO DAILY Qty: 90 3RF clopidogrel 75 mg Tablet 75 mg PO DAILY Qty: 90 3RF metoprolol tartrate 50 mg Tablet 50 mg PO BID@0900,2100 Qty: 180 0RF sacubitril-valsartan [Entresto] 24-26 mg Tablet 1 tab PO BID Qty: 60 1RF folic acid 1 mg tablet 1 mg PO DAILY diltiazem HCl 120 mg tablet extended release 24 hr 120 mg PO DAILY amiodarone [Pacerone] 200 mg Tablet 400 mg PO BID Qty: 14 1RF Eliquis 2.5 mg tablet 2.5 mg PO BID Qty: 28 0RF aspirin 325 mg Tablet 325 mg PO Q8H Qty: 42 0RF digoxin 125 mcg (0.125 mg) Tablet 125 mcg PO DAILY Qty: 30 2RF Discharge Orders: Discharge ED (Routine); Ordered 07/24/25 Ordered By: Rebel Jenkins Referrals: Ora Ricks MD [Primary Care Provider, Internal Medicine] Discharge Diet: Advance as tolerated Discharge Activity: Resume usual activity Patient Instructions: A-fib (Atrial Fibrillation) (ED) Print Language: Lithuanian Coding Level of Care Code ED Larriman Helper for Lisa Peace
[2025-07-23] MEDS: dilTIAZem 5 mg/mL SDV 5 mL 10 MG IVP (23:37)
[2025-07-23 23:39] LABS: Hematocrit 35.8 % (36-47); Hemoglobin 11.20 g/dL (11.27-16.99); Mean Corpuscular HGB Conc 31.3 g/dL (30-55); Mean Corpuscular Hemoglobin 31.2 pg (27-33); Mean Corpuscular Volume 99.7 fl (85-98); Nucleated Red Blood Cells % 0 %; Platelet Count 247 10^3/cmm (157-399); Red Blood Count 3.59 10^6/uL (3.85-5.65); White Blood Count 5.83 10^3/uL (3.29-11.43)
[2025-07-24 00:34] LABS: Alanine Aminotransferase 20 U/L (0-33); Albumin Level 3.6 g/dL (3.5-5.2); Alkaline Phosphatase 102 U/L (35-105); Anion Gap 19.9 (5-19); Aspartate Amino Transferase 37 U/L (0-32); Blood Urea Nitrogen 13 mg/dL (8-23); Calcium 8.5 mg/dL (8.5-10.5); Carbon Dioxide 18 mmol/L (22-29); Chloride 104 mmol/L (98-107); Globulin 4.5 g/dL (1.3-4.6); Glucose 119 mg/dL (65-115); Osmolality Calculated 287 mOsm/kg (285-295); Potassium 3.9 mmol/L (3.5-5.1); Sodium 138 mmol/L (136-145); Total Protein 8.1 g/dL (6.6-8.7)
[2025-07-24] MEDS: labetalol 5 mg/mL SDV 20mL 10 MG IVP (00:35)
[2025-07-24 00:36] LABS: Digoxin 1.8 ng/mL (0.6-1.2)
[2025-07-24 00:44] VITALS: BP 169/98; PULSE 92; RESP 19; O2SAT 96
[2025-07-24 01:00] VITALS: BP 121/80; PULSE 100; O2SAT 95
== END 2025-07-24 01:02 | disposition home or self-care (01) ==
PROVIDERS: Emergency Provider Emergency Medicine; PCP Internal Medicine
DX: I48.20 Chronic atrial fibrillation, unspecified (principal); Z79.02 Long term (current) use of antithrombotics/antiplatelets; Z79.01 Long term (current) use of anticoagulants; Z79.82 Long term (current) use of aspirin
CPT/HCPCS: 36415; 80053; 80162; 85025; 93005; 96374; 96375; 99284; J3490

== ENCOUNTER 2025-07-31 13:44 | Outpatient (CLI) | payer MEDICARE, SELFPAY ==
[2025-07-31 16:44] LABS: Digoxin 1.1 ng/mL (0.6-1.2)
== END 2025-07-31 13:45 | disposition home or self-care (01) ==
PROVIDERS: PCP Internal Medicine; Visit Provider Internal Medicine
DX: I11.0 Hypertensive heart disease with heart failure (principal); I50.21 Acute systolic (congestive) heart failure; I48.91 Unspecified atrial fibrillation; I25.10 Atherosclerotic heart disease of native coronary artery without angina pectoris; I25.2 Old myocardial infarction; Z79.01 Long term (current) use of anticoagulants; I47.20 Ventricular tachycardia, unspecified; E78.5 Hyperlipidemia, unspecified; E03.9 Hypothyroidism, unspecified
CPT/HCPCS: 36415; 80162; 99214

== ENCOUNTER 2025-08-22 08:37 | Emergency (ER) | payer MEDICARE, OTHER, SELFPAY ==
[2025-08-22 08:47] VITALS: BP 159/77; PULSE 77; RESP 18; TEMP 36.7; O2SAT 97; BMI 25.7
--- NOTE | 2025-08-22 08:51 | ECG_ITS ---
[facility] Date: 2025-08-22 Pat Name: Milvia Coyne Department: Room: Gender: Female Time Clock Mechanic: : 1955 Requested By: Ashish Alexander Order Number: [id number] Aidan MD: Kasia Monroe M.D. Measurements Intervals [place] Rate: 60 P: 76 NC: 168 QRS: 62 QRSD: 86 T: 82 QT: 428 QTc: 429 Interpretive Statements SINUS RHYTHM POSSIBLE LEFT ATRIAL ENLARGEMENT [-0.1mV P-WAVE IN V1/V2] ST DEVIATION AND MODERATE T-WAVE ABNORMALITY, CONSIDER ANTEROLATERAL ISCHEMIA [-0.1+ mV T-WAVE IN V3-V6] Compared to ECG 07/23/2025 22:06:35 T-wave abnormality now present Atrial fibrillation no longer present Myocardial infarct finding no longer present Possible ischemia still present Electronically Signed On 08-23-2025 15:25:25 CDT by Kasia Monroe M.D. [id number]
--- NOTE | 2025-08-22 08:51 | XR_ITS ---
WS: [id number] Portable AP upright chest, 08/22/2025 Clinical Data: chest pain Comparison: Portable chest, 07/20/2025 Findings: No nodules, masses or effusions are seen. The heart is normal. The pulmonary vascularity is not increased. No pneumonia or pneumothorax is seen. The small left coronary artery stent is seen at the left border of the heart. The aortic arch shows calcification. Monitor leads are on the chest wall. XR/XR chest 1V portable [id number] Impression: Atherosclerosis.
--- OUTSIDE RECORDS SUMMARY | 2025-08-22 08:52 | XMS_ITS | Encounter Summary ---
Author Organization [facility] Address [address] [place] [address] Care Team Providers Care Grid Caster Name Role Phone Ora Ricks MD Primary Care Provider +1- [phone] Encounter Details Date Type Department Care Team (Late st Contact Info) Description 08/23/2003 Outpatient Historical [facility] Medicine [place] [address] [facility] [address] [place] [address] Elio Salas MD [address] [address] Social History Tobacco Use Types Packs/Day Years Used Date Smoking Tobacco: Never Assessed Comments Unknown Sex and Gender Information Value Date Recorded Sex Assigned at Not on file Legal Sex Female 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
--- OUTSIDE RECORDS SUMMARY | 2025-08-22 08:52 | XMS_ITS | Encounter Summary ---
Author Organization [facility] Address [address] [place] [address] Care Team Providers Care Manufacturing Quality Engineer Name Role Phone Ora Ricks MD Primary Care Provider +1- [phone] Encounter Details Date Type Department Care Team (Latest Contact Info) Description 03/04/2003 Outpatient [facility] Medicine [place] [address] [facility] [address] [place] [address] Elio Salas MD [address] [phone] Gynecologic examination (Primary Dx); Cervicitis; Local superficial swellng Social History Tobacco Use Types Packs/Day Years Used Date Smoking Tobacco: Never Assessed Comments Unknown Sex and Gender Information Value Date Recorded Sex Assigned at Not on file Legal Sex Female 3:07 AM WIRE ROPE FABRICATION SUPERVISOR Gender Identity Not on file Sexual Orientation Not on file documented as of this encounter Plan of Treatment Not on file documented as of this encounter Visit Diagnoses Diagnosis Gynecologic examination- Primary Gynecological examination Cervicitis Cervicitis and endocervicitis Local superficial swellng Localized superficial swelling, mass, or lump documented in this encounter Care Teams Manufacturing Quality Engineer Relationship Specialty Start Date End Date Ora Ricks MD [address] [place] [address] PCP - General Internal Medicine 02/25/16 documented as of this encounter
--- OUTSIDE RECORDS SUMMARY | 2025-08-22 08:52 | XMS_ITS | Encounter Summary ---
Author Organization [facility] Address [address] [place] [address] Care Team Providers Care Laborer Cement Gun Placing Name Role Phone Ora Ricks MD Primary Care Provider +1- [phone] Encounter Details Date Type Department Care Team (Latest Contact Info) Description 04/10/2004 Outpatient [facility] Medicine [place] [address] [facility] [address] [place] [address] Elio Salas MD [address] [address] Gynecologic examination (Primary Dx); SCREENING MAL NEOP-BREAST,UNSPEC; LUMB/LUMBOSAC DISC DEGEN Social History Tobacco Use Types Packs/Day Years Used Date Smoking Tobacco: Never Assessed Comments Unknown Sex and Gender Information Value Date Recorded Sex Assigned at Not on file Legal Sex Female 3:07 AM MOBILE UI DEVELOPER Gender Identity Not on file Sexual Orientation Not on file documented as of this encounter Plan of Treatment Not on file documented as of this encounter Visit Diagnoses Diagnosis Gynecologic examination- Primary Gynecological examination Breast screening, unspecified Degeneration of lumbar or lumbosacral intervertebral disc documented in this encounter Care Teams Laborer Cement Gun Placing Relationship Specialty Start Date End Date Ora Ricks MD [address] [place] [address] PCP - General Internal Medicine 02/25/16 documented as of this encounter
--- OUTSIDE RECORDS SUMMARY | 2025-08-22 08:52 | XMS_ITS | Encounter Summary ---
Author Organization [facility] Address [address] [place] [address] Care Team Providers Care Quiller Hand Name Role Phone Ora Ricks MD Primary Care Provider +1- [phone] Encounter Details Date Type Department Care Team (Late st Contact Info) Description 03/04/2003 Outpatient Historical [facility] Medicine [address] [phone] Rad Carrillo NP NO ADDRESS ON FILE Social History Tobacco Use Types Packs/Day Years Used Date Smoking Tobacco: Never Assessed Comments Unknown Sex and Gender Information Value Date Recorded Sex Assigned at Not on file Legal Sex Female 3:07 AM WASTE AND BATTING WASTE CHOPPER Gender Identity Not on file Sexual Orientation Not on file documented as of this encounter Plan of Treatment Not on file documented as of this encounter Visit Diagnoses Not on filedocumented in this encounter Care Teams Quiller Hand Relationship Specialty Start Date End Date Ora Ricks MD [address] [place], [place] [address] PCP - General Internal Medicine 02/25/16 documented as of this encounter
--- OUTSIDE RECORDS SUMMARY | 2025-08-22 08:52 | XMS_ITS | Encounter Summary ---
Author Organization [facility] Address [address] [place] [address] Care Team Providers Care Sand Caster Apprentice Name Role Phone Ora Ricks MD Primary Care Provider +1- [phone] Encounter Details Date Type Department Care Team (Latest Contact Info) Description 12/04/2004 Outpatient [facility] Medicine [place] 104 [facility] 60 [place] [address] Elio Salas MD [address] [address] ACUTE URI NOS (Primary Dx) Social History Tobacco Use Types Packs/Day Years Used Date Smoking Tobacco: Never Assessed Comments Unknown Sex and Gender Information Value Date Recorded Sex Assigned at Not on file Legal Sex Female 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
--- OUTSIDE RECORDS SUMMARY | 2025-08-22 08:52 | XMS_ITS | Encounter Summary ---
Author Organization [facility] Address [address] [place] [address] Care Team Providers Care Tier Lift Operator Name Role Phone Ora Ricks MD Primary Care Provider +1- [phone] Encounter Details Date Type Department Care Team (Latest Contact Info) Description 08/23/2003 Outpatient [facility] Medicine [place] 104 [facility] 60 [place] [address] Elio Salas MD [address] [address] HYPERLIPIDEMIA NEC/NOS (Primary Dx); HYPERTENSION NOS Social History Tobacco Use Types Packs/Day Years Used Date Smoking Tobacco: Never Assessed Comments Unknown Sex and Gender Information Value Date Recorded Sex Assigned at Not on file Legal Sex Female 3:07 AM ENDBAND CUTTER HAND Gender Identity Not on file Sexual Orientation Not on file documented as of this encounter Plan of Treatment Not on file documented as of this encounter Visit Diagnoses Diagnosis Other and unspecified hyperlipidemia- Primary Unspecified essential hypertension documented in this encounter Care Teams Tier Lift Operator Relationship Specialty Start Date End Date Ora Ricks MD [address] [place] [place] [id number] PCP - General Internal Medicine 02/25/16 documented as of this encounter
--- OUTSIDE RECORDS SUMMARY | 2025-08-22 08:53 | XMS_ITS | Encounter Summary ---
Author Organization [facility] Address [address] [place] [address] Care Team Providers Care Lease Broker Name Role Phone Ora Ricks MD Primary Care Provider +1- [phone] Encounter Details Date Type Department Care Team (Latest Contact Info) Description 08/09/2000 Outpatient Historical [facility] Medicine [address] [address] Tacos Sanchez DO NO ADDRESS ON FILE Vaginitis and vulvovaginitis, unspecified (Primary Dx) Social History Tobacco Use Types Packs/Day Years Used Date Smoking Tobacco: Never Assessed Comments Unknown Sex and Gender Information Value Date Recorded Sex Assigned at Not on file Legal Sex Female 3:07 AM CLOTHING ROOM SUPERVISOR Gender Identity Not on file Sexual Orientation Not on file documented as of this encounter Plan of Treatment Not on file documented as of this encounter Visit Diagnoses Diagnosis Vaginitis and vulvovaginitis, unspecified- Primary documented in this encounter Care Teams Lease Broker Relationship Specialty Start Date End Date Ora Ricks MD [address] [place] [address] PCP - General Internal Medicine 02/25/16 documented as of this encounter
--- OUTSIDE RECORDS SUMMARY | 2025-08-22 08:53 | XMS_ITS | Encounter Summary ---
Author Organization [facility] Address [address] [place] [address] Care Team Providers Care Automatic Paint Sprayer Operator Name Role Phone Ora Ricks MD Primary Care Provider +1- [phone] Reason for Referral * Eval and Treat (Routine) - Open Specialty Diagnoses / Procedures Referred By Contact Referred To Contact Cardiac Rehabilitation Diagnoses Coronary artery disease, unspecified vessel or lesion type, unspecified whether angina present, unspecified whether [place] or transplanted heart Procedures MS PHYS/QHP O/P CARDIAC RHAB W/CONT ECG MONITORING MS PHYS/QHP O/P CARDIAC RHAB W/O CONT ECG MONITOR MS INTENS CARDIAC REHAB W/EXERC MS INTENS CARDIAC REHAB NO EXER MS PULMONARY REHAB W EXER Ora Ricks MD [address] [place] [address] Phone: tel: fax: [facility] [place] [address] [place] [address] Phone: tel: Referral ID Status Reason Start Date Expiration Date V isits Requested Visits Authorized [id number] Open Sherley/Cristiano lle CTS to Schedule 08/21/2025 08/21/2026 36 36 Encounter Details Date Type Department Care Team (Late st Contact Info) Description 08/21/2025 Orders Only [facility] [address] [place] [address] Ora Ricks MD [address] [place] [address] Coronary artery disease, unspecified vessel or lesion type, unspecified whether angina present, unspecified whether [place] or transplanted heart (Primary Dx) Social History Tobacco Use Types [...] on file Legal Sex Female 5:27 AM INSURANCE FOLLOW UP SPECIALIST Gender Identity Not on file Sexual Orientation Not on file documented as of this encounter Plan of Treatment Upcoming Encounters Date Type Department Care Team (Late st Contact Info) Description 11/21/2025 3:00 PM INSURANCE FOLLOW UP SPECIALIST Office Visit [facility] [address] [place] [address] Jaspreet Davis MD [address] [place] [address] Alberta Warren, AUREA [address] [place] [address] Scheduled Referrals Name Type Priority Associated Diagnoses Orde r Schedule AMB REFERRAL TO CARDIAC REHAB Outpatient Referral Routine Coronary artery disease, unspecified vessel or lesion type, unspecified whether angina present, unspecified whether [place] or transplanted heart Ordered: 08/21/2025 documented as of this encounter Visit Diagnoses Diagnosis Coronary artery disease, unspecified vessel or lesion type, unspecified whether angina present, unspecified whether [place] or transplanted heart- Primary documented in this encounter Care Teams Automatic Paint Sprayer Operator Relationship Specialty Start Date End Date Ora Ricks MD [address] [place] [address] PCP - General Internal Medicine 02/25/16 documented as of this encounter
--- OUTSIDE RECORDS SUMMARY | 2025-08-22 08:53 | XMS_ITS | Encounter Summary ---
Author Organization [facility] Address [address] [place] [address] Care Team Providers Care Topology Teacher Name Role Phone Ora Ricks MD Primary Care Provider +1- [phone] Encounter Details Date Type Department Care Team (Latest Contact Info) Description 03/06/[address] [phone] Elio Salas MD [address] [phone] DERMATITIS NOS (Primary Dx) Social History Tobacco Use Types Packs/Day Years Used Date Smoking Tobacco: Never Assessed Comments Unknown Sex and Gender Information Value Date Recorded Sex Assigned at Not on file Legal Sex Female 3:07 AM DECAL APPLIER Gender Identity Not on file Sexual Orientation Not on file documented as of this encounter Plan of Treatment Not on file documented as of this encounter Visit Diagnoses Diagnosis Contact dermatitis and other eczema, due to unspecified cause- Primary documented in this encounter Care Teams Topology Teacher Relationship Specialty Start Date End Date Ora Ricks MD [address] [place], [place] [address] PCP - General Internal Medicine 02/25/16 documented as of this encounter
--- OUTSIDE RECORDS SUMMARY | 2025-08-22 08:53 | XMS_ITS | Encounter Summary ---
Author Organization [facility] Address [address] [place] [address] Care Team Providers Care Gas Meter Installer Helper Name Role Phone Ora Ricks MD Primary Care Provider +1- [phone] Encounter Details Date Type Department Care Team (Late st Contact Info) Description 03/04/2003 Outpatient Historical [facility] Medicine [address] [address] Rad Carrillo NP NO ADDRESS ON FILE Social History Tobacco Use Types Packs/Day Years Used Date Smoking Tobacco: Never Assessed Comments Unknown Sex and Gender Information Value Date Recorded Sex Assigned at Not on file Legal Sex Female 3:07 AM CAMP ADVISOR Gender Identity Not on file Sexual Orientation Not on file documented as of this encounter Plan of Treatment Not on file documented as of this encounter Visit Diagnoses Not on filedocumented in this encounter Care Teams Gas Meter Installer Helper Relationship Specialty Start Date End Date Ora Ricks MD [address] [place], [place] [address] PCP - General Internal Medicine 02/25/16 documented as of this encounter
--- OUTSIDE RECORDS SUMMARY | 2025-08-22 08:53 | XMS_ITS | Encounter Summary ---
Author Organization [facility] Address [address] [place] [address] Care Team Providers Care Assistant Grocery Store Manager Name Role Phone Ora Ricks MD Primary Care Provider +1- [phone] Encounter Details Date Type Department Care Team (Latest Contact Info) Description 03/17/1999 Outpatient Historical [facility] Medicine [address] [address] Tacos Sanchez DO NO ADDRESS ON FILE Allergic rhinitis, cause unspecified (Primary Dx); Conjunctivitis unspecified Social History Tobacco Use Types Packs/Day Years Used Date Smoking Tobacco: Never Assessed Comments Unknown Sex and Gender Information Value Date Recorded Sex Assigned at Not on file Legal Sex Female 3:07 AM TRANSPORT NURSE Gender Identity Not on file Sexual Orientation Not on file documented as of this encounter Plan of Treatment Not on file documented as of this encounter Visit Diagnoses Diagnosis Allergic rhinitis, cause unspecified- Primary Conjunctivitis unspecified Conjunctivitis, unspecified documented in this encounter Care Teams Assistant Grocery Store Manager Relationship Specialty Start Date End Date Ora Ricks MD [address] [place] [address] PCP - General Internal Medicine 02/25/16 documented as of this encounter
--- OUTSIDE RECORDS SUMMARY | 2025-08-22 08:53 | XMS_ITS | Encounter Summary ---
Author Organization [facility] Address [address] [place] [address] Care Team Providers Care Rail Operations Controller Name Role Phone Ora Ricks MD Primary Care Provider +1- [phone] Encounter Details Date Type Department Care Team (Latest Contact Info) Description 04/02/2002 Outpatient [facility] Medicine [place] 104 [facility] 60 [place] [address] Elio Salas MD [address] [address] URTICARIA NOS (Primary Dx) Social History Tobacco Use Types Packs/Day Years Used Date Smoking Tobacco: Never Assessed Comments Unknown Sex and Gender Information Value Date Recorded Sex Assigned at Not on file Legal Sex Female 3:07 AM VP DIRECTOR OF CREATIVE STRATEGY Gender Identity Not on file Sexual Orientation Not on file documented as of this encounter Plan of Treatment Not on file documented as of this encounter Visit Diagnoses Diagnosis Urticaria, unspecified- Primary documented in this encounter Care Teams Rail Operations Controller Relationship Specialty Start Date End Date Ora Ricks MD [address] [place] [address] PCP - General Internal Medicine 02/25/16 documented as of this encounter
--- OUTSIDE RECORDS SUMMARY | 2025-08-22 08:53 | XMS_ITS | Encounter Summary ---
Author Organization [facility] Address [address] [place] [address] Care Team Providers Care Vp Clinical Research Name Role Phone Ora Ricks MD Primary Care Provider +1- [phone] Encounter Details Date Type Department Care Team (Latest Contact Info) Description 08/27/2002 Outpatient [facility] Medicine [place] 104 [facility] 60 [place] [address] Elio Salas MD [address] [address] Sprain lumbar region (Primary Dx) Social History Tobacco Use Types Packs/Day Years Used Date Smoking Tobacco: Never Assessed Comments Unknown Sex and Gender Information Value Date Recorded Sex Assigned at Not on file Legal Sex Female 3:07 AM TAPER/FINISHER Gender Identity Not on file Sexual Orientation Not on file documented as of this encounter Plan of Treatment Not on file documented as of this encounter Visit Diagnoses Diagnosis Sprain lumbar region- Primary Sprain of lumbar region documented in this encounter Care Teams Vp Clinical Research Relationship Specialty Start Date End Date Ora Ricks MD [address] [place] [address] PCP - General Internal Medicine 02/25/16 documented as of this encounter
--- OUTSIDE RECORDS SUMMARY | 2025-08-22 08:53 | XMS_ITS | Encounter Summary ---
Author Organization [facility] Address [address] [place] [address] Care Team Providers Care Bioinformatics Associate Name Role Phone Ora Ricks MD Primary Care Provider +1- [phone] Encounter Details Date Type Department Care Team (Latest Contact Info) Description 03/06/2001 Outpatient [facility] Medicine [place] 104 [facility] 60 [place] [address] Elio Salsa MD [address] [address] Gynecologic examination (Primary Dx) Social History Tobacco Use Types Packs/Day Years Used Date Smoking Tobacco: Never Assessed Comments Unknown Sex and Gender Information Value Date Recorded Sex Assigned at Not on file Legal Sex Female 3:07 AM HUMAN RESOURCES PROJECT MANAGER Gender Identity Not on file Sexual Orientation Not on file documented as of this encounter Plan of Treatment Not on file documented as of this encounter Visit Diagnoses Diagnosis Gynecologic examination- Primary Gynecological examination documented in this encounter Care Teams Bioinformatics Associate Relationship Specialty Start Date End Date Ora Ricks MD [address] [place] [address] PCP - General Internal Medicine 02/25/16 documented as of this encounter
--- OUTSIDE RECORDS SUMMARY | 2025-08-22 08:53 | XMS_ITS | Encounter Summary ---
Author Organization [facility] Address [address] [place] [address] Care Team Providers Care Extractor Plant Operator Name Role Phone Ora Rciks MD Primary Care Provider +1- [phone] Encounter Details Date Type Department Care Team (Latest Contact Info) Description 02/13/2002 Outpatient [facility] Medicine [address] [address] Tacos Sanchez DO NO ADDRESS ON FILE Gynecologic examination (Primary Dx); VAGINITIS NOS; Cervicitis Social History Tobacco Use Types Packs/Day Years Used Date Smoking Tobacco: Never Assessed Comments Unknown Sex and Gender Information Value Date Recorded Sex Assigned at Not on file Legal Sex Female 3:07 AM PROSTHETICS TECHNICIAN Gender Identity Not on file Sexual Orientation Not on file documented as of this encounter Plan of Treatment Not on file documented as of this encounter Visit Diagnoses Diagnosis Gynecologic examination- Primary Gynecological examination Vaginitis and vulvovaginitis, unspecified Cervicitis Cervicitis and endocervicitis documented in this encounter Care Teams Extractor Plant Operator Relationship Specialty Start Date End Date Ora Ricks MD [address] [place], [place] [address] PCP - General Internal Medicine 02/25/16 documented as of this encounter
--- OUTSIDE RECORDS SUMMARY | 2025-08-22 08:53 | XMS_ITS | Encounter Summary ---
Author Organization [facility] Address [address] [place] [address] Care Team Providers Care Leather Parts Matcher Name Role Phone Ora Ricks MD Primary Care Provider +1- [phone] Encounter Details Date Type Department Care Team (Latest Contact Info) Description 07/22/1998 Outpatient [facility] Medicine [place] 104 [facility] 60 [place] [address] Elio Salas MD [address] [address] Gynecologic examination (Primary Dx) Social History Tobacco Use Types Packs/Day Years Used Date Smoking Tobacco: Never Assessed Comments Unknown Sex and Gender Information Value Date Recorded Sex Assigned at Not on file Legal Sex Female 3:07 AM CIVIL ENGINEER Gender Identity Not on file Sexual Orientation Not on file documented as of this encounter Plan of Treatment Not on file documented as of this encounter Visit Diagnoses Diagnosis Gynecologic examination- Primary Gynecological examination documented in this encounter Care Teams Leather Parts Matcher Relationship Specialty Start Date End Date Ora Ricks MD [address] [place] [address] PCP - General Internal Medicine 02/25/16 documented as of this encounter
--- OUTSIDE RECORDS SUMMARY | 2025-08-22 08:53 | XMS_ITS | Encounter Summary ---
Author Organization [facility] Address [address] [place] [address] Care Team Providers Care Flat Screen Worker Name Role Phone Ora Ricks MD Primary Care Provider +1- [phone] Encounter Details Date Type Department Care Team (Latest Contact Info) Description 11/25/2003 Outpatient [facility] Medicine [place] 104 [facility] 60 [place] [address] Elio Salas MD [address] [address] ACUTE BRONCHITIS (Primary Dx) Social History Tobacco Use Types Packs/Day Years Used Date Smoking Tobacco: Never Assessed Comments Unknown Sex and Gender Information Value Date Recorded Sex Assigned at Not on file Legal Sex Female 3:07 AM DIRECTOR OF INSTITUTIONAL RESEARCH Gender Identity Not on file Sexual Orientation Not on file documented as of this encounter Plan of Treatment Not on file documented as of this encounter Visit Diagnoses Diagnosis Acute bronchitis- Primary documented in this encounter Care Teams Flat Screen Worker Relationship Specialty Start Date End Date Ora Rciks MD [address] [place] [address] PCP - General Internal Medicine 02/25/16 documented as of this encounter
--- OUTSIDE RECORDS SUMMARY | 2025-08-22 08:53 | XMS_ITS | Encounter Summary ---
Author Organization [facility] Address [address] [place] [address] Care Team Providers Care Music Autographer Name Role Phone Ora Ricks MD Primary Care Provider +1- [phone] Encounter Details Date Type Department Care Team (Late st Contact Info) Description 04/10/2004 Outpatient [facility] Medicine [place] 104 [facility] 60 [place] [address] Elio Salas MD [address] [address] Social History Tobacco Use Types Packs/Day Years Used Date Smoking Tobacco: Never Assessed Comments Unknown Sex and Gender Information Value Date Recorded Sex Assigned at Not on file Legal Sex Female 3:07 AM HISTOPATHOLOGIST Gender Identity Not on file Sexual Orientation Not on file documented as of this encounter Plan of Treatment Not on file documented as of this encounter Visit Diagnoses Not on filedocumented in this encounter Care Teams Music Autographer Relationship Specialty Start Date End Date Ora Ricks MD [address] [place], [place] [address] PCP - General Internal Medicine 02/25/16 documented as of this encounter
--- OUTSIDE RECORDS SUMMARY | 2025-08-22 08:53 | XMS_ITS | Encounter Summary ---
Author Organization [facility] Address [address] [place] [address] Care Team Providers Care Trade Mark Attorney Name Role Phone Ora Ricks MD Primary Care Provider +1- [phone] Encounter Details Date Type Department Care Team (Latest Contact Info) Description 09/10/2005 Outpatient Historical [employer] [facility] [address] [place] [phone] Alexis [place] MD NO ADDRESS ON FILE LUPUS ERYTHEMATOSUS (Primary Dx) Social History Tobacco Use Types Packs/Day Years Used Date Smoking Tobacco: Never Assessed Comments Unknown Sex and Gender Information Value Date Recorded Sex Assigned at Not on file Legal Sex Female 3:07 AM FLAT SPRING ASSEMBLER Gender Identity Not on file Sexual Orientation Not on file documented as of this encounter Plan of Treatment Not on file documented as of this encounter Visit Diagnoses Diagnosis Lupus erythematosus- Primary documented in this encounter Care Teams Trade Mark Attorney Relationship Specialty Start Date End Date Ora Ricks MD [address] [place] [address] PCP - General Internal Medicine 02/25/16 documented as of this encounter
--- OUTSIDE RECORDS SUMMARY | 2025-08-22 08:53 | XMS_ITS | Clinical Summary ---
Author Organization [facility] Address [address] [facility] 60 [place] [address] Phone Care Team Providers Care Chemical Sales Representative Name Role Phone Ora Ricks MD Primary Care Provider +1- [phone] Allergies No known active allergies Medications No known medications Immunizations Immunization Administration Dates Next Due (PFIZER)(12 YR UP) COVID-19 VACCINE - EMERGENCY USE AUTHORIZATION, MRNA, [id number](PF) 30 MCG/0.3 ML IM SUSP 12/02/2020,11/11/2020 Hepatitis B Vaccine 01/09/1998,09/09/1997,1996 Social History Tobacco Use Types Packs/Day Years Used Date Smoking Tobacco: Never Alcohol Use Standard Drinks/Week Comments No 0 (1 standard drink = 0.6 oz pur e alcohol) Comments No Sex and Gender Information Value Date Recorded Sex Assigned at Not on file Legal Sex Female 3:07 AM LINE SERVICE ATTENDANT Gender Identity Not on file Sexual [...] Insurance MEDICARE PART A HOSPITAL ONLY [facility]BS [facility] Care Teams Chemical Sales Representative Relationship Specialty Start Date End Date Ora Ricks MD [address] [place] [address] PCP - General Internal Medicine 02/25/16
--- OUTSIDE RECORDS SUMMARY | 2025-08-22 08:53 | XMS_ITS | Encounter Summary ---
Author Organization [facility] Address [address] [place] [address] Care Team Providers Care Second Rigger Name Role Phone Ora Ricks MD Primary Care Provider +1- [phone] Reason for Visit * Reason Onset Date Comments 2 Wk F/U 02/08/2024 Encounter Details Date Type Department Care Team (Late st Contact Info) Description 02/08/2024 Telephone [facility] [address] [place] [address] Vee Sam FNP [address] [place] [address] 2 Wk F/U Social History [...] on file Legal Sex Female 5:27 AM PROPERTY CARETAKER Gender Identity Not on file Sexual Orientation Not on file documented as of this encounter Miscellaneous Notes * Telephone Encounter - Bettie Rebolledo - 02/08/2024 9:03 AM CDT Flaco (Provider) MESSAGE Pt states she was to set up a 2 wk F/U appt following her appt today 02/07 with Flaco. [facility] [employer] Cook: Bettie Rebolledo documented in this encounter Plan of Treatment Upcoming Encounters Date Type Department Care Team (Late st Contact Info) Description 11/21/2025 3:00 PM PROPERTY CARETAKER Office Visit [facility] [address] [place] [address] Jaspreet Davis MD [address] [place] [address] Alberta Warren, AUREA [address] [place] [address] documented as of this encounter Visit Diagnoses Not on filedocumented in this encounter Care Teams Second Rigger Relationship Specialty Start Date End Date Ora Ricks MD [address] [place] [address] PCP - General Internal Medicine 02/25/16 documented as of this encounter
--- OUTSIDE RECORDS SUMMARY | 2025-08-22 08:53 | XMS_ITS | Encounter Summary ---
Author Organization [facility] Address [address] [place] [address] Care Team Providers Care Assembly Mechanic Name Role Phone Ora Ricks MD Primary Care Provider +1- [phone] Encounter Details Date Type Department Care Team (Latest Contact Info) Description 01/21/2003 Outpatient [facility] [address] [place] [phone] Elio Salas MD [address] [address] ACUTE BRONCHITIS (Primary Dx) Social History Tobacco Use Types Packs/Day Years Used Date Smoking Tobacco: Never Assessed Comments Unknown Sex and Gender Information Value Date Recorded Sex Assigned at Not on file Legal Sex Female 3:07 AM MOBILE SALES ASSISTANT Gender Identity Not on file Sexual Orientation Not on file documented as of this encounter Plan of Treatment Not on file documented as of this encounter Visit Diagnoses Diagnosis Acute bronchitis- Primary documented in this encounter Care Teams Assembly Mechanic Relationship Specialty Start Date End Date Ora Ricks MD [address] [place] [address] PCP - General Internal Medicine 02/25/16 documented as of this encounter
--- OUTSIDE RECORDS SUMMARY | 2025-08-22 08:53 | XMS_ITS | Encounter Summary ---
Author Organization [facility] Address [address] [place] [address] Care Team Providers Care Shrimp Peeler Name Role Phone Ora Ricks MD Primary Care Provider +1- [phone] Encounter Details Date Type Department Care Team (Latest Contact Info) Description 04/22/2000 Outpatient Historical [facility] Medicine [address] [phone] Farida Mccurdy NO ADDRESS ON FILE Gynecologic examination (Primary Dx); Vaginitis and vulvovaginitis, unspecified Social History Tobacco Use Types Packs/Day Years Used Date Smoking Tobacco: Never Assessed Comments Unknown Sex and Gender Information Value Date Recorded Sex Assigned at Not on file Legal Sex Female 3:07 AM WHEEL FILLER Gender Identity Not on file Sexual Orientation Not on file documented as of this encounter Plan of Treatment Not on file documented as of this encounter Visit Diagnoses Diagnosis Gynecologic examination- Primary Gynecological examination Vaginitis and vulvovaginitis, unspecified documented in this encounter Care Teams Shrimp Peeler Relationship Specialty Start Date End Date Ora Ricks MD [address] [place] [address] PCP - General Internal Medicine 02/25/16 documented as of this encounter
--- OUTSIDE RECORDS SUMMARY | 2025-08-22 08:53 | XMS_ITS | Encounter Summary ---
Author Organization [facility] Address [address] [place] [address] Care Team Providers Care Disabilities Services Officer Name Role Phone Ora Ricks MD Primary Care Provider +1- [phone] Encounter Details Date Type Department Care Team (Latest Contact Info) Description 03/01/2002 Outpatient [facility] Medicine [address] [address] Emy Colindres MD NO ADDRESS ON FILE Cervicitis (Primary Dx); Gynecologic examination Social History Tobacco Use Types Packs/Day Years Used Date Smoking Tobacco: Never Assessed Comments Unknown Sex and Gender Information Value Date Recorded Sex Assigned at Not on file Legal Sex Female 3:07 AM 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
--- OUTSIDE RECORDS SUMMARY | 2025-08-22 08:54 | XMS_ITS | Encounter Summary ---
Author Organization [facility] Address [address] [place] [address] Care Team Providers Care Pharmacy Tech Customer Service Name Role Phone Ora Ricks MD Primary Care Provider +1- [phone] Reason for Visit * Reason Onset Date Comments Needs Appointment 01/16/2024 Encounter Details Date Type Department Care Team (Late st Contact Info) Description 01/16/2024 Telephone [facility] [address] [place] [phone] Alberta Warren, ESTHETICIAN/OWNER [address] [place] [phone] Needs Appointment Social History Tobacco Use [...] on file Legal Sex Female 5:27 AM BARBER SHOP MANAGER Gender Identity Not on file Sexual Orientation Not on file documented as of this encounter Miscellaneous Notes * Telephone Encounter - Geovanny Almaguer - 01/16/2024 2:19 PM CDT [facility] Call Center Communications Alberta Warren (Provider) MESSAGE Needing to schedule appointment [facility] Client Support Manager: TRINH Brady documented in this encounter Plan of Treatment Upcoming Encounters Date Type Department Care Team (Late st Contact Info) Description 11/21/2025 3:00 PM BARBER SHOP MANAGER Office Visit [facility] [address] [place] [phone] Jaspreet Davis MD [address] [place] [phone] Alberta Warren, AUREA [address] [place] [phone] documented as of this encounter Visit Diagnoses Not on filedocumented in this encounter Care Teams Pharmacy Tech Customer Service Relationship Specialty Start Date End Date Ora Ricks MD [address] [place] [address] PCP - General Internal Medicine 02/25/16 documented as of this encounter
--- OUTSIDE RECORDS SUMMARY | 2025-08-22 08:54 | XMS_ITS | Clinical Summary ---
Author Organization [facility] Address [address] Panchal: [place] [address] Care Team Providers Care Welt Trimming Machine Operator Name Role Phone Ora Ricks MD Primary Care Provider +1- [phone] Allergies No known active allergies Medications levothyroxine [...] (VITAMIN D3 ORAL) Take by mouth. Active [id number] ORAL Take by mouth. Active timoloL maleate [...] Encounters Date Type Department Care Team Description 08/21/2025 Orders Only [facility] Admitting [address] [place] [address] Ora Ricks MD Coronary artery disease, unspecified vessel or lesion type, unspecified whether angina present, unspecified whether agdaagux or transplanted heart (Primary Dx) 08/13/2025 External Device Data STL ABSTRACTION Provider, Abstract 07/17/2025 12:20 AM CDT - 07/17/2025 11:59 PM CDT Hospital Encounter [facility] [address] [place] [address] Ambulance, [facility] Discharge Disposition: [facility] 07/02/2025 External Device Data STL ABSTRACTION Provider, Abstract 06/19/2025 External Device Data STL ABSTRACTION Provider, Abstract 06/05/2025 External Device Data STL ABSTRACTION Provider, Abstract from Last 3 Months Immunizations Immunization Administration Dates Next Due ([employer])(12 YR UP) COVID-19 VACCINE - EMERGENCY USE AUTHORIZATION, MRNA, [id number](PF) 30 MCG/0.3 ML IM SUSP 08/04/2021,12/02/2020,11/11/2020 Hepatitis [...] on file Legal Sex Female 5:27 AM OPERATOR CAVITY PUMP Gender Identity Not on file Sexual Orientation [...] st Contact Info) Description 11/21/2025 3:00 PM OPERATOR CAVITY PUMP Office Visit [facility] [address] [facility] [address] [place] [phone] Jaspreet Davis MD [address] [facility] [address] [place] [phone] Alberta Warren NP [address] [facility] [address] [place] [phone] Health Maintenance Due Date Last Done Comments DTAP/TDAP/TD VACCINES (1 - Tdap) 1972 Traditional Medicare (ACO) A nnual Wellness Visit 1974 COLORECTAL SCREENING 1998 FIT/FOBT Q 1 year 1998 Flex Sig/CT Colonography Q 5 years 1998 ZOSTER VACCINE (1 of 2) 2003 BREAST CANCER SCREENING 03/15/2025 03/15/20 24, 01/25/2023, 01/25/2023, Additional history exists INFLUENZA VACCINE (#1) 2025 , 08/26/2023, 07/27/2022, Additional history exists COVID-19 Vaccine (4 - 2024-2 6 season) 2025 08/04/2021, 12/02/2020, 11/11/2020 Colorectal Cancer Screening 11/23/2026 FIT-DNA Q 3 years 11/23/2026 11/23/2023 OSTEOPOROSIS SCREENING 04/18/2028 04/18/2023 RSV VACCINE (60+ or ) (1 - 1-dose 75+ series) 2028 PNEUMOCOCCAL VACCINE 50+ YEARS Completed 05/06/2025 Procedures Procedure Name Priority Date/Time Associated Diagnosis Comments MAMMO 3D HARJINDER SCREEN BILAT W OR WO CAD Routine 03/15/2024 Screening mammogram for breast cancer COLON CANCER SCREEN, STOOL DNA Routine 11/23/2023 9:45 PM OPERATOR CAVITY PUMP Screening for colon cancer from Last 3 Months or Most Recently Relevant to Health Maintenance Results * MAMMO 3D HARJINDER SCREEN BILAT W OR WO CAD (03/15/2024) Anatomical Region Laterality Modality Breast Bilateral Mammography us Jacklyn Niño SECTION LEADER SCREEN PRINTING MAMMO ORDERABLES Final Resu lt * COLON CANCER SCREEN, STOOL DNA (11/23/2023 9:45 PM OPERATOR CAVITY PUMP) COLOGUARD RESULT Negative Negative [facility] Comment: NEGATIVE TEST RESULT. A negative Cologuard [...] screened with both Cologuard and colonoscopy. (Robert Kumar et al, N Engl J Med 2014;370(14):2127-0506) The normal value (reference range) for this assay is negative. COLOGUARD RE-SCREENING RECOMMENDATION: Periodic colorectal cancer screening is an important part of preventive healthcare for asymptomatic individuals at average risk for colorectal cancer. Following a negative Cologuard result, the [place] Cancer Society and U.S. Multi-Society Task Force screening guidelines recommend a Cologuard re-screening interval of 3 years. References: [place] [employer] Guideline for Colorectal Cancer Screening: https://www.cancer.org/cancer/tsrrk-tlcnsu-xfjvnr/cizyzspos-guqkgjtvz-klbauwv/ac s-rec ommendations.html.; Kamran DK, Kristina CR, Rik LawrenceK, Colorectal Cancer Screening: Recommendations for Physicians and Patients from the U.S. Multi-Society Task Force on Colorectal Cancer Screening , Am J Gastroenterology 2017; 112:9902-8573. TEST DESCRIPTION: Composite algorithmic analysis of stool [...] (Robert Chandra al, N Engl J Med 2014;370(14):9318-5987.) Cologuard may produce a false negative or false positive result (no colorectal cancer or precancerous polyp present at colonoscopy follow up). A negative Cologuard test result does not guarantee the absence of CRC or advanced adenoma (pre-cancer). The current Cologuard screening interval is every 3 years. ([place] Cancer Society and U.S. Multi-Society Task Force). Cologuard performance data in a 10,000 patient pivotal study using colonoscopy as the reference method can be accessed at the following location: www.WeOwe.Portr/results. Additional description of the Cologuard test process, warnings and precautions can be found at www.VuCOMPrd.com. Stool STOOL SPECIMEN / Unknown 11/23/2023 9:45 PM OPERATOR CAVITY PUMP 11/25/2023 2:40 PM OPERATOR CAVITY PUMP Jacklynuli Headjuan Niño SECTION LEADER SCREEN PRINTING BODY FLUIDS AND STOOLS Philly sepulveda Result [facility] CLIA # [id number] [address], [address] [place] [address] from Last 3 Months or Most Recently Relevant to Health Maintenance Insurance MEDICARE PART A AND B [facility] [address] Care Teams Welt Trimming Machine Operator Relationship Specialty Start Date End Date Ora Ricks MD [address] [place] [id number] PCP - General Internal Medicine 02/25/16
--- OUTSIDE RECORDS SUMMARY | 2025-08-22 08:54 | XMS_ITS | Encounter Summary ---
Author Organization [facility] Address [address] [place] [address] Care Team Providers Care Thermal Cutter Helper Name Role Phone Ora Ricks MD Primary Care Provider +1- [phone] Encounter Details Date Type Department Care Team (Late st Contact Info) Description 03/30/[address] [phone] Elio Salas MD [address] [phone] Social History Tobacco Use Types Packs/Day Years Used Date Smoking Tobacco: Never Assessed Comments Unknown Sex and Gender Information Value Date Recorded Sex Assigned at Not on file Legal Sex Female 3:07 AM LOCK PLATER Gender Identity Not on file Sexual Orientation Not on file documented as of this encounter Plan of Treatment Not on file documented as of this encounter Visit Diagnoses Not on filedocumented in this encounter Care Teams Thermal Cutter Helper Relationship Specialty Start Date End Date Ora Ricks MD [address] [place] [id number] PCP - General Internal Medicine 02/25/16 documented as of this encounter
--- OUTSIDE RECORDS SUMMARY | 2025-08-22 08:54 | XMS_ITS | Encounter Summary ---
Author Organization [facility] Address [address] [place] [address] Care Team Providers Care Warehouse Man Name Role Phone Ora Ricks MD Primary Care Provider +1- [phone] Reason for Visit * Reason Onset Date Comments Question 02/15/2024 Encounter Details Date Type Department Care Team (Late st Contact Info) Description 02/15/2024 Telephone [facility] [address] [facility] [address] [place] [phone] Mickey Burks MD [address] [facility] [address] [place] [phone] Question Social History Tobacco Use Types [...] on file Legal Sex Female 5:27 AM AMMONIA PRINT OPERATOR Gender Identity Not on file Sexual Orientation Not on file documented as of this encounter Miscellaneous Notes * Telephone Encounter - Rosibel Toscano S - 02/15/2024 11:15 AM CDT Sandy (Provider) MESSAGE Pt would like to know if appt on 03/13 can be a phone visit as she is three hours away. Please adv. [facility] Carburizer: Rosibel Toscano documented in this encounter Plan of Treatment Upcoming Encounters Date Type Department Care Team (Late st Contact Info) Description 11/21/2025 3:00 PM AMMONIA PRINT OPERATOR Office Visit [facility] [address] [place] [phone] Jaspreet Davis MD [address] [place] [phone] Alberta Warren, AUREA [address] [facility] [address] [place] [phone] documented as of this encounter Visit Diagnoses Not on filedocumented in this encounter Care Teams Warehouse Man Relationship Specialty Start Date End Date Ora Ricks MD [address] [place] [address] PCP - General Internal Medicine 02/25/16 documented as of this encounter
--- OUTSIDE RECORDS SUMMARY | 2025-08-22 08:54 | XMS_ITS | Encounter Summary ---
Author Organization [facility] Address [address] [place] [address] Care Team Providers Care Location Director Name Role Phone Ora Ricks MD Primary Care Provider +1- [phone] Encounter Details Date Type Department Care Team (Late st Contact Info) Description 03/31/2005 Outpatient [facility]- [address] [phone] Elio Salas MD [address] [phone] Social History Tobacco Use Types Packs/Day Years Used Date Smoking Tobacco: Never Assessed Comments Unknown Sex and Gender Information Value Date Recorded Sex Assigned at Not on file Legal Sex Female 3:07 AM APPLICATION PACKAGER Gender Identity Not on file Sexual Orientation [...] on filedocumented in this encounter Care Teams Location Director Relationship Specialty Start Date End Date Ora Ricks MD [address] [place] [address] PCP - General Internal Medicine 02/25/16 documented as of this encounter
--- OUTSIDE RECORDS SUMMARY | 2025-08-22 08:54 | XMS_ITS | Encounter Summary ---
Author Organization [facility] Address [address] [place] [address] Care Team Providers Care Asp Developer Name Role Phone Ora Ricks MD Primary Care Provider +1- [phone] Encounter Details Date Type Department Care Team (Latest Contact Info) Description 03/30/2005 Outpatient [facility]- [address] [phone] Elio Salas MD [address] [phone] ROUTINE BEEF GRINDER EXAMINATION (Primary Dx); SCREENING MAL NEOP-BREAST,UNSPEC; SYMPTOMATIC FEMALE CLIMACTERIC STATE; SCREENING MAL NEOP-RECTUM Social History Tobacco Use Types Packs/Day Years Used Date Smoking Tobacco: Never Assessed Comments Unknown Sex and Gender Information Value Date Recorded Sex Assigned at Not on file Legal Sex Female 3:07 AM FOOD SERVICE Gender Identity Not on file Sexual Orientation Not on file documented as of this encounter Plan of Treatment Not on file documented as of this encounter Visit Diagnoses Diagnosis Routine gynecological examination- Primary Breast screening, unspecified Symptomatic menopausal or female climacteric states Screening for malignant neoplasm of the rectum documented in this encounter Care Teams Asp Developer Relationship Specialty Start Date End Date Ora Ricks MD [address] [place] [address] PCP - General Internal Medicine 02/25/16 documented as of this encounter
[2025-08-22 09:37] LABS: Hematocrit 35.0 % (36-47); Hemoglobin 11.10 g/dL (11.27-16.99); Mean Corpuscular HGB Conc 31.7 g/dL (30-55); Mean Corpuscular Hemoglobin 30.9 pg (27-33); Mean Corpuscular Volume 97.5 fl (85-98); Nucleated Red Blood Cells % 0 %; Platelet Count 206 10^3/cmm (157-399); Red Blood Count 3.59 10^6/uL (3.85-5.65); White Blood Count 4.93 10^3/uL (3.29-11.43)
[2025-08-22 09:54] LABS: Troponin(5th) Baseline 26 ng/L (0-10)
[2025-08-22 09:57] LABS: Alanine Aminotransferase 48 U/L (0-33); Albumin Level 4.3 g/dL (3.5-5.2); Alkaline Phosphatase 152 U/L (35-105); Aspartate Amino Transferase 63 U/L (0-32); Blood Urea Nitrogen 10 mg/dL (8-23); Calcium 8.9 mg/dL (8.5-10.5); Carbon Dioxide 19 mmol/L (22-29); Chloride 103 mmol/L (98-107); Creatinine Clr Calc Pharmacy 62.5392; Globulin 3.1 g/dL (1.3-4.6); Glucose 108 mg/dL (65-115); Osmolality Calculated 286 mOsm/kg (285-295); Sodium 138 mmol/L (136-145); Total Protein 7.4 g/dL (6.6-8.7)
--- NOTE | 2025-08-22 10:13 | ED_ITS ---
HPI - Arrhythmia/Palpitations 2 General: Chief Complaint: Arrhythmia/Palpitations Stated Complaint: chest pain Time Seen by Provider: 08/22/25 08:51 History of Present Illness: 70-year-old female history of A-fib pres ents emergency room stating she was in and out of A-fib for the last proximately 18 to 24 hours. Blood pressure had been rather sporadic as well she is on apixaban she also on amiodarone and digoxin. She denies any chest pain mild shortness of breath with any exertion. At rest she is uncomfortable. Associated symptoms: Deny syncope Related Data Home Medications ?Medication ?Instructions ?Recorded ?Confirmed cholecalciferol (vitamin D3) 25 25 mcg PO DAILY 08/22/25 mcg (1,000 unit) capsule pantoprazole 40 mg tablet,delayed 40 mg PO DAILY 04/1108/22/25 release timolol maleate 0.25 % eye drops 1 drop ophthalmic (ey e) DAILY 04/11/20 08/22/25 alendronate 70 mg tablet (Fosamax) 70 mg PO .Q7days 08/22/25 levothyroxine 75 mcg capsule 75 mcg PO QAM 11/25/21 folic acid 1 mg tablet 1 mg PO DAILY 07/20/2508/22 apixaban 5 mg tablet (Eliquis) 5 mg PO BID 08/22/25 metoprolol tartrate 50 mg tablet 50 mg PO BID 08/22/25 08/22/25 Previous Rx's ?Medication ?Instructions ?Recorded clopidogrel 75 mg tablet 75 mg PO DAILY #90 tabs 07/01 07/25 sacubitril 24 mg-valsartan 26 mg 1 tab PO BID #60 tabs 07/19/25 tablet (Entresto) atorvastatin 80 mg tablet (Lipitor) 80 mg PO DAILY #90 tabs 07/31/25 amiodarone 200 mg tablet (Pacerone) 200 mg PO QDAY #90 tabs 08/07/25 digoxin 125 mcg (0.125 mg) tablet 125 mcg PO .every ot her day #30 08/07/25 tabs Allergies Allergy/AdvReac Type Severity Reaction Status Date / Time No Known Allergies Allergy Verified 07/31/25 14:06 Review of Systems 2 Const: Denies: fever(s) or chills Card: Reports: palpitations, irregular heart rhythm and dyspnea on exertion; Denies: chest pain, swelling of feet/ankles, lightheadedness or syncope Resp: Denies: dyspnea GI: Denies: abdominal pain : Denies: dysuria, urinary frequency or urinary urgency Musc: Denies: neck pain or back pain Skin/Breast: Denies: rash PFSH ED 2 PFSH: Medical History 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 Systemic lupus erythematosus, unspecified Medication monitoring encounter Osteoarthritis Cutaneous lupus erythematosus in remission Surgical History H/O: hysterectomy H/O dilation and curettage H/O lumpectomy benign H/O eye surgery 1955 Family History Mother Hyperlipidemia Hypertension Sister Breast cancer late 30's Father Lung cancer Denies family history of Colon cancer Ovarian cancer Diabetes CAD (coronary artery disease) Clotting disorder Heart disease Anesthesia complication Bleeding disorder Uterine cancer Thyroid disease Stroke Social History Smoking and tobacco/nicotine status: never used tobacco/nicotine Alcohol intake: never Substance/Drug Use: never Lives independently: No Marital status: Number of children: 2 Physical Exam 2 Const: COMMON NORMALS: no acute distress GENERAL APPEARANCE: cooperative ORIENTATION/CONSCIOUSNESS: Yes awake, Yes oriented to person, Yes oriented to place and Yes oriented to time HENMT: COMMON NORMALS: normocephalic, atraumatic and hearing grossly normal bilaterally HEAD & SCALP: normocephalic and atraumatic Resp: COMMON NORMALS: normal respiratory effort, No retractions, No use of accessory muscles and clear to auscultation bilaterally AUSCULTATION: clear to auscultation bilaterally Cardio: COMMON NORMALS: regular rhythm and No murmurs present (Cardio) R ATE: bradycardic RHYTHM: regular rhythm GI: COMMON NORMALS: Soft to palpation and No hepatosplenomegaly present A USCULTATION: Yes normoactive bowel sounds PALPATION: Yes Soft to palpation, No Tenderness to palpation present (GI), No Guarding due to palpation present (GI) and Yes No hepatosplenomegaly present Extremity: COMMON NORMALS: normal to inspection, capillary refill normal, no clubbing, cyanosis or edema, no calf tenderness and no pedal edema Neuro: SENSORIUM/ORIENTATION: Yes oriented to person, Yes oriented to place and Yes oriented to time Skin: COMMON NORMALS: no rashes or lesions noted GENERAL SKIN EXAM: no rashes or lesions noted Course 2 Vital Signs: Vital signs: Vital Signs Temperature 98.1 F 08/22/25 08:47 Pulse Rate 61 08/22/25 12:19 Respiratory Rate 18 08/22/25 08:47 Blood Pressure 124/52 08/22/25 12:19 Pulse Oximetry 98 08/22/25 12:19 Oxygen Delivery Me thod Room Air 08/22/25 11:21 MDM - Arrhythmia/Palpitations Medical Decision Making Exam is unremarkable no signs of decompensated heart failure patient is actually bradycardic while she is here but not excessively so her blood pressure is well- preserved she is asymptomatic. Patient recently had a 30-day Holter monitor to evaluate for breakthrough tachycardias. Continue current dose of medication follow-up with cardiology as scheduled no changes at this time Medical Records I reviewed the patient's medical records. Lab Data I reviewed the patient's lab results. 08/22/25 09:27 08/22/25 09:27 Radiology Impressions Chest X-Ray 08/22/25 08:51 Impression: Atherosclerosis. Laboratory Results WBC 4.93 10^3/uL (3.29-11.43) 08/22/25 09:27 RBC 3.59 10^6/uL (3.85-5.65) L 08/22/25 09:27 Hgb 11.10 g/dL (11.27-16.99) L 08/22/25 09:27 Hct 35.0 % (36-47) L 08/22/25 09:27 MCV 97.5 fl (85-98) 08/22/25 09:27 MCH 30.9 pg (27-33) 08/22/25 09:27 MCHC 31.7 g/dL (30-55) 08/22/25 09:27 RDW 16.7 % (12.1-15.1) H 08/22/25 09:27 Plt Count 206 10^3/cmm (157-399) 08/22/25 09: MPV 9.5 fL (7.4-10.4) 08/22/25 09: Neut % (Auto) 70.6 % 08/22/25 09:27 Lymph % (Auto) 14.6 % 08/22/25 09: [place] % (Auto) 11.4 % 08/22/25 09: Eos % (Auto) 2.8 % 08/22/25 09: Baso % (Auto) 0.2 % 08/22/25 09: Neut # (Auto) 3.48 10^3/uL (1.8-7.7) 08/22/25 09: Lymph # (Auto) 0.7 10^3/uL (0.8-4.8) L 08/22/25 09:27 [place] # (Auto) 0.6 10^3/uL (0.2-0.9) 08/22/25 09: Eos # (Auto) 0.1 10^3/uL (0.0-0.8) 08/22/25 09: Baso # (Auto) 0.0 10^3/uL (0.0-0.1) 08/22/25 09: Nucleated RBC % (auto) 0 % 08/22/25 09: Nucleated RBCs # 0.0 /100WBC 08/22/25 09:27 Sodium 138 mmol/L (136-145) 08/22/25 09: Potassium 3.9 mmol/L (3.5-5.1) 08/22/25 09: Chloride 103 mmol/L (98-107) 08/22/25 09:27 Carbon Dioxide 19 mmol/L (22-29) L 08/22/25 09: Anion Gap 19.9 (5-19) H 08/22/25 09:27 BUN 10 mg/dL (8-23) 08/22/25 09: Creatinine 0.8 mg/dL (0.5-0.9) 08/22/25 09:27 GFR Calculation Not Reportable 08/22/25 09: Glucose 108 mg/dL (65-115) 08/22/25 09:27 Calculated Osmolality 286 mOsm/kg (285-295) 10/23/25 09:27 Calcium 8.9 mg/dL (8.5-10.5) 08/22/25 09:27 Total Bilirubin 0.7 mg/dL (0.15-1.2) 08/22/25 09:27 AST 63 U/L (0-32) H 08/22/25 09:27 ALT 48 U/L (0-33) H 08/22/25 09:27 Alkaline Phosphatase 152 U/L (35-105) H 08/22/25 09:27 Troponin T Baseline 26 ng/L (0-10) H 08/22/25 09:27 Troponin T 120 Minute 22.57 ng/L (0-10) H 08/22/25 11:31 Delta Troponin T -3.43 ABS# (0-10) L 08/22/25 11:31 Total Protein 7.4 g/dL (6.6-8.7) 08/22/25 09:27 Albumin 4.3 g/dL (3.5-5.2) 08/22/25 09:27 Globulin 3.1 g/dL (1.3-4.6) 08/22/25 09:27 Digoxin 0.5 ng/mL (0.6-1.2) L 08/22/25 09:27 All radiology interpretation(s) finalized by discharge EKG Data EKG 1: I personally reviewed and interpreted this EKG as follows: Interpretation: EKG 08/22/2025 8:44 AM sinus arrhythmia rate of 60 DC interval [address] changes. Compared to EKG 07/23/2025 sinus rhythm now present previously was atrial fibrillation Other EKG comments: Chest X-Ray 08/22/25 08:51 Impression: Atherosclerosis. EKG 2: I personally reviewed and interpreted this EKG as follows: Interpretation: 08/22/2025 10:46 AM sinus bradycardia rate of 59 DC interval [address] changes. There is T wave inversion present in the lateral leads however this been present on initial EKG today and on previous EKGs unchanged. No significant changes from 07/23/2025 or EKG done earlier today. Other EKG comments: Chest X-Ray 08/22/25 08:51 Impression: Atherosclerosis. Discharge Plan Discharge Patient Disposition: Home Clinical Impression: Atrial fibrillation Condition: Stable Prescriptions: No Action pantoprazole 40 mg tablet,delayed release (DR/EC) 40 mg PO DAILY timolol maleate 0.25 % drops 1 drop ophthalmic (eye) DAILY cholecalciferol (vitamin D3) 25 mcg (1,000 unit) capsule 25 mcg PO DAILY alendronate [Fosamax] 70 mg tablet 70 mg PO .Q7days Rx Instructions: Tuesday levothyroxine 75 mcg capsule 75 mcg PO QAM atorvastatin [Lipitor] 80 mg tablet 80 mg PO DAILY Qty: 90 3RF amiodarone [Pacerone] 200 mg tablet 200 mg PO QDAY Qty: 90 1RF digoxin 125 mcg (0.125 mg) tablet 125 mcg PO .every other day Qty: 30 2RF clopidogrel 75 mg Tablet 75 mg PO DAILY Qty: 90 3RF sacubitril-valsartan [Entresto] 24-26 mg Tablet 1 tab PO BID Qty: 60 1RF folic acid 1 mg tablet 1 mg PO DAILY Eliquis 5 mg tablet 5 mg PO BID metoprolol tartrate 50 mg tablet 50 mg PO BID Discharge Orders: Discharge ED (Routine); Ordered 08/22/25 Ordered By: Ashish Cruz Referrals: Ora Ricks MD [Primary Care Provider, Internal Medicine] Discharge Diet: Usual diet Discharge Activity: Limit activity as instructed Patient Instructions: Opioid Safety, Pain Management, Patient Portal & Anila Instructions Activity Restrictions/Additional Instructions: Thank you for choosing [facility] for your healthcare needs today. It is very important that you follow up as instructed or that you return to the Emergency Department should you have concerns or if your condition changes or worsens in any way. Emergency department visits are focused on emergent conditions, in some cases you may require further evaluation on an outpatient basis. You are seen emergency room with complaint of rapid heart rate. There is no rapid heart rates noted while you are in the emergency room. Suspect that you had a breakthrough of your atrial fibrillation. Your rate is well-controlled now would not recommend changing any dose of your medications follow-up with cardiology to review the recent 30-day Holter monitor you had been wearing. Continue your current medications with no changes. (Please note that included in your discharge packet is information concerning opioid safety and pain management. This information is given to all patients were discharged from the ER regardless of their discharge diagnosis or the medicines they usually take or are prescribed.) Print Language: Persian Coding Level of Care Code ED Plastic Surgery Manager for Lisa Peace
[2025-08-22 10:34] LABS: Anion Gap 19.9 (5-19); Potassium 3.9 mmol/L (3.5-5.1)
[2025-08-22 10:35] LABS: Digoxin 0.5 ng/mL (0.6-1.2)
--- NOTE | 2025-08-22 10:51 | ECG_ITS ---
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 Measurements Intervals [place] Rate: 59 P: 66 IN: 135 QRS: 45 QRSD: 96 T: 19 QT: 432 QTc: 430 Interpretive Statements SINUS BRADYCARDIA POSSIBLE LEFT ATRIAL ENLARGEMENT [-0.1mV P-WAVE IN V1/V2] MODERATE T-WAVE ABNORMALITY, CONSIDER ANTEROLATERAL ISCHEMIA [-0.1+ mV T-WAVE IN V3-V6] Compared to ECG 08/22/2025 08:44:15 Sinus rhythm no longer present T-wave abnormality still present Possible ischemia still present Electronically Signed On 08-23-2025 15:30:03 CDT by Kasia Monroe M.D. [email or web address]
[2025-08-22 11:21] VITALS: BP 117/52; PULSE 66; O2SAT 99
[2025-08-22 11:57] LABS: Troponin 5 2HR 22.57 ng/L (0-10)
[2025-08-22 12:08] LABS: Troponin 5 2HR Delta -3.43 ABS# (0-10)
[2025-08-22 12:19] VITALS: BP 124/52; PULSE 61; O2SAT 98
== END 2025-08-22 12:20 | disposition home or self-care (01) ==
PROVIDERS: Emergency Provider Family Medicine; PCP Internal Medicine
DX: I48.91 Unspecified atrial fibrillation (principal); Z79.01 Long term (current) use of anticoagulants
CPT/HCPCS: 36415; 71045; 80053; 80162; 84484; 85025; 93005; 99285; J9999

== ENCOUNTER 2025-08-29 13:30 | Outpatient (CLI) | payer MEDICARE, OTHER, SELFPAY ==
--- NOTE | 2025-08-29 13:37 | MRR_ITS ---
PROCEDURE INFORMATION: Exam: MR Abdomen Without Contrast Exam date and time: 08/29/2025 2:16 PM Age: 70 years old Clinical indication: Condition or disease; Liver condition; Hepatomegaly or mass; Prior surgery; Surgery date: 6+ months; Surgery type: Heart stents, hyster, breast lump; Follwo up to US of gb done here. Liver mass TECHNIQUE: Imaging protocol: Magnetic resonance imaging of the abdomen without contrast. COMPARISON: US gall bladder [id number] 07/21/2025 7:[address] angio abdomen [id number] 12/24/2011 3:30 PM FINDINGS: Liver: The liver measures 19.0 cm in the midclavicular plane. 11.4 mm cyst in the left lobe lateral segment near the falciform ligament fissure. Additional right lobe 4.4 mm benign cyst. Additional 3.6 mm segment 2 cyst. Hepatic segment 7 nonenhancing focus correlating with the sonographic finding measuring 22.3 x 12.7 x 13.4 mm (700, image 250; series 800, image 26), with marginal T2 hypointensity and central T2 hyperintensity (501, image 14; series 301, image 11). Capsular retraction is present posteromedial to the lesion, as on the prior sonogram. Gallbladder and biliary ducts: A single 16 mm gallstone is present dependently in the nondistended gallbladder. No wall thickening or pericholecystic fluid identified. The common bile duct measures 3.8 mm. No ductal calculi as visualized. Pancreas: Unremarkable. No ductal dilation. Spleen: Unremarkable. No splenomegaly. Adrenal glands: Unremarkable. No mass. Kidneys: Mild left extrarenal renal pelviectasis, a normal variant. Right renal lower pole 2.2 mm benign cyst. Multifocal right renal cortical scarring. Stomach and bowel: Visualized stomach and intestines are unremarkable. Intraperitoneal space: No free fluid. Vasculature: The main portal vein measures 10.7 mm. Replaced right hepatic artery (SMA origin), a normal variant. Lymph nodes: No enlarged nodes. Bones/joints: Unremarkable. No suspicious lesions. Soft tissues: Unremarkable. MR/MR abdomen wo/w con* [id number] IMPRESSION: 1. Right hepatic lobe finding consistent with the sonographic finding, possibly representing a previous site of hemorrhage/injury. Clinical correlation is recommended. This finding has been stable since 12/24/2011. 2. Cholelithiasis, without evidence of cholecystitis. 3. Mild hepatomegaly. 4. Hepatic benign cysts. No specific follow-up imaging is recommended. 5. Right renal tiny benign cyst. No follow-up imaging is recommended. 6. Multifocal right renal cortical scarring. COMMENTS: Consistent with the [employer]'s Incidental Findings Committee white paper (J Am Kendrick Radiol 2018): Any incidental renal lesion less than 1 cm or classified as too small to characterize, or any incidental cystic renal lesion characterized as simple-appearing, is likely benign. No follow-up imaging is recommended for these lesions per consensus recommendations based on imaging criteria.
[2025-08-29] MEDS: gadobenate dimeglumine 20 mL vial 15 ML IV (14:51)
== END 2025-08-29 13:31 | disposition home or self-care (01) ==
LOC: RAD 13:33
PROVIDERS: PCP Internal Medicine; Visit Provider Internal Medicine
DX: K76.89 Other specified diseases of liver (principal); R16.0 Hepatomegaly, not elsewhere classified; Z95.5 Presence of coronary angioplasty implant and graft; K80.80 Other cholelithiasis without obstruction
CPT/HCPCS: 74183; A9577

== ENCOUNTER → 2025-09-04 14:48 | Outpatient (BNVA) | payer MEDICARE, OTHER, SELFPAY | PROVIDERS: PCP Internal Medicine; Visit Provider Internal Medicine Cardiovascular Disease | DX: I11.0 Hypertensive heart disease with heart failure (principal); I50.21 Acute systolic (congestive) heart failure; I25.10 Atherosclerotic heart disease of native coronary artery without angina pectoris; I48.91 Unspecified atrial fibrillation; I25.5 Ischemic cardiomyopathy; Z79.01 Long term (current) use of anticoagulants | CPT/HCPCS: 99214 ==